=== PATIENT | male | born 1955 | race Caucasian/White ===

== ENCOUNTER → 2021-03-27 | Outpatient (CLI) | payer MEDICARE, OTHER ==
[2021-03-27 12:27] VITALS: BP 153/85; PULSE 55; RESP 18
--- NOTE | 2021-03-27 12:50 | P.CONS ---
History of Present Illness - Reason for Consult Consult date: 03/27/21 - Chief Complaint Lower back and right leg pain - History of Present Illness This is a 66-year-old gentleman with history of chronic lower back pain with radiation to the right lower extremity down to the right foot without paresthesia. The patient feels weakness in the right leg but he denies any bowel or bladder dysfunction. The patient had anterior lumbar fusion a few years ago . Before the surgery his pain was mostly in the lower back and after the surgery the pain radiated down the right leg. This pain gets worse by walking and improved by sitting down it does wake him up at night and decreases his quality of sleep. His lumbar spine MRI shows central stenosis at the L3 4 and L4-L5 levels. He states that his right leg pain is more intense than his lower back pain. Past Medical History Past Medical History: Coronary Artery Disease (CAD), Chest Pain / Angina, GERD/Reflux, Hyperlipidemia, Hypertension, Myocardial Infarction (OR), Osteoa rthritis (OA) Additional Past Medical History / Comment(s): CAD, PCI, hypertension, hyperlipidemia, GERD, degenerative disc disease of the lumbar spine, chronic pain, chronic bronchitis. Last Myocardial Infarction Date:: 2004 History of Any Multi-Drug Resistant Organisms: None Reported Past Surgical History: Cholecystectomy, Heart Catheterization With Stent, Hernia Repair, Orthopedic Surgery Additional Past Surgical History / Comment(s): carpal tunnal repair, cyst remove d from the mouth, Left heart catheterization 2000 and 2004, right hernia repair, left arthroscopic knee surgery. Past Anesthesia/Blood Transfusion Reactions: No Reported Reaction Date of Last Stent Placement:: 2004 Smoking Status: Never smoker - Past Family History Mother Family Medical History: Cancer Father Family Medical History: Cancer Medications and Allergies Home Medications Medication Instructions Recorded Confirmed Type Aspirin 325 mg PO DAILY 09/29/14 08/27/16 History Ezetimibe [Zetia] 10 mg PO DAILY 09/29/14 08/27/16 History Isosorbide Dinitrate 10 mg PO BID 09/29/14 08/27/16 History Metoprolol Tartrate [Lopressor] 75 mg PO BID 09/29/14 08/27/16 History Montelukast [Singulair] 10 mg PO HS 09/29/14 08/27/16 History Ranitidine HCl 150 mg PO DAILY 09/29/14 08/27/16 History methocarbamoL [Methocarbamol] 750 mg PO TID 09/29/14 08/27/16 History Enalapril Maleate [Vasotec] 20 mg PO BID #60 tab 09/30/14 08/27/16 Rx HYDROcodone/APAP 7.5-325MG [[place] 1 tab PO Q6HR PRN 08/27/16 08/27/16 History 7.5-325] amLODIPine [Norvasc] 5 mg PO BID 08/27/16 08/27/16 History polyethylene glycoL 3350 [Miralax] 17 gm PO DAILY 08/27/16 08/27/16 History Allergies Allergy/AdvReac Type Severity Reaction Status Date / Time No Known Allergies Allergy Verified 03/22/21 15:04 Physical Exam Vitals: Vital Signs Pulse Resp BP Pulse Ox 03/27/21 12:23 55 L 18 153/85 95 - Constitutional General appearance: average body habitus - EENT Eyes: PERRLA - Neurologic Neuro exam of the lower extremities showed normal muscle strength bilaterally in the major muscle groups. Decreased but symmetrical knee reflexes and absent ankle reflex bilaterally. Straight leg raising test negative bilaterally. Mild tenderness in the lumbar paravertebral musculature bilaterally. Neurologic: CNII-XII intact - Psychiatric Psychiatric: A&O x's 3, appropriate affect, intact judgment & insight Assessment and Plan Plan: This is a 66-year-old gentleman with the following diagnoses Lumbar postlaminectomy pain syndrome status post anterior fusion Lumbar stenosis Right lumbar radiculitis Marijuana use Failure to respond to physical therapy The patient may benefit from getting lumbar epidural steroid injection at the L4 5 level in the right paramedian approach under fluoroscopic guidance. I thank Dr. Barron for the referral
== END ==
LOC: PNWHC3 12:07
PROVIDERS: ATTEND Anesthesiology
DX: M96.1 Postlaminectomy syndrome, not elsewhere classified (principal); M48.061 Spinal stenosis, lumbar region without neurogenic claudication; M54.16 Radiculopathy, lumbar region; F12.90 Cannabis use, unspecified, uncomplicated; K21.9 Gastro-esophageal reflux disease without esophagitis; E78.5 Hyperlipidemia, unspecified; I10 Essential (primary) hypertension; M19.90 Unspecified osteoarthritis, unspecified site; I25.2 Old myocardial infarction; I25.10 Atherosclerotic heart disease of native coronary artery without angina pectoris; Z79.82 Long term (current) use of aspirin; Z79.899 Other long term (current) drug therapy
CPT/HCPCS: 99211

== ENCOUNTER 2021-05-11 13:02 | Day surgery (SDC) | payer MEDICARE, OTHER ==
[2021-05-10 09:23] VITALS: BMI 27.3
[2021-05-11 13:37] VITALS: RESP 18; TEMP 98.7
[2021-05-11] MEDS ORDERED: LACTATED RINGERS 1,000 ML IV ONE (13:42)
[2021-05-11] MEDS ORDERED: fentaNYL (PF) 50 MCG/ML 2 ML AMP ONE (13:55)
[2021-05-11] MEDS ORDERED: IOPAMIDOL M200 10 ML VIAL ONE (13:55)
[2021-05-11] MEDS ORDERED: MIDAZOLAM 2 MG/2 ML VIAL ONE (13:55)
[2021-05-11] MEDS ORDERED: methylPREDNISolone ACETATE 40 MG/ML 1 ML VIAL ONE (14:11)
--- NOTE | 2021-05-11 14:11 | P.PCN ---
Date of Procedure: 05/11/21 Procedure(s) Performed: PREOPERATIVE DIAGNOSIS: 1- Lumbar spinal stenosis. 2-Failed back surgery syndrome lumbar area ( anterior approach ) POSTOPERATIVE DIAGNOSIS: Same as preop diagnosis. PROCEDURE 1. Lumbar epidural steroid injection under fluoroscopic guidance at the L4-5 level.(RT paramedial ) (Fluoroscopy imaging was available in radiology department) 2. Lumbar epidurogram. ANESTHESIA: Local with 1% lidocaine 3 ml and , moderate sedation with intravenous Versed 2 mg ,and fentanyle 50 Mcg EBL: Minimal PROCEDURE INDICATION: The patient with low back pain and radiculitis symptoms unresponsive to conservative treatment. Fluoroscopy was used to optimize vi sualization of the needle placement and to maximize safety. PROCEDURE DESCRIPTION / TECHNIQUE: The patient was seen and identified in the preoperative area. Risks, benefits, complications including but not limited to infections ,bleeding ,allergic reaction to the medications ,nerve damage and not complete pain releife , and alternatives were discussed with the patient. The patient agreed to proceed with the procedure and signed the consent. IV was started, and vital signs were stable. Patient was taken to the OR and time out was completed. The patient was placed in the prone position on procedure table and a pillow was placed under the abdomen to reduce lumbar lordosis. The lumbosacral area was prepped and draped in the usual sterile fashion.ere closely monitored during the procedure. Conscious sedation was used during the procedure to decrease patients anxiety. Vital signs was monitered during the entire procedure. Using anterior-posterior fluoroscopy, the L4-5 interlaminar space was identified and the skin over this site was marked and then infiltrated with 1% lidocaine subcutaneously. Subsequently, a 20-gauge Tuohy epidural needle was inserted and advanced toward the epidural space using the ``Loss of resistance technique and guided by AP and lateral fluoroscopy. The correct needle position in the epidural space was verified with the injection of 2 mL of the water soluble contrast dye Isovue 200 contrast and observing an excellent epidurogram with the epidural spread of the dye, after negative aspiration for blood and CSF and in the absence of paresthesias. Again after negative aspiration, a 6 ml mixture containing 80 mg of Depo-medrol , and 2 ml of preservative free Normal Saline, and 2 ml of preservative free lidocaine 1% solution was injected and a washout of epidurogram was seen. Needle was withdrawn intact, skin was cleansed, and bandages were applied. COMPLICATIONS: None DISPOSITION / PLANS: The patient was placed in a supine position and transferred to the recovery area in a stable condition for observation. There was no evidence of lower extremity motor or sensory deficit after the procedure. Patient was discharged from the recovery room after meeting discharge criteria. Home discharge instructions were given to the patient by the staff. The patient was reexamined prior to discharge. The patient will schedule a follow up in the clinic in 2-4 weeks.
--- NOTE | 2021-05-11 14:29 | FL ---
EXAMINATION TYPE: FL guided pain mgmt statistic DATE OF EXAM: 05/11/2021 CLINICAL HISTORY: Low back pain. TECHNIQUE: Fluoroscopy. COMPARISON: None. FINDINGS: Fluoroscopic guidance was provided during pain relief procedure performed by Dr. Ramos . A total of 6 seconds of fluoroscopic time was utilized during the procedure and 1 spot images are acquired. Single image acquired shows needle localization at L4 level with surgical change in the anand mbar spine noted. IMPRESSION: As Above.
[2021-05-11 14:56] VITALS: BP 148/79; PULSE 55
== END 2021-05-11 15:06 | disposition home or self-care (01) ==
LOC: ORPAIN 13:02
PROVIDERS: ATTEND Specialist
DX: M48.061 Spinal stenosis, lumbar region without neurogenic claudication (principal); M96.1 Postlaminectomy syndrome, not elsewhere classified; Y83.8 Other surgical procedures as the cause of abnormal reaction of the patient, or of later complication, without mention of misadventure at the time of the procedure; M51.36 Other intervertebral disc degeneration, lumbar region
CPT/HCPCS: 62323; J2250; J3010; Q9966

== ENCOUNTER 2021-06-20 12:39 | Day surgery (SDC) | payer MEDICARE, OTHER ==
[2021-06-19 09:53] VITALS: BMI 26.6
[~2021-06-20 12:39] MED LIST: LACTATED RINGERS 1,000 ML IV SCH
[2021-06-20 12:53] VITALS: TEMP 98.2
[2021-06-20] MEDS ORDERED: LACTATED RINGERS 1,000 ML IV ONE (12:53)
--- NOTE | 2021-06-20 13:15 | P.PCN ---
Date of Procedure: 06/20/21 Surgeon: Piedad Hoffmann Pathology: none sent Condition: stable Disposition: PACU Description of Procedure: PREOPERATIVE DIAGNOSIS: 1-Lumbar radiculopathy 2- Lumber Degenerative Disc Diseases. POSTOPERATIVE DIAGNOSIS: 1-Lumbar radiculopathy. 2-Lumbar Degenerative Disc Diseases PROCEDURE 1. Lumbar epidural steroid injection under fluoroscopic guidance at the L5-S1 level in the right paramedian approach. 2. Lumbar epidurogram. ANESTHESIA: Local only with 1% lidocaine EBL: Minimal PROCEDURE INDICATION: The patient with low back pain and radiculitis symptoms unresponsive to conservative treatment. Fluoroscopy was used to optimize visualization of the needle placement and to maximize safety. Of note: The patient had lumbar fusion between L4 and L5, with hardware on the left side of the spine. PROCEDURE DESCRIPTION / TECHNIQUE: The patient was seen and identified in the preoperative area. Risks, benefits, complications including but not limited to infections ,bleeding ,allergic reaction to the medications ,nerve damage and not complete pain relief , and alternatives were discussed with the patient. The patient agreed to proceed with the procedure and signed the consent. IV was started, and vital signs were stable. Patient was taken to the OR and time out was completed. The patient was placed in the prone position on procedure table and a pillow was placed under the abdomen to reduce lumbar lordosis. The lumbosacral area was prepped and draped in the usual sterile fashion with ChloraPrep.Patient was closely monitored during the procedure. Conscious sedation was used during the procedure to decrease patients anxiety. Vital signs were monitered during the entire procedure. Using anterior-posterior fluoroscopy, the L5-S1 interlaminar space was identified and the skin over this site was marked and then infiltrated with 1% lidocaine subcutaneously. Subsequently, a 20-gauge Tuohy epidural needle was inserted and advanced toward the epidural space using the Loss of resistance to air technique and guided by AP and lateral fluoroscopy. The correct needle position in the epidural space was verified with the injection of 1 mL of the water soluble contrast dye Omnipaque 180 contrast and observing an excellent epidurogram with the epidural spread of the dye, after negative aspiration for blood and CSF and in the absence of paresthesias. Again after negative aspiration, a 8 ml mixture containing 40 mg of Kenalog and 4 ml of preservative free Normal Saline, and 2 ml of preservative free ropivacaine 0.5% solution was injected and a washout of epidurogram was seen. Needle was withdrawn intact, skin was cleansed, and bandages were applied. patient tolerated procedure well and was transferred to PACU in stable condition.A copy of the needle placement picture was saved to the fluoroscopy machine. COMPLICATIONS: None DISPOSITION / PLANS: The patient was placed in a supine position and transferred to the recovery area in a stable condition for observation. There was no evidence of lower extremity motor or sensory deficit after the procedure. Patient was discharged from the recovery room after meeting discharge criteria. Home discharge instructions were given to the patient by the staff. The patient was reexamined prior to discharge. The patient will schedule a follow up in the clinic in 2-4 weeks.
[2021-06-20 13:21] VITALS: BP 113/65; PULSE 76; RESP 16
--- NOTE | 2021-06-20 15:15 | FL ---
Fluoroscopy HISTORY: Pain 4 seconds fluoroscopy time supplied to the referring clinician. 2 intraoperative C-arm images docume nt the procedure. See dictated report from anesthesia.
== END 2021-06-20 13:35 | disposition home or self-care (01) ==
LOC: ORPAIN 12:39
PROVIDERS: ATTEND Anesthesiology
DX: M51.16 Intervertebral disc disorders with radiculopathy, lumbar region (principal)
CPT/HCPCS: 62323

== ENCOUNTER → 2022-09-17 | Outpatient (CLI) | payer MEDICARE, OTHER ==
[2022-09-17 13:32] VITALS: BP 123/70; PULSE 48; RESP 16; TEMP 98.1
--- NOTE | 2022-09-17 15:25 | P.PAINPG ---
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 Pain level is provoked at 9 /10 in intensity, constant, localized in the lumbar spine, pinching/ crushing in character w shooting towards the RLE. Pain is provoked by bending, twisting, sitting for periods of 5-10 min. Pain is alleviated with use of a wheelchair and cane for ambulatory assistance, medications ([place] 10/325, baclofen), heat, daily stretching regimen when tolerable, repositioning and rest. Interventional pain procedures completed include DEVONTE L5-S1 (2020) Patient is currently on Candor 10/325 mg, Baclofen 10mg Patient denies any side effects of the medication(s), denies excessive drowsiness or sleepiness, denies suicidal ideation and reports that the current pain medication is helping to control the pain and improve activities of daily living. Patient denies any motor or sensory deficits. Patient denies any fever or night sweats, denies any change in the bowel movements or urination. Physical Examination: -Constitutional: Cooperative. Not in acute distress . - Neurologic: Cranial nerve II to XII intact. No focal neurological defici ts. - Psychatric: Alert & oriented x 3. Matching mood & appropriate affect. Judgment and insight intact. - Musculoskeletal: Cervical spine: Muscle bulk/ tone/ strength in the bilateral upper extremities normal Vertebral body tenderness to palpation over Spurling test positive Distraction test positive Facet loading test positive Thoracic spine Muscle bulk / tone/ strength in the bilateral paraspinal muscles normal Vertebral body tender to palpation over Facet loading test positive Lumbar spine: Motor bulk/ tone/ strength lower extremities , thigh and legs : 5/5 Deep tendon reflexes : Normal Knee Jerk. Normal Ankle Jerk . Vertebral body tenderness to palpation over Lumbar Facet Loading Test positive Straight Leg Raise: positive at 30 degrees right side/ left side Gaenslen's Test positive Sacral spine : Severe tenderness over the Sacroiliac joint: right side / left side Range of motion: Flexion of the lumbar spine <60 degrees Range of motion: Extension of the lumbar spine <20 degrees Gaenslen's Test positive R Joanna test: positive right side / left side R Thigh Thrust Test Sacral Thrust Test R side Imaging: MRI without contrast of the lumbar spine from 09/30/20 reviewed Assessment and plan: Chronic low back pain secondary to lumbar degenerative disc disease, spondylosis with facet arthropathy without myelopathy Recommendation of R SI injection. Patient may need a series of injections, up to 4 within a 12 month timeframe, for optimal pain relief. Risks, benefits of procedure discussed and pt verbalized understanding. Admits to anticoagulant use or medical history of diabetes. Protocol for discontinuation/continuation of medications junior procedure discussed. All patient questions answered I have spent less than 30 minutes on patient care today. Dr Ramos was available by phone for the evaluation of this patient. The time was used to review the medical records including relevant urine studies and Prescription history (MAPs), review of the available imaging, evaluation and examination of the patient, coordination of care with the medical staff and if applicable referring physicians, as well as creation of the medical record - Pain Location Right Lower Back Non-Pharmacological Interventions: Heat, Home Exercise, Inactivity Pharmacological Interventions: PRN Medication, Topical Medication PQRS Narrative: Smoking Status Never smoker Blood Pressure 123/70 Pain Intensity [Right Lower 9 Back] Scale Used Numeric (1 - 10) Hx Alcohol Use (MH) No Home Medications: Ambulatory Orders Isosorbide Dinitrate 10 mg PO BID 09/29/14 Metoprolol Tartrate [Lopressor] 75 mg PO BID 09/29/14 Montelukast [Singulair] 10 mg PO HS 09/29/14 Enalapril Maleate [Vasotec] 20 mg PO BID #60 tab 09/30/14 Baclofen [Lioresal] 10 mg PO QID 05/10/21 HYDROcodone/APAP 10-325MG [[place] 10-325] 1 tab PO Q6HR PRN 05/10/21 Potassium Chloride [Klor-Con 20] 20 meq PO DAILY 05/10/21 Tamsulosin [Flomax] 0.4 mg PO DAILY 05/10/21 Aspirin [Adult Low Dose Aspirin EC] 81 mg PO HS 06/19/21 Pantoprazole [Protonix] 40 mg PO DAILY 06/19/21 Apixaban [Eliquis] 5 mg PO BID 09/17/22 Ezetimibe [Zetia] 10 mg PO DAILY 09/17/22 Controlled Substance Measures - Controlled Substance Measures Is patient prescribed a controlled substance at discharge?: No
== END ==
LOC: PNWHC3 13:01
PROVIDERS: ATTEND Specialist
DX: M47.816 Spondylosis without myelopathy or radiculopathy, lumbar region (principal); M51.36 Other intervertebral disc degeneration, lumbar region; Z79.01 Long term (current) use of anticoagulants
CPT/HCPCS: 99211

== ENCOUNTER → 2022-12-10 | Outpatient (CLI) | payer MEDICARE, OTHER ==
[2022-12-10 14:59] VITALS: BP 110/67; PULSE 54; RESP 18; TEMP 97.8
--- NOTE | 2022-12-10 16:30 | P.PAINPG ---
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 Pt states he experienced 0 % pain relief x 3 wks s/p procedure. Pain level is prov oked at 8 /10 in intensity, constant, localized in the lumbar spine, sharp in character w shooting towards the BLEs. Pain is provoked by bending, walking for periods of 20 min or more. Pain is alleviated with massage therapy which was ineffective, heat, meds, reclining, repositioning and rest. 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 Patient denies any motor or sensory deficits. Patient denies any fever or night sweats, denies any change in the bowel movements or urination. Physical Examination: -Constitutional: Cooperative. Not in acute distress . - Neurologic: Cranial nerve II to XII intact. No focal neurological deficits. - Psychatric: Alert & oriented x 3. Matching mood & appropriate affect. Judgment and insight intact. - Musculoskeletal: Cervical spine: Muscle bulk/ tone/ strength in the bilateral upper extremities normal Vertebral body tenderness to palpation over Spurling test positive Distraction test positive Facet loading test positive TTP Thoracic spine Muscle bulk / tone/ strength in the bilateral paraspinal muscles normal Vertebral body tender to palpation over Facet loading test positive TTP Lumbar spine: Motor bulk/ tone/ strength lower extremities , thigh and legs : 5/5 Deep tendon reflexes : Normal Knee Jerk. Normal Ankle Jerk . Vertebral body tenderness to palpation Lumbar Facet Loading Test positive TTP over BL paraspinal L1-S1 Straight Leg Raise: positive at 30 degrees right side/ left side Gaenslen's Test positive Sacral spine : Severe tenderness over the Sacroiliac joint: right side / left side Range of motion: Flexion of the lumbar spine <60 degrees Range of motion: Extension of the lumbar spine <20 degrees Gaenslen's Test positive right side / left side Joanna test: positive right side / left side Thigh Thrust Test positive right side / left side Sacral Thrust Test positive right side / left side Assessment and plan: Chronic LBP secondary to lumbar DDD, spondylosis with facet arthropathy without myelopathy Recommendation of BL TPIs L1-S1. May need a series of injections for optimal pain relief. Risks, benefits of procedure discussed and pt verbalized understanding. Admits to anticoagulant use or medical history of diabetes. Protocol for discontinuation/ continuation of medications junior procedure discussed. All questions answered. I have spent less than 30 minutes on patient care today. Dr Ramos was available by phone for the evaluation of this patient. The time was used to review the medical records including relevant urine studies and Prescription history (MAPs), review of the available imaging, evaluation and examination of the patient, coordination of care with the medical staff and if applicable referring physicians, as well as creation of the medical record PQRS Narrative: Smoking Status Never smoker Hx Alcohol Use (MH) No Home Medications: Ambulatory Orders Isosorbide Dinitrate [[place]] 10 mg PO BID 09/29/14 Metoprolol Tartrate [Lopressor] 75 mg PO BID 09/29/14 Montelukast [Singulair] 10 mg PO HS 09/29/14 Enalapril Maleate [Vasotec] 20 mg PO BID #60 tab 09/30/14 Baclofen [Lioresal] 10 mg PO QID 05/10/21 HYDROcodone/APAP 10-325MG [[place] 10-325] 1 tab PO Q6HR PRN 05/10/21 Potassium Chloride [Klor-Con 20] 20 meq PO DAILY 05/10/21 Tamsulosin [Flomax] 0.4 mg PO DAILY 05/10/21 Aspirin [Adult Low Dose Aspirin EC] 81 mg PO HS 06/19/21 Pantoprazole [Protonix] 40 mg PO DAILY 06/19/21 Apixaban [Eliquis] 5 mg PO BID 09/17/22 Ezetimibe [Zetia] 10 mg PO DAILY 09/17/22 Controlled Substance Measures - Controlled Substance Measures Is patient prescribed a controlled substance at discharge?: No
== END ==
LOC: PNWHC3 13:59
PROVIDERS: ATTEND Specialist
DX: M51.36 Other intervertebral disc degeneration, lumbar region (principal); M47.816 Spondylosis without myelopathy or radiculopathy, lumbar region; G89.29 Other chronic pain; Z79.899 Other long term (current) drug therapy; Z79.82 Long term (current) use of aspirin
CPT/HCPCS: 99211

== ENCOUNTER 2023-01-03 12:56 | Day surgery (SDC) | payer MEDICARE, OTHER ==
[2023-01-03 13:38] VITALS: TEMP 97.8
[2023-01-03] MEDS ORDERED: fentaNYL (PF) 50 MCG/ML 2 ML AMP ONE (13:46)
[2023-01-03] MEDS ORDERED: TRIAMCINOLONE ACETONIDE 40 MG/ML 1 ML VIAL ONE (13:46)
[2023-01-03] MEDS ORDERED: ROPIVACAINE 5 MG/ML 20 ML AMPULE ONE (13:46)
[2023-01-03] MEDS ORDERED: MIDAZOLAM 2 MG/2 ML VIAL ONE (13:46)
--- NOTE | 2023-01-03 14:02 | P.PCN ---
Date of Procedure: 01/03/23 Description of Procedure: Pre and postop diagnosis: Myofascial pain syndrome Procedure: Trigger point injections X 2 Muscle group -Bilateral lumbar paraspinal muscles Surgeon: Ana Laura Puga Anesthesia: Versed 1 mg, and fentanyl 50 g sedation Supervision start time: 1351 Sedation supervision ended time: 1359 Complications: None Estimated blood loss: None Specimen removed: None Procedure indications: Patient had a history of myofascial pain syndrome. Patient tried conservative therapy. Came here for intervention procedure for better pain relief. Procedure description: Patient was seen and identified in the holding area risk benefits competitions alternative discussed with the patient. Patient agreed to proceed for the procedure signed the consent. Patient taken to the procedure area. Timeout was completed. A total number of 2 - trigger point area was marked with a sterile marker. After ChloraPrep used to clean the area. Critical pause was taken. Using 25-gauge 1-1/2 inch needle. Needle entered in each market site 2 mL of block solution injected at each level. The block solution containing 4 ml of 0.5% preservative-free ropivacaine with [place]log 40 MG. Needle removed intact skin cleaned and Band-Aid applied. Patient tolerated the procedure well. Disposition: Patient discharge home after meeting the discharge criteria from the recovery. Patient scheduled to follow up with the pain clinic in 4 weeks for follow-up visit.
[2023-01-03] MEDS ORDERED: IV FLUID CONTINUATION 900 ML IV ONE (14:03)
[2023-01-03 14:10] VITALS: RESP 16
[2023-01-03 14:20] VITALS: BP 119/72; PULSE 57
== END 2023-01-03 14:45 | disposition home or self-care (01) ==
LOC: ORPAIN 12:56
DX: M79.18 Myalgia, other site (principal); I10 Essential (primary) hypertension; E78.00 Pure hypercholesterolemia, unspecified; G62.9 Polyneuropathy, unspecified; Z90.49 Acquired absence of other specified parts of digestive tract; Z79.01 Long term (current) use of anticoagulants
CPT/HCPCS: 20553

== ENCOUNTER → 2023-01-23 | Outpatient (CLI) | payer MEDICARE, OTHER ==
[2023-01-23 13:54] VITALS: BP 142/83; PULSE 55; RESP 18; TEMP 97.7
--- NOTE | 2023-01-23 14:32 | P.PAINPG ---
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 Pt states he experienced 25 % pain relief x 2-3 wks s/p procedure. Pain level is provoked at 6 /10 in intensity, constant, localized in the lumbar spine, sharp in character w shooting towards the RLE. Pain is provoked by walking/ standing for periods of 20 min or more. Pain is alleviated with injections, heat, ice, use of a wheelchair and cane for ambulatoryt assistance, medications, sitting, repositioning and rest. Interventional pain procedures completed include Lumbar TPIs, R SI x1, R pa ramedian DEVONTE L5-S1 x1, DEVONTE L4-5 x1 Patient is currently on Baclofen, [place] Patient denies any side effects of the medication(s), denies excessive drowsiness or sleepiness, denies suicidal ideation and reports that the current pain medication is helping to control the pain and improve activities of daily living. Patient denies any motor or sensory deficits. Patient denies any fever or night sweats, denies any change in the bowel movements or urination. Physical Examination: -Constitutional: Cooperative. Not in acute distress . - Neurologic: Cranial nerve II to XII intact. No focal neurological deficits. - Psychatric: Alert & oriented x 3. Matching mood & appropriate affect. Judgment and insight intact. - Musculoskeletal: Cervical spine: Muscle bulk/ tone/ strength in the bilateral upper extremities normal Vertebral body tenderness to palpation over Spurling test positive Distraction test positive Facet loading test positive TTP Thoracic spine Muscle bulk / tone/ strength in the bilateral paraspinal muscles normal Vertebral body tender to palpation over Facet loading test positive TTP Lumbar spine: Motor bulk/ tone/ strength lower extremities , thigh and legs : 5/5 Deep tendon reflexes : Normal Knee Jerk. Normal Ankle Jerk . Vertebral body tenderness to palpation over Lundberg Test positive Lumbar Facet Loading Test positive on L5-S1 Straight Leg Raise: positive at 30 degrees right side/ left side Gaenslen's Test positive Sacral spine : Severe tenderness over the Sacroiliac joint: right side / left side Range of motion: Flexion of the lumbar spine <60 degrees Range of motion: Extension of the lumbar spine <20 degrees Gaenslen's Test positive right side / left side Joanna test: positive right side / left side Thigh Thrust Test positive right side / left side Sacral Thrust Test positive right side / left side Assessment and plan: Chronic LBP secondary to lumbar DDD, spondylosis with facet arthropathy without myelopathy Recommendation of BL L5-S1 facet block of the medial branches #1. May need a series of injections, up until RFA, for optimal pain relief. Risks, benefits of procedure discussed and pt verbalized understanding. Admits to anticoagulant use or medical history of diabetes. Protocol for discontinuation/ continuation of medications junior procedure discussed. Minimal anesthesia provided, if clinically indicated, consisting of Versed and Fentanyl. All quest ions answered. I have spent less than 30 minutes on patient care today. Dr Ramos was available by phone for the evaluation of this patient. The time was used to review the medical records including relevant urine studies and Prescription history (MAPs), review of the available imaging, evaluation and examination of the patient, coordination of care with the medical staff and if applicable refe rring physicians, as well as creation of the medical record PQRS Narrative: Smoking Status Never smoker Hx Alcohol Use (MH) No Home Medications: Ambulatory Orders Isosorbide Dinitrate [Monoket] 10 mg PO BID 09/29/14 Metoprolol Tartrate [Lopressor] 75 mg PO BID 09/29/14 Montelukast [Singulair] 10 mg PO HS 09/29/14 Enalapril Maleate [Vasotec] 20 mg PO BID #60 tab 09/30/14 Baclofen [Lioresal] 10 mg PO QID 05/10/21 HYDROcodone/APAP 10-325MG [[place] 10-325] 1 tab PO Q6HR PRN 05/10/21 Tamsulosin [Flomax] 0.4 mg PO DAILY 05/10/21 Aspirin [Adult Low Dose Aspirin EC] 81 mg PO HS 06/19/21 Pantoprazole [Protonix] 40 mg PO DAILY 06/19/21 Apixaban [Eliquis] 5 mg PO BID 09/17/22 Ezetimibe [Zetia] 10 mg PO DAILY 09/17/22 Controlled Substance Measures - Controlled Substance Measures Is patient prescribed a controlled substance at discharge?: No
== END ==
LOC: PNWHC3 12:43
PROVIDERS: ATTEND Specialist
DX: M51.37 Other intervertebral disc degeneration, lumbosacral region (principal); M47.817 Spondylosis without myelopathy or radiculopathy, lumbosacral region; G89.29 Other chronic pain; Z79.82 Long term (current) use of aspirin
CPT/HCPCS: 99211

== ENCOUNTER 2023-02-14 12:16 | Day surgery (SDC) | payer MEDICARE, OTHER ==
[2023-02-14 12:54] VITALS: TEMP 98.1
[2023-02-14] MEDS ORDERED: LACTATED RINGERS 1,000 ML IV ONE (13:16)
[2023-02-14] MEDS ORDERED: methylPREDNISolone ACETATE 40 MG/ML 1 ML VIAL ONE (13:20)
[2023-02-14] MEDS ORDERED: MIDAZOLAM 2 MG/2 ML VIAL ONE (13:20)
[2023-02-14] MEDS ORDERED: ROPIVACAINE 5 MG/ML 20 ML AMPULE ONE (13:20)
[2023-02-14] MEDS ORDERED: fentaNYL (PF) 50 MCG/ML 2 ML AMP ONE (13:20)
--- NOTE | 2023-02-14 13:28 | P.PCN ---
Date of Procedure: 02/14/23 Procedure(s) Performed: PREOPERATIVE DIAGNOSIS : 1- Lumbar spondylosis with Facet Arthropathy without myelopathy . 2- Lumber degenerative disc disease POSTOPERATIVE DIAGNOSIS: 1- Lumbar spondylosis with Facet Arthropathy without myelopathy . 2- Lumber degenerative disc disease PROCEDURE: Diagnostic bilateral L4 , and L5 medial branch block under fluoroscopy guidance(fluoroscopy images available in the radiology Department ) ( To target the facet joint between Bilateral L5-S1 ) ANESTHESIA:, moderate sedation with intravenous Versed 2 mg and Fentanyl 100 mcg. sedation start at 1320 2nd at 1326 EBL: Minimal COMPLICATION: None PROCEDURE INDICATION: Chronic low back pain secondary to Facet arthropathy unresponsive to conservative treatment. PROCEDURE DESCRIPTION: the patient was seen and identified in the preop holding area , risks and benefits and possible complications of the procedure and alternative were discussed with the patient, and the patient agreed to proceed with the procedure and signed the consent and vital signs monitored during the procedure and fluoroscopy was used to maximize the benefit and accuracy of the needle placement, and sedation was given to decrease patient anxiety, patient was taken to the procedure room and placed in prone position vital signs monitored in the back prepped with chlorhexidine X3 then under strict sterile technique using a right oblique fluoroscopy ,the junction of the transverse process and the superior articulating process of the right L4 , and L5 vertebra which corresponding to the fluoroscopy image of the eye of the Alvaro dog on the block side for the medial branches and subsequently , after local infiltration of skin and subcu tissuies with Ropivacaine 0.5 % , one mL at each level ,then 22-gauge Quincke-type needles , 2needle was used , each one of them placed at the junction of the base of the transverse process and the superior articular process at the appropriate level, and the needle was advanced until the periosteum contacted, needle placement confirmed with AP oblique and lateral view and after appropriate needle placement confirmed, and after negative aspiration for heme and CSF and there was no paresthesia 1 mL of Ropivacaine 0.5% mixed with 20 mg Depo-Medrol , then half mL injected at each level after negative aspiration the needle subsequently removed and the same procedure repeated for the left side at left side at L4 and L5 levels. At the end of the procedure and the needles removed and a bandage applied after the skin was cleaned the cleaning solution patient taken to recovery room in stable condition and monitors in the recovery room for 20-30 minutes and discharged home in stable condition after discharge criteria met and patient will follow up with the pain clinic in 2-4 weeks
[2023-02-14] MEDS ORDERED: IV FLUID CONTINUATION 1,000 ML IV ONE (13:31)
[2023-02-14 13:34] VITALS: RESP 18
[2023-02-14 13:51] VITALS: BP 100/65; PULSE 55
--- NOTE | 2023-02-14 14:02 | FL ---
Intraoperative/procedural fluoroscopic services were provided for lumbar bilateral facet block. Total fluoroscopy time is 7.5 seconds with a total of 4 submitted images to PACS. Total DAP [id number] mGym2. Please see the operative note for further details.
== END 2023-02-14 14:01 | disposition home or self-care (01) ==
LOC: ORPAIN 12:16
PROVIDERS: ATTEND Specialist
DX: M47.816 Spondylosis without myelopathy or radiculopathy, lumbar region (principal); G89.29 Other chronic pain; Z79.01 Long term (current) use of anticoagulants; Z79.82 Long term (current) use of aspirin
CPT/HCPCS: 64493; J2250; J1030; J3010; J2795

== ENCOUNTER → 2023-03-14 | Outpatient (CLI) | payer MEDICARE, OTHER ==
[2023-03-14 12:48] VITALS: BP 136/68; PULSE 62; RESP 14; TEMP 98
--- NOTE | 2023-03-14 14:35 | P.PAINPG ---
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 Pt states he experienced 20 % pain relief x 4 hours s/p proc edure. Pain level is provoked at 6 /10 in intensity, constant, localized in the lumbar spine, sharp in character w shooting towards the RLE. Pain is provoked by walking/ standing for periods of 20 min or more. Pain is alleviated with injections, heat> ice, use of a wheelchair and cane for ambulatory assistance, medications, sitting, repositioning and rest. Pt tried PT x 6 wks in 2018 which was of no benefit. Interventional pain procedures completed include Lumbar TPIs, R SI x1, R paramedian DEVONTE L5-S1 x1, DEVONTE L4-5 x1, BL MBB L3-L5 x1 Patient is currently on Baclofen, [place] Patient denies any side effects of the medication(s), denies excessive drowsiness or sleepiness, denies suicidal ideation and reports that the current pain medication is helping to control the pain and improve activities of daily living. Patient denies any motor or sensory deficits. Patient denies any fever or night sweats, denies any change in the bowel movements or urination. Physical Examination: -Constitutional: Cooperative. Not in acute distress . - Neurologic: Cranial nerve II to XII intact. No focal neurological deficits. - Psychatric: Alert & oriented x 3. Matching mood & appropriate affect. Judgment and insight intact. - Musculoskeletal: Cervical spine: Muscle bulk/ tone/ strength in the bilateral upper extremities normal Vertebral body tenderness to palpation over Spurling test positive Distraction test positive Facet loading test positive TTP Thoracic spine Muscle bulk / tone/ strength in the bilateral paraspinal muscles normal Vertebral body tender to palpation over Facet loading test positive TTP Lumbar spine: Motor bulk/ tone/ strength lower extremities , thigh and legs : 5/5 Deep tendon reflexes : Normal Knee Jerk. Normal Ankle Jerk . Vertebral body tenderness to palpation over L4, L5 Lundberg Test positive Lumbar Facet Loading Test positive on L5-S1 Straight Leg Raise: positive at 30 degrees right side/ left side Gaenslen's Test positive Sacral spine : Severe tenderness over the Sacroiliac joint: right side / left side Range of motion: Flexion of the lumbar spine <60 degrees Range of motion: Extension of the lumbar spine <20 degrees Gaenslen's Test positive right side / left side Joanna test: positive right side / left side Thigh Thrust Test positive right side / left side Sacral Thrust Test positive right side / left side Assessment and plan: Chronic LBP secondary to lumbar DDD, spondylosis with facet arthropathy without myelopathy Recommendation of SCS Trial Dx: G89.4, M54.16 Video viewed. Script for behavioral health provided. May need a series of injections, up until RFA, for optimal pain relief. Risks, benefits of procedure discussed and pt verbalized understanding. Admits to anticoagulant use or medical history of diabetes. Protocol for discontinuation/ continuation of medications junior procedure discussed. Minimal anesthesia provided, if clinically indicated, consisting of Versed and Fentanyl. All questions answered. I have spent less than 30 minutes on patient care today. Dr Ramos was available by phone for the evaluation of this patient. The time was used to review the medical records including relevant urine studies and Prescription history (MAPs), review of the available imaging, evaluation and examination of the patient, coordination of care with the medical staff and if applicable referring physicians, as well as creation of the medical record - Pain Location Bilateral Lower Back Non-Pharmacological Interventions: Heat, Physical Therapy, Sitting Pharmacological Interventions: Scheduled Medication PQRS Narrative: Smoking Status Never smoker Hx Alcohol Use (MH) No Home Medications: Ambulatory Orders Isosorbide Dinitrate [Monoket] 10 mg PO BID 09/29/14 Metoprolol Tartrate [Lopressor] 75 mg PO BID 09/29/14 Montelukast [Singulair] 10 mg PO HS 09/29/14 Enalapril Maleate [Vasotec] 20 mg PO BID #60 tab 09/30/14 Baclofen [Lioresal] 10 mg PO QID 05/10/21 HYDROcodone/APAP 10-325MG [[place] 10-325] 1 tab PO Q6HR PRN 05/10/21 Tamsulosin [Flomax] 0.4 mg PO QAM 05/10/21 Aspirin [Adult Low Dose Aspirin EC] 81 mg PO HS 06/19/21 Pantoprazole [Protonix] 40 mg PO QAM 06/19/21 Apixaban [Eliquis] 5 mg PO BID 09/17/22 Ezetimibe [Zetia] 10 mg PO QAM 09/17/22 Controlled Substance Measures - Controlled Substance Measures Is patient prescribed a controlled substance at discharge?: No
== END ==
LOC: PNWHC3 12:22
PROVIDERS: ATTEND Specialist
DX: M51.37 Other intervertebral disc degeneration, lumbosacral region (principal); M47.817 Spondylosis without myelopathy or radiculopathy, lumbosacral region; G89.29 Other chronic pain; Z79.82 Long term (current) use of aspirin
CPT/HCPCS: 99211

== ENCOUNTER 2024-01-22 13:21 | Emergency (ER) | payer MEDICARE, OTHER ==
[2024-01-22 13:35] VITALS: PULSE 75; RESP 18; TEMP 98.2
--- NOTE | 2024-01-22 15:30 | ED ---
General Adult HPI - General Chief complaint: Syncope Stated complaint: KINA,syncope Time Seen by Provider: 01/22/24 14:50 Source: patient, RN notes reviewed, old records reviewed Mode of arrival: ambulatory Limitations: no limitations - History of Present Illness Initial comments: This is a 68-year-old male who comes to the emergency department complaining that he is lightheaded and is vomiting. Patient states he has had this on and off for the last 2 to 3 years. Patient states has been to the hospital multiple times and they cannot figure it out. Patient states he went to [facility] today and they discharged him and he still felt bad so he came here. Patient denies chest pain. Patient denies any pain at all. Patient has abdominal pain patient is any diarrhea. Patient denies headache patient [place] any numbness or weakness. Patient states he just feels lightheaded. - Related Data Home Medications Medication Instructions Recorded Confirmed Isosorbide Dinitrate [Monoket] 10 mg PO BID 09/29/14 01/22/24 Metoprolol Tartrate [Lopressor] 75 mg PO BID 09/29/14 01/22/24 Montelukast [Singulair] 10 mg PO HS 09/29/14 01/22/24 Baclofen [Lioresal] 10 mg PO QID 05/10/21 01/22/24 HYDROcodone/APAP 10-325MG [[place] 1 tab PO Q6HR PRN 05/10/21 01/22/24 10-325] Tamsulosin [Flomax] 0.4 mg PO DAILY 05/10/21 01/22/24 Aspirin [Adult Low Dose Aspirin EC] 81 mg PO HS 06/19/21 01/22/24 Pantoprazole [Protonix] 40 mg PO BID 06/19/21 01/22/24 Apixaban [Eliquis] 5 mg PO BID 09/17/22 01/22/24 Ezetimibe [Zetia] 10 mg PO DAILY 09/17/22 01/22/24 Cetirizine HCl [Zyrtec] 10 mg PO DIRECTED 01/22/24 01/22/24 Enalapril Maleate [Vasotec] 20 mg PO DAILY 01/22/24 01/22/24 Fluoride (Sodium) [Sodium Fluoride 1 applic DENTAL HS 01/22/24 01/22/24 5000 Plus] Furosemide [Lasix] 20 mg PO DAILY 01/22/24 01/22/24 Ondansetron [Zofran] 4 mg PO DAILY PRN 01/22/24 01/22/24 QUEtiapine [SEROquel] 25 mg PO HS 01/22/24 01/22/24 amLODIPine [Norvasc] 10 mg PO DAILY 01/22/24 01/22/24 Allergies Allergy/AdvReac Type Severity Reaction Status Date / Time No Known Allergies Allergy Verified 01/22/24 16:52 Review of Systems ROS Statement: Those systems with pertinent positive or pertinent negative responses have been documented in the HPI. ROS Other: All systems not noted in ROS Statement are negative. Past Medical History Past Medical History: Coronary Artery Disease (CAD), Chest Pain / Angina, GERD/Reflux, Hyperlipidemia, Hypertension, Myocardial Infarction (MS), Osteoarthritis (OA), Prostate Disorder Additional Past Medical History / Comment(s): CAD, PCI, degenerative disc disease of the lumbar spine, chronic pain, neuropathy bilateral lower extremity, chronic bronchitis. Last Myocardial Infarction Date:: 2004 History of Any Multi-Drug Resistant Organisms: None Reported Past Surgical History: Cholecystectomy, Heart Catheterization With Stent, Hernia Repair, Orthopedic Surgery Additional Past Surgical History / Comment(s): carpal tunnal repair, cyst removed from the mouth, Left heart catheterization 2000 and 2004, right hernia repair, left arthroscopic knee surgery., pain clinic procedures. Past Anesthesia/Blood Transfusion Reactions: No Reported Reaction Date of Last Stent Placement:: 2004 Past Psychological History: No Psychological Hx Reported Smoking Status: Never smoker Past Alcohol Use History: None Reported Past Drug Use History: None Reported - Past Family History Mother Family Medical History: Cancer Father Family Medical History: Cancer General Exam - General Exam Comments Initial Comments: GENERAL: Patient is well-developed and well-nourished. Patient is nontoxic and well-hyd rated and is in mild distress. ENT: Neck is soft and supple. No significant lymphadenopathy is noted. Oropharynx is clear. Moist mucous membranes. Neck has full range of motion without eliciting any pain. EYES: The sclera were anicteric and conjunctiva were pink and moist. Extraocular movements were intact and pupils were equal round and reactive to light. Eyelids were unremarkable. PULMONARY: Unlabored respirations. Good breath sounds bilaterally. No audible rales rhonchi or wheezing was noted. CARDIOVASCULAR: There is a regular rate and rhythm without any murmurs gallops or rubs. Femoral pulses are equal bilaterally ABDOMEN: Soft and nontender with normal bowel sounds. SKIN: Skin is clear with no lesions or rashes and otherwise unremarkable. NEUROLOGIC: Patient is alert and oriented x3. Cranial nerves II through XII are grossly intact. Motor and sensory are also intact. Normal speech, volume and content. Symmetrical smile. MUSCULOSKELETAL: Normal extremities with adequate strength and full range of motion. LYMPHATICS: No significant lymphadenopathy is noted PSYCHIATRIC: Normal psychiatric evaluation. Limitations: no limitations Course Vital Signs 01/22/24 13:24 Temperature 98.2 F Pulse Rate 75 Respiratory 18 Rate Blood Pressure 163/83 O2 Sat by Pulse 98 Oximetry Medical Decision Making - Medical Decision Making EKG is interpreted by myself but EKG shows a sinus rhythm at a rate of 78 bpm QRS is 173 QT interval is 423 QTc is 457. Patient has a left bundle branch block Was pt. sent in by a medical professional or institution (, PA, SHIFT FOREMAN, urgent care, hospital, or usp...) When possible be specific @ -No Did you speak to anyone other than the patient for history (EMS, parent, family, police, friend...)? What history was obtained from this source @ -No Did you review nursing and triage notes (agree or disagree)? Why? @ -I reviewed and agree with nursing and triage notes Were old charts reviewed (outside hosp., previous admission, EMS record, old EKG, old radiological studies, urgent care reports/EKG's, usp records)? Report findings @ -No old charts were reviewed Differential Diagnosis (chest pain, altered mental status, abdominal pain women, abdominal pain men, vaginal bleeding, weakness, fever, dyspnea, syncope, headache, dizziness, GI bleed, back pain, seizure, CVA, palpatations, mental health, musculoskeletal)? @ -Differential Dizziness: Benign paroxysmal positional Vertigo, Meniere's disease, otitis media, acoustic neuroma, vertebrobasilar insufficiency, cerebellar stroke, encephalitis, hypovolemic, arrhythmia, coronary artery syndrome, anemia, this is not meant to be an all-inclusive list EKG interpreted by me (3pts min.). @ -As above X-rays interpreted by me (1pt min.). @ -None done CT interpreted by me (1pt min.). @ -None done U/S interpreted by me (1pt. min.). @ -None done What testing was considered but not performed or refused? (CT, X-rays, U/S, labs)? Why? @ -None What meds were considered but not given or refused? Why? @ -None Did you discuss the management of the patient with other professionals (professionals i.e. Dr., PA, SHIFT FOREMAN, lab, RT, psych nurse, social service agency director, bow maker custom, teacher, medical corps officer, welfare case worker)? Give summary @ -No Was smoking cessation discussed for >3mins.? @ -No Was critical care preformed (if so, how long)? @ -No Were there social determinants of health that impacted care today? How? (Homelessness, low income, unemployed, alcoholism, drug addiction, transportation, low edu. Level, literacy, decrease access to med. care, assisted, rehab)? @ -No Was there de-escalation of care discussed even if they declined (Discuss DNR or withdrawal of care, Hospice)? DNR status @ -No What co-morbidities impacted this encounter? (DM, HTN, Smoking, COPD, CAD, Cancer, CVA, ARF, Chemo, Hep., AIDS, mental health diagnosis, sleep apnea, morbid obesity)? @ -None Was patient admitted / discharged? Hospital course, mention meds given and route, prescriptions, significant lab abnormalities, going to OR and other pertinent info. @ -Patient was given a liter half-normal saline as well as Zofran. Patient stopped vomiting and was requesting to be discharged I reviewed lab work with the patient and told him everything was within normal range and he will follow- up with his primary medical care doctor. Patient already has Zofran at home. Undiagnosed new problem with uncertain prognosis? @ -No Drug Therapy requiring intensive monitoring for toxicity (Heparin, Nitro, Insulin, Cardizem)? @ -No Were any procedures done? @ -No Diagnosis/symptom? @ -Default Acute, or Chronic, or Acute on Chronic? @ -Vomiting acute Uncomplicated (without systemic symptoms) or Complicated (systemic symptoms)? @ -Complicated Side effects of treatment? @ -No Exacerbation, Progression, or Severe Exacerbation? @ -No Poses a threat to life or bodily function? How? (Chest pain, [place], MS, pneumonia, PE, COPD, DKA, ARF, appy, cholecystitis, CVA, Diverticulitis, Homicidal, Suicidal, threat to staff... and all critical care pts) @ -No Diagnosis/symptom? @ -Lightheadedness Acute, or Chronic, or Acute on Chronic? @ -Acute Uncomplicated (without systemic symptoms) or Complicated (systemic symptoms)? @ -Complicated Side effects of treatment? @ -None Exacerbation, Progression, or Severe Exacerbation] @ -No Poses a threat to life or bodily function? @ -No - Lab Data Result diagrams: 01/22/24 16:54 01/22/24 16:54 Lab Results 01/22/24 01/22/24 Range/Units 16:54 16:54 WBC 9.2 (3.8-10.6) k/uL RBC 3.93 L (4.30-5.90) m/uL Hgb 11.8 L (13.0-17.5) gm/dL Hct 35.4 L (39.0-53.0) % MCV 90.0 (80.0-100.0) fL MCH 30.0 (25.0-35.0) pg MCHC 33.4 (31.0-37.0) g/dL RDW 13.0 (11.5-15.5) % Plt Count 219 (150-450) k/uL MPV 9.1 Neutrophils % 80 % Lymphocytes % 12 % Monocytes % 5 % Eosinophils % 2 % Basophils % 0 % Neutrophils # 7.3 (1.3-7.7) k/uL Lymphocytes # 1.1 (1.0-4.8) k/uL Monocytes # 0.4 (0-1.0) k/uL Eosinophils # 0.2 (0-0.7) k/uL Basophils # 0.0 (0-0.2) k/uL Sodium 141 (137-145) mmol/L Potassium 4.6 (3.5-5.1) mmol/L Chloride 106 (98-107) mmol/L Carbon Dioxide 25 (22-30) mmol/L Anion Gap 10 mmol/L BUN 33 H (9-20) mg/dL Creatinine 2.19 H (0.66-1.25) mg/dL Est GFR (CKD-EPI)AfAm 34 (>60 ml/min/1.73 sqM) Est GFR (CKD-EPI)NonAf 29 (>60 ml/min/1.73 sqM) Glucose 113 H (74-99) mg/dL Calcium 9.6 (8.4-10.2) mg/dL Total Bilirubin 0.7 (0.2-1.3) mg/dL AST 25 (17-59) U/L ALT 17 (4-49) U/L Alkaline Phosphatase 83 (38-126) U/L Total Protein 7.7 (6.3-8.2) g/dL Albumin 4.5 (3.5-5.0) g/dL Disposition Clinical Impression: Acute vomiting, Lightheadedness Disposition: HOME SELF-CARE Condition: Good Instructions (If sedation given, give patient instructions): Lightheadedness (ED), Acute Nausea and Vomiting (ED) Is patient prescribed a controlled substance at d/c from ED?: No Referrals: None,Stated [Primary Care Provider] - 1-2 days Time of Disposition: 18:48
[2024-01-22] MEDS: SODIUM CHLORIDE 0.9% 1,000 ML IV ONE (16:52)
[2024-01-22] MEDS: ONDANSETRON 4 MG/2 ML VIAL IVP STA (16:52)
[2024-01-22] MEDS: SODIUM CHLORIDE 0.9% 500 ML 500 ML IV ONE (16:53)
[2024-01-22 17:01] LABS: Basophils % (A) 0 %; Eosinophils # (A) 0.2 k/uL (0-0.7); Eosinophils % (A) 2 %; HCT 35.4 % (39.0-53.0); HGB 11.8 gm/dL (13.0-17.5); Lymphocytes # (A) 1.1 k/uL (1.0-4.8); Lymphocytes % (A) 12 %; MCHC 33.4 g/dL (31.0-37.0); Mean Platelet Volume 9.1; Monocytes # (A) 0.4 k/uL (0-1.0); Monocytes % (A) 5 %; Neutrophils # (A) 7.3 k/uL (1.3-7.7); Neutrophils % (A) 80 %; Platelet Count 219 k/uL (150-450); RBC 3.93 m/uL (4.30-5.90); WBC 9.2 k/uL (3.8-10.6)
[2024-01-22 17:15] LABS: ALT 17 U/L (4-49); AST 25 U/L (17-59); African American GFR (CKD) 34 (>60 ml/min/1.73 sqM); Albumin 4.5 g/dL (3.5-5.0); Alkaline Phosphatase 83 U/L (38-126); Anion Gap 10 mmol/L; Blood Urea Nitrogen 33 mg/dL (9-20); Calcium 9.6 mg/dL (8.4-10.2); Carbon Dioxide 25 mmol/L (22-30); Chloride 106 mmol/L (98-107); Glucose 113 mg/dL (74-99); Non-African American GFR(CKD) 29 (>60 ml/min/1.73 sqM); Potassium 4.6 mmol/L (3.5-5.1); Sodium 141 mmol/L (137-145); Total Bilirubin 0.7 mg/dL (0.2-1.3); Total Protein 7.7 g/dL (6.3-8.2)
[2024-01-22 19:36] VITALS: BP 152/75
== END 2024-01-22 19:02 | disposition home or self-care (01) ==
LOC: EC 13:21
DX: R11.10 Vomiting, unspecified (principal); R42 Dizziness and giddiness; Z90.49 Acquired absence of other specified parts of digestive tract
CPT/HCPCS: 36415; 93005; 80053; 85025; 99284; 96374; 96361; J2405

== ENCOUNTER 2024-01-31 04:52 | Emergency (ER) | payer MEDICARE, OTHER ==
--- NOTE | 2024-01-31 05:24 | ED ---
General Adult HPI - General Chief complaint: Dizziness Stated complaint: Numbness head, dizziness Time Seen by Provider: 01/31/24 05:20 Source: patient Mode of arrival: wheelchair Limitations: no limitations - History of Present Illness Initial comments: This patient is 68-year-old man who presents to have evaluation because he has been feeling dizzy and nauseated. Patient states he has been having intermittent episodes of this going back approximately 1 week. He states he was seen in the emergency department for the same about a week ago when the symptoms had started. He states that they have been continuing intermittently until tonight. He gets a feeling of being off balance and having associated nausea. Denies vomiting. Denies change in bowel movements or urination. There is no chest pain or dyspnea. Onset/Timin -: hour(s) Severity scale (1-10): 0 Consistency: intermittent Improves with: movement Worsens with: none Associated Symptoms: nausea/vomiting Treatments Prior to Arrival: none - Related Data Home Medications Medication Instructions Recorded Confirmed Isosorbide Dinitrate [[place]] 10 mg PO BID 09/29/14 01/22/24 Metoprolol Tartrate [Lopressor] 75 mg PO BID 09/29/14 01/22/24 Montelukast [Singulair] 10 mg PO HS 09/29/14 01/22/24 Baclofen [Lioresal] 10 mg PO QID 05/10/21 01/22/24 HYDROcodone/APAP 10-325MG [[place] 1 tab PO Q6HR PRN 05/10/21 01/22/24 10-325] Tamsulosin [Flomax] 0.4 mg PO DAILY 05/10/21 01/22/24 Aspirin [Adult Low Dose Aspirin EC] 81 mg PO HS 06/19/21 01/22/24 Pantoprazole [Protonix] 40 mg PO BID 06/19/21 01/22/24 Apixaban [Eliquis] 5 mg PO BID 09/17/22 01/22/24 Ezetimibe [Zetia] 10 mg PO DAILY 09/17/22 01/22/24 Cetirizine HCl [Zyrtec] 10 mg PO DIRECTED 01/22/24 01/22/24 Enalapril Maleate [Vasotec] 20 mg PO DAILY 01/22/24 01/22/24 Fluoride (Sodium) [Sodium Fluoride 1 applic DENTAL HS 01/22/24 01/22/24 5000 Plus] Furosemide [Lasix] 20 mg PO DAILY 01/22/24 01/22/24 Ondansetron [Zofran] 4 mg PO DAILY PRN 01/22/24 01/22/24 QUEtiapine [SEROquel] 25 mg PO HS 01/22/24 01/22/24 amLODIPine [Norvasc] 10 mg PO DAILY 01/22/24 01/22/24 Allergies Allergy/AdvReac Type Severity Reaction Status Date / Time No Known Allergies Allergy Verified 01/31/24 05:00 Review of Systems ROS Statement: Those systems with pertinent positive or pertinent negative responses have been documented in the HPI. ROS Other: All systems not noted in ROS Statement are negative. Constitutional: Denies: fever, chills, weakness Eyes: Denies: vision change Respiratory: Denies: cough, dyspnea Cardiovascular: Denies: chest pain, palpitations, orthopnea, edema Gastrointestinal: Reports: nausea. Denies: abdominal pain, vomiting, diarrhea Genitourinary: Denies: dysuria, hematuria Musculoskeletal: Denies: back pain Skin: Denies: rash Neurological: Denies: headache, weakness Past Medical History Past Medical History: Coronary Artery Disease (CAD), Chest Pain / Angina, GERD/R eflux, Hyperlipidemia, Hypertension, Myocardial Infarction ([place]), Osteoarthritis (OA), Prostate Disorder Additional Past Medical History / Comment(s): CAD, PCI, degenerative disc disease of the lumbar spine, chronic pain, neuropathy bilateral lower extremity, chronic bronchitis. Last Myocardial Infarction Date:: 2004 History of Any Multi-Drug Resistant Organisms: None Reported Past Surgical History: Cholecystectomy, Heart Catheterization With Stent, Hernia Repair, Orthopedic Surgery Additional Past Surgical History / Comment(s): carpal tunnal repair, cyst removed from the mouth, Left heart catheterization 2000 and 2004, right hernia repair, left arthroscopic knee surgery., pain clinic procedures. Past Anesthesia/Blood Transfusion Reactions: No Reported Reaction Date of Last Stent Placement:: 2004 Past Psychological History: No Psychological Hx Reported Smoking Status: Never smoker Past Alcohol Use History: None Reported Past Drug Use History: None Reported - Past Family History Mother Family Medical History: Cancer Father Family Medical History: Cancer General Exam General appearance: alert, in no apparent distress Head exam: Present: atraumatic, normocephalic Eye exam: Present: normal appearance. Absent: scleral icterus, conjunctival injection Pupils: Absent: unequal Neck exam: Present: normal inspection, meningismus, full ROM Respiratory exam: Present: normal lung sounds bilaterally. Absent: respiratory distress, wheezes, rales, rhonchi, stridor Cardiovascular Exam: Present: regular rate, normal rhythm, normal heart sounds. Absent: systolic murmur, diastolic murmur, rubs, gallop GI/Abdominal exam: Present: soft. Absent: distended, tenderness, guarding, rebound, mass Extremities exam: Present: normal inspection, normal capillary refill. Absent: pedal edema, calf tenderness Back exam: Present: normal inspection. Absent: vertebral tenderness Neurological exam: Present: alert Skin exam: Present: warm, dry, intact, normal color Course Vital Signs 01/31/24 01/31/24 01/31/24 04:56 05:54 08:00 Temperature 97.7 F Pulse Rate 62 63 Respiratory 19 16 17 Rate Blood Pressure 147/72 135/67 125/76 O2 Sat by Pulse 98 95 Oximetry EKG Findings - EKG Results: EKG: interpreted by ERMD, sinus rhythm, normal axis EKG shows: bradycardia (Rate 57 bpm) - Blocks, [place], Hypertrophy, ST Abn: AV and intraventricular conduction: 1 AV block, left bundle branch block (fixed/intermittent, complete/incomplete) Medical Decision Making - Medical Decision Making The patient had chest x-ray that I interpreted as negative for acute infiltrate, pneumothorax, congestive heart failure Was pt. sent in by a medical professional or institution (, LINDA, COMMUNITY RELATIONS COORDINATOR, urgent care, hospital, or assisted...) When possible be specific @ -[No] Did you speak to anyone other than the patient for history (EMS, parent, family, police, friend...)? What history was obtained from this source @ -[No] Did you review nursing and triage notes (agree or disagree)? Why? @ -[I reviewed and agree with nursing and triage notes] Were old charts reviewed (outside hosp., previous admission, EMS record, old EKG, old radiological studies, urgent care reports/EKG's, assisted records)? Report findings @ -[No old charts were reviewed] Differential Diagnosis (chest pain, altered mental status, abdominal pain women, abdominal pain men, vaginal bleeding, weakness, fever, dyspnea, syncope, headache, dizziness, GI bleed, back pain, seizure, CVA, palpatations, mental health, musculoskeletal)? @ -[Differential Dizziness: Benign paroxysmal positional Vertigo, Menieres disease, otitis media, acoustic neuroma, vertebrobasilar insufficiency, cerebellar stroke, encephalitis, hypovolemic, arrhythmia, coronary artery syndrome, anemia, this is not meant to be an all-inclusive list EKG interpreted by me (3pts min.). @ -[I interpreted as above] X-rays interpreted by me (1pt min.). @ -[I interpreted as above CT interpreted by me (1pt min.). @ -[None done] U/S interpreted by me (1pt. min.). @ -[None done] What testing was considered but not performed or refused? (CT, X-rays, U/S, labs)? Why? @ -[None] What meds were considered but not given or refused? Why? @ -[None] Did you discuss the management of the patient with other professionals (professionals i.e. , PA, COMMUNITY RELATIONS COORDINATOR, lab, RT, psych nurse, social science analyst, shuttler, teacher, community service patrol officer, case assistant)? Give summary @ -[No] Was smoking cessation discussed for >3mins.? @ -[No] Was critical care preformed (if so, how long)? @ -[No] Were there social determinants of health that impacted care today? How? (Homelessness, low income, unemployed, alcoholism, drug addiction, transportation, low edu. Level, literacy, decrease access to med. care, penitentiary, rehab)? @ -[No] Was there de-escalation of care discussed even if they declined (Discuss DNR or withdrawal of care, Hospice)? DNR status @ -[No] What co-morbidities impacted this encounter? (DM, HTN, Smoking, COPD, CAD, Cancer, CVA, ARF, Chemo, Hep., AIDS, mental health diagnosis, sleep apnea, morbid obesity)? @ -[Hypertension, CAD Was patient admitted / discharged? Hospital course, mention meds given and route, prescriptions, significant lab abnormalities, going to OR and other pertinent info. @ -[Patient is 68-year-old man here to have evaluation for dizziness accompanied by nausea. The patient's initial physical exam and workup remarka ble mainly for elevated creatinine. The patient is most recent lab work does show elevated creatinine. The patient was feeling better following evaluation here and wanted to go home. Discussed appropriate further care and follow-up as well as return parameters. Undiagnosed new problem with uncertain prognosis? @ -[No] Drug Therapy requiring intensive monitoring for toxicity (Heparin, Nitro, In sulin, Cardizem)? @ -[No] Were any procedures done? @ -[No] Diagnosis/symptom? @ -Acute dizziness Acute nausea Acute, or Chronic, or Acute on Chronic? @ -[Acute Uncomplicated (without systemic symptoms) or Complicated (systemic symptoms)? @ -[Uncomplicated Side effects of treatment? @ -[No] Exacerbation, Progression, or Severe Exacerbation? @ -[No] Poses a threat to life or bodily function? How? (Chest pain, [place], [place], pneumonia, PE, COPD, DKA, ARF, appy, cholecystitis, CVA, Diverticulitis, Homicidal, Suicidal, threat to staff... and all critical care pts) @ -[No] - Lab Data Result diagrams: 01/31/24 05:20 01/31/24 05:20 Lab Results 01/31/24 01/31/24 01/31/24 Range/Units 05:20 05:20 05:20 WBC 6.9 (3.8-10.6) k/uL RBC 3.71 L (4.30-5.90) m/uL Hgb 11.2 L (13.0-17.5) gm/dL Hct 34.2 L (39.0-53.0) % MCV 92.2 (80.0-100.0) fL MCH 30.1 (25.0-35.0) pg MCHC 32.7 (31.0-37.0) g/dL RDW 13.2 (11.5-15.5) % Plt Count 196 (150-450) k/uL MPV 9.2 Neutrophils % 72 % Lymphocytes % 18 % Monocytes % 4 % Eosinophils % 3 % Basophils % 1 % Neutrophils # 5.0 (1.3-7.7) k/uL Lymphocytes # 1.3 (1.0-4.8) k/uL Monocytes # 0.3 (0-1.0) k/uL Eosinophils # 0.2 (0-0.7) k/uL Basophils # 0.1 (0-0.2) k/uL Sodium 139 (137-145) mmol/L Potassium 4.5 (3.5-5.1) mmol/L Chloride 106 (98-107) mmol/L Carbon Dioxide 25 (22-30) mmol/L Anion Gap 8 mmol/L BUN 37 H (9-20) mg/dL Creatinine 2.34 H (0.66-1.25) mg/dL Est GFR (CKD-EPI)AfAm 31 (>60 ml/min/1.73 sqM) Est GFR (CKD-EPI)NonAf 27 (>60 ml/min/1.73 sqM) Glucose 110 H (74-99) mg/dL Plasma Lactic Acid Joshua 0.6 L (0.7-2.0) mmol/L Calcium 9.2 (8.4-10.2) mg/dL Total Bilirubin 0.6 (0.2-1.3) mg/dL AST 20 (17-59) U/L ALT 15 (4-49) U/L Alkaline Phosphatase 71 (38-126) U/L Troponin I (0.000-0.034) ng/mL Total Protein 7.0 (6.3-8.2) g/dL Albumin 4.2 (3.5-5.0) g/dL 01/31/24 Range/Units 05:20 WBC (3.8-10.6) k/uL RBC (4.30-5.90) m/uL Hgb (13.0-17.5) gm/dL Hct (39.0-53.0) % MCV (80.0-100.0) fL MCH (25.0-35.0) pg MCHC (31.0-37.0) g/dL RDW (11.5-15.5) % Plt Count (150-450) k/uL MPV Neutrophils % % Lymphocytes % % Monocytes % % Eosinophils % % Basophils % % Neutrophils # (1.3-7.7) k/uL Lymphocytes # (1.0-4.8) k/uL Monocytes # (0-1.0) k/uL Eosinophils # (0-0.7) k/uL Basophils # (0-0.2) k/uL Sodium (137-145) mmol/L Potassium (3.5-5.1) mmol/L Chloride (98-107) mmol/L Carbon Dioxide (22-30) mmol/L Anion Gap mmol/L BUN (9-20) mg/dL Creatinine (0.66-1.25) mg/dL Est GFR (CKD-EPI)AfAm (>60 ml/min/1.73 sqM) Est GFR (CKD-EPI)NonAf (>60 ml/min/1.73 sqM) Glucose (74-99) mg/dL Plasma Lactic Acid Joshua (0.7-2.0) mmol/L Calcium (8.4-10.2) mg/dL Total Bilirubin (0.2-1.3) mg/dL AST (17-59) U/L ALT (4-49) U/L Alkaline Phosphatase (38-126) U/L Troponin I 0.029 (0.000-0.034) ng/mL Total Protein (6.3-8.2) g/dL Albumin (3.5-5.0) g/dL Disposition Clinical Impression: Nausea, Lightheadedness Disposition: HOME SELF-CARE Condition: Good Instructions (If sedation given, give patient instructions): Dizziness (ED) Is patient prescribed a controlled substance at d/c from ED?: No Referrals: Nonstaff,Physician [REFERRING] - 1-2 days Camilo Enriquez MD [STAFF PHYSICIAN] - 1-2 days
[2024-01-31 05:38] VITALS: TEMP 97.7
[2024-01-31 05:54] LABS: Basophils # (A) 0.1 k/uL (0-0.2); Basophils % (A) 1 %; Eosinophils # (A) 0.2 k/uL (0-0.7); Eosinophils % (A) 3 %; HCT 34.2 % (39.0-53.0); HGB 11.2 gm/dL (13.0-17.5); Lymphocytes # (A) 1.3 k/uL (1.0-4.8); Lymphocytes % (A) 18 %; MCH 30.1 pg (25.0-35.0); MCHC 32.7 g/dL (31.0-37.0); MCV 92.2 fL (80.0-100.0); Mean Platelet Volume 9.2; Monocytes # (A) 0.3 k/uL (0-1.0); Monocytes % (A) 4 %; Neutrophils % (A) 72 %; Platelet Count 196 k/uL (150-450); RBC 3.71 m/uL (4.30-5.90); RDW 13.2 % (11.5-15.5); WBC 6.9 k/uL (3.8-10.6)
[2024-01-31] MEDS: SODIUM CHLORIDE 0.9% 500 ML 500 ML IV STA (05:58)
[2024-01-31] MEDS: ONDANSETRON 4 MG/2 ML VIAL IVP STA (06:01)
[2024-01-31 06:05] LABS: ALT 15 U/L (4-49); AST 20 U/L (17-59); African American GFR (CKD) 31 (>60 ml/min/1.73 sqM); Albumin 4.2 g/dL (3.5-5.0); Alkaline Phosphatase 71 U/L (38-126); Anion Gap 8 mmol/L; Blood Urea Nitrogen 37 mg/dL (9-20); Calcium 9.2 mg/dL (8.4-10.2); Carbon Dioxide 25 mmol/L (22-30); Chloride 106 mmol/L (98-107); Glucose 110 mg/dL (74-99); Non-African American GFR(CKD) 27 (>60 ml/min/1.73 sqM); Potassium 4.5 mmol/L (3.5-5.1); Sodium 139 mmol/L (137-145); Total Bilirubin 0.6 mg/dL (0.2-1.3)
--- NOTE | 2024-01-31 06:22 | XR ---
EXAMINATION TYPE: XR chest 1V portable DATE OF EXAM: 01/31/2024 COMPARISON: Prior chest x-ray August 27, 2016 HISTORY: Dizziness TECHNIQUE: Single frontal view of the chest is obtained. FINDINGS: There is no suspicious new focal air space opacity, pleural effusion, or pneumothorax seen . Low lung volumes redemonstrated. The cardiac silhouette size is stable and within normal limits wit h atherosclerotic changes aortic knob redemonstrated. The osseous structures are intact. IMPRESSION: No acute process.
[2024-01-31 06:24] VITALS: PULSE 63
[2024-01-31] MEDS: MECLIZINE 25 MG TAB PO STA (08:32)
[2024-01-31] MEDS: MECLIZINE 12.5 MG TAB PO STA (08:38)
[2024-01-31 08:50] VITALS: BP 125/76; RESP 17
== END 2024-01-31 09:14 | disposition home or self-care (01) ==
LOC: EC 04:52
DX: R42 Dizziness and giddiness (principal); R11.0 Nausea; R94.4 Abnormal results of kidney function studies; I10 Essential (primary) hypertension; I25.10 Atherosclerotic heart disease of native coronary artery without angina pectoris; I44.7 Left bundle-branch block, unspecified; I44.0 Atrioventricular block, first degree; Z79.82 Long term (current) use of aspirin; Z79.01 Long term (current) use of anticoagulants; Z79.899 Other long term (current) drug therapy
CPT/HCPCS: 99284; 96374; 36415; 93005; 80053; 83605; 84484; 85025; 71045; J2405

== ENCOUNTER 2024-07-23 14:06 | Inpatient (IN) | payer MEDICARE, OTHER ==
--- NOTE | 2024-07-23 14:18 | ED ---
Chest Pain HPI - General Chief Complaint: Chest Pain Stated Complaint: chest pain Time Seen by Provider: 07/23/24 14:17 Source: patient, EMS, RN notes reviewed, old records reviewed Mode of arrival: EMS Limitations: no limitations - History of Present Illness Initial Comments: This is a 69-year-old male to the ER for evaluation patient presents today for evaluation in regards to chest pain history of CAD coming with persistent chest pain in the emergency department today MD Complaint: chest pain -: hour(s) Onset: during rest Pain Location: substernal, left chest Pain Radiation: LUE Severity: moderate Severity scale (1-10): 4 Quality: tightness, heaviness Consistency: constant Improves With: nothing Worsens With: nothing Other Symptoms: palpitations Treatments Prior to Arrival: none - Related Data Home Medications Medication Instructions Recorded Confirmed Isosorbide Dinitrate [Monoket] 10 mg PO BID 09/29/14 07/23/24 Metoprolol Tartrate [Lopressor] 75 mg PO BID 09/29/14 07/23/24 Montelukast [Singulair] 10 mg PO HS 09/29/14 07/23/24 Baclofen [Lioresal] 10 mg PO QID 05/10/21 07/23/24 HYDROcodone/APAP 10-325MG [[place] 1 tab PO Q6HR PRN 05/10/21 07/23/24 10-325] Tamsulosin [Flomax] 0.4 mg PO DAILY 05/10/21 07/23/24 Aspirin [Adult Low Dose Aspirin EC] 81 mg PO DAILY 06/19/21 07/23/24 Pantoprazole [Protonix] 40 mg PO DAILY 06/19/21 07/23/24 Apixaban [Eliquis] 5 mg PO BID 09/17/22 07/23/24 Ezetimibe [Zetia] 10 mg PO DAILY 09/17/22 07/23/24 Enalapril Maleate [Vasotec] 20 mg PO BID 01/22/24 07/23/24 Fluoride (Sodium) [Sodium Fluoride 1 applic DENTAL HS 01/22/24 07/23/24 5000 Plus] Furosemide [Lasix] 20 mg PO DAILY 01/22/24 07/23/24 Ondansetron [Zofran] 4 mg PO TID PRN 01/22/24 07/23/24 QUEtiapine [SEROquel] 25 mg PO HS 01/22/24 07/23/24 Brinzolamide/Brimonidine Tart 1 drop LEFT EYE TID 07/23/24 07/23/24 [Simbrinza 1%-0.2% Eye Drop] amLODIPine [Norvasc] 10 mg PO DAILY 07/23/24 07/23/24 methazolAMIDE [Neptazane] 50 mg PO BID 07/23/24 07/23/24 prednisoLONE ACETATE 1% OPHTH 1 drops LEFT EYE Q8H 07/23/24 07/23/24 [Pred Forte 1%] Previous Rx's Medication Instructions Recorded lisinopriL [Zestril] 10 mg PO DAILY #30 tab 07/28/24 Allergies Allergy/AdvReac Type Severity Reaction Status Date / Time No Known Allergies Allergy Verified 07/23/24 16:10 Review of Systems ROS Statement: Those systems with pertinent positive or pertinent negative responses have been documented in the HPI. ROS Other: All systems not noted in ROS Statement are negative. EKG Findings - EKG Comments: EKG Findings:: EKG is sinus 77 [place] 256 QRS 163 QTc 456 - EKG Results: EKG: interpreted by ERMD Past Medical History Past Medical History: Coronary Artery Disease (CAD), Chest Pain / Angina, GERD/Reflux, Hyperlipidemia, Hypertension, Myocardial Infarction ([place]), Osteoarthritis (OA), Prostate Disorder Additional Past Medical History / Comment(s): CAD, PCI, degenerative disc disease of the lumbar spine, chronic pain, neuropathy bilateral lower extremity, chronic bronchitis. Last Myocardial Infarction Date:: 2004 History of Any Multi-Drug Resistant Organisms: None Reported Past Surgical History: Cholecystectomy, Heart Catheterization With Stent, Hernia Repair, Orthopedic Surgery Additional Past Surgical History / Comment(s): carpal tunnal repair, cyst removed from the mouth, Left heart catheterization 2000 and 2004, right hernia repair, left arthroscopic knee surgery., pain clinic procedures. Past Anesthesia/Blood Transfusion Reactions: No Reported Reaction Date of Last Stent Placement:: 2004 Past Psychological History: No Psychological Hx Reported Smoking Status: Never smoker Past Alcohol Use History: None Reported Past Drug Use History: None Reported - Past Family History Mother Family Medical History: Cancer Father Family Medical History: Cancer General Exam Limitations: no limitations General appearance: alert, in no apparent distress Head exam: Present: atraumatic, normocephalic, normal inspection Eye exam: Present: normal appearance, PERRL, EOMI. Absent: scleral icterus, conjunctival injection, periorbital swelling ENT exam: Present: normal exam, mucous membranes moist Neck exam: Present: normal inspection. Absent: tenderness, meningismus, lymphadenopathy Respiratory exam: Present: normal lung sounds bilaterally. Absent: respiratory distress, wheezes, rales, rhonchi, stridor Cardiovascular Exam: Present: regular rate, normal rhythm, normal heart sounds. Absent: systolic murmur, diastolic murmur, rubs, gallop, clicks GI/Abdominal exam: Present: soft, normal bowel sounds. Absent: distended, tenderness, guarding, rebound, rigid Extremities exam: Present: normal inspection, full ROM, normal capillary refill. Absent: tenderness, pedal edema, joint swelling, calf tenderness Back exam: Present: normal inspection Neurological exam: Present: alert, oriented X3, CN II-XII intact Psychiatric exam: Present: normal affect, normal mood Skin exam: Present: warm, dry, intact, normal color. Absent: rash Course Vital Signs 07/23/24 07/23/24 07/23/24 14:07 15:48 17:35 Temperature 98.0 F Pulse Rate 79 80 80 Respiratory 18 18 18 Rate Blood Pressure 124/73 150/80 115/83 O2 Sat by Pulse 98 97 97 Oximetry 07/23/24 07/23/24 07/23/24 18:38 19:22 21:49 Temperature 97.9 F Pulse Rate 68 68 63 Respiratory 18 18 19 Rate Blood Pressure 142/84 154/63 125/85 O2 Sat by Pulse 97 99 97 Oximetry 07/23/24 07/23/24 07/24/24 22:25 23:50 02:05 Temperature 97.9 F 98.1 F Pulse Rate 65 55 L 64 Respiratory 18 18 18 Rate Blood Pressure 150/92 121/78 O2 Sat by Pulse 100 97 98 Oximetry 07/24/24 07/24/24 07/24/24 05:39 08:59 11:08 Temperature 98.0 F Pulse Rate 65 64 61 Respiratory 18 18 16 Rate Blood Pressure 109/86 100/82 138/100 O2 Sat by Pulse 97 96 97 Oximetry 07/24/24 07/24/24 07/24/24 12:22 15:41 16:31 Temperature Pulse Rate 57 L 60 58 L Respiratory 16 61 H 16 Rate Blood Pressure 138/94 138/111 121/71 O2 Sat by Pulse 99 97 96 Oximetry - Reevaluation(s) Reevaluation #1: 07/23/24 17:44 Records reviewed Reevaluation #2: 07/23/24 17:44 Patient has persistent chest pain here in the ER Reevaluation #3: 07/23/24 17:44 Patient informed of results and questions answered Reevaluation #4: Was pt. sent in by a medical professional or institution (, LINDA, CAR SEALER, urgent care, hospital, or jail...) When possible be specific @ -no Did you speak to anyone other than the patient for history (EMS, parent, family, police, friend...)? What history was obtained from this source @ -no Did you review nursing and triage notes (agree or disagree)? Why? @ -agree Are old charts reviewed (outside hosp., previous admission, EMS record, old EKG, old radiological studies, urgent care reports/EKG's, jail records)? Report findings @ -yes Differential Diagnosis (chest pain, altered mental status, abdominal pain women, abdominal pain men, vaginal bleeding, weakness, fever, dyspnea, syncope, headache, dizziness, GI bleed, back pain, seizure, CVA, palpatations, mental health, musculoskeletal)? @ -prior EKG interpreted by me (3pts min.). @ -yes X-rays interpreted by me (1pt min.). @ -yes negative for acute disease CT interpreted by me (1pt min.). @ -no U/S interpreted by me (1pt. min.). @ -no What testing was considered but not performed or refused? (CT, X-rays, U/S, la bs)? Why? @ -none What meds were considered but not given or refused? Why? @ -none Did you discuss the management of the patient with other professionals (professionals i.e. LINDA Vergara, CAR SEALER, lab, RT, psych nurse, social work lecturer, instructional support technician, teacher, electronic intelligence officer, field case manager)? Give summary @ -no Was smoking cessation discussed for >3mins.? @ -no Was critical care preformed (if so, how long)? @ -yes31 Were there social determinants of health that impacted care today? How? (Homelessness, low income, unemployed, alcoholism, drug addiction, transportation, low edu. Level, literacy, decrease access to med. care, shelter, rehab)? @ -none Was there de-escalation of care discussed even if they declined (Discuss DNR or withdrawal of care, Hospice)? DNR status @ -no What co-morbidities impacted this encounter? (DM, HTN, Smoking, COPD, CAD, Cancer, CVA, ARF, Chemo, Hep., AIDS, mental health diagnosis, sleep apnea, morbid obesity)? @ -none Was patient admitted / discharged? Hospital course, mention meds given and route, prescriptions, significant lab abnormalities, going to OR and other pertinent info. @ - 69 male will be admitted for chest pain observation ACS and elevated troponin Admitted Undiagnosed new problem with uncertain prognosis? @ -no Drug Therapy requiring intensive monitoring for toxicity (Heparin, Nitro, Insulin, Cardizem)? @ -no Were any procedures done? @ -no Diagnosis/symptom? @ -Chest pain ACS and elevated troponin Acute, or Chronic, or Acute on Chronic? @ -Acute Uncomplicated (without systemic symptoms) or Complicated (systemic symptoms)? @ -Complicated Side effects of treatment? @ -no Exacerbation, Progression, or Severe Exacerbation? @ -exacerbation Poses a threat to life or bodily function? How? (Chest pain, [place], [place], pneumonia, PE, COPD, DKA, ARF, appy, cholecystitis, CVA, Diverticulitis, Homicidal, Suicidal, threat to staff... and all critical care pts) @ -yes Reevaluation #5: Differential Chest Pain: Stable Angina, Unstable Angina, STEMI, NSTEMI Aortic Dissection, Pneumothorax, Musculoskeletal, Esophageal Spasm GERD, Cholecystitis, Pancreatitis, Zoster, this is not meant to be an all-inclusive list. - Consultations Consultation #1: Spoke with [facility] who agrees to admit this patient Chest Pain [facility] 69 male will be admitted for chest pain observation ACS and elevated troponin Critical Care Time Critical Care Time: Yes Total Critical Care Time: 31 Disposition Clinical Impression: CAD (coronary artery disease), HTN (hypertension), Unstable angina pectoris, Acute non-ST elevation myocardial infarction (NSTEMI), Chest pain Disposition: ADMITTED IP TO THIS HOSP Condition: Serious Is patient prescribed a controlled substance at d/c from ED?: No Time of Disposition: 17:00
[2024-07-23 15:18] LABS: Basophils % (A) 0 %; Eosinophils # (A) 0.2 k/uL (0-0.7); Eosinophils % (A) 2 %; HCT 36.1 % (39.0-53.0); HGB 11.6 gm/dL (13.0-17.5); Lymphocytes # (A) 1.1 k/uL (1.0-4.8); Lymphocytes % (A) 16 %; MCH 29.5 pg (25.0-35.0); MCV 92.2 fL (80.0-100.0); Mean Platelet Volume 10.4; Monocytes # (A) 0.3 k/uL (0-1.0); Monocytes % (A) 4 %; Neutrophils # (A) 5.3 k/uL (1.3-7.7); Neutrophils % (A) 77 %; Platelet Count 227 k/uL (150-450); RBC 3.92 m/uL (4.30-5.90); RDW 13.4 % (11.5-15.5); WBC 6.9 k/uL (3.8-10.6)
--- NOTE | 2024-07-23 15:18 | XR ---
EXAMINATION TYPE: XR chest 2V DATE OF EXAM: 07/23/2024 3:14 PM COMPARISON: Chest radiographs from 01/31/2024 TECHNIQUE: XR chest 2V Frontal and lateral views of the chest. CLINICAL INDICATION:Male, 69 years old with history of Chest Pain; FINDINGS: Lungs/Pleura: There is no evidence of pleural effusion, focal consolidation, or pneumothorax. Eventr ation of the right hemidiaphragm. Pulmonary vascularity: Unremarkable. Heart/mediastinum: Cardiomediastinal silhouette is unremarkable. Atherosclerotic calcifications are seen in the aorta. Musculoskeletal: No acute osseous pathology. IMPRESSION: No acute cardiopulmonary disease/process. [facility], , 07/23/2024 3:16 PM
[2024-07-23 15:31] LABS: Partial Thromboplastin Time 31.5 sec (22.0-30.0); Prothrombin Time 10.9 sec (10.0-12.5)
[2024-07-23 15:38] LABS: ALT 7 U/L (4-49); AST 20 U/L (17-59); African American GFR (CKD) 25 (>60 ml/min/1.73 sqM); Albumin 4.2 g/dL (3.5-5.0); Alkaline Phosphatase 85 U/L (38-126); Anion Gap 7 mmol/L; Blood Urea Nitrogen 25 mg/dL (9-20); Carbon Dioxide 24 mmol/L (22-30); Chloride 111 mmol/L (98-107); Glucose 123 mg/dL (74-99); Lipase 44 U/L (23-300); Magnesium 2.5 mg/dL (1.6-2.3); Non-African American GFR(CKD) 21 (>60 ml/min/1.73 sqM); Potassium 4.2 mmol/L (3.5-5.1); Sodium 142 mmol/L (137-145); Total Bilirubin 0.7 mg/dL (0.2-1.3); Total Protein 7.1 g/dL (6.3-8.2)
[2024-07-23 15:44] LABS: NT-Pro-B-Type Natriuretic Pept 1690 pg/mL
[2024-07-23] MEDS ORDERED: MORPHINE SULFATE 4 MG/ML SYRINGE IV PRN (17:06)
[2024-07-23] MEDS ORDERED: NITROGLYCERIN SL TABS 0.4 MG TAB SUBLINGUAL PRN (17:06)
[2024-07-23] MEDS: HEPARIN SODIUM 1,000 UN/ML (10ML VL) IV ONE (17:28)
[2024-07-23] MEDS: HEPARIN SOD,PORK IN 0.45% NACL 25,000 UNIT in 0.45% NACL 1 250ML.BAG IV SCH (17:29)
[2024-07-23] MEDS: ASPIRIN 81 MG PO STA (17:32)
[2024-07-23] MEDS: METOPROLOL TARTRATE 25 MG TAB PO SCH (21:42)
[2024-07-23] MEDS: METOPROLOL TARTRATE 12.5 MG TAB PO STA (21:47)
[2024-07-23] MEDS: METOPROLOL TARTRATE 50 MG TAB PO STA (21:52)
[2024-07-24] MEDS: HEPARIN SODIUM 1,000 UN/ML (10ML VL) IVP PRN (01:00)
[2024-07-24] MEDS: prednisoLONE ACETATE 1% OPHTH DROPS 5 ML BTL LEFT EYE SCH (02:09)
[2024-07-24 06:46] LABS: Platelet Count 186 k/uL (150-450)
[2024-07-24 08:49] LABS: Chol/HDL Ratio 4.95 Ratio; LDL Cholesterol,Calculated 150.6 mg/dL (0.0-131.0)
[2024-07-24] MEDS: amLODIPine 10 MG TAB PO SCH (10:08)
[2024-07-24] MEDS: lisinopriL 20 MG TAB PO SCH (10:08)
[2024-07-24] MEDS: TAMSULOSIN 0.4 MG CAP.ER.24H PO SCH (10:08)
[2024-07-24] MEDS: ASPIRIN 81 MG PO SCH (10:09)
[2024-07-24] MEDS: ATORVASTATIN 80 MG TAB PO SCH (10:09)
[2024-07-24] MEDS: ASPIRIN 325 MG TAB PO SCH (10:09)
[2024-07-24] MEDS: FUROSEMIDE 20 MG TAB PO SCH (10:10)
[2024-07-24] MEDS: METOPROLOL TARTRATE 25 MG TAB PO SCH (10:10)
[2024-07-24] MEDS: PANTOPRAZOLE 40 MG TABLET PO SCH (10:10)
[2024-07-24] MEDS: EZETIMIBE 10 MG TAB PO SCH (10:11)
[2024-07-24] MEDS: ISOSORBIDE DINITRATE 10 MG TAB PO SCH (10:11)
[2024-07-24] MEDS: FUROSEMIDE 10 MG/ML 4 ML VIAL IV SCH (12:18)
--- NOTE | 2024-07-24 13:01 | CA ---
Transthoracic Echo Report Name: Jay Becerra Age: 69 Gender: M : 1955 Exam Date: 07/24/2024 09:15 Exam Location: [facility] Ht (in): 68 Wt (lb): 172 Ordering Physician: Jay Jay Alejandra DO Attending/Referring Phys: [id number], [employer] Alida Burnett, RDNETTA Procedure CPT: Indications: elevTrop Cardiac Hx: Technical Quality: Fair Contrast 1: Total Dose (mL): Contrast 2: Total Dose (mL): MEASUREMENTS (Male / Female) Normal Values 2D ECHO LV Diastolic Diameter PLAX 5.1 cm 4.2 - 5.9 / 3.9 - 5.3 cm LV Systolic Diameter PLAX 4.3 cm IVS Diastolic Thickness 1.1 cm 0.6 - 1.0 / 0.6 - 0.9 cm LVPW Diastolic Thickness 1.0 cm 0.6 - 1.0 / 0.6 - 0.9 cm LV Relative Wall Thickness 0.4 RV Internal Dim ED PLAX 1.3 cm LA Systolic Diameter LX 4.4 cm 3.0 - 4.0 / 2.7 - 3.8 cm LV Diastolic Volume MOD 4C 77.7 cm??? LV Systolic Volume MOD 4C 40.7 cm??? LV Ejection Fraction MOD 4C 47.6 % LV Cardiac Index MOD 4C 1157.1 cm???/min???m??? LV Diastolic Length 4C 7.5 cm LV Systolic Length 4C 6.3 cm M-MODE Aortic Root Diameter MM 3.4 cm LA Systolic Diameter MM 3.3 cm LA Ao Ratio MM 1.0 AV Cusp Separation MM 1.6 cm DOPPLER AV Peak Velocity 156.0 cm/s AV Peak Gradient 9.7 mmHg MV Area PHT 2.5 cm??? Mitral E Point Velocity 89.6 cm/s Mitral A Point Velocity 115.4 cm/s Mitral E to A Ratio 0.8 MV Deceleration Time 305.8 ms FINDINGS Left Ventricle Left ventricular ejection fraction is estimated at 40-45%. Left ventricular cavity size normal. Left ventricular wall thickness normal. Hypokinetic posterior wall. Hypokinetic basal to mid inferior wall. Right Ventricle Normal right ventricular size and function. Unable to estimate the right ventricular systolic pressure. Right Atrium Mild right atrial dilatation. Left Atrium Mildly increased left atrial diameter. Mitral Valve Structurally normal mitral valve. Mild mitral regurgitation. No mitral stenosis. Mitral annular calcification. Aortic Valve Trileaflet aortic valve. No aortic stenosis. No aortic regurgitation. Tricuspid Valve No evidence of pulmonary hypertension. Trace tricuspid regurgitation. No tricuspid stenosis. Pulmonic Valve Structurally normal pulmonic valve. Trace pulmonic regurgitation. No pulmonic stenosis. Pericardium No pericardial or pleural effusion. Aorta Normal size aortic root and proximal ascending aorta. CONCLUSIONS Left ventricular ejection fraction is estimated at 40-45%. Hypokinetic basal to mid inferior wall. Mild biatrial dilatation Mild MR Normal RV size systolic function Previewed by: Dr Wallace Flores (Electronically Signed) Final Date: 24 July 2024 13:01
--- NOTE | 2024-07-24 13:21 | P.CRDCN ---
History of Present Illness Consult date: 07/24/24 Reason for Consult (text): Chest pain, elevated troponin History of present illness: This is a 69-year-old male patient of Dr. Adia Churchill with past medical history of coronary artery disease with stent placement RCA in 2004, paroxysmal atrial fi brillation on Eliquis, ischemic cardiomyopathy, hyperlipidemia, hypertension, intolerance to statins. We have been asked to evaluate the patient for chest pain and elevated troponin. Patient complains that his blood pressure has been labile, sometimes very low and then up to 160 systolic. He also complains of chest pain that is a tightness that comes and goes. Patient received sublingual nitroglycerin with EMS and is not sure if this helped. Patient also complains of lower extremity edema right greater than left. Blood pressure 109/86, heart rate 65, pulse ox 97% on room air. Patient is seen today in the emergency center waiting for a bed on the cardiac stepdown unit. Patient has been started on heparin drip and Eliquis is on hold. -EKG: Sinus rhythm, first-degree block, left bundle branch block -Chest x-ray: No acute process -Laboratory studies: WBC 6.9, hemoglobin 11.6. BUN 25 creatinine 2.84. Troponin 0.041, 0.042 and 0.051. proBNP 1690. Magnesium 2.5. -Home cardiac medications: Amlodipine 10 mg daily, Eliquis 5 mg twice daily, aspirin 81 mg daily, Vasotec 20 mg twice daily, Zetia 10 mg daily, Lasix 20 mg daily, isosorbide 10 mg twice daily, Lopressor 75 mg twice daily, -Lexiscan Cardiolite stress test performed in the office on 03/16/2024 revealed inconclusive EKG part of the stress test due to baseline EKG abnormalities. Ischemic cardiomyopathy with moderate LV systolic function secondary to prior ID inferior wall without any evidence of ischemia. -Echocardiogram performed in the office on 05/23/2023 revealed EF of 40 to 45%, moderate left ventricular hypertrophy, aortic valve is calcified, mitral valve calcified, mild tricuspid regurgitation. PASP of 37 mmHg. Physiologic pulmonic regurgitation. Review Of Systems: At the time of my exam: CONSTITUTIONAL: Denies fever or chills. HEENT: Denies blurred vision, vision changes, or eye pain. Denies hemoptysis CARDIOVASCULAR: Denies chest pain. Denies orthopnea. Denies PND. Denies palpitations RESPIRATORY: Denies shortness of breath. GASTROINTESTINAL: Denies abdominal pain. Denies nausea or vomiting. HEMATOLOGIC: Denies bleeding disorders. GENITOURINARY: Denies any blood in urine. SKIN: Denies puritis. Denies rash. Physical examination: Gen: This is a 69-year-old male in no acute distress VS: reviewed HEENT: Head is atraumatic, normocephalic. Pupils equal, round. Sclerae is anicteric. NECK: Supple. No JVD. LUNGS: Clear to auscultation. No wheezes or rhonchi. No intercostal retractions. HEART: Regular rate and rhythm. No murmur. ABDOMEN: Soft No tenderness. EXTREMITIES: Minimal pedal edema. No calf tenderness. NEUROLOGICAL: Patient is awake, alert and oriented x3. Assessment: Abnormal troponins possibly due to hypotension, possibly due to heart failure Labile blood pressure readings Acute on chronic systolic heart failure History of coronary artery disease with previous stent to the RCA in 2004 Paroxysmal atrial fibrillation currently in A-fib rate controlled Ischemic cardiomyopathy with EF of 4045% Hypertension Hyper lipidemia Intolerance to statins Chronic kidney disease stage IV Plan: Resume patient's home cardiac medications Continue heparin drip for 24 hours Monitor symptoms of chest pain and may consider doing left heart catheterization Obtain 2-D echocardiogram and Doppler study to assess cardiac structure and function Continue IV Lasix 40 mg daily Monitor COMFORT, daily weights, electrolytes and renal function further recommendations to follow based upon clinical course Thank you kindly for this consultation. Nurse practitioner note has been reviewed, I agree with documented findings and plan of care. Patient was seen and examined. Past Medical History Past Medical History: Coronary Artery Disease (CAD), Chest Pain / Angina, GERD/Reflux, Hyperlipidemia, Hypertension, Myocardial Infarction (ID), Osteoarthritis (OA), Prostate Disorder Additional Past Medical History / Comment(s): CAD, PCI, degenerative disc disease of the lumbar spine, chronic pain, neuropathy bilateral lower extremity, chronic bronchitis. Last Myocardial Infarction Date:: 2004 History of Any Multi-Drug Resistant Organisms: None Reported Past Surgical History: Cholecystectomy, Heart Catheterization With Stent, Hernia Repair, Orthopedic Surgery Additional Past Surgical History / Comment(s): carpal tunnal repair, cyst removed from the mouth, Left heart catheterization 2000 and 2004, right hernia repair, left arthroscopic knee surgery., pain clinic procedures. Past Anesthesia/Blood Transfusion Reactions: No Reported Reaction Date of Last Stent Placement:: 2004 Past Psychological History: No Psychological Hx Reported Smoking Status: Never smoker Past Alcohol Use History: None Reported Past Drug Use History: None Reported - Past Family History Mother Family Medical History: Cancer Father Family Medical History: Cancer Medications and Allergies Home Medications Medication Instructions Recorded Confirmed Type Isosorbide Dinitrate [Monoket] 10 mg PO BID 09/29/14 07/23/24 History Metoprolol Tartrate [Lopressor] 75 mg PO BID 09/29/14 07/23/24 History Montelukast [Singulair] 10 mg PO HS 09/29/14 07/23/24 History Baclofen [Lioresal] 10 mg PO QID 05/10/21 07/23/24 History HYDROcodone/APAP 10-325MG [[place] 1 tab PO Q6HR PRN 05/10/21 07/23/24 History 10-325] Tamsulosin [Flomax] 0.4 mg PO DAILY 05/10/21 07/23/24 History Aspirin [Adult Low Dose Aspirin EC] 81 mg PO DAILY 06/19/21 07/23/24 History Pantoprazole [Protonix] 40 mg PO DAILY 06/19/21 07/23/24 History Apixaban [Eliquis] 5 mg PO BID 09/17/22 07/23/24 History Ezetimibe [Zetia] 10 mg PO DAILY 09/17/22 07/23/24 History Enalapril Maleate [Vasotec] 20 mg PO BID 01/22/24 07/23/24 History Fluoride (Sodium) [Sodium Fluoride 1 applic DENTAL HS 01/22/24 07/23/24 History 5000 Plus] Furosemide [Lasix] 20 mg PO DAILY 01/22/24 07/23/24 History Ondansetron [Zofran] 4 mg PO TID PRN 01/22/24 07/23/24 History QUEtiapine [SEROquel] 25 mg PO HS 01/22/24 07/23/24 History Brinzolamide/Brimonidine Tart 1 drop LEFT EYE TID 07/23/24 07/23/24 History [Simbrinza 1%-0.2% Eye Drop] amLODIPine [Norvasc] 10 mg PO DAILY 07/23/24 07/23/24 History methazolAMIDE [Neptazane] 50 mg PO BID 07/23/24 07/23/24 History prednisoLONE ACETATE 1% OPHTH 1 drops LEFT EYE Q8H 07/23/24 07/23/24 History [Pred Forte 1%] Allergies Allergy/AdvReac Type Severity Reaction Status Date / Time No Known Allergies Allergy Verified 07/23/24 16:10 Physical Exam Vitals: Vital Signs Temp Pulse Resp BP Pulse Ox 07/24/24 05:39 98.0 F 65 18 109/86 97 07/24/24 02:05 98.1 F 64 18 98 07/23/24 23:50 55 L 18 121/78 97 07/23/24 22:25 97.9 F 65 18 150/92 100 07/23/24 21:49 63 19 125/85 97 07/23/24 19:22 97.9 F 68 18 154/63 99 07/23/24 18:38 68 18 142/84 97 07/23/24 17:35 80 18 115/83 97 07/23/24 15:48 80 18 150/80 97 07/23/24 14:07 98.0 F 79 18 124/73 98 Intake and Output 07/23/24 07/24/24 07/24/24 22:59 06:59 14:59 Intake Total 17.008 0 78.02 Balance 17.008 0 78.02 Intake: Intake, IV Titration 17.008 0 78.02 Amount Heparin Sod,Pork in 0.45% 17.008 0 78.02 NaCl 25,000 unit In 0.45 % NaCl 1 250ml.bag @ 12 UNITS/KG/HR 9.362 mls/hr IV .Q24H [facility] Rx#: [id number] Results 07/24/24 06:11 07/23/24 14:51 Cardiac Enzymes 07/23/24 07/23/24 07/23/24 Range/Units 14:51 14:51 18:10 AST 20 (17-59) U/L Troponin I 0.041 H* 0.042 H* (0.000-0.034) ng/mL 07/23/24 Range/Units 23:21 AST (17-59) U/L Troponin I 0.051 H* (0.000-0.034) ng/mL Coagulation 07/23/24 07/23/24 07/23/24 Range/Units 14:51 18:10 23:21 PT 10.9 (10.0-12.5) sec APTT 31.5 H >200.0 H* 30.4 H (22.0-30.0) sec 07/24/24 07/24/24 Range/Units 01:31 06:10 PT (10.0-12.5) sec APTT >200.0 H* 184.1 H* (22.0-30.0) sec CBC 07/23/24 07/24/24 Range/Units 14:51 06:11 WBC 6.9 (3.8-10.6) k/uL RBC 3.92 L (4.30-5.90) m/uL Hgb 11.6 L (13.0-17.5) gm/dL Hct 36.1 L (39.0-53.0) % Plt Count 227 186 (150-450) k/uL Comprehensive Metabolic Panel 07/23/24 Range/Units 14:51 Sodium 142 (137-145) mmol/L Potassium 4.2 (3.5-5.1) mmol/L Chloride 111 H (98-107) mmol/L Carbon Dioxide 24 (22-30) mmol/L BUN 25 H (9-20) mg/dL Creatinine 2.84 H (0.66-1.25) mg/dL Glucose 123 H (74-99) mg/dL Calcium 9.0 (8.4-10.2) mg/dL AST 20 (17-59) U/L ALT 7 (4-49) U/L Alkaline Phosphatase 85 (38-126) U/L Total Protein 7.1 (6.3-8.2) g/dL Albumin 4.2 (3.5-5.0) g/dL Current Medications Generic Name Dose Route Start Last Admin Trade Name Freq PRN Reason Stop Dose Admin Hydrocodone Bitart/Acetaminophen 1 each 07/23/24 22:32 Hydrocodone/Apap 10-325mg 1 Each Tab PO Q6HR PRN Pain Amlodipine Besylate 10 mg 07/24/24 09:00 Amlodipine 10 Mg Tab PO DAILY [facility] Aspirin 325 mg 07/24/24 09:00 Aspirin 325 Mg Tab PO DAILY [facility] Aspirin 81 mg 07/24/24 09:00 Aspirin 81 Mg PO DAILY [facility] Atorvastatin Calcium 80 mg 07/24/24 09:00 Atorvastatin 80 Mg Tab PO DAILY [facility] Ezetimibe 10 mg 07/24/24 09:00 Ezetimibe 10 Mg Tab PO DAILY [facility] Furosemide 20 mg 07/24/24 09:00 Furosemide 20 Mg Tab PO DAILY [facility] Heparin Sodium (Porcine) 5,000 unit 07/24/24 00:47 07/24/24 01:00 Heparin Sodium 1,000 Un/Ml (10ml Vl) IVP 3,900 unit ONCE PRN Administration Per Protocol Protocol Heparin Sodium/Sodium Chloride 250 mls @ 9.362 mls/hr 07/23/24 17:15 07/24/24 07:51 25,000 unit/ Sodium Chloride IV 0 units/kg/hr .Q24H [facility] 0 mls/hr Titration Protocol 12 UNITS/KG/HR Isosorbide Dinitrate 10 mg 07/24/24 09:00 Isosorbide Dinitrate 10 Mg Tab PO BID [facility] Lisinopril 20 mg 07/24/24 09:00 Lisinopril 20 Mg Tab PO BID [facility] Methazolamide 50 mg 07/24/24 09:00 Methazolamide 25 Mg Tab PO BID [facility] Metoprolol Tartrate 75 mg 07/24/24 09:00 Metoprolol Tartrate 25 Mg Tab PO BID [facility] Morphine Sulfate 4 mg 07/23/24 17:06 Morphine Sulfate 4 Mg/Ml Syringe IV Q4HR PRN Chest Pain Nitroglycerin 0.4 mg 07/23/24 17:06 Nitroglycerin Sl Tabs 0.4 Mg Tab SUBLINGUAL Q5M PRN Chest Pain Non-Formulary Medication 1 drop 07/24/24 09:00 Brinzolamide/Brimonidine Tart [Simbrinza 1%-0.2% Eye Drop] LEFT EYE TID [facility] Pantoprazole Sodium 40 mg 07/24/24 09:00 Pantoprazole 40 Mg Tablet PO DAILY [facility] Prednisolone Acetate 1 drops 07/23/24 23:00 07/24/24 06:18 Prednisolone Acetate 1% Ophth Drops 5 Ml Btl LEFT EYE 1 drops Q8H [facility] Administration Quetiapine Fumarate 25 mg 07/24/24 21:00 Quetiapine 25 Mg Tab PO HS [facility] Tamsulosin HCl 0.4 mg 07/24/24 09:00 Tamsulosin 0.4 Mg Cap.Er.24h PO DAILY [facility] Intake and Output 07/23/24 07/24/24 07/24/24 22:59 06:59 14:59 Intake Total 17.008 0 78.02 Balance 17.008 0 78.02 Intake: Intake, IV Titration 17.008 0 78.02 Amount Heparin Sod,Pork in 0.45% 17.008 0 78.02 NaCl 25,000 unit In 0.45 % NaCl 1 250ml.bag @ 12 UNITS/KG/HR 9.362 mls/hr IV .Q24H [facility] Rx#: [id number] 07/24/24 06:11 07/23/24 14:51
[2024-07-24] MEDS: BRIMONIDINE TART LEFT EYE SCH (13:53)
[2024-07-24] MEDS: BRINZOLAMIDE LEFT EYE SCH (13:53)
[2024-07-24] MEDS: HYDROcodone/APAP 10-325MG 1 EACH TAB PO PRN (15:39)
[2024-07-24] MEDS: BACLOFEN 10 MG TAB PO SCH (21:05)
[2024-07-24] MEDS: QUEtiapine 25 MG TAB PO SCH (21:05)
[2024-07-24] MEDS: ISOSORBIDE DINITRATE 20 MG TAB PO SCH (21:05)
--- NOTE | 2024-07-24 21:16 | P.HPIM ---
History of Present Illness H&P Date: 07/24/24 Jay Becerra is a 69 year-old male with past medical history of coronary artery disease, paroxysmal atrial fibrillation on Eliquis, ischemic cardiomyopathy, who presented to the ED complaining of chest pain. He describes a tightness across his entire chest that happened after he was exerting himself but then did not resolve so he came to the ED. He does report BP intermittently going high and patient also complains of lower extremity edema right greater than left. On presentation blood pressure 109/86, heart rate 65, pulse ox 97% on room air, EKG NSR, WBC 6.9 Hgb 11.6, BUN 25 Cr 2.84. Trop 0.041, 0.042, 0.051. BNP 1690. Review of Systems All systems: negative Constitutional: Denies chills, Denies fever Eyes: denies blurred vision, denies pain Ears, nose, mouth and throat: Denies headache, Denies sore throat Cardiovascular: Reports chest pain, Denies shortness of breath Respiratory: Denies cough Gastrointestinal: Denies abdominal pain, Denies diarrhea, Denies nausea, Denies vomiting Musculoskeletal: Denies myalgias Integumentary: Denies pruritus, Denies rash Neurological: Denies numbness, Denies weakness Psychiatric: Denies anxiety, Denies depression Endocrine: Denies fatigue, Denies weight change Past Medical History Past Medical History: Coronary Artery Disease (CAD), Chest Pain / Angina, GERD/Reflux, Hyperlipidemia, Hypertension, Myocardial Infarction (NH), Osteoarthritis (OA), Prostate Disorder Additional Past Medical History / Comment(s): CAD, PCI, degenerative disc disease of the lumbar spine, chronic pain, neuropathy bilateral lower extremity, chronic bronchitis. Last Myocardial Infarction Date:: 2004 History of Any Multi-Drug Resistant Organisms: None Reported Past Surgical History: Cholecystectomy, Heart Catheterization With Stent, Hernia Repair, Orthopedic Surgery Additional Past Surgical History / Comment(s): carpal tunnal repair, cyst removed from the mouth, Left heart catheterization 2000 and 2004, right hernia repair, left arthroscopic knee surgery., pain clinic procedures. Past Anesthesia/Blood Transfusion Reactions: No Reported Reaction Date of Last Stent Placement:: 2004 Past Psychological History: No Psychological Hx Reported Additional Psychological History / Comment(s): Lives with brother. [place] Smoking Status: Never smoker Past Alcohol Use History: None Reported Past Drug Use History: None Reported - Past Family History Mother History Unknown: Yes Family Medical History: Cancer Father History Unknown: Yes Family Medical History: Cancer Medications and Allergies Home Medications Medication Instructions Recorded Confirmed Type Isosorbide Dinitrate [Monoket] 10 mg PO BID 09/29/14 07/23/24 History Metoprolol Tartrate [Lopressor] 75 mg PO BID 09/29/14 07/23/24 History Montelukast [Singulair] 10 mg PO HS 09/29/14 07/23/24 History Baclofen [Lioresal] 10 mg PO QID 05/10/21 07/23/24 History HYDROcodone/APAP 10-325MG [[place] 1 tab PO Q6HR PRN 05/10/21 07/23/24 History 10-325] Tamsulosin [Flomax] 0.4 mg PO DAILY 05/10/21 07/23/24 History Aspirin [Adult Low Dose Aspirin EC] 81 mg PO DAILY 06/19/21 07/23/24 History Pantoprazole [Protonix] 40 mg PO DAILY 06/19/21 07/23/24 History Apixaban [Eliquis] 5 mg PO BID 09/17/22 07/23/24 History Ezetimibe [Zetia] 10 mg PO DAILY 09/17/22 07/23/24 History Enalapril Maleate [Vasotec] 20 mg PO BID 01/22/24 07/23/24 History Fluoride (Sodium) [Sodium Fluoride 1 applic DENTAL HS 01/22/24 07/23/24 History 5000 Plus] Furosemide [Lasix] 20 mg PO DAILY 01/22/24 07/23/24 History Ondansetron [Zofran] 4 mg PO TID PRN 01/22/24 07/23/24 History QUEtiapine [SEROquel] 25 mg PO HS 01/22/24 07/23/24 History Brinzolamide/Brimonidine Tart 1 drop LEFT EYE TID 07/23/24 07/23/24 History [Simbrinza 1%-0.2% Eye Drop] amLODIPine [Norvasc] 10 mg PO DAILY 07/23/24 07/23/24 History methazolAMIDE [Neptazane] 50 mg PO BID 07/23/24 07/23/24 History prednisoLONE ACETATE 1% OPHTH 1 drops LEFT EYE Q8H 07/23/24 07/23/24 History [Pred Forte 1%] Allergies Allergy/AdvReac Type Severity Reaction Status Date / Time No Known Allergies Allergy Verified 07/23/24 16:10 Physical Exam Vitals: Vital Signs Temp Pulse Pulse Resp BP BP Pulse Ox 07/24/24 16:41 98.2 F 58 L 19 159/85 98 07/24/24 16:31 58 L 16 121/71 96 07/24/24 15:41 60 61 H 138/111 97 07/24/24 12:22 57 L 16 138/94 99 07/24/24 11:08 61 16 138/100 97 07/24/24 08:59 64 18 100/82 96 07/24/24 05:39 98.0 F 65 18 109/86 97 07/24/24 02:05 98.1 F 64 18 98 07/23/24 23:50 55 L 18 121/78 97 07/23/24 22:25 97.9 F 65 18 150/92 100 07/23/24 21:49 63 19 125/85 97 Intake and Output 07/24/24 07/24/24 07/24/24 06:59 14:59 22:59 Intake Total 0 78.02 118 Balance 0 78.02 118 Intake: Intake, IV Titration 0 78.02 Amount Heparin Sod,Pork in 0.45% 0 78.02 NaCl 25,000 unit In 0.45 % NaCl 1 250ml.bag @ 12 UNITS/KG/HR 9.362 mls/hr IV .Q24H [facility] Rx#: [id number] Oral 118 Other: Voiding Method Toilet Weight 78.018 kg Well developed elderly male NAD NC/AT, mmm Neck supple, no JVD CV Irregular, no murmur Lungs CTAB Abd Soft nontender Skin warm and dry Neuro AAOx3 no focal defect Results CBC & Chem 7: 07/24/24 06:11 07/23/24 14:51 Labs: Abnormal Lab Results - Last 24 Hours (Table) 07/23/24 07/23/24 07/24/24 Range/Units 23:21 23:21 01:31 APTT 30.4 H >200.0 H* (22.0-30.0) sec Troponin I 0.051 H* (0.000-0.034) ng/mL Cholesterol (0.00-200.00) mg/dL LDL Cholesterol, Calc (0.0-131.0) mg/dL 07/24/24 07/24/24 07/24/24 Range/Units 06:10 06:11 08:29 APTT 184.1 H* 51.3 H (22.0-30.0) sec Troponin I (0.000-0.034) ng/mL Cholesterol 214.00 H (0.00-200.00) mg/dL LDL Cholesterol, Calc 150.6 H (0.0-131.0) mg/dL Thrombosis Risk Factor Assmnt - Choose All That Apply Any of the Below Risk Factors Present?: Yes Each Factor Represents 1 point: Obesity (BMI >25) Other Risk Factors: Yes Each Risk Factor Represents 2 Points: Age 61-74 years Each Risk Factor Represents 3 Points: Family history of DVT/PE Other congenital or acquired thrombophilia - If yes, enter type in comment: No Thrombosis Risk Factor Assessment Total Risk Factor Score: 6 Thrombosis Risk Factor Assessment Level: High Risk Assessment and Plan Plan: Chest pain NSTEMI Cardiomyopathy CAD s/p stenting Paroxysmal AF Chronic kidney disease stage 4 Admit, consult cardiology. Resume home metoprolol, lipitor, lisinopril. continue lasix. Hold eliquis and start heparin drip. Follow renal function N
[2024-07-25 09:20] LABS: Mean Platelet Volume 9.6; Platelet Count 208 k/uL (150-450)
[2024-07-25 09:52] LABS: African American GFR (CKD) 26 (>60 ml/min/1.73 sqM); Anion Gap 9 mmol/L; Blood Urea Nitrogen 31 mg/dL (9-20); Calcium 9.2 mg/dL (8.4-10.2); Carbon Dioxide 22 mmol/L (22-30); Chloride 108 mmol/L (98-107); Glucose 94 mg/dL (74-99); Non-African American GFR(CKD) 23 (>60 ml/min/1.73 sqM); Potassium 3.6 mmol/L (3.5-5.1); Sodium 139 mmol/L (137-145)
--- NOTE | 2024-07-25 15:12 | P.PN ---
Subjective Progress Note Date: 07/25/24 This is a 69-year-old male patient of Dr. Adia Chruchill with past medical history of coronary artery disease with stent placement RCA in 2004, paroxysmal atrial fibrillation on Eliquis, ischemic cardiomyopathy, hyperlipidemia, hypertension, intolerance to statins. We have been asked to evaluate the patient for chest pain and elevated troponin. Patient complains that his blood pressure has been labile, sometimes very low and then up to 160 systolic. He also complains of chest pain that is a tightness that comes and goes. Patient received sublingual nitroglycerin with EMS and is not sure if this helped. Patient also complains of lower extremity edema right greater than left. Blood pressure 109/86, heart rate 65, pulse ox 97% on room air. Patient is seen today in the emergency center waiting for a bed on the cardiac stepdown unit. Patient has been started on heparin drip and Eliquis is on hold. -EKG: Sinus rhythm, first-degree block, left bundle branch block -Chest x-ray: No acute process -Laboratory studies: WBC 6.9, hemoglobin 11.6. BUN 25 creatinine 2.84. Troponin 0.041, 0.042 and 0.051. proBNP 1690. Magnesium 2.5. -Home cardiac medications: Amlodipine 10 mg daily, Eliquis 5 mg twice daily, aspirin 81 mg daily, Vasotec 20 mg twice daily, Zetia 10 mg daily, Lasix 20 mg daily, isosorbide 10 mg twice daily, Lopressor 75 mg twice daily, -Lexiscan Cardiolite stress test performed in the office on 03/16/2024 revealed inconclusive EKG part of the stress test due to baseline EKG abnormalities. Ischemic cardiomyopathy with moderate LV systolic function secondary to prior WI inferior wall without any evidence of ischemia. -Echocardiogram performed in the office on 05/23/2023 revealed EF of 40 to 45%, moderate left ventricular hypertrophy, aortic valve is calcified, mitral valve calcified, mild tricuspid regurgitation. PASP of 37 mmHg. Physiologic pulmonic regurgitation. July 25 Patient seen and examined at bedside this a.m. Is reporting mild substernal heaviness. Hemodynamically stable. Creatinine stable at 2.7. Physical examination: Gen: This is a 69-year-old male in no acute distress VS: reviewed HEENT: Head is atraumatic, normocephalic. Pupils equal, round. Sclerae is anicteric. NECK: Supple. No JVD. LUNGS: Clear to auscultation. No wheezes or rhonchi. No intercostal retractions. HEART: Regular rate and rhythm. No murmur. ABDOMEN: Soft No tenderness. EXTREMITIES: Minimal pedal edema. No calf tenderness. NEUROLOGICAL: Patient is awake, alert and oriented x3. Assessment: Abnormal troponins possibly due to hypotension, possibly due to heart failure Labile blood pressure readings Acute on chronic systolic heart failure History of coronary artery disease with previous stent to the RCA in 2004 Paroxysmal atrial fibrillation currently in A-fib rate controlled Ischemic cardiomyopathy with EF of 4045% Hypertension Hyper lipidemia Intolerance to statins Chronic kidney disease stage IV Plan: Continue current cardiac medications including aspirin, Lipitor, Zetia, metoprolol, isosorbide He is on lisinopril 20 mg twice daily as per primary team He has CKD. Would consult nephrology. Patient will need a cardiac catheterization on Saturday. Would request nephrology to give imports to optimize his kidney function and monitor it while we plan for cardiac catheterization. Objective - Vital Signs Vital signs: Vital Signs Temp 97.6 F 07/25/24 12:00 Pulse 62 07/25/24 14:00 Resp 18 07/25/24 14:00 BP 130/71 07/25/24 12:00 Pulse Ox 98 07/25/24 12:00 FiO2 Intake & Output 07/24/24 07/25/24 07/25/24 18:59 06:59 18:59 Intake Total 196.02 20 560 Balance 196.02 20 560 Weight 78.018 kg 66.3 kg Intake: IV 20 20 Invasive Line 2 20 20 Intake, IV Titration 78.02 Amount Heparin Sod,Pork in 0.45% 78.02 NaCl 25,000 unit In 0.45 % NaCl 1 250ml.bag @ 12 UNITS/KG/HR 9.362 mls/hr IV .Q24H DESIREE Rx#: [id number] Oral 118 540 Other: Voiding Method Toilet Toilet Toilet # Voids 2 2 - Labs CBC & Chem 7: 07/25/24 08:14 07/25/24 08:14 Labs: Abnormal Lab Results - Last 24 Hours (Table) 07/25/24 Range/Units 08:14 Chloride 108 H (98-107) mmol/L BUN 31 H (9-20) mg/dL Creatinine 2.70 H (0.66-1.25) mg/dL
--- NOTE | 2024-07-25 18:33 | P.PN ---
Subjective Jay Becerra is a 69 year-old male with past medical history of coronary artery disease, paroxysmal atrial fibrillation on Eliquis, ischemic cardiomyopathy, who presented to the ED complaining of chest pain. He describes a tightness across his entire chest that happened after he was exerting himself but then did not resolve so he came to the ED. He does report BP intermittently going high and patient also complains of lower extremity edema right greater than left. On presentation blood pressure 109/86, heart rate 65, pulse ox 97% on room air, EKG NSR, WBC 6.9 Hgb 11.6, BUN 25 Cr 2.84. Trop 0.041, 0.042, 0.051. BNP 1690. 07/25 Patient complains from some His dyspnea is off on all as he explains, worse when he lays down He denies chest pain Vital stable His creatinine 2.8 and 2.7 indicative of chronic kidney disease His troponin were mildly elevated 0.[address] [employer] team are planning for cardiac cath on Saturday morning Nephrology team were consulted Chest x-ray is negative Echocardiogram showing ejection fraction 40 to 45% with hypokinetic basal and inferior wall Review of systems CONSTITUTIONAL: No fever, no malaise, no fatigue. lesley pain. Normoactive bowel sounds. NEUROLOGICAL: No headaches, no weakness, no numbness. HEMATOLOGICAL: Denies any bleeding or petechiae. GENITOURINARY: Denies any burning micturition, frequency, or urgency. MUSCULOSKELETAL/RHEUMATOLOGICAL: Denies any joint pain, swelling, or any muscle pain. ENDOCRINE: Denies any polyuria or polydipsia. Active Medications Generic Name Dose Route Start Last Admin Trade Name Nahunq PRN Reason Stop Dose Admin Hydrocodone Bitart/Acetaminophen 1 each 07/23/24 22:32 07/25/24 15:44 Hydrocodone/Apap 10-325mg 1 Each Tab PO 1 each Q6HR PRN Administration Pain Amlodipine Besylate 10 mg 07/24/24 09:00 07/25/24 09:49 Amlodipine 10 Mg Tab PO 10 mg DAILY DESIREE Administration Aspirin 81 mg 07/26/24 09:00 Aspirin 81 Mg PO DAILY DESIREE Atorvastatin Calcium 80 mg 07/24/24 09:00 07/25/24 09:48 Atorvastatin 80 Mg Tab PO 80 mg DAILY [facility]IREE Administration Baclofen 10 mg 07/24/24 22:00 07/25/24 17:10 Baclofen 10 Mg Tab PO 10 mg QID [facility] Administration Ezetimibe 10 mg 07/24/24 09:00 07/25/24 09:49 Ezetimibe 10 Mg Tab PO 10 mg DAILY [facility] Administration Furosemide 40 mg 07/24/24 11:00 07/25/24 09:50 Furosemide 10 Mg/Ml 4 Ml Vial IV 40 mg DAILY [facility] Administration Isosorbide Dinitrate 20 mg 07/24/24 21:00 07/25/24 09:50 Isosorbide Dinitrate 20 Mg Tab PO 20 mg BID [facility] Administration Lisinopril 20 mg 07/24/24 09:00 07/25/24 09:48 Lisinopril 20 Mg Tab PO 20 mg BID [facility] Administration Methazolamide 50 mg 07/24/24 09:00 07/25/24 09:49 Methazolamide 25 Mg Tab PO 50 mg BID [facility] Administration Metoprolol Tartrate 75 mg 07/24/24 09:00 07/25/24 09:49 Metoprolol Tartrate 25 Mg Tab PO 75 mg BID [facility] Administration Morphine Sulfate 4 mg 07/23/24 17:06 Morphine Sulfate 4 Mg/Ml Syringe IV Q4HR PRN Chest Pain Nitroglycerin 0.4 mg 07/23/24 17:06 Nitroglycerin Sl Tabs 0.4 Mg Tab SUBLINGUAL Q5M PRN Chest Pain Non-Formulary Medication 1 drop 07/24/24 09:00 07/25/24 15:44 Brinzolamide/Brimonidine Tart [Simbrinza 1%-0.2% Eye Drop] LEFT EYE Not Given TID [facility] Pantoprazole Sodium 40 mg 07/24/24 09:00 07/25/24 09:48 Pantoprazole 40 Mg Tablet PO 40 mg DAILY [facility] Administration Prednisolone Acetate 1 drops 07/23/24 23:00 07/25/24 15:45 Prednisolone Acetate 1% Ophth Drops 5 Ml Btl LEFT EYE 1 drops Q8H [facility] Administration Quetiapine Fumarate 25 mg 07/24/24 21:00 07/24/24 21:05 Quetiapine 25 Mg Tab PO 25 mg HS [facility] Administration Tamsulosin HCl 0.4 mg 07/24/24 09:00 07/25/24 09:48 Tamsulosin 0.4 Mg Cap.Er.24h PO 0.4 mg DAILY [facility] Administration Objective - Vital Signs Vital signs: Vital Signs Temp 97.9 F 07/25/24 08:00 Pulse 70 07/25/24 08:00 Resp 18 07/25/24 08:00 BP 132/85 07/25/24 08:00 Pulse Ox 97 07/25/24 08:00 FiO2 Intake & Output 07/24/24 07/25/24 07/25/24 18:59 06:59 18:59 Intake Total 196.02 20 10 Balance 196.02 20 10 Weight 78.018 kg 66.3 kg Intake: IV 20 10 Invasive Line 2 20 10 Intake, IV Titration 78.02 Amount Heparin Sod,Pork in 0.45% 78.02 NaCl 25,000 unit In 0.45 % NaCl 1 250ml.bag @ 12 UNITS/KG/HR 9.362 mls/hr IV .Q24H [facility] Rx#: [id number] Oral 118 Other: Voiding Method Toilet Toilet Toilet # Voids 2 - Exam GENERAL: The patient is alert and oriented x3, not in any acute distress. Well developed, well nourished. HEENT: Pupils are round and equally reacting to light. EOMI. No scleral icterus. No conjunctival pallor. Normocephalic, atraumatic. No pharyngeal erythema. No thyromegaly. CARDIOVASCULAR: S1 and S2 present. No murmurs, rubs, or gallops. PULMONARY: Chest is clear to auscultation, no wheezing , no crackles. ABDOMEN: Soft, nontender, nondistended, normoactive bowel sounds. No palpable organomegaly. MUSCULOSKELETAL: No joint swelling or deformity. EXTREMITIES: No cyanosis, clubbing, or pedal edema. NEUROLOGICAL: Gross neurological examination did not reveal any focal deficits. SKIN: No rashes. no petechiae. - Labs CBC & Chem 7: 07/25/24 08:14 07/25/24 08:14 Labs: Abnormal Lab Results - Last 24 Hours (Table) 07/25/24 Range/Units 08:14 Chloride 108 H (98-107) mmol/L BUN 31 H (9-20) mg/dL Creatinine 2.70 H (0.66-1.25) mg/dL Assessment and Plan Assessment: Elevated troponin could be secondary to hypotension or heart failure Acute on chronic CHF with low ejection fraction 40 to 45% Chronic kidney disease stage IV Paroxysmal atrial fibrillation on Eliquis which is held now Plan: Continue with IV Lasix 40 mg daily Patient was placed on aspirin while Eliquis on hold Will start subcutaneous heparin Patient on lisinopril and metoprolol Cardiology team consulted are planning for cardiac cath on Saturday Nephrology team consult Labs and medication were reviewed.. Continue same treatment. Continue with symptomatic treatment. Resume home medication. Monitor labs and vitals. DVT and GI prophylaxis. Further recommendations as per clinical course of the patient DVT prophylaxis: Subcutaneous heparin GI Prophylaxis: Pepcid PT/OT: Pending Prognosis is guarded
[2024-07-26] MEDS: HEPARIN SODIUM,PORCINE 5,000 UNIT/ML 1 ML VIAL SQ SCH (00:01)
[2024-07-26 06:18] LABS: Appearance,Urine Clear (Clear); Bilirubin,Urine Negative (Negative); Blood,Urine Negative (Negative); Color,Urine Light Yellow; Glucose,Urine (UA) Negative (Negative); Ketones,Urine Negative (Negative); Leukocyte Esterase,Urine Negative (Negative); Nitrite,Urine Negative (Negative); Protein,Urine Negative (Negative); Specific Gravity,Urine 1.013 (1.001-1.035); Urobilinogen,Urine <2.0 mg/dL (<2.0)
[2024-07-26] MEDS: ASPIRIN 81 MG PO SCH (08:49)
[2024-07-26 10:58] LABS: Basophils # (A) 0.1 k/uL (0-0.2); Basophils % (A) 1 %; Eosinophils # (A) 0.3 k/uL (0-0.7); Eosinophils % (A) 4 %; HCT 37.6 % (39.0-53.0); HGB 11.8 gm/dL (13.0-17.5); Hypochromasia Slight; Lymphocytes # (A) 1.8 k/uL (1.0-4.8); Lymphocytes % (A) 20 %; MCH 29.4 pg (25.0-35.0); MCHC 31.3 g/dL (31.0-37.0); MCV 93.9 fL (80.0-100.0); Mean Platelet Volume 9.7; Monocytes # (A) 0.5 k/uL (0-1.0); Monocytes % (A) 6 %; Neutrophils # (A) 5.9 k/uL (1.3-7.7); Neutrophils % (A) 67 %; Platelet Count 246 k/uL (150-450); RBC 4.01 m/uL (4.30-5.90); RDW 13.1 % (11.5-15.5); WBC 8.8 k/uL (3.8-10.6)
--- NOTE | 2024-07-26 11:09 | P.NPCON ---
History of Present Illness - Reason for Consult acute renal failure - History of Present Illness patient is a 69-year-old male with history of chronic kidney disease NKF stage IIIB to IV with baseline creatinine around 2.3-2.5 mg/dL secondary to nephrosclerosis. He is admitted to the hospital with complaints of chest pain. He also complained of increased leg swelling prior to admission. Blood pressure has been fluctuating with occasionally high readings with systolic in the 160s with recent low blood pressure noted particularly at ophthalmologists office about a week ago. Blood pressure was not low this admission but has been low recently with systolic in the 90s. No urinary complaints. Noted to have elevated troponins his admission and is being considered for cardiac catheterization tomorrow. Ejection fraction 40-45%. Maintained on IV Lasix 40 mg daily. Past Medical History Past Medical History: Coronary Artery Disease (CAD), Chest Pain / Angina, GERD/Reflux, Hyperlipidemia, Hypertension, Myocardial Infarction (SD), Osteoarthritis (OA), Prostate Disorder Additional Past Medical History / Comment(s): CAD, PCI, degenerative disc disease of the lumbar spine, chronic pain, neuropathy bilateral lower extremity, chronic bronchitis. Last Myocardial Infarction Date:: 2004 History of Any Multi-Drug Resistant Organisms: None Reported Past Surgical History: Cholecystectomy, Heart Catheterization With Stent, Hernia Repair, Orthopedic Surgery Additional Past Surgical History / Comment(s): carpal tunnal repair, cyst removed from the mouth, Left heart catheterization 2000 and 2004, right hernia repair, left arthroscopic knee surgery., pain clinic procedures. Past Anesthesia/Blood Transfusion Reactions: No Reported Reaction Date of Last Stent Placement:: 2004 Past Psychological History: No Psychological Hx Reported Additional Psychological History / Comment(s): Lives with brother. Mykel Smoking Status: Never smoker Past Alcohol Use History: None Reported Past Drug Use History: None Reported - Past Family History Mother History Unknown: Yes Family Medical History: Cancer Father History Unknown: Yes Family Medical History: Cancer Medications and Allergies Home Medications Medication Instructions Recorded Confirmed Type Isosorbide Dinitrate [Monoket] 10 mg PO BID 09/29/14 07/23/24 History Metoprolol Tartrate [Lopressor] 75 mg PO BID 09/29/14 07/23/24 History Montelukast [Singulair] 10 mg PO HS 09/29/14 07/23/24 History Baclofen [Lioresal] 10 mg PO QID 05/10/21 07/23/24 History HYDROcodone/APAP 10-325MG [[place] 1 tab PO Q6HR PRN 05/10/21 07/23/24 History 10-325] Tamsulosin [Flomax] 0.4 mg PO DAILY 05/10/21 07/23/24 History Aspirin [Adult Low Dose Aspirin EC] 81 mg PO DAILY 06/19/21 07/23/24 History Pantoprazole [Protonix] 40 mg PO DAILY 06/19/21 07/23/24 History Apixaban [Eliquis] 5 mg PO BID 09/17/22 07/23/24 History Ezetimibe [Zetia] 10 mg PO DAILY 09/17/22 07/23/24 History Enalapril Maleate [Vasotec] 20 mg PO BID 01/22/24 07/23/24 History Fluoride (Sodium) [Sodium Fluoride 1 applic DENTAL HS 01/22/24 07/23/24 History 5000 Plus] Furosemide [Lasix] 20 mg PO DAILY 01/22/24 07/23/24 History Ondansetron [Zofran] 4 mg PO TID PRN 01/22/24 07/23/24 History QUEtiapine [SEROquel] 25 mg PO HS 01/22/24 07/23/24 History Brinzolamide/Brimonidine Tart 1 drop LEFT EYE TID 07/23/24 07/23/24 History [Simbrinza 1%-0.2% Eye Drop] amLODIPine [Norvasc] 10 mg PO DAILY 07/23/24 07/23/24 History methazolAMIDE [Neptazane] 50 mg PO BID 07/23/24 07/23/24 History prednisoLONE ACETATE 1% OPHTH 1 drops LEFT EYE Q8H 07/23/24 07/23/24 History [Pred Forte 1%] Allergies Allergy/AdvReac Type Severity Reaction Status Date / Time No Known Allergies Allergy Verified 07/23/24 16:10 Physical Exam Vitals: Vital Signs Temp Pulse Resp BP Pulse Ox 07/26/24 08:00 97.8 F 58 L 18 131/69 98 07/26/24 07:59 97 07/26/24 04:00 57 L 18 98/52 94 L 07/26/24 02:00 51 L 18 07/26/24 00:00 97.7 F 51 L 18 91/58 98 07/25/24 20:00 98.0 F 58 L 18 149/71 95 07/25/24 16:00 96.7 F L 60 18 133/66 98 07/25/24 14:00 62 18 07/25/24 12:00 97.6 F 62 18 130/71 98 Intake and Output 07/25/24 07/26/24 07/26/24 22:59 06:59 14:59 Intake Total 550 250 160 Balance 550 250 160 Intake: IV 10 10 10 Invasive Line 2 10 10 10 Oral 540 240 150 Other: Voiding Method Toilet Toilet Toilet # Voids 1 1 Weight 73.5 kg patient is awake, comfortable, no acute distress. Examination of the heart S1 and S2 Examination of the lungs bilateral breath sounds are heard Abdomen is soft nontender Examination of lower extremity shows no significant edema Benign tremors noted in the upper extremities Results - Lab Results Most recent lab results Calcium 9.2 mg/dL (8.4-10.2) 07/25/24 08:14 Magnesium 2.5 mg/dL (1.6-2.3) H 07/23/24 14:51 07/25/24 08:14 07/25/24 08:14 Assessment and Plan Assessment: 1. 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 Acute kidney injury associated with fluctuation in blood pressure and hypotension. UA is benign check ultrasound of the kidneys 3. Hypertension with fluctuating blood pressures. I will decrease Norvasc and continue with lisinopril for now. 4. Elevated troponins, being followed by cardiology with plan for cardiac catheterization in a.m. 5. Cardiomyopathy with EF of 40-45%, ischemic Plan: decrease Norvasc to 5 mg daily Continue with lisinopril, decrease dose if blood pressure remains low Hold Lasix as volume status has improved. Check ultrasound of the kidneys Okay to proceed with cardiac cath in 1-2 days if renal function remains stable Thank you for the consultation. We will continue to follow the patient with you during his hospitalization
[2024-07-26 11:18] LABS: African American GFR (CKD) 24 (>60 ml/min/1.73 sqM); Anion Gap 10 mmol/L; Blood Urea Nitrogen 35 mg/dL (9-20); Calcium 9.4 mg/dL (8.4-10.2); Carbon Dioxide 26 mmol/L (22-30); Chloride 105 mmol/L (98-107); Glucose 99 mg/dL (74-99); Non-African American GFR(CKD) 21 (>60 ml/min/1.73 sqM); Potassium 3.9 mmol/L (3.5-5.1); Sodium 141 mmol/L (137-145)
[2024-07-26] MEDS: polyethylene glycoL 3350 17 GM POWD.PACK PO SCH (12:51)
--- NOTE | 2024-07-26 13:45 | US ---
EXAMINATION TYPE: US kidneys/renal and bladder DATE OF EXAM: 07/26/2024 COMPARISON: 2016 CT CLINICAL INDICATION: Male, 69 years old with history of dhara; TECHNIQUE: Grayscale imaging of the bilateral kidneys and urinary bladder: FINDINGS: EXAM MEASUREMENTS: Right Kidney: 9.9 x 4.8 x 4.9 cm Left Kidney: 9.1 x 4.5 x 4.7 cm Right Kidney: No hydronephrosis or masses seen Left Kidney: No hydronephrosis or masses seen Bladder: Anechoic; 63ml Bilateral Jets seen: Yes There is no evidence for hydronephrosis at this point in time. Cortical thinning is present bilateral ly. No nephrolithiasis is seen. No masses are identified. The urinary bladder is not greatly diste nded. IMPRESSION: Evidence of chronic medical renal disease but no hydronephrosis is seen bilaterally. [facility], , 07/26/2024 1:43 PM
--- NOTE | 2024-07-26 14:23 | P.PN ---
Subjective Jay Becerra is a 69 year-old male with past medical history of coronary artery disease, paroxysmal atrial fibrillation on Eliquis, ischemic cardiomyopathy, who presented to the ED complaining of chest pain. He describes a tightness across his entire chest that happened after he was exerting himself but then did not resolve so he came to the ED. He does report BP intermittently going high and patient also complains of lower extremity edema right greater than left. On presentation blood pressure 109/86, heart rate 65, pulse ox 97% on room air, EKG NSR, WBC 6.9 Hgb 11.6, BUN 25 Cr 2.84. Trop 0.041, 0.042, 0.051. BNP 1690. 07/25 Patient complains from some His dyspnea is off on all as he explains, worse when he lays down He denies chest pain Vital stable His creatinine 2.8 and 2.7 indicative of chronic kidney disease His troponin were mildly elevated 0.04 and 0.05. Bill Recapitulation Clerk team are planning for cardiac cath on Saturday morning Nephrology team were consulted Chest x-ray is negative Echocardiogram showing ejection fraction 40 to 45% with hypokinetic basal and inferior wall 07/26 Patient with no chest pain. Dyspnea improved. No leg swelling No other complaint Is currently on aspirin 81 mg, Eliquis is on hold for his paroxysmal A-fib Also he is currently not on heparin drip. IV Lasix also was discontinued Creatinine stable at 2.8. Hemoglobin stable at 11.8 Renal ultrasound showing no hydronephrosis, I reviewed and agree Lisinopril dose lowered to 10 mg and Norvasc dose lowered to 5 mg. Patient continued on metoprolol 75 mg Review of systems CONSTITUTIONAL: No fever, no malaise, no fatigue. HEENT: No recent visual problems or hearing problems. Denied any sore throat. CARDIOVASCULAR: No orthopnea, PND, no palpitations, no syncope. PULMONARY: No shortness of breath, no cough, no hemoptysis. GASTROINTESTINAL: No diarrhea, no nausea, no vomiting, no abdominal pain. Normoactive bowel sounds. NEUROLOGICAL: No headaches, no weakness, no numbness. Active Medications Generic Name Dose Route Start Last Admin Trade Name Freq PRN Reason Stop Dose Admin Hydrocodone Bitart/Acetaminophen 1 each 07/23/24 22:32 07/26/24 08:47 Hydrocodone/Apap 10-325mg 1 Each Tab PO 1 each Q6HR PRN Administration Pain Amlodipine Besylate 5 mg 07/27/24 09:00 Amlodipine 5 Mg Tab PO DAILY [facility] Aspirin 81 mg 07/26/24 09:00 07/26/24 08:49 Aspirin 81 Mg PO 81 mg DAILY [facility] Administration Atorvastatin Calcium 80 mg 07/24/24 09:00 07/26/24 08:48 Atorvastatin 80 Mg Tab PO 80 mg DAILY [facility] Administration Baclofen 10 mg 07/24/24 22:00 07/26/24 12:51 Baclofen 10 Mg Tab PO 10 mg QID [facility] Administration Ezetimibe 10 mg 07/24/24 09:00 07/26/24 08:48 Ezetimibe 10 Mg Tab PO 10 mg DAILY [facility] Administration Heparin Sodium (Porcine) 5,000 unit 07/26/24 00:00 07/26/24 08:50 Heparin Sodium,Porcine 5,000 Unit/Ml 1 Ml Vial SQ 5,000 unit Q8HR [facility] Administration Isosorbide Dinitrate 20 mg 07/24/24 21:00 07/26/24 08:48 Isosorbide Dinitrate 20 Mg Tab PO 20 mg BID [facility] Administration Lisinopril 10 mg 07/27/24 09:00 Lisinopril 10 Mg Tab PO DAILY [facility] Methazolamide 50 mg 07/24/24 09:00 07/26/24 08:49 Methazolamide 25 Mg Tab PO 50 mg BID [facility] Administration Metoprolol Tartrate 75 mg 07/24/24 09:00 07/25/24 20:53 Metoprolol Tartrate 25 Mg Tab PO 75 mg BID [facility] Administration Morphine Sulfate 4 mg 07/23/24 17:06 Morphine Sulfate 4 Mg/Ml Syringe IV Q4HR PRN Chest Pain Nitroglycerin 0.4 mg 07/23/24 17:06 Nitroglycerin Sl Tabs 0.4 Mg Tab SUBLINGUAL Q5M PRN Chest Pain Non-Formulary Medication 1 drop 07/24/24 09:00 07/25/24 20:44 Brinzolamide/Brimonidine Tart [Simbrinza 1%-0.2% Eye Drop] LEFT EYE Not Given TID [facility] Pantoprazole Sodium 40 mg 07/24/24 09:00 07/26/24 08:48 Pantoprazole 40 Mg Tablet PO 40 mg DAILY [facility] Administration Polyethylene Glycol 17 gm 07/26/24 10:00 07/26/24 12:51 Polyethylene Glycol 3350 17 Gm Powd.Pack PO 17 gm DAILY [facility] Administration Prednisolone Acetate 1 drops 07/23/24 23:00 07/26/24 06:49 Prednisolone Acetate 1% Ophth Drops 5 Ml Btl LEFT EYE 1 drops Q8H [facility] Administration Quetiapine Fumarate 25 mg 07/24/24 21:00 07/25/24 20:52 Quetiapine 25 Mg Tab PO 25 mg HS [facility] Administration Tamsulosin HCl 0.4 mg 07/24/24 09:00 07/26/24 08:48 Tamsulosin 0.4 Mg Cap.Er.24h PO 0.4 mg DAILY [facility] Administration Objective - Vital Signs Vital signs: Vital Signs Temp 97.8 F 07/26/24 08:00 Pulse 58 L 07/26/24 08:00 Resp 18 07/26/24 08:00 BP 131/69 07/26/24 08:00 Pulse Ox 98 07/26/24 08:00 FiO2 Intake & Output 07/25/24 07/26/24 07/26/24 18:59 06:59 18:59 Intake Total 1100 260 340 Balance 1100 260 340 Weight 73.5 kg Intake: IV 20 20 10 Invasive Line 2 20 20 10 Oral 1080 240 330 Other: Voiding Method Toilet Toilet Toilet # Voids 1 1 - Exam GENERAL: The patient is alert and oriented x3, not in any acute distress. Well developed, well nourished. HEENT: Pupils are round and equally reacting to light. EOMI. No scleral icterus. No conjunctival pallor. Normocephalic, atraumatic. No pharyngeal erythema. No thyromegaly. CARDIOVASCULAR: S1 and S2 present. No murmurs, rubs, or gallops. PULMONARY: Chest is clear to auscultation, no wheezing , no crackles. ABDOMEN: Soft, nontender, nondistended, normoactive bowel sounds. No palpable organomegaly. MUSCULOSKELETAL: No joint swelling or deformity. EXTREMITIES: No cyanosis, clubbing, or pedal edema. NEUROLOGICAL: Gross neurological examination did not reveal any focal deficits. SKIN: No rashes. no petechiae. - Labs CBC & Chem 7: 07/26/24 09:36 07/26/24 09:36 Labs: Abnormal Lab Results - Last 24 Hours (Table) 07/26/24 07/26/24 Range/Units 09:36 09:36 RBC 4.01 L (4.30-5.90) m/uL Hgb 11.8 L (13.0-17.5) gm/dL Hct 37.6 L (39.0-53.0) % BUN 35 H (9-20) mg/dL Creatinine 2.89 H (0.66-1.25) mg/dL Assessment and Plan Assessment: Elevated troponin could be secondary to hypotension or heart failure Acute on chronic CHF with low ejection fraction 40 to 45% Chronic kidney disease stage IV Paroxysmal atrial fibrillation on Eliquis which is held now Plan: IV Lasix 40 mg daily was discontinued Patient was placed on aspirin while Eliquis on hold Will start subcutaneous heparin Patient on lisinopril and Norvasc at lower dose. Continued with the same dose of metoprolol Cardiology team consulted are planning for cardiac cath on Saturday Nephrology team consult Labs and medication were reviewed.. Continue same treatment. Continue with symptomatic treatment. Resume home medication. Monitor labs and vitals. DVT and GI prophylaxis. Further recommendations as per clinical course of the patient DVT prophylaxis: Subcutaneous heparin GI Prophylaxis: Pepcid PT/OT: Pending Prognosis is guarded
[2024-07-26] MEDS ORDERED: NITROGLYCERIN SL TABS 0.4 MG TAB SUBLINGUAL PRN (17:30)
[2024-07-26] MEDS ORDERED: ALPRAZolam 0.25 MG TAB PO PRN (17:30)
[2024-07-26] MEDS ORDERED: ALPRAZolam 0.5 MG TAB PO PRN (17:30)
[2024-07-26] MEDS: ASPIRIN 325 MG TAB PO STA (17:48)
[2024-07-26] MEDS: ATORVASTATIN 80 MG TAB PO STA (17:48)
--- NOTE | 2024-07-26 18:29 | P.PN ---
Subjective Progress Note Date: 07/26/24 This is a 69-year-old male patient of Dr. Adia Franco with past medical history of coronary artery disease with stent placement RCA in 2004, paroxysmal atrial fibrillation on Eliquis, ischemic cardiomyopathy, hyperlipidemia, hypertension, intolerance to statins. We have been asked to evaluate the patient for chest pain and elevated troponin. Patient complains that his blood pressure has been labile, sometimes very low and then up to 160 systolic. He also complains of chest pain that is a tightness that comes and goes. Patient received sublingual nitroglycerin with EMS and is not sure if this helped. Patient also complains of lower extremity edema right greater than left. Blood pressure 109/86, heart rate 65, pulse ox 97% on room air. Patient is seen today in the emergency center waiting for a bed on the cardiac stepdown unit. Patient has been started on heparin drip and Eliquis is on hold. -EKG: Sinus rhythm, first-degree block, left bundle branch block -Chest x-ray: No acute process -Laboratory studies: WBC 6.9, hemoglobin 11.6. BUN 25 creatinine 2.84. Troponin 0.041, 0.042 and 0.051. proBNP 1690. Magnesium 2.5. -Home cardiac medications: Amlodipine 10 mg daily, Eliquis 5 mg twice daily, aspirin 81 mg daily, Vasotec 20 mg twice daily, Zetia 10 mg daily, Lasix 20 mg daily, isosorbide 10 mg twice daily, Lopressor 75 mg twice daily, -Lexiscan Cardiolite stress test performed in the office on 03/16/2024 revealed inconclusive EKG part of the stress test due to baseline EKG abnormalities. Ischemic cardiomyopathy with moderate LV systolic function secondary to prior [place] inferior wall without any evidence of ischemia. -Echocardiogram performed in the office on 05/23/2023 revealed EF of 40 to 45%, moderate left ventricular hypertrophy, aortic valve is calcified, mitral valve calcified, mild tricuspid regurgitation. PASP of 37 mmHg. Physiologic pulmonic regurgitation. July 25 Patient seen and examined at bedside this a.m. Is reporting mild substernal heaviness. Hemodynamically stable. Creatinine stable at 2.7. July 26 Patient was seen and examined at bedside I reevaluated the patient symptoms. Patient reports that he gets short of breath walking 20 steps. He also gets substernal chest heaviness with walking. I told him that he has poor kidney function and doing heart catheterization will be a high risk procedure and he might end up on hemodialysis. Patient is adamant on getting a heart catheterization procedure done. Renal ultrasound did not show any obstructive uropathy. Showed chronic renal changes. Renal function has been stable at 2.8 Blood pressure is stabilized after reducing the dose of lisinopril Physical examination: Gen: This is a 69-year-old male in no acute distress VS: reviewed HEENT: Head is atraumatic, normocephalic. Pupils equal, round. Sclerae is anicteric. NECK: Supple. No JVD. LUNGS: Clear to auscultation. No wheezes or rhonchi. No intercostal retractions. HEART: Regular rate and rhythm. No murmur. ABDOMEN: Soft No tenderness. EXTREMITIES: Minimal pedal edema. No calf tenderness. NEUROLOGICAL: Patient is awake, alert and oriented x3. Assessment: Abnormal troponins possibly due to hypotension, possibly due to heart failure Labile blood pressure readings Acute on chronic systolic heart failure History of coronary artery disease with previous stent to the RCA in 2004 Paroxysmal atrial fibrillation currently in A-fib rate controlled Ischemic cardiomyopathy with EF of 4045% Hypertension Hyper lipidemia Intolerance to statins Chronic kidney disease stage IV Echo during this hospital showed EF of 40 to 45% inferior wall hypokinesia. This is somewhat similar to his prior echocardiogram. Last Lexiscan in March 25 showed inferior wall fixed perfusion defect with no reversibility. Plan: Continue current cardiac medications including aspirin, Lipitor, Zetia, metoprolol, isosorbide Reduce lisinopril to 10 He has CKD. Would consult nephrology. Plan for possible heart catheterization on Saturday Dr franco Objective - Vital Signs Vital signs: Vital Signs Temp 97.8 F 07/26/24 12:00 Pulse 70 07/26/24 14:00 Resp 18 07/26/24 14:00 BP 110/48 07/26/24 12:00 Pulse Ox 97 07/26/24 12:00 FiO2 Intake & Output 07/25/24 07/26/24 07/26/24 18:59 06:59 18:59 Intake Total 1100 260 500 Balance 1100 260 500 Weight 73.5 kg Intake: IV 20 20 20 Invasive Line 2 20 20 20 Oral 1080 240 480 Other: Voiding Method Toilet Toilet Toilet # Voids 1 1 - Labs CBC & Chem 7: 07/26/24 09:36 07/26/24 09:36 Labs: Abnormal Lab Results - Last 24 Hours (Table) 07/26/24 07/26/24 Range/Units 09:36 09:36 RBC 4.01 L (4.30-5.90) m/uL Hgb 11.8 L (13.0-17.5) gm/dL Hct 37.6 L (39.0-53.0) % BUN 35 H (9-20) mg/dL Creatinine 2.89 H (0.66-1.25) mg/dL
[2024-07-27] MEDS: SODIUM CHLORIDE 0.9% 1,000 ML in EMPTY BAG 1 BAG IV SCH (04:27)
[2024-07-27] MEDS: ASPIRIN 325 MG TAB PO ONE (05:59)
[2024-07-27] MEDS: ATORVASTATIN 80 MG TAB PO ONE (05:59)
[2024-07-27] MEDS ORDERED: HEPARIN SODIUM,PORCINE 10,000 UNIT in SODIUM CHLORIDE 0.9% 1,000 ML IRRIGATION PRN (07:00)
[2024-07-27] MEDS ORDERED: HEPARIN SODIUM,PORCINE (1 ML) 2,500 UNIT in SODIUM CHLORIDE 0.9% 250 ML IRRIGATION PRN (07:00)
[2024-07-27 07:14] LABS: African American GFR (CKD) 21 (>60 ml/min/1.73 sqM); Anion Gap 8 mmol/L; Blood Urea Nitrogen 40 mg/dL (9-20); Calcium 9.2 mg/dL (8.4-10.2); Carbon Dioxide 27 mmol/L (22-30); Chloride 106 mmol/L (98-107); Glucose 106 mg/dL (74-99); Non-African American GFR(CKD) 19 (>60 ml/min/1.73 sqM); Sodium 141 mmol/L (137-145)
[2024-07-27 07:15] LABS: Potassium 3.6 mmol/L (3.5-5.1)
[2024-07-27] MEDS: amLODIPine 5 MG TAB PO SCH (08:44)
[2024-07-27] MEDS: lisinopriL 10 MG TAB PO SCH (08:45)
[2024-07-27] MEDS: METOPROLOL SUCCINATE (ER) 25 MG TAB.ER.24H PO SCH (08:48)
[2024-07-27] MEDS ORDERED: lisinopriL 5 MG TAB PO SCH (09:00)
--- NOTE | 2024-07-27 11:31 | P.PN ---
Subjective patient is seen for follow-up for chronic kidney disease and acute kidney injury. Tentatively scheduled for cardiac cath today however serum creatinine has increased to 3.2 and I have advised the patient that it is best to delay the cardiac catheterization if it is not an emergency indication. Reports decent urine output. Blood pressure remains on the lower side. Patient did not receive the lisinopril this morning. Maintained on IV fluids in anticipation of cardiac cath. Objective - Vital Signs Vital signs: Vital Signs Temp 97.7 F 07/27/24 08:40 Pulse 71 07/27/24 08:40 Resp 14 07/27/24 08:40 BP 93/62 07/27/24 08:40 Pulse Ox 98 07/27/24 08:40 FiO2 Intake & Output 07/26/24 07/27/24 07/27/24 18:59 06:59 18:59 Intake Total 1100 480 Balance 1100 480 Weight 73 kg Intake: IV 20 Invasive Line 2 20 Oral 1080 480 Other: Voiding Method Toilet Toilet # Voids 1 3 - Exam patient is awake, comfortable, no acute distress. Examination of the heart S1 and S2 Examination of the lungs bilateral breath sounds are heard Abdomen is soft nontender Examination of lower extremity shows no significant edema Benign tremors noted in the upper extremities - Labs CBC & Chem 7: 07/26/24 09:36 07/27/24 06:20 Labs: Abnormal Lab Results - Last 24 Hours (Table) 07/27/24 Range/Units 06:20 BUN 40 H (9-20) mg/dL Creatinine 3.20 H (0.66-1.25) mg/dL Glucose 106 H (74-99) mg/dL Assessment and Plan Assessment: 1. 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 Acute kidney injury associated with fluctuation in blood pressure and hypotension. UA is benign. Ultrasound shows no evidence of obstruction 3. Hypertension with fluctuating blood pressures. I will decrease Norvasc and continue with lisinopril for now. 4. Elevated troponins, being followed by cardiology with plan for cardiac catheterization in a.m. 5. Cardiomyopathy with EF of 40-45%, ischemic Plan: recommend to hold cardiac cath due to worsening renal function. Continue with parameters on lisinopril. Continue off of Norvasc as blood pressure remains low.
--- NOTE | 2024-07-27 14:24 | P.PN ---
Subjective HISTORY OF PRESENT ILLNESS: This is a 69-year-old male patient of Dr. Adia Churchill with past medical history of coronary artery disease with stent placement RCA in 2004, paroxysmal atrial fibrillation on Eliquis, ischemic cardiomyopathy, hyperlipidemia, hypertension, intolerance to statins. We have been asked to evaluate the patient for chest pain and elevated troponin. Patient complains that his blood pressure has been labile, sometimes very low and then up to 160 systolic. He also complains of chest pain that is a tightness that comes and goes. Patient received sublingual nitroglycerin with EMS and is not sure if this helped. Patient also complains of lower extremity edema right greater than left. Blood pressure 109/86, heart rate 65, pulse ox 97% on room air. Patient is seen today in the emergency center waiting for a bed on the cardiac stepdown unit. Patient has been started on heparin drip and Eliquis is on hold. -EKG: Sinus rhythm, first-degree block, left bundle branch block -Chest x-ray: No acute process -Laboratory studies: WBC 6.9, hemoglobin 11.6. BUN 25 creatinine 2.84. Troponin 0.041, 0.042 and 0.051. proBNP 1690. Magnesium 2.5. -Home cardiac medications: Amlodipine 10 mg daily, Eliquis 5 mg twice daily, a spirin 81 mg daily, Vasotec 20 mg twice daily, Zetia 10 mg daily, Lasix 20 mg daily, isosorbide 10 mg twice daily, Lopressor 75 mg twice daily, -Lexiscan Cardiolite stress test performed in the office on 03/16/2024 revealed inconclusive EKG part of the stress test due to baseline EKG abnormalities. Ischemic cardiomyopathy with moderate LV systolic function secondary to prior [place] inferior wall without any evidence of ischemia. -Echocardiogram performed in the office on 05/23/2023 revealed EF of 40 to 45%, moderate left ventricular hypertrophy, aortic valve is calcified, mitral valve calcified, mild tricuspid regurgitation. PASP of 37 mmHg. Physiologic pulmonic regurgitation. July 25 Patient seen and examined at bedside this a.m. Is reporting mild substernal heaviness. Hemodynamically stable. Creatinine stable at 2.7. July 26 Patient was seen and examined at bedside I reevaluated the patient symptoms. Patient reports that he gets short of breath walking 20 steps. He also gets substernal chest heaviness with walking. I told him that he has poor kidney function and doing heart catheterization will be a high risk procedure and he might end up on hemodialysis. Patient is adamant on getting a heart catheterization procedure done. 07/27/2024 Patient examined this morning at the bedside. Patient currently denies chest pain or pressure. He denies shortness of breath. Patient was initially scheduled for cardiac catheterization today. However he has worsening kidney function today with a creatinine of 3.2. Echocardiogram obtained this admission reveals ejection fraction 4045% with hypokinetic posterior wall, hypokinetic basal to mid inferior wall, mild MR, trace TR. PHYSICAL EXAM: VITAL SIGNS: Reviewed. GENERAL: Well-developed in no acute distress. NECK: Supple. No JVD or thyromegaly LUNGS: Respirations even and unlabored. Lungs essentially clear to auscultation bilaterally. HEART: Regular rate and rhythm. S1 and S2 heard. EXTREMITIES: Normal range of motion. No clubbing or cyanosis. Peripheral pulses intact. No lower extremity edema ASSESSMENT: Chest pain Elevated troponins, flat, likely type II GA, however cannot rule out type I GA Acute on chronic heart failure with reduced EF Acute on chronic kidney disease History of coronary artery disease with previous stent to the RCA in 2004 Paroxysmal atrial fibrillation Ischemic cardiomyopathy with EF of 4045% Hypertension Hyperlipidemia with statin intolerance Labile blood pressures PLAN: Patient was initially scheduled for cardiac catheterization today. However he has worsening kidney function today with a creatinine of 3.2. Heart catheterization canceled for today and will be rescheduled on an outpatient basis. Continue additional cardiac medications Resume Eliquis Monitor kidney function. Repeat in AM. Nephrology following. Further recommendations pending patient course Patient to follow-up postdischarge with Dr. Churchill Nurse practitioner note has been reviewed by physician. Signing provider agrees with the documented findings, assessment, and plan of care documented by DECK OFFICER as a scribe. Objective - Vital Signs Vital signs: Vital Signs Temp 97.9 F 07/27/24 11:32 Pulse 95 07/27/24 11:32 Resp 14 07/27/24 11:32 BP 146/81 07/27/24 11:32 Pulse Ox 97 07/27/24 11:32 FiO2 Intake & Output 07/26/24 07/27/24 07/27/24 18:59 06:59 18:59 Intake Total 1100 480 Balance 1100 480 Weight 73 kg Intake: IV 20 Invasive Line 2 20 Oral 1080 480 Other: Voiding Method Toilet Toilet # Voids 1 3 - Labs CBC & Chem 7: 07/26/24 09:36 07/27/24 06:20 Labs: Abnormal Lab Results - Last 24 Hours (Table) 07/27/24 Range/Units 06:20 BUN 40 H (9-20) mg/dL Creatinine 3.20 H (0.66-1.25) mg/dL Glucose 106 H (74-99) mg/dL
[2024-07-27] MEDS: APIXABAN 5 MG TAB PO SCH (21:17)
--- NOTE | 2024-07-27 21:23 | P.PN ---
Subjective Progress Note Date: 07/27/24 Jay Becerra is a 69 year-old male with past medical history of coronary artery disease, paroxysmal atrial fibrillation on Eliquis, ischemic cardiomyopathy, who presented to the ED complaining of chest pain. He describes a tightness across his entire chest that happened after he was exerting himself but then did not resolve so he came to the ED. He does report BP intermittently going high and patient also complains of lower extremity edema right greater than left. On presentation blood pressure 109/86, heart rate 65, pulse ox 97% on room air, EKG NSR, WBC 6.9 Hgb 11.6, BUN 25 Cr 2.84. Trop 0.041, 0.042, 0.051. BNP 1690. 07/25 Patient complains from some His dyspnea is off on all as he explains, worse when he lays down He denies chest pain Vital stable His creatinine 2.8 and 2.7 indicative of chronic kidney disease His troponin were mildly elevated 0.04 and 0.05. Ring Cutter Lathe Operator team are planning for cardiac cath on Saturday morning Nephrology team were consulted Chest x-ray is negative Echocardiogram showing ejection fraction 40 to 45% with hypokinetic basal and inferior wall 07/26 Patient with no chest pain. Dyspnea improved. No leg swelling No other complaint Is currently on aspirin 81 mg, Eliquis is on hold for his paroxysmal A-fib Also he is currently not on heparin drip. IV Lasix also was discontinued Creatinine stable at 2.8. Hemoglobin stable at 11.8 Renal ultrasound showing no hydronephrosis, I reviewed and agree Lisinopril dose lowered to 10 mg and Norvasc dose lowered to 5 mg. Patient continued on metoprolol 75 mg 07/27 His Cr worsened to 3.2 today and catheterization was canceled and recommended to be redone as an outpatient. He denies chest pain today. No shortness of breath. Objective - Vital Signs Vital signs: Vital Signs Temp 96.3 F L 07/27/24 20:00 Pulse 62 07/27/24 20:00 Resp 16 07/27/24 20:00 BP 108/69 07/27/24 20:00 Pulse Ox 97 07/27/24 20:00 FiO2 Intake & Output 07/27/24 07/27/24 07/28/24 06:59 18:59 06:59 Intake Total 480 Balance 480 Weight 73 kg Intake: Oral 480 Other: Voiding Method Toilet Toilet Urinal # Voids 3 3 - Exam Gen: well developed elderly male in NAD CV: RRR Lungs: CTAB Abd: soft, nontender - Labs CBC & Chem 7: 07/26/24 09:36 07/27/24 06:20 Labs: Abnormal Lab Results - Last 24 Hours (Table) 07/27/24 Range/Units 06:20 BUN 40 H (9-20) mg/dL Creatinine 3.20 H (0.66-1.25) mg/dL Glucose 106 H (74-99) mg/dL Assessment and Plan Plan: Chest pain NSTEMI Cardiomyopathy CAD s/p stenting Paroxysmal AF Chronic kidney disease stage 4 Continue with home medical regimen, hold lasix per Nephrology and closely monitor renal funtion
[2024-07-28 05:23] VITALS: RESP 16; TEMP 97.3
[2024-07-28 07:19] LABS: African American GFR (CKD) 26 (>60 ml/min/1.73 sqM); Anion Gap 6 mmol/L; Blood Urea Nitrogen 32 mg/dL (9-20); Carbon Dioxide 26 mmol/L (22-30); Chloride 110 mmol/L (98-107); Glucose 100 mg/dL (74-99); Non-African American GFR(CKD) 23 (>60 ml/min/1.73 sqM); Potassium 3.8 mmol/L (3.5-5.1); Sodium 142 mmol/L (137-145)
--- NOTE | 2024-07-28 11:52 | P.PN ---
Subjective patient is seen for follow-up for chronic kidney disease and acute kidney injury. Cardiac cath held yesterday secondary to worsening renal function. Status post IV fluids. Serum creatinine improved to 2.6 today. Cardiac cath will be performed as outpatient. Patient is being discharged. Blood pressure remains on the lower side . No complaints of shortness of breath. Objective - Vital Signs Vital signs: Vital Signs Temp 97.3 F L 07/28/24 04:00 Pulse 83 07/28/24 08:00 Resp 16 07/28/24 08:00 BP 109/67 07/28/24 08:00 Pulse Ox 97 07/28/24 08:00 FiO2 Intake & Output 07/27/24 07/28/24 07/28/24 18:59 06:59 18:59 Intake Total 118 Balance 118 Weight 73.4 kg Intake: Oral 118 Other: Voiding Method Toilet Toilet Toilet Urinal Urinal Urinal # Voids 3 1 - Exam patient is awake, comfortable, no acute distress. Examination of the heart S1 and S2 Examination of the lungs bilateral breath sounds are heard Abdomen is soft nontender Examination of lower extremity shows no significant edema Benign tremors noted in the upper extremities - Labs CBC & Chem 7: 07/26/24 09:36 07/28/24 05:49 Labs: Abnormal Lab Results - Last 24 Hours (Table) 07/28/24 Range/Units 05:49 Chloride 110 H (98-107) mmol/L BUN 32 H (9-20) mg/dL Creatinine 2.69 H (0.66-1.25) mg/dL Glucose 100 H (74-99) mg/dL Assessment and Plan Assessment: 1. 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 Acute kidney injury associated with fluctuation in blood pressure and hypotension. UA is benign. Ultrasound shows no evidence of obstruction 3. Hypertension with fluctuating blood pressures. I will decrease Norvasc and continue with lisinopril for now. 4. Elevated troponins, being followed by cardiology with plan for cardiac catheterization in a.m. 5. Cardiomyopathy with EF of 40-45%, ischemic Plan: patient is stable for discharge from nephrology standpoint. He is advised to monitor his blood pressure closely and increase lisinopril if blood pressure is elevated. Continue off of Norvasc for now as blood pressure remains low. Follow-up as outpatient in 1 week Continue with parameters on lisinopril. Continue off of Norvasc as blood pressure remains low.
[2024-07-28 12:34] VITALS: BP 113/64; PULSE 87
--- NOTE | 2024-07-28 12:40 | P.PN ---
Subjective HISTORY OF PRESENT ILLNESS: This is a 69-year-old male patient of Dr. Adia Churchill with past medical history of coronary artery disease with stent placement RCA in 2004, paroxysmal atrial fibrillation on Eliquis, ischemic cardiomyopathy, hyperlipidemia, hypertension, intolerance to statins. We have been asked to evaluate the patient for chest pain and elevated troponin. Patient complains that his blood pressure has been labile, sometimes very low and then up to 160 systolic. He also complains of chest pain that is a tightness that comes and goes. Patient received sublingual nitroglycerin with EMS and is not sure if this helped. Patient also complains of lower extremity edema right greater than left. Blood pressure 109/86, heart rate 65, pulse ox 97% on room air. Patient is seen today in the emergency center waiting for a bed on the cardiac stepdown unit. Patient has been started on heparin drip and Eliquis is on hold. -EKG: Sinus rhythm, first-degree block, left bundle branch block -Chest x-ray: No acute process -Laboratory studies: WBC 6.9, hemoglobin 11.6. BUN 25 creatinine 2.84. Troponin 0.041, 0.042 and 0.051. proBNP 1690. Magnesium 2.5. -Home cardiac medications: Amlodipine 10 mg daily, Eliquis 5 mg twice daily, a spirin 81 mg daily, Vasotec 20 mg twice daily, Zetia 10 mg daily, Lasix 20 mg daily, isosorbide 10 mg twice daily, Lopressor 75 mg twice daily, -Lexiscan Cardiolite stress test performed in the office on 03/16/2024 revealed inconclusive EKG part of the stress test due to baseline EKG abnormalities. Ischemic cardiomyopathy with moderate LV systolic function secondary to prior PA inferior wall without any evidence of ischemia. -Echocardiogram performed in the office on 05/23/2023 revealed EF of 40 to 45%, moderate left ventricular hypertrophy, aortic valve is calcified, mitral valve calcified, mild tricuspid regurgitation. PASP of 37 mmHg. Physiologic pulmonic regurgitation. July 25 Patient seen and examined at bedside this a.m. Is reporting mild substernal heaviness. Hemodynamically stable. Creatinine stable at 2.7. July 26 Patient was seen and examined at bedside I reevaluated the patient symptoms. Patient reports that he gets short of breath walking 20 steps. He also gets substernal chest heaviness with walking. I told him that he has poor kidney function and doing heart catheterization will be a high risk procedure and he might end up on hemodialysis. Patient is adamant on getting a heart catheterization procedure done. 07/27/2024 Patient examined this morning at the bedside. Patient currently denies chest pain or pressure. He denies shortness of breath. Patient was initially scheduled for cardiac catheterization today. However he has worsening kidney function today with a creatinine of 3.2. Echocardiogram obtained this admission reveals ejection fraction 4045% with hypokinetic posterior wall, hypokinetic basal to mid inferior wall, mild MR, trace TR. 07/28/2024 Patient examined this morning at the bedside. Patient denies chest pain or pressure. He denies shortness of breath. Creatinine today 2.69. Vital signs are stable. PHYSICAL EXAM: VITAL SIGNS: Reviewed. GENERAL: Well-developed in no acute distress. NECK: Supple. No JVD or thyromegaly LUNGS: Respirations even and unlabored. Lungs essentially clear to auscultation bilaterally. HEART: Regular rate and rhythm. S1 and S2 heard. EXTREMITIES: Normal range of motion. No clubbing or cyanosis. Peripheral pulses intact. No lower extremity edema ASSESSMENT: Chest pain Elevated troponins, flat, likely type II PA, however cannot rule out type I PA Acute on chronic heart failure with reduced EF Acute on chronic kidney disease History of coronary artery disease with previous stent to the RCA in 2004 Paroxysmal atrial fibrillation Ischemic cardiomyopathy with EF of 4045% Hypertension Hyperlipidemia with statin intolerance Labile blood pressures PLAN: Continue current cardiac medications Eliquis resumed yesterday Monitor kidney function. Repeat in AM. Nephrology following. Further recommendations pending patient course No plans for inpatient cardiac catheterization due to kidney function. This will be reevaluated on an outpatient basis Patient is stable for discharge home today from a cardiac standpoint Patient to follow-up postdischarge with Dr. Churchill Nurse practitioner note has been reviewed by physician. Signing provider agrees with the documented findings, assessment, and plan of care documented by CLOTH BOIL OFF MACHINE OPERATOR as a scribe. Objective - Vital Signs Vital signs: Vital Signs Temp 97.3 F L 07/28/24 04:00 Pulse 83 07/28/24 08:00 Resp 16 07/28/24 08:00 BP 109/67 07/28/24 08:00 Pulse Ox 97 07/28/24 08:00 FiO2 Intake & Output 07/27/24 07/28/24 07/28/24 18:59 06:59 18:59 Intake Total 118 Balance 118 Weight 73.4 kg Intake: Oral 118 Other: Voiding Method Toilet Toilet Toilet Urinal Urinal Urinal # Voids 3 1 - Labs CBC & Chem 7: 07/26/24 09:36 07/28/24 05:49 Labs: Abnormal Lab Results - Last 24 Hours (Table) 07/28/24 Range/Units 05:49 Chloride 110 H (98-107) mmol/L BUN 32 H (9-20) mg/dL Creatinine 2.69 H (0.66-1.25) mg/dL Glucose 100 H (74-99) mg/dL
== END 2024-07-28 15:15 | disposition home or self-care (01) | DRG 280 ==
LOC: EC 14:06 → 3SCARD 17:07
PROVIDERS: ADMIT Family Medicine; ATTEND Family Medicine
DX: I25.110 Atherosclerotic heart disease of native coronary artery with unstable angina pectoris (principal); I50.23 Acute on chronic systolic (congestive) heart failure; I21.A1 Myocardial infarction type 2; I13.0 Hypertensive heart and chronic kidney disease with heart failure and stage 1 through stage 4 chronic kidney disease, or unspecified chronic kidney disease; N18.4 Chronic kidney disease, stage 4 (severe); N17.9 Acute kidney failure, unspecified; I95.9 Hypotension, unspecified; Z79.01 Long term (current) use of anticoagulants; I48.0 Paroxysmal atrial fibrillation; I25.10 Atherosclerotic heart disease of native coronary artery without angina pectoris; I25.5 Ischemic cardiomyopathy; E78.5 Hyperlipidemia, unspecified; K21.9 Gastro-esophageal reflux disease without esophagitis; I34.0 Nonrheumatic mitral (valve) insufficiency; I44.7 Left bundle-branch block, unspecified; I25.2 Old myocardial infarction; Z95.5 Presence of coronary angioplasty implant and graft; Z79.82 Long term (current) use of aspirin; Z79.899 Other long term (current) drug therapy
CPT/HCPCS: 36415; 71046; 76770; 80048; 80053; 80061; 81003; 83690; 83735; 83880; 84443; 84484; 85025; 85049; 85610; 85730; 93306; 94760; 96365; 96366; 96375; 99291

== ENCOUNTER 2024-10-06 16:00 | Emergency (ER) | payer MEDICARE, OTHER ==
--- NOTE | 2024-10-06 16:27 | ED ---
Male Urogenital HPI - General Chief complaint: Urogenital Stated complaint: blood in urine Time Seen by Provider: 10/06/24 16:15 Source: patient, RN notes reviewed Mode of arrival: ambulatory Limitations: no limitations - History of Present Illness Initial comments: This is a 69-year-old male with history of CKD and CAD presenting with blood in urine x 3 days. Patient states blood was initially bright red in color and now appears dark/almost black. Patient states that he suspects the blood is originating from his kidneys. Patient endorses history of poor kidney function due to repeated IV dye use use during stress test since his 40s. Patient states he is scheduled for his first dialysis appointment in October. Endorses associated fatigue. Denies history of smoking. Denies fever, chills, chest pain, dyspnea, back pain, pelvic pain, N/V, dysuria, increased urinary frequency. MD Complaint: other (Hematuria) Onset/Timin -: days(s) Location: abdomen Quality: other (Pressure) Improves with: none Worsens with: none Reports: blood in urine, other (Fatigue) - Related Data Home Medications Medication Instructions Recorded Confirmed Isosorbide Dinitrate [Monoket] 10 mg PO BID 09/29/14 07/23/24 Metoprolol Tartrate [Lopressor] 75 mg PO BID 09/29/14 07/23/24 Montelukast [Singulair] 10 mg PO HS 09/29/14 07/23/24 Baclofen [Lioresal] 10 mg PO QID 05/10/21 07/23/24 HYDROcodone/APAP 10-325MG [Nichols 1 tab PO Q6HR PRN 05/10/21 07/23/24 10-325] Tamsulosin [Flomax] 0.4 mg PO DAILY 05/10/21 07/23/24 Aspirin [Adult Low Dose Aspirin EC] 81 mg PO DAILY 06/19/21 07/23/24 Pantoprazole [Protonix] 40 mg PO DAILY 06/19/21 07/23/24 Apixaban [Eliquis] 5 mg PO BID 09/17/22 07/23/24 Ezetimibe [Zetia] 10 mg PO DAILY 09/17/22 07/23/24 Enalapril Maleate [Vasotec] 20 mg PO BID 01/22/24 07/23/24 Fluoride (Sodium) [Sodium Fluoride 1 applic DENTAL HS 01/22/24 07/23/24 5000 Plus] Furosemide [Lasix] 20 mg PO DAILY 01/22/24 07/23/24 Ondansetron [Zofran] 4 mg PO TID PRN 01/22/24 07/23/24 QUEtiapine [SEROquel] 25 mg PO HS 01/22/24 07/23/24 Brinzolamide/Brimonidine Tart 1 drop LEFT EYE TID 07/23/24 07/23/24 [Simbrinza 1%-0.2% Eye Drop] amLODIPine [Norvasc] 10 mg PO DAILY 07/23/24 07/23/24 methazolAMIDE [Neptazane] 50 mg PO BID 07/23/24 07/23/24 prednisoLONE ACETATE 1% OPHTH 1 drops LEFT EYE Q8H 07/23/24 07/23/24 [Pred Forte 1%] Previous Rx's Medication Instructions Recorded lisinopriL [Zestril] 10 mg PO DAILY #30 tab 07/28/24 Cephalexin [Keflex] 500 mg PO Q6HR 28 Days #4 cap 10/06/24 Allergies Allergy/AdvReac Type Severity Reaction Status Date / Time No Known Allergies Allergy Verified 10/06/24 16:08 Review of Systems ROS Statement: Those systems with pertinent positive or pertinent negative responses have been documented in the HPI. ROS Other: All systems not noted in ROS Statement are negative. Past Medical History Past Medical History: Coronary Artery Disease (CAD), Chest Pain / Angina, GERD/ Reflux, Hyperlipidemia, Hypertension, Myocardial Infarction (MT), Osteoarthritis (OA), Prostate Disorder Additional Past Medical History / Comment(s): CAD, PCI, degenerative disc disease of the lumbar spine, chronic pain, neuropathy bilateral lower extremity, chronic bronchitis. Last Myocardial Infarction Date:: 2004 History of Any Multi-Drug Resistant Organisms: None Reported Past Surgical History: Cholecystectomy, Heart Catheterization With Stent, Hernia Repair, Orthopedic Surgery Additional Past Surgical History / Comment(s): carpal tunnal repair, cyst removed from the mouth, Left heart catheterization 2000 and 2004, right hernia repair, left arthroscopic knee surgery., pain clinic procedures. Past Anesthesia/Blood Transfusion Reactions: No Reported Reaction Date of Last Stent Placement:: 2004 Past Psychological History: No Psychological Hx Reported Smoking Status: Never smoker Past Alcohol Use History: None Reported Past Drug Use History: None Reported - Past Family History Mother History Unknown: Yes Family Medical History: Cancer Father History Unknown: Yes Family Medical History: Cancer General Exam Limitations: no limitations General appearance: alert, in no apparent distress Head exam: Present: atraumatic, normocephalic, normal inspection Eye exam: Present: normal appearance, PERRL, EOMI. Absent: scleral icterus, conjunctival injection, periorbital swelling ENT exam: Present: normal exam, mucous membranes moist Neck exam: Present: normal inspection. Absent: tenderness, meningismus, lymph adenopathy Respiratory exam: Present: normal lung sounds bilaterally. Absent: respiratory distress, wheezes, rales, rhonchi, stridor Cardiovascular Exam: Present: regular rate, normal rhythm, normal heart sounds. Absent: systolic murmur, diastolic murmur, rubs, gallop, clicks GI/Abdominal exam: Present: soft, tenderness (Positive hypogastric tenderness without guarding), normal bowel sounds. Absent: distended, guarding, rebound, rigid Extremities exam: Present: normal inspection, full ROM, normal capillary refill. Absent: tenderness, pedal edema, joint swelling, calf tenderness Back exam: Present: normal inspection. Absent: CVA tenderness (R), CVA tenderness (L) Neurological exam: Present: alert, oriented X3, CN II-XII intact Psychiatric exam: Present: normal affect, normal mood Skin exam: Present: warm, dry, intact, normal color. Absent: rash Course Vital Signs 10/06/24 10/06/24 16:04 18:56 Temperature 97.8 F 97.9 F Pulse Rate 64 65 Respiratory 19 18 Rate Blood Pressure 122/89 124/81 O2 Sat by Pulse 95 96 Oximetry Medical Decision Making - Medical Decision Making Was pt. sent in by a medical professional or institution (, PA, AIR VALVE REPAIRER, urgent care, hospital, or fci...) When possible be specific @ -No Did you speak to anyone other than the patient for history (EMS, parent, family, police, friend...)? What history was obtained from this source @ -No Did you review nursing and triage notes (agree or disagree)? Why? @ -I reviewed and agree with nursing and triage notes Were old charts reviewed (outside hosp., previous admission, EMS record, old EKG, old radiological studies, urgent care reports/EKG's, fci records)? Report findings @ -No old charts were reviewed Differential Diagnosis (chest pain, altered mental status, abdominal pain women, abdominal pain men, vaginal bleeding, weakness, fever, dyspnea, syncope, headache, dizziness, GI bleed, back pain, seizure, CVA, palpatations, mental health, musculoskeletal)? @ -Differential Abdominal Pain Men: Appendicitis, cholecystitis, diverticulosis, ischemic bowel, pancreatitis, hepatitis, UTI, gastroenteritis, AAA, incarcerated hernia, bowel obstruction, constipation, inflammatory bowel, hepatitis, peptic ulcer disease, splenic infarction, perforated viscus, testicular torsion, this is not meant to be an all-inclusive list EKG interpreted by me (3pts min.). @ -Not done X-rays interpreted by me (1pt min.). @ -None done CT interpreted by me (1pt min.). @ -None done U/S interpreted by me (1pt. min.). @ -Ultrasound kidney and bladder shows simple cyst in mid right kidney and nonobstructing renal stone and inferior pole of right kidney with bladder and left kidney appearing within normal limits. What testing was considered but not performed or refused? (CT, X-rays, U/S, labs)? Why? @ -UA was ordered but patient states he is unable to provide urine, stating he normally urinates only twice per day What meds were considered but not given or refused? Why? @ -None Did you discuss the management of the patient with other professionals (professionals i.e. , PA, AIR VALVE REPAIRER, lab, RT, psych nurse, social insurance administrator, health manager, teacher, electoral officer, case monitor)? Give summary @ -No Was smoking cessation discussed for >3mins.? @ -No Was critical care preformed (if so, how long)? @ -No Were there social determinants of health that impacted care today? How? (Homelessness, low income, unemployed, alcoholism, drug addiction, transportation, low edu. Level, literacy, decrease access to med. care, alf, rehab)? @ -No Was there de-escalation of care discussed even if they declined (Discuss DNR or withdrawal of care, Hospice)? DNR status @ -No What co-morbidities impacted this encounter? (DM, HTN, Smoking, COPD, CAD, Cancer, CVA, ARF, Chemo, Hep., AIDS, mental health diagnosis, sleep apnea, morbid obesity)? @ -CKD Was patient admitted / discharged? Hospital course, mention meds given and route, prescriptions, significant lab abnormalities, going to OR and other pertinent info. @ -Lab work shows minor anemia (10.4) which is not significantly deviated from normal for patient. Stable CKD with GFR 25 and hyperglycemia (142) noted. Otherwise unremarkable. Ultrasound kidney and bladder shows simple cyst in mid right kidney and nonobstructing renal stone and inferior pole of right kidney with bladder and left kidney appearing within normal limits. Cephalexin sent to patient's pharmacy to cover for UTI. Advised patient to follow-up with PCP/urology in the next 24 to [address] patient with Dr. Alejandra. Undiagnosed new problem with uncertain prognosis? @ -Hematuria Drug Therapy requiring intensive monitoring for toxicity (Heparin, Nitro, Insulin, Cardizem)? @ -No Were any procedures done? @ -No Diagnosis/symptom? @ -Hematuria Acute, or Chronic, or Acute on Chronic? @ -Acute Uncomplicated (without systemic symptoms) or Complicated (systemic symptoms)? @ -Complicated Side effects of treatment? @ -No Exacerbation, Progression, or Severe Exacerbation? @ -No Poses a threat to life or bodily function? How? (Chest pain, USA, MT, pneumonia, PE, COPD, DKA, ARF, appy, cholecystitis, CVA, Diverticulitis, Homicidal, Suicidal, threat to staff... and all critical care pts) @ -No - Lab Data Result diagrams: 10/06/24 16:25 10/06/24 16:25 Lab Results 10/06/24 10/06/24 10/06/24 Range/Units 16:25 16:25 16:25 WBC 5.4 (3.8-10.6) k/uL RBC 3.54 L (4.30-5.90) m/uL Hgb 10.4 L (13.0-17.5) gm/dL Hct 31.7 L (39.0-53.0) % MCV 89.6 (80.0-100.0) fL MCH 29.4 (25.0-35.0) pg MCHC 32.8 (31.0-37.0) g/dL RDW 13.0 (11.5-15.5) % Plt Count 156 (150-450) k/uL MPV 9.2 Neutrophils % 64 % Lymphocytes % 25 % Monocytes % 5 % Eosinophils % 4 % Basophils % 1 % Neutrophils # 3.5 (1.3-7.7) k/uL Lymphocytes # 1.3 (1.0-4.8) k/uL Monocytes # 0.2 (0-1.0) k/uL Eosinophils # 0.2 (0-0.7) k/uL Basophils # 0.0 (0-0.2) k/uL PT 11.6 (10.0-12.5) sec INR 1.1 (<1.2) APTT 28.0 (22.0-30.0) sec Sodium 139 (137-145) mmol/L Potassium 3.6 (3.5-5.1) mmol/L Chloride 104 (98-107) mmol/L Carbon Dioxide 28 (22-30) mmol/L Anion Gap 7 mmol/L BUN 25 H (9-20) mg/dL Creatinine 2.50 H (0.66-1.25) mg/dL Est GFR (CKD-EPI)AfAm 29 (>60 ml/min/1.73 sqM) Est GFR (CKD-EPI)NonAf 25 (>60 ml/min/1.73 sqM) Glucose 142 H (74-99) mg/dL Calcium 9.2 (8.4-10.2) mg/dL Total Bilirubin 0.5 (0.2-1.3) mg/dL AST 19 (17-59) U/L ALT 11 (4-49) U/L Alkaline Phosphatase 64 (38-126) U/L Total Protein 6.5 (6.3-8.2) g/dL Albumin 3.8 (3.5-5.0) g/dL Disposition Clinical Impression: Hematuria Disposition: HOME SELF-CARE Condition: Good Instructions (If sedation given, give patient instructions): Hematuria (ED) Additional Instructions: Follow-up with PCP/urology in the next 24 to 48 hours Prescriptions: Cephalexin [Keflex] 500 mg PO Q6HR 28 Days #4 cap Is patient prescribed a controlled substance at d/c from ED?: No Referrals: Susan Armas DO [Primary Care Provider] - 1-2 days Lonny Cervantes MD [STAFF PHYSICIAN] - 1-2 days Time of Disposition: 18:23
[2024-10-06 16:48] LABS: Basophils % (A) 1 %; Eosinophils # (A) 0.2 k/uL (0-0.7); Eosinophils % (A) 4 %; HCT 31.7 % (39.0-53.0); HGB 10.4 gm/dL (13.0-17.5); Lymphocytes # (A) 1.3 k/uL (1.0-4.8); Lymphocytes % (A) 25 %; MCH 29.4 pg (25.0-35.0); MCHC 32.8 g/dL (31.0-37.0); MCV 89.6 fL (80.0-100.0); Mean Platelet Volume 9.2; Monocytes # (A) 0.2 k/uL (0-1.0); Monocytes % (A) 5 %; Neutrophils # (A) 3.5 k/uL (1.3-7.7); Neutrophils % (A) 64 %; Platelet Count 156 k/uL (150-450); RBC 3.54 m/uL (4.30-5.90); WBC 5.4 k/uL (3.8-10.6)
[2024-10-06 17:10] LABS: INR 1.1 (<1.2); Prothrombin Time 11.6 sec (10.0-12.5)
[2024-10-06 17:17] LABS: ALT 11 U/L (4-49); AST 19 U/L (17-59); African American GFR (CKD) 29 (>60 ml/min/1.73 sqM); Albumin 3.8 g/dL (3.5-5.0); Alkaline Phosphatase 64 U/L (38-126); Anion Gap 7 mmol/L; Blood Urea Nitrogen 25 mg/dL (9-20); Calcium 9.2 mg/dL (8.4-10.2); Carbon Dioxide 28 mmol/L (22-30); Chloride 104 mmol/L (98-107); Glucose 142 mg/dL (74-99); Non-African American GFR(CKD) 25 (>60 ml/min/1.73 sqM); Potassium 3.6 mmol/L (3.5-5.1); Sodium 139 mmol/L (137-145); Total Bilirubin 0.5 mg/dL (0.2-1.3); Total Protein 6.5 g/dL (6.3-8.2)
--- NOTE | 2024-10-06 17:51 | US ---
EXAMINATION TYPE: US kidneys/renal and bladder DATE OF EXAM: 10/06/2024 COMPARISON: 07/26/24 CLINICAL INDICATION: Male, 69 years old with history of Hematuria, history of kidney dysfunction; Hem aturia TECHNIQUE: Grayscale imaging of the bilateral kidneys and urinary bladder: FINDINGS: EXAM MEASUREMENTS: Right Kidney: 9.7 x 3.8 x 5.3 cm Left Kidney: 9.8 x 4.9 x 4.1 cm Right Kidney: There is a 1.4 x 1.0 x 1.1cm anechoic area compatible with a simple cyst seen within th e mid aspect of the kidney. There is also a 0.4 x 0.5 cm echogenic foci seen within the inferior sabiha e, may be a nonobstructing renal stone. Left Kidney: wnl as best seen Bladder: wnl Bilateral Jets seen: yes IMPRESSION: 1. Simple appearing cyst mid right kidney. 2. Nonobstructing renal stone inferior pole right kidney [facility], Workstation: [facility], 10/06/2024 5:49 PM
[2024-10-06 18:59] VITALS: BP 124/81; PULSE 65; RESP 18; TEMP 97.9
== END 2024-10-06 19:00 | disposition home or self-care (01) ==
LOC: EC 16:00
DX: R31.9 Hematuria, unspecified (principal); I13.10 Hypertensive heart and chronic kidney disease without heart failure, with stage 1 through stage 4 chronic kidney disease, or unspecified chronic kidney disease; N18.9 Chronic kidney disease, unspecified; I25.10 Atherosclerotic heart disease of native coronary artery without angina pectoris
CPT/HCPCS: 36415; 76770; 80053; 85025; 85610; 85730; 99284

== ENCOUNTER 2024-10-30 16:20 | Inpatient (IN) | payer MEDICARE, OTHER ==
--- NOTE | 2024-10-30 16:43 | ED ---
General Adult HPI - General Chief complaint: Recheck/Abnormal Lab/Rx Stated complaint: Hypertension Time Seen by Provider: 10/30/24 16:23 Source: patient, EMS Mode of arrival: EMS Limitations: no limitations - History of Present Illness Initial comments: Dictation was produced using [employer] dictation software. please excuse any grammatical, word or spelling errors. Chief Complaint: 69-year-old female with hypertension and vomiting History of Present Illness: Patient 69-year-old male states that he is been checking his blood pressure today and over the last 5 or 6 days his blood pressure was high. He states that his systolic got up to 200. States his blood pressure normally is around 130 systolic. Patient today has been having some nausea vomiting. States that he is unable to keep his medications down. Had a conversation with his mri specialist told to come to the emergency department. Patient Nuys any abdominal pain. States that his emesis is nonbloody but it is slightly bilious. Denies any diarrhea. No obvious sick contacts. The ROS documented in this emergency department record has been reviewed and confirmed by me. Those systems with pertinent positive or negative responses have been documented in the HPI. All other systems are other negative and/or noncontributory. - Related Data Home Medications Medication Instructions Recorded Confirmed Isosorbide Dinitrate [Monoket] 10 mg PO BID 09/29/14 07/23/24 Metoprolol Tartrate [Lopressor] 75 mg PO BID 09/29/14 07/23/24 Montelukast [Singulair] 10 mg PO HS 09/29/14 07/23/24 Baclofen [Lioresal] 10 mg PO QID 05/10/21 07/23/24 HYDROcodone/APAP 10-325MG [[place] 1 tab PO Q6HR PRN 05/10/21 07/23/24 10-325] Tamsulosin [Flomax] 0.4 mg PO DAILY 05/10/21 07/23/24 Aspirin [Adult Low Dose Aspirin EC] 81 mg PO DAILY 06/19/21 07/23/24 Pantoprazole [Protonix] 40 mg PO DAILY 06/19/21 07/23/24 Apixaban [Eliquis] 5 mg PO BID 09/17/22 07/23/24 Ezetimibe [Zetia] 10 mg PO DAILY 09/17/22 07/23/24 Enalapril Maleate [Vasotec] 20 mg PO BID 01/22/24 07/23/24 Fluoride (Sodium) [Sodium Fluoride 1 applic DENTAL HS 01/22/24 07/23/24 5000 Plus] Furosemide [Lasix] 20 mg PO DAILY 01/22/24 07/23/24 Ondansetron [Zofran] 4 mg PO TID PRN 01/22/24 07/23/24 QUEtiapine [SEROquel] 25 mg PO HS 01/22/24 07/23/24 Brinzolamide/Brimonidine Tart 1 drop LEFT EYE TID 07/23/24 07/23/24 [Simbrinza 1%-0.2% Eye Drop] amLODIPine [Norvasc] 10 mg PO DAILY 07/23/24 07/23/24 methazolAMIDE [Neptazane] 50 mg PO BID 07/23/24 07/23/24 prednisoLONE ACETATE 1% OPHTH 1 drops LEFT EYE Q8H 07/23/24 07/23/24 [Pred Forte 1%] Previous Rx's Medication Instructions Recorded lisinopriL [Zestril] 10 mg PO DAILY #30 tab 07/28/24 Cephalexin [Keflex] 500 mg PO Q6HR 28 Days #4 cap 10/06/24 Allergies Allergy/AdvReac Type Severity Reaction Status Date / Time No Known Allergies Allergy Verified 10/30/24 16:39 Review of Systems ROS Statement: Those systems with pertinent positive or pertinent negative responses have been documented in the HPI. ROS Other: All systems not noted in ROS Statement are negative. Past Medical History Past Medical History: Coronary Artery Disease (CAD), Chest Pain / Angina, GERD/Reflux, Hyperlipidemia, Hypertension, Myocardial Infarction (IA), Osteoarthritis (OA), Prostate Disorder Additional Past Medical History / Comment(s): CAD, PCI, degenerative disc disease of the lumbar spine, chronic pain, neuropathy bilateral lower extremity, chronic bronchitis. Last Myocardial Infarction Date:: 2004 History of Any Multi-Drug Resistant Organisms: None Reported Past Surgical History: Cholecystectomy, Heart Catheterization With Stent, Hernia Repair, Orthopedic Surgery Additional Past Surgical History / Comment(s): carpal tunnal repair, cyst removed from the mouth, Left heart catheterization 2000 and 2004, right hernia repair, left arthroscopic knee surgery., pain clinic procedures. Past Anesthesia/Blood Transfusion Reactions: No Reported Reaction Date of Last Stent Placement:: 2004 Past Psychological History: No Psychological Hx Reported Smoking Status: Never smoker Past Alcohol Use History: None Reported Past Drug Use History: None Reported - Past Family History Mother History Unknown: Yes Family Medical History: Cancer Father History Unknown: Yes Family Medical History: Cancer General Exam - General Exam Comments Initial Comments: PHYSICAL EXAM: General Impression: Alert and oriented x3, not in acute distress HEENT: Normocephalic atraumatic, extra-ocular movements intact, pupils equal and reactive to light bilaterally, mucous membranes moist. Cardiovascular: Heart regular rate and rhythm Chest: Able to complete full sentences, no retractions, no tachypnea Abdomen: abdomen soft, non-tender, non-distended, no organomegaly Musculoskeletal: Pulses present and equal in all extremities, no peripheral edema Motor: no focal deficits noted Neurological: CN II-XII grossly intact, no focal motor or sensory deficits noted Skin: Intact with no visualized rashes Psych: Normal affect and mood Limitations: no limitations Course Vital Signs 10/30/24 16:35 Temperature 98.3 F Pulse Rate 70 Respiratory 18 Rate Blood Pressure 165/91 O2 Sat by Pulse 98 Oximetry EKG Findings - EKG Comments: EKG Findings:: My EKG interpretation: Ventricular rate 60, sinus rhythm, left bundle branch block,. 09/04/2010, QRS 161, QTc 471. No DE prolongation, no QTC prolongation, no ST or T-wave changes noted. . Overall, this EKG is unremarkable Medical Decision Making - Medical Decision Making Was pt. sent in by a medical professional or institution (, PA, [employer], urgent care, hospital, or intermediate...) When possible be specific @ -No Did you speak to anyone other than the patient for history (EMS, parent, family, police, friend...)? What history was obtained from this source @ -No Did you review nursing and triage notes (agree or disagree)? Why? @ -I reviewed and agree with nursing and triage notes Were old charts reviewed (outside hosp., previous admission, EMS record, old EKG, old radiological studies, urgent care reports/EKG's, intermediate records)? Report findings @ -No old charts were reviewed Differential Diagnosis (chest pain, altered mental status, abdominal pain women, abdominal pain men, vaginal bleeding, musculoskeletal, weakness, fever, dyspnea, syncope, headache, dizziness, GI bleed, back pain, seizure, CVA, palpatations, mental health)? @ -Differential Weakness: Hypoglycemia, shock, sepsis, hyponatremia, anemia, infection, IA, ETOH, adverse medicine reaction, overdose, stroke, this is not meant to be an all-inclusive list. EKG interpreted by me (3pts min.). @ -None done X-rays interpreted by me (1pt min.). @ -None done CT interpreted by me (1pt min.). @ -None done U/S interpreted by me (1pt. min.). @ -None done What testing was considered but not performed or refused? (CT, X-rays, U/S, labs)? Why? @ -None What meds were considered but not given or refused? Why? @ -None Was smoking cessation discussed for >3mins.? @ -No Were there social determinants of health that impacted care today? How? (Homelessness, low income, unemployed, alcoholism, drug addiction, transportation, low edu. Level, literacy, decrease access to med. care, skilled nursing, rehab)? @ -No Was there de-escalation of care discussed even if they declined (Discuss DNR or withdrawal of care, Hospice)? DNR status @ -No What co-morbidities impacted this encounter? (DM, HTN, Smoking, COPD, CAD, Ca ncer, CVA, ARF, Chemo, Hep., AIDS, mental health diagnosis, sleep apnea, morbid obesity)? @ -Hypertension, chronic kidney disease Was patient admitted / discharged? Hospital course, mention meds given and route, prescriptions, significant lab abnormalities, going to OR and other pertinent info. @ -69-year-old male presents emergency department with gastroenteritis. He states that he is having worsening and intractable symptoms. Patient unable to keep his medications down which include medications to aid medications, anticoagulation medication was etc. Laboratory evaluation obtained. Patient still vomiting at the bedside despite IV fluids and antiemetics. Does not feel comfortable being discharged. Patient be obvious for continued hydration and symptom control. Case discussed with hospitalist for admission. No concern for hypertensive emergency Did you discuss the management of the patient with other professionals (professionals i.e. , PA, [employer], lab, RT, psych nurse, social services manager, chiropractic practice manager, teacher, special loan officer, social work case manager)? Give summary @ -See above Was critical care preformed (if so, how long)? @ -No Undiagnosed new problem with uncertain prognosis? @ -No Drug Therapy requiring intensive monitoring for toxicity (Heparin, Nitro, Insulin, Cardizem)? @ -No Were any procedures done? @ -No Diagnosis/symptom? Acute, or Chronic, or Acute on Chronic? Uncomplicated (without systemic symptoms) or Complicated (systemic symptoms)? @ -Gastroenteritis complicated by intractable vomiting Side effects of treatment? @ -No Exacerbation, Progression, or Severe Exacerbation? @ -No Poses a threat to life or bodily function? How? (Chest pain, USA, IA, pneumonia, PE, COPD, DKA, ARF, appy, cholecystitis, CVA, Diverticulitis, Homicidal, Suicidal, threat to staff... and all critical care pts) @ -yes - Lab Data Result diagrams: 10/30/24 16:34 10/30/24 16:34 Lab Results 10/30/24 10/30/24 10/30/24 Range/Units 16:34 16:34 16:34 WBC 7.9 (3.8-10.6) k/uL RBC 4.07 L (4.30-5.90) m/uL Hgb 11.6 L (13.0-17.5) gm/dL Hct 37.2 L (39.0-53.0) % MCV 91.4 (80.0-100.0) fL MCH 28.4 (25.0-35.0) pg MCHC 31.1 (31.0-37.0) g/dL RDW 13.5 (11.5-15.5) % Plt Count 211 (150-450) k/uL MPV 8.7 Neutrophils % 74 % Lymphocytes % 15 % Monocytes % 4 % Eosinophils % 5 % Basophils % 1 % Neutrophils # 5.9 (1.3-7.7) k/uL Lymphocytes # 1.2 (1.0-4.8) k/uL Monocytes # 0.3 (0-1.0) k/uL Eosinophils # 0.4 (0-0.7) k/uL Basophils # 0.0 (0-0.2) k/uL Hypochromasia Slight Sodium 137 (137-145) mmol/L Potassium 4.3 (3.5-5.1) mmol/L Chloride 102 (98-107) mmol/L Carbon Dioxide 25 (22-30) mmol/L Anion Gap 10 mmol/L BUN 23 H (9-20) mg/dL Creatinine 1.89 H (0.66-1.25) mg/dL Est GFR (CKD-EPI)AfAm 40 (>60 ml/min/1.73 sqM) Est GFR (CKD-EPI)NonAf 35 (>60 ml/min/1.73 sqM) Glucose 108 H (74-99) mg/dL Plasma Lactic Acid Joshua 1.0 (0.7-2.0) mmol/L Calcium 9.3 (8.4-10.2) mg/dL Magnesium 2.3 (1.6-2.3) mg/dL Total Bilirubin 0.8 (0.2-1.3) mg/dL AST 27 (17-59) U/L ALT 21 (4-49) U/L Alkaline Phosphatase 84 (38-126) U/L Total Protein 7.1 (6.3-8.2) g/dL Albumin 4.3 (3.5-5.0) g/dL Influenza Type A (PCR) (Not Detectd) Influenza Type B (PCR) (Not Detectd) RSV (PCR) (Not Detectd) SARS-CoV-2 (PCR) (Not Detectd) 10/30/24 Range/Units 17:00 WBC (3.8-10.6) k/uL RBC (4.30-5.90) m/uL Hgb (13.0-17.5) gm/dL Hct (39.0-53.0) % MCV (80.0-100.0) fL MCH (25.0-35.0) pg MCHC (31.0-37.0) g/dL RDW (11.5-15.5) % Plt Count (150-450) k/uL MPV Neutrophils % % Lymphocytes % % Monocytes % % Eosinophils % % Basophils % % Neutrophils # (1.3-7.7) k/uL Lymphocytes # (1.0-4.8) k/uL Monocytes # (0-1.0) k/uL Eosinophils # (0-0.7) k/uL Basophils # (0-0.2) k/uL Hypochromasia Sodium (137-145) mmol/L Potassium (3.5-5.1) mmol/L Chloride (98-107) mmol/L Carbon Dioxide (22-30) mmol/L Anion Gap mmol/L BUN (9-20) mg/dL Creatinine (0.66-1.25) mg/dL Est GFR (CKD-EPI)AfAm (>60 ml/min/1.73 sqM) Est GFR (CKD-EPI)NonAf (>60 ml/min/1.73 sqM) Glucose (74-99) mg/dL Plasma Lactic Acid Joshua (0.7-2.0) mmol/L Calcium (8.4-10.2) mg/dL Magnesium (1.6-2.3) mg/dL Total Bilirubin (0.2-1.3) mg/dL AST (17-59) U/L ALT (4-49) U/L Alkaline Phosphatase (38-126) U/L Total Protein (6.3-8.2) g/dL Albumin (3.5-5.0) g/dL Influenza Type A (PCR) Not Detected (Not Detectd) Influenza Type B (PCR) Not Detected (Not Detectd) RSV (PCR) Not Detected (Not Detectd) SARS-CoV-2 (PCR) Not Detected (Not Detectd) Disposition Clinical Impression: Intractable vomiting Disposition: ADMITTED IP TO THIS [facility] Condition: Fair Referrals: Susan Armas DO [Primary Care Provider] - 1-2 days Decision Time: 18:06
[2024-10-30 17:10] LABS: Basophils % (A) 1 %; Eosinophils # (A) 0.4 k/uL (0-0.7); Eosinophils % (A) 5 %; HCT 37.2 % (39.0-53.0); HGB 11.6 gm/dL (13.0-17.5); Hypochromasia Slight; Lymphocytes # (A) 1.2 k/uL (1.0-4.8); Lymphocytes % (A) 15 %; MCH 28.4 pg (25.0-35.0); MCHC 31.1 g/dL (31.0-37.0); MCV 91.4 fL (80.0-100.0); Mean Platelet Volume 8.7; Monocytes # (A) 0.3 k/uL (0-1.0); Monocytes % (A) 4 %; Neutrophils # (A) 5.9 k/uL (1.3-7.7); Neutrophils % (A) 74 %; Platelet Count 211 k/uL (150-450); RBC 4.07 m/uL (4.30-5.90); RDW 13.5 % (11.5-15.5); WBC 7.9 k/uL (3.8-10.6)
[2024-10-30 17:28] LABS: ALT 21 U/L (4-49); AST 27 U/L (17-59); African American GFR (CKD) 40 (>60 ml/min/1.73 sqM); Albumin 4.3 g/dL (3.5-5.0); Alkaline Phosphatase 84 U/L (38-126); Anion Gap 10 mmol/L; Blood Urea Nitrogen 23 mg/dL (9-20); Calcium 9.3 mg/dL (8.4-10.2); Carbon Dioxide 25 mmol/L (22-30); Chloride 102 mmol/L (98-107); Glucose 108 mg/dL (74-99); Magnesium 2.3 mg/dL (1.6-2.3); Non-African American GFR(CKD) 35 (>60 ml/min/1.73 sqM); Potassium 4.3 mmol/L (3.5-5.1); Sodium 137 mmol/L (137-145); Total Bilirubin 0.8 mg/dL (0.2-1.3); Total Protein 7.1 g/dL (6.3-8.2)
[2024-10-30 17:47] LABS: Influenza A Not Detected (Not Detectd); Influenza B Not Detected (Not Detectd); RSV Not Detected (Not Detectd)
[2024-10-30] MEDS ORDERED: NALOXONE 0.4 MG/ML 1 ML VIAL IV PRN (18:02)
[2024-10-30] MEDS: ONDANSETRON 4 MG/2 ML VIAL IVP STA (18:03)
[2024-10-30] MEDS: SODIUM CHLORIDE 0.9% 1,000 ML IV STA (18:07)
[2024-10-30] MEDS: SODIUM CHLORIDE 0.9% 1,000 ML IV SCH (18:08)
[2024-10-30] MEDS: ONDANSETRON 4 MG/2 ML VIAL IVP PRN (20:33)
[2024-10-30] MEDS: ISOSORBIDE DINITRATE 10 MG TAB PO SCH (21:27)
[2024-10-30] MEDS: APIXABAN 5 MG TAB PO SCH (21:27)
[2024-10-30] MEDS: HYDROcodone/APAP 10-325MG 1 EACH TAB PO PRN (21:27)
[2024-10-30] MEDS: METOPROLOL TARTRATE 25 MG TAB PO SCH (21:28)
[2024-10-30] MEDS: BACLOFEN 10 MG TAB PO PRN (21:47)
[2024-10-30] MEDS: ALPRAZolam 0.25 MG TAB PO SCH (21:47)
[2024-10-30] MEDS: QUEtiapine 25 MG TAB PO SCH (21:47)
[2024-10-30] MEDS: TAMSULOSIN 0.4 MG CAP.ER.24H PO STA (21:48)
[2024-10-30] MEDS: MONTELUKAST 10 MG TAB PO SCH (21:51)
[2024-10-31] MEDS: lisinopriL 10 MG TAB PO SCH (08:25)
[2024-10-31] MEDS ORDERED: ENALAPRIL 2.5 MG PO SCH (09:00)
[2024-10-31 12:33] LABS: African American GFR (CKD) 39 (>60 ml/min/1.73 sqM); Anion Gap 7 mmol/L; Blood Urea Nitrogen 20 mg/dL (9-20); Calcium 8.9 mg/dL (8.4-10.2); Carbon Dioxide 28 mmol/L (22-30); Chloride 104 mmol/L (98-107); Glucose 82 mg/dL (74-99); Non-African American GFR(CKD) 34 (>60 ml/min/1.73 sqM); Potassium 3.9 mmol/L (3.5-5.1); Sodium 139 mmol/L (137-145)
[2024-10-31 12:44] LABS: Basophils % (A) 1 %; Eosinophils # (A) 0.3 k/uL (0-0.7); Eosinophils % (A) 6 %; HCT 32.6 % (39.0-53.0); HGB 10.3 gm/dL (13.0-17.5); Lymphocytes # (A) 1.1 k/uL (1.0-4.8); Lymphocytes % (A) 21 %; MCH 29.2 pg (25.0-35.0); MCHC 31.5 g/dL (31.0-37.0); MCV 92.4 fL (80.0-100.0); Mean Platelet Volume 9.4; Monocytes # (A) 0.3 k/uL (0-1.0); Monocytes % (A) 5 %; Neutrophils # (A) 3.2 k/uL (1.3-7.7); Neutrophils % (A) 65 %; Platelet Count 174 k/uL (150-450); RBC 3.53 m/uL (4.30-5.90); RDW 13.8 % (11.5-15.5)
[2024-10-31] MEDS: MORPHINE SULFATE 2 MG/ML SYRINGE IVP STA (17:46)
[2024-10-31] MEDS: ASPIRIN 81 MG PO STA (17:47)
[2024-11-01 09:49] LABS: Basophils # (A) 0.07 X 10*3/uL (0.00-0.10); Basophils % (A) 1.3 %; Eosinophils # (A) 0.19 X 10*3/uL (0.04-0.35); Eosinophils % (A) 3.6 %; HCT 32.2 % (39.6-50.0); HGB 10.1 g/dL (13.0-17.0); Lymphocytes # (A) 1.03 X 10*3/uL (0.90-5.00); Lymphocytes % (A) 19.5 %; MCH 28.9 pg (27.0-32.0); MCHC 31.4 g/dL (32.0-37.0); MCV 92.3 FL (80.0-97.0); Mean Platelet Volume 12.3 FL (9.5-12.2); Monocytes # (A) 0.35 X 10*3/uL (0.20-1.00); Monocytes % (A) 6.6 %; NRBC Per 100 WBC 0 X 10*3/uL (0.00-0.01); Neutrophils # (A) 3.63 X 10*3/uL (1.80-7.70); Neutrophils % (A) 68.8 %; Platelet Count 150 X 10*3/uL (140-440); RBC 3.49 X 10*6/uL (4.40-5.60); RDW 13.2 % (11.5-14.5); WBC 5.28 X 10*3/uL (4.50-10.00)
[2024-11-01 11:57] LABS: BUN/Creat Ratio 9.58 Ratio (12.00-20.00); Blood Urea Nitrogen 18.2 mg/dL (9.0-27.0); Calcium 8.6 mg/dL (8.7-10.3); Carbon Dioxide 21.7 mmol/L (21.6-31.8); Chloride 106 mmol/L (96-109); Glucose 89 mg/dL (70-110); Sodium 140 mmol/L (135-145)
--- NOTE | 2024-11-01 17:29 | P.HPIM ---
History of Present Illness H&P Date: 10/31/24 Chief Complaint: Elevated blood pressure/intractable vomiting 69-year-old male, history of hypertension, hyperlipidemia, coronary artery disease, GERD, osteoarthritis, states that he is been checking his blood pressure today and over the last 5 or 6 days his blood pressure was high. He states that his systolic got up to 200. States his blood pressure normally is around 130 systolic. Patient today has been having some nausea vomiting. States that he is unable to keep his medications down. Had a conversation with his inserting machine operator told to come to the emergency department. Patient Nuys any abdominal pain. States that his emesis is nonbloody but it is slightly bilious. Denies any diarrhea. No obvious sick contacts. Blood work reveals WBC 7.9, hemoglobin 11.6 and platelet count of 211, sodium 137, potassium 4.3, BUN/creatinine of 23/1.89 and blood glucose of 108, lactic acid of 1.0, -Viral panel completed and is negative for influenza A, B, RSV and COVID-19 PCR EKG interpretation: Ventricular rate 60, sinus rhythm, left bundle branch block,. 09/04/2010, QRS 161, QTc 471. No OK prolongation, no QTC prolongation, no ST or T-wave changes noted. . Overall, this EKG is unremarkable Review of Systems REVIEW OF SYSTEMS: CONSTITUTIONAL: No fever, no malaise, no fatigue. HEENT: No recent visual problems or hearing problems. Denied any sore throat. CARDIOVASCULAR: No chest pain, orthopnea, PND, no palpitations, no syncope. PULMONARY: No shortness of breath, no cough, no hemoptysis. GASTROINTESTINAL: No diarrhea, no nausea, no vomiting, no abdominal pain. NEUROLOGICAL: No headaches, no weakness, no numbness. HEMATOLOGICAL: Denies any bleeding or petechiae. GENITOURINARY: Denies any burning micturition, frequency, or urgency. MUSCULOSKELETAL/RHEUMATOLOGICAL: Denies any joint pain, swelling, or any muscle pain. ENDOCRINE: Denies any polyuria or polydipsia. The rest of the 14-point review of systems is negative. Past Medical History Past Medical History: Coronary Artery Disease (CAD), Chest Pain / Angina, GERD/Reflux, Hyperlipidemia, Hypertension, Myocardial Infarction (HI), Osteoarthritis (OA), Prostate Disorder Additional Past Medical History / Comment(s): CAD, PCI, degenerative disc disease of the lumbar spine, chronic pain, neuropathy bilateral lower extremity, chronic bronchitis. Last Myocardial Infarction Date:: 2004 History of Any Multi-Drug Resistant Organisms: None Reported Past Surgical History: Cholecystectomy, Heart Catheterization With Stent, Hernia Repair, Orthopedic Surgery Additional Past Surgical History / Comment(s): carpal tunnal repair, cyst removed from the mouth, Left heart catheterization 2000 and 2004, right hernia repair, left arthroscopic knee surgery., pain clinic procedures. Past Anesthesia/Blood Transfusion Reactions: No Reported Reaction Date of Last Stent Placement:: 2004 Past Psychological History: No Psychological Hx Reported Additional Psychological History / Comment(s): Lives with brotherElis [place] Smoking Status: Never smoker Past Alcohol Use History: None Reported Past Drug Use History: None Reported - Past Family History Mother History Unknown: Yes Family Medical History: Cancer Father History Unknown: Yes Family Medical History: Cancer Medications and Allergies Home Medications Medication Instructions Recorded Confirmed Type Isosorbide Dinitrate [Monoket] 10 mg PO BID 09/29/14 10/30/24 History Metoprolol Tartrate [Lopressor] 75 mg PO BID 09/29/14 10/30/24 History Montelukast [Singulair] 10 mg PO HS 09/29/14 10/30/24 History Baclofen [Lioresal] 10 mg PO QID 05/10/21 10/30/24 History HYDROcodone/APAP 10-325MG [[place] 1 tab PO Q6HR PRN 05/10/21 10/30/24 History 10-325] Tamsulosin [Flomax] 0.4 mg PO DAILY 05/10/21 10/30/24 History Aspirin [Adult Low Dose Aspirin EC] 81 mg PO DAILY 06/19/21 10/30/24 History Pantoprazole [Protonix] 40 mg PO DAILY 06/19/21 10/30/24 History Apixaban [Eliquis] 5 mg PO BID 09/17/22 10/30/24 History Ezetimibe [Zetia] 10 mg PO DAILY 09/17/22 10/30/24 History Fluoride (Sodium) [Sodium Fluoride 1 applic DENTAL HS 01/22/24 10/30/24 History 5000 Plus] Furosemide [Lasix] 20 mg PO DAILY 01/22/24 10/30/24 History Ondansetron [Zofran] 4 mg PO TID PRN 01/22/24 10/30/24 History QUEtiapine [SEROquel] 25 mg PO HS 01/22/24 10/30/24 History Brinzolamide/Brimonidine Tart 1 drop LEFT EYE TID 07/23/24 10/30/24 History [Simbrinza 1%-0.2% Eye Drop] prednisoLONE ACETATE 1% OPHTH 1 drops LEFT EYE Q8H 07/23/24 10/30/24 History [Pred Forte 1%] lisinopriL [Zestril] 10 mg PO DAILY #30 tab 07/28/24 10/30/24 Rx ALPRAZolam [Xanax] 0.25 PO Q12HR 10/30/24 History Enalapril [Vasotec] 2.5 mg PO DAILY 10/30/24 10/30/24 History Allergies Allergy/AdvReac Type Severity Reaction Status Date / Time No Known Allergies Allergy Verified 10/30/24 19:20 Physical Exam Vitals: Vital Signs Temp Pulse Resp BP Pulse Ox 10/31/24 08:19 98.1 F 56 L 18 156/94 96 10/31/24 06:54 50 L 16 130/76 95 10/31/24 05:22 55 L 17 129/57 96 10/31/24 03:08 50 L 17 171/81 97 10/31/24 00:42 57 L 15 158/77 99 10/30/24 22:49 66 15 149/76 96 10/30/24 20:36 66 18 148/97 95 10/30/24 16:35 98.3 F 70 18 165/91 98 Intake and Output 10/30/24 10/31/24 10/31/24 22:59 06:59 14:59 Other: Weight 77.111 kg General Impression: Alert and oriented x3, not in acute distress HEENT: Normocephalic atraumatic, extra-ocular movements intact, pupils equal and reactive to light bilaterally, mucous membranes moist. Cardiovascular: Heart regular rate and rhythm Chest: Able to complete full sentences, no retractions, no tachypnea Abdomen: abdomen soft, non-tender, non-distended, no organomegaly Musculoskeletal: Pulses present and equal in all extremities, no peripheral edema Motor: no focal deficits noted Neurological: CN II-XII grossly intact, no focal motor or sensory deficits noted Skin: Intact with no visualized rashes Psych: Normal affect and mood Results CBC & Chem 7: 11/01/24 04:24 11/01/24 04:24 Labs: Abnormal Lab Results - Last 24 Hours (Table) 10/30/24 10/30/24 Range/Units 16:34 16:34 RBC 4.07 L (4.30-5.90) m/uL Hgb 11.6 L (13.0-17.5) gm/dL Hct 37.2 L (39.0-53.0) % BUN 23 H (9-20) mg/dL Creatinine 1.89 H (0.66-1.25) mg/dL Glucose 108 H (74-99) mg/dL Thrombosis Risk Factor Assmnt - Choose All That Apply Any of the Below Risk Factors Present?: Yes Each Factor Represents 1 point: Medical pt on bed rest Other Risk Factors: Yes Each Risk Factor Represents 2 Points: Age 61-74 years Thrombosis Risk Factor Assessment Total Risk Factor Score: 3 Thrombosis Risk Factor Assessment Level: Moderate Risk Assessment and Plan Assessment: 1. Intractable nausea and vomiting -Patient reports that he has had worsening of symptoms over past 48 hours; patient has been unable to keep his medications down which include antihypertensive therapy and anticoagulants -Patient received IV fluids and antiemetics in the ED but continued to have persistent nausea and vomiting -We will admit to general medical floor; continue with IV fluid hydration; symptomatic treatment with IV Zofran -Will place on a clear liquid diet 2. Accelerated hypertension; patient has not been able to take home medications due to intractable nausea and vomiting -We will resume home antihypertensive therapy once her symptoms improve; IV hydralazine for systolic blood pressure greater than 160 -Monitor blood pressure closely once home medications are resumed for any further changes required 3. Acute renal injury; associated with vomiting and poor oral intake -Patient has been placed on IV fluid hydration; monitor strict COMFORT's, daily weights, renal function electrolytes; avoid nephrotoxins and hypotension 4. Hyperlipidemia; Zetia 10 mg daily 5. Asthma/COPD; not in exacerbation; Singulair 10 mg nightly; continue with home inhaler therapy 6. Hypertension; lisinopril 10 mg daily; metoprolol 75 mg twice daily 7. Coronary artery disease/CHF; stable on aspirin; Imdur 10 mg twice daily; Eliquis 5 mg twice daily; Zetia 10 mg daily; Lasix 20 mg daily which has been placed on hold given SONYA DVT prophylaxis; SCDs/Eliquis CODE STATUS; full code
--- NOTE | 2024-11-01 17:31 | P.PN ---
Subjective Progress Note Date: 11/01/24 69-year-old male, history of hypertension, hyperlipidemia, coronary artery disease, GERD, osteoarthritis, states that he is been checking his blood pressure today and over the last 5 or 6 days his blood pressure was high. He states that his systolic got up to 200. States his blood pressure normally is a round 130 systolic. Patient today has been having some nausea vomiting. States that he is unable to keep his medications down. Had a conversation with his laboratory veterinarian told to come to the emergency department. Patient Nu[place] any abdominal pain. States that his emesis is nonbloody but it is slightly bilious. Denies any diarrhea. No obvious sick contacts. Blood work reveals WBC 7.9, hemoglobin 11.6 and platelet count of 211, sodium 137, potassium 4.3, BUN/creatinine of 23/1.89 and blood glucose of 108, lactic acid of 1.0, -Viral panel completed and is negative for influenza A, B, RSV and COVID-19 PCR EKG interpretation: Ventricular rate 60, sinus rhythm, left bundle branch block,. 09/04/2010, QRS 161, QTc 471. No IA prolongation, no QTC prolongation, no ST or T-wave changes noted. . Overall, this EKG is unremarkable Objective - Vital Signs Vital signs: Vital Signs Temp 97.9 F 11/01/24 07:00 Pulse 53 L 11/01/24 07:00 Resp 15 11/01/24 08:15 BP 151/75 11/01/24 07:00 Pulse Ox 94 L 11/01/24 07:00 FiO2 Intake & Output 10/31/24 11/01/24 11/01/24 18:59 06:59 18:59 Other: Voiding Method Toilet Toilet Toilet # Voids 3 - Exam General Impression: Alert and oriented x3, not in acute distress HEENT: Normocephalic atraumatic, extra-ocular movements intact, pupils equal and reactive to light bilaterally, mucous membranes moist. Cardiovascular: Heart regular rate and rhythm Chest: Able to complete full sentences, no retractions, no tachypnea Abdomen: abdomen soft, non-tender, non-distended, no organomegaly Musculoskeletal: Pulses present and equal in all extremities, no peripheral edema Motor: no focal deficits noted Neurological: CN II-XII grossly intact, no focal motor or sensory deficits noted Skin: Intact with no visualized rashes Psych: Normal affect and mood - Labs CBC & Chem 7: 11/01/24 04:24 11/01/24 04:24 Labs: Abnormal Lab Results - Last 24 Hours (Table) 10/31/24 10/31/24 11/01/24 Range/Units 11:34 11:34 04:24 RBC 3.53 L 3.49 L (4.30-5.90) m/uL Hgb 10.3 L 10.1 L (13.0-17.5) gm/dL Hct 32.6 L 32.2 L (39.0-53.0) % MCHC 31.4 L (32.0-37.0) g/dL MPV 12.3 H (9.5-12.2) FL Creatinine 1.94 H (0.66-1.25) mg/dL Assessment and Plan Assessment: 1. Intractable nausea and vomiting -Patient reports that he has had worsening of symptoms over past 48 hours; isis ulloa has been unable to keep his medications down which include antihypertensive therapy and anticoagulants -Patient received IV fluids and antiemetics in the ED but continued to have persistent nausea and vomiting -We will admit to general medical floor; continue with IV fluid hydration; symptomatic treatment with IV Zofran -Will place on a clear liquid diet 2. Accelerated hypertension; patient has not been able to take home medications due to intractable nausea and vomiting -We will resume home antihypertensive therapy once her symptoms improve; IV hydralazine for systolic blood pressure greater than 160 -Monitor blood pressure closely once home medications are resumed for any further changes required 3. Acute renal injury; associated with vomiting and poor oral intake -Patient has been placed on IV fluid hydration; monitor strict COMFORT's, daily weights, renal function electrolytes; avoid nephrotoxins and hypotension 4. Hyperlipidemia; Zetia 10 mg daily 5. Asthma/COPD; not in exacerbation; Singulair 10 mg nightly; continue with home inhaler therapy 6. Hypertension; lisinopril 10 mg daily; metoprolol 75 mg twice daily 7. Coronary artery disease/CHF; stable on aspirin; Imdur 10 mg twice daily; Eliquis 5 mg twice daily; Zetia 10 mg daily; Lasix 20 mg daily which has been placed on hold given SONYA DVT prophylaxis; SCDs/Eliquis CODE STATUS; full code
[2024-11-01] MEDS: DEXTROSE 5%-0.45% NACL 1,000 ML IV SCH (17:53)
[2024-11-01] MEDS: DORZOLAMIDE HCL 2% DROPS 10 ML BTL LEFT EYE SCH (20:21)
[2024-11-01] MEDS: BRIMONIDINE TARTRATE 0.2% DROPS 5 ML BTL LEFT EYE SCH (20:22)
[2024-11-02 05:54] LABS: African American GFR (CKD) 47 (>60 ml/min/1.73 sqM); Anion Gap 12 mmol/L; Blood Urea Nitrogen 17 mg/dL (9-20); Calcium 8.6 mg/dL (8.4-10.2); Carbon Dioxide 17 mmol/L (22-30); Chloride 108 mmol/L (98-107); Glucose 119 mg/dL (74-99); Non-African American GFR(CKD) 41 (>60 ml/min/1.73 sqM); Sodium 137 mmol/L (137-145)
[2024-11-02] MEDS: ASPIRIN 81 MG PO SCH (08:04)
[2024-11-02] MEDS: PANTOPRAZOLE 40 MG TABLET PO SCH (08:05)
[2024-11-02] MEDS: TAMSULOSIN 0.4 MG CAP.ER.24H PO SCH (08:05)
[2024-11-02] MEDS: EZETIMIBE 10 MG TAB PO SCH (08:05)
--- NOTE | 2024-11-03 06:44 | P.PN ---
Subjective Progress Note Date: 11/03/24 Patient is evaluated today sitting up in the chair. Patient reports significant nausea vomiting. Additionally he reports feeling shortness of breath with exertion states that he is unable to walk from the chair to the restroom without having to stop and catch his breath. Patient reports chest pressure which has been increasing in intensity and states that he cannot wait until his outpatient evaluation. Echocardiogram from July 2024 reveals an EF of 40 to 45% with hypokinetic basal to mid inferior wall with mild biatrial dilatation. Mild MR. He was admitted with hypertensive urgency and renal dysfunction. His creatinine is better at 1.67. His blood pressure is now 140/80. Review of Systems Constitutional: Denied any fatigue denied any fever. Cardio vascular: denied any chest pain, palpitations Gastrointestinal: denied any nausea, vomiting, diarrhea Pulmonary: Denied any shortness of breath cough Neurologic denied any new focal deficits All inpatient medications were reviewed and appropriate changes in these medications as dictated in the interval history and assessment and plan. PHYSICAL EXAMINATION: GENERAL: The patient is alert and oriented x3, not in any acute distress. Well developed, well nourished. HEENT: Pupils are round and equally reacting to light. EOMI. No scleral icterus. No conjunctival pallor. Normocephalic, atraumatic. No pharyngeal erythema. No thyromegaly. CARDIOVASCULAR: S1 and S2 present. No murmurs, rubs, or gallops. PULMONARY: Chest is clear to auscultation, no wheezing or crackles. ABDOMEN: Soft, nontender, nondistended, normoactive bowel sounds. No palpable organomegaly. MUSCULOSKELETAL: No joint swelling or deformity. EXTREMITIES: No cyanosis, clubbing, or pedal edema. NEUROLOGICAL: Gross neurological examination did not reveal any focal deficits. SKIN: No rashes. Assessment and plan Chest pain rule out ACS cardiology consultation Nausea with vomiting under investigation could be due to the renal dysfunction Acute on chronic kidney disease CKD stage IV History of paroxysmal atrial fibrillation anticoag with Eliquis History of ischemic cardiomyopathy with EF of 40 to 45% Exertional dyspnea will order a chest x-ray History of coronary artery disease with prior PCI in 2010 and 2004 Hypertension with urgency Hyperlipidemia Chronic pain and peripheral neuropathy Gastroesophageal reflux disease GI prophylaxis Full code Plan Continue Eliquis twice daily Consult cardiology Check a troponin level, chest x-ray Nephrology consultation Monitor renal function Continue supportive care with IV Zofran. The impression and plan of care has been dictated by Ning Young, Nurse Practitioner as directed. Dr. Kings MD I have performed a history and physical examination and medical decision making of this patient, discussed the same with the dictator, and agree with the dictators assessment and plan as written, documented as a scribe. Based on total visit time, I have performed more than 50% of this visit. Objective - Vital Signs Vital signs: Vital Signs Temp 98.5 F 11/03/24 02:22 Pulse 67 11/03/24 02:22 Resp 15 11/03/24 02:22 BP 181/89 11/03/24 02:22 Pulse Ox 95 11/03/24 02:22 FiO2 Intake & Output 11/02/24 11/02/24 11/03/24 06:59 18:59 06:59 Intake Total 358 Balance 358 Intake: Oral 358 Other: Voiding Method Toilet Toilet # Voids 2 1 2 # Bowel Movements 2 - Labs CBC & Chem 7: 11/01/24 04:24 11/02/24 04:39 Labs: Abnormal Lab Results - Last 24 Hours (Table) 11/02/24 Range/Units 04:39 Chloride 108 H (98-107) mmol/L Carbon Dioxide 17 L (22-30) mmol/L Creatinine 1.67 H (0.66-1.25) mg/dL Glucose 119 H (74-99) mg/dL Assessment and Plan Time with Patient: Less than 30
[2024-11-03 07:30] LABS: African American GFR (CKD) 44 (>60 ml/min/1.73 sqM); Anion Gap 8 mmol/L; Blood Urea Nitrogen 16 mg/dL (9-20); Calcium 9.1 mg/dL (8.4-10.2); Carbon Dioxide 22 mmol/L (22-30); Chloride 108 mmol/L (98-107); Glucose 112 mg/dL (74-99); Non-African American GFR(CKD) 38 (>60 ml/min/1.73 sqM); Potassium 3.7 mmol/L (3.5-5.1); Sodium 138 mmol/L (137-145)
[2024-11-03] MEDS ORDERED: HEPARIN SODIUM 1,000 UN/ML (10ML VL) IV PRN (08:48)
[2024-11-03] MEDS: lisinopriL 20 MG TAB PO SCH (09:32)
[2024-11-03] MEDS: hydrALAZINE HCL 25 MG TAB PO SCH (09:32)
[2024-11-03 09:47] LABS: INR 1.1 (<1.2); Partial Thromboplastin Time 24.2 sec (22.0-30.0); Prothrombin Time 12.3 sec (10.0-12.5)
[2024-11-03 09:58] LABS: Basophils # (A) 0.1 k/uL (0-0.2); Basophils % (A) 1 %; Eosinophils # (A) 0.4 k/uL (0-0.7); Eosinophils % (A) 5 %; HCT 38.9 % (39.0-53.0); HGB 12.1 gm/dL (13.0-17.5); Hypochromasia Slight; Lymphocytes # (A) 1.6 k/uL (1.0-4.8); Lymphocytes % (A) 18 %; MCHC 31.2 g/dL (31.0-37.0); MCV 93.1 fL (80.0-100.0); Monocytes # (A) 0.5 k/uL (0-1.0); Monocytes % (A) 6 %; Neutrophils % (A) 69 %; Platelet Count 210 k/uL (150-450); RBC 4.18 m/uL (4.30-5.90); RDW 14.1 % (11.5-15.5); WBC 8.7 k/uL (3.8-10.6)
[2024-11-03] MEDS: HEPARIN SOD,PORK IN 0.45% NACL 25,000 UNIT in 0.45% NACL 1 250ML.BAG IV SCH (10:08)
--- NOTE | 2024-11-03 10:20 | XR ---
EXAMINATION TYPE: XR chest 2V DATE OF EXAM: 11/03/2024 9:55 AM COMPARISON: Chest radiographs from 07/23/2024 CLINICAL INDICATION: Male, 69 years old with history of dyspnea; TECHNIQUE: XR chest 2V Frontal and lateral views of the chest. FINDINGS: Lungs/Pleura: Prominent interstitial lung markings are seen scattered throughout the lungs. No eviden ce of focal consolidation, pneumothorax or pleural effusion. Pulmonary vascularity: Unremarkable. Heart/mediastinum: Cardiomediastinal silhouette is unremarkable. Musculoskeletal: No acute osseous pathology. Elevated humerus with acetabularization of the AC joints bilaterally. IMPRESSION: Interstitial lung disease changes without acute pulmonary process. [facility], , 11/03/2024 10:18 AM
--- NOTE | 2024-11-03 10:44 | P.NPCON ---
History of Present Illness - Reason for Consult chronic renal failure - History of Present Illness Patient is a 69-year-old male with history of CKD stage IIIb-IV with baseline creatinine around 2 mg/dL. Etiology is nephrosclerosis. He is admitted to the hospital with complaints of nausea and vomiting. Patient was not able to tolerate any oral intake. He did have diarrhea about 2 days ago. Blood pressure was recently significantly elevated with systolic blood pressure in the 200 range. Patient was not able to take his medications. He does complain of chest pain now. Troponin was elevated at 0.097 and patient is being considered for cardiac catheterization. Serum creatinine was 1.9 on admission and has improved to 1.7. Patient was maintained on IV fluids which are now discontinued. Chest x-ray showed prominent interstitial lung markings. Past Medical History Past Medical History: Coronary Artery Disease (CAD), Chest Pain / Angina, GERD/Reflux, Hyperlipidemia, Hypertension, Myocardial Infarction (ME), Osteoarthritis (OA), Prostate Disorder Additional Past Medical History / Comment(s): CAD, PCI, degenerative disc disea se of the lumbar spine, chronic pain, neuropathy bilateral lower extremity, chronic bronchitis. Last Myocardial Infarction Date:: 2004 History of Any Multi-Drug Resistant Organisms: None Reported Past Surgical History: Cholecystectomy, Heart Catheterization With Stent, Hernia Repair, Orthopedic Surgery Additional Past Surgical History / Comment(s): carpal tunnal repair, cyst removed from the mouth, Left heart catheterization 2000 and 2004, right hernia repair, left arthroscopic knee surgery., pain clinic procedures. Past Anesthesia/Blood Transfusion Reactions: No Reported Reaction Date of Last Stent Placement:: 2004 Past Psychological History: No Psychological Hx Reported Additional Psychological History / Comment(s): Lives with brotherElis [place] Smoking Status: Never smoker Past Alcohol Use History: None Reported Past Drug Use History: None Reported - Past Family History Mother History Unknown: Yes Family Medical History: Cancer Father History Unknown: Yes Family Medical History: Cancer Medications and Allergies Home Medications Medication Instructions Recorded Confirmed Type Isosorbide Dinitrate [Monoket] 10 mg PO BID 09/29/14 10/30/24 History Metoprolol Tartrate [Lopressor] 75 mg PO BID 09/29/14 10/30/24 History Montelukast [Singulair] 10 mg PO HS 09/29/14 10/30/24 History Baclofen [Lioresal] 10 mg PO QID 05/10/21 10/30/24 History HYDROcodone/APAP 10-325MG [Hector 1 tab PO Q6HR PRN 05/10/21 10/30/24 History 10-325] Tamsulosin [Flomax] 0.4 mg PO DAILY 05/10/21 10/30/24 History Aspirin [Adult Low Dose Aspirin EC] 81 mg PO DAILY 06/19/21 10/30/24 History Pantoprazole [Protonix] 40 mg PO DAILY 06/19/21 10/30/24 History Apixaban [Eliquis] 5 mg PO BID 09/17/22 10/30/24 History Ezetimibe [Zetia] 10 mg PO DAILY 09/17/22 10/30/24 History Fluoride (Sodium) [Sodium Fluoride 1 applic DENTAL HS 01/22/24 10/30/24 History 5000 Plus] Furosemide [Lasix] 20 mg PO DAILY 01/22/24 10/30/24 History Ondansetron [Zofran] 4 mg PO TID PRN 01/22/24 10/30/24 History QUEtiapine [SEROquel] 25 mg PO HS 01/22/24 10/30/24 History Brinzolamide/Brimonidine Tart 1 drop LEFT EYE TID 07/23/24 10/30/24 History [Simbrinza 1%-0.2% Eye Drop] prednisoLONE ACETATE 1% OPHTH 1 drops LEFT EYE Q8H 07/23/24 10/30/24 History [Pred Forte 1%] lisinopriL [Zestril] 10 mg PO DAILY #30 tab 07/28/24 10/30/24 Rx ALPRAZolam [Xanax] 0.25 PO Q12HR 10/30/24 History Enalapril [Vasotec] 2.5 mg PO DAILY 10/30/24 10/30/24 History Allergies Allergy/AdvReac Type Severity Reaction Status Date / Time No Known Allergies Allergy Verified 10/30/24 19:20 Physical Exam Vitals: Vital Signs Temp Pulse Resp BP BP Pulse Ox 11/03/24 07:10 97.3 F L 49 L 16 187/118 165/109 96 11/03/24 02:22 98.5 F 67 15 181/89 95 11/02/24 19:09 98.5 F 67 15 181/93 95 11/02/24 17:11 97.5 F L 59 L 18 95 11/02/24 16:23 152/90 11/02/24 13:26 140/80 11/02/24 12:10 49 L 177/87 96 Intake and Output 11/02/24 11/03/24 11/03/24 22:59 06:59 14:59 Intake Total 240 Balance 240 Intake: Oral 240 Other: Voiding Method Toilet # Voids 1 2 Patient is awake, comfortable, no acute distress Examination of the heart S1 and S2 Examination of the lungs bilateral breath sounds are heard Abdomen is soft nontender Examination of lower extremities shows edema 1+ bilaterally [employer]IN[employer] exam grossly intact Results - Lab Results Most recent lab results Calcium 9.1 mg/dL (8.4-10.2) 11/03/24 06:49 Magnesium 2.3 mg/dL (1.6-2.3) 10/30/24 16:34 11/03/24 06:49 11/03/24 06:49 Assessment and Plan Assessment: 1. Chronic kidney disease stage IIIb-IV with baseline creatinine around 2 mg/dL. Etiology is nephrosclerosis. Check UA 2. Elevated troponin with concern for non-ST elevation ME. Being considered for cardiac catheterization 3. Recent nausea vomiting and diarrhea 4. Hypertension uncontrolled, hypertensive urgency. Patient was not able to tolerate oral medications prior to admission. Plan: Increase lisinopril to 20 mg daily Continue with hydralazine Okay to proceed with cardiac catheterization as renal function is better than baseline. Avoid any other nephrotoxic agents Repeat labs in a.m.
[2024-11-03] MEDS ORDERED: ALPRAZolam 0.25 MG TAB PO PRN (12:05)
[2024-11-03] MEDS ORDERED: NITROGLYCERIN SL TABS 0.4 MG TAB SUBLINGUAL PRN (12:05)
[2024-11-03] MEDS ORDERED: ALPRAZolam 0.5 MG TAB PO PRN (12:05)
--- NOTE | 2024-11-03 12:26 | P.CRDCN ---
History of Present Illness Consult date: 11/03/24 Consult reason: chest pain History of present illness: This is a 69-year-old male patient of Dr. Adia Churchill with past medical history of coronary artery disease with stent placement RCA in 2004, paroxysmal atrial fibrillation on Eliquis, ischemic cardiomyopathy, hyperlipidemia, hypertension, intolerance to statins, chronic kidney disease follows with nephrology. We have been asked to evaluate the patient for chest pain. Patient presented to the hospital on 10/30 for chest pain, feeling tired, nausea, vomiting, diarrhea, dizziness, weakness. He states he has had chest pain every day on and off for a week. Chest pain occurs when he walks a few feet. He developed sweating and shortness of breath with the chest pain. He also states he had some lower extremity edema. No palpitations. He also states he has been weak for about 1 month. He states when he gets up to ambulate to the bathroom for example, he thinks he is going to pass out. He states his blood pressure has been high. In general he states he has been feeling bad for the past 6 months. He apparently was not taking his medications at home. The chest pain that he is experiencing now is totally different than that when he had his stents placed. Patient also complains of blood in his urine for which he states he follows with Dr. Varela. Blood pressure 187/118, heart rate 49, pulse ox 96% on room air. -EKG: Sinus rhythm, left bundle branch block, PACs -Chest x-ray: Interstitial lung disease without acute process. -Laboratory studies: WBC 8.7, hemoglobin 12.1, BUN 16 and creatinine 1.7, troponin 0.097. -Home cardiac medications: Eliquis 5 mg twice daily, aspirin 81 mg daily, enalapril 2.5 mg daily, Zetia 10 mg daily, Lasix 20 mg daily, lisinopril 10 mg daily, Lopressor 75 mg twice daily. -Lexiscan Cardiolite stress test performed in the office on 03/16/2024 revealed inconclusive EKG part of the stress test due to baseline EKG abnormalities. Ischemic cardiomyopathy with moderate LV systolic function secondary to prior NC inferior wall without any evidence of ischemia. -Echocardiogram performed 07/2024: EF of 40 to 45%, hypokinetic basal to mid anterior wall, mild biatrial dilatation, mild MR, normal RV size and systolic function. Review Of Systems: At the time of my exam: CONSTITUTIONAL: Denies fever or chills. HEENT: Denies blurred vision, vision changes, or eye pain. Denies hemoptysis CARDIOVASCULAR: Denies chest pain. Denies orthopnea. Denies PND. Denies palpitations RESPIRATORY: Denies shortness of breath. GASTROINTESTINAL: Denies abdominal pain. Denies nausea or vomiting. HEMATOLOGIC: Denies bleeding disorders. GENITOURINARY: Denies any blood in urine. SKIN: Denies puritis. Denies rash. Physical examination: Gen: This is a 69-year-old male in no acute distress VS: reviewed HEENT: Head is atraumatic, normocephalic. Pupils equal, round. Sclerae is anicteric. NECK: Supple. No JVD. LUNGS: Clear to auscultation. No wheezes or rhonchi. No intercostal retractions. HEART: Irregular rate and rhythm. No murmur. ABDOMEN: Soft No tenderness. EXTREMITIES: Minimal pedal edema. No calf tenderness. NEUROLOGICAL: Patient is awake, alert and oriented x3. Assessment: Chest pain with abnormal troponins, rule out coronary artery disease Uncontrolled hypertension History of coronary artery disease with previous stent to the RCA in 2004 Paroxysmal atrial fibrillation currently in sinus rhythm Ischemic cardiomyopathy with EF of 4045% Hypertension Hyper lipidemia Intolerance to statins Chronic kidney disease stage 3BIV Plan: Resume patient's home cardiac medications Hold Eliquis and start patient on heparin drip without bolus Schedule patient for left heart cath with Dr. Churchill tomorrow at noon Start patient on hydralazine 25 mg 3 times daily Lisinopril was increased by nephrology Repeat blood work in the morning Obtain 2-D echocardiogram and Doppler study to assess cardiac structure and function Thank you kindly for this consultation. Nurse practitioner note has been reviewed, I agree with documented findings and plan of care. Patient was seen and examined. Past Medical History Past Medical History: Coronary Artery Disease (CAD), Chest Pain / Angina, GERD/Reflux, Hyperlipidemia, Hypertension, Myocardial Infarction (NC), Osteoarthritis (OA), Prostate Disorder Additional Past Medical History / Comment(s): CAD, PCI, degenerative disc disease of the lumbar spine, chronic pain, neuropathy bilateral lower extremity, chronic bronchitis. Last Myocardial Infarction Date:: 2004 History of Any Multi-Drug Resistant Organisms: None Reported Past Surgical History: Cholecystectomy, Heart Catheterization With Stent, Hernia Repair, Orthopedic Surgery Additional Past Surgical History / Comment(s): carpal tunnal repair, cyst removed from the mouth, Left heart catheterization 2000 and 2004, right hernia repair, left arthroscopic knee surgery., pain clinic procedures. Past Anesthesia/Blood Transfusion Reactions: No Reported Reaction Date of Last Stent Placement:: 2004 Past Psychological History: No Psychological Hx Reported Additional Psychological History / Comment(s): Lives with brotherElis Hogue Smoking Status: Never smoker Past Alcohol Use History: None Reported Past Drug Use History: None Reported - Past Family History Mother History Unknown: Yes Family Medical History: Cancer Father History Unknown: Yes Family Medical History: Cancer Medications and Allergies Home Medications Medication Instructions Recorded Confirmed Type Isosorbide Dinitrate [Monoket] 10 mg PO BID 09/29/14 10/30/24 History Metoprolol Tartrate [Lopressor] 75 mg PO BID 09/29/14 10/30/24 History Montelukast [Singulair] 10 mg PO HS 09/29/14 10/30/24 History Baclofen [Lioresal] 10 mg PO QID 05/10/21 10/30/24 History HYDROcodone/APAP 10-325MG [[place] 1 tab PO Q6HR PRN 05/10/21 10/30/24 History 10-325] Tamsulosin [Flomax] 0.4 mg PO DAILY 05/10/21 10/30/24 History Aspirin [Adult Low Dose Aspirin EC] 81 mg PO DAILY 06/19/21 10/30/24 History Pantoprazole [Protonix] 40 mg PO DAILY 06/19/21 10/30/24 History Apixaban [Eliquis] 5 mg PO BID 09/17/22 10/30/24 History Ezetimibe [Zetia] 10 mg PO DAILY 09/17/22 10/30/24 History Fluoride (Sodium) [Sodium Fluoride 1 applic DENTAL HS 01/22/24 10/30/24 History 5000 Plus] Furosemide [Lasix] 20 mg PO DAILY 01/22/24 10/30/24 History Ondansetron [Zofran] 4 mg PO TID PRN 01/22/24 10/30/24 History QUEtiapine [SEROquel] 25 mg PO HS 01/22/24 10/30/24 History Brinzolamide/Brimonidine Tart 1 drop LEFT EYE TID 07/23/24 10/30/24 History [Simbrinza 1%-0.2% Eye Drop] prednisoLONE ACETATE 1% OPHTH 1 drops LEFT EYE Q8H 07/23/24 10/30/24 History [Pred Forte 1%] lisinopriL [Zestril] 10 mg PO DAILY #30 tab 07/28/24 10/30/24 Rx ALPRAZolam [Xanax] 0.25 PO Q12HR 10/30/24 History Enalapril [Vasotec] 2.5 mg PO DAILY 10/30/24 10/30/24 History Allergies Allergy/AdvReac Type Severity Reaction Status Date / Time No Known Allergies Allergy Verified 10/30/24 19:20 Physical Exam Vitals: Vital Signs Temp Pulse Resp BP BP Pulse Ox 11/03/24 07:10 97.3 F L 49 L 16 187/118 165/109 96 11/03/24 02:22 98.5 F 67 15 181/89 95 11/02/24 19:09 98.5 F 67 15 181/93 95 11/02/24 17:11 97.5 F L 59 L 18 95 11/02/24 16:23 152/90 11/02/24 13:26 140/80 11/02/24 12:10 49 L 177/87 96 Intake and Output 11/02/24 11/03/24 11/03/24 22:59 06:59 14:59 Intake Total 240 Balance 240 Intake: Oral 240 Other: Voiding Method Toilet # Voids 1 2 Results 11/03/24 06:49 11/03/24 06:49 Cardiac Enzymes 11/03/24 Range/Units 06:49 Troponin I 0.097 H* (0.000-0.034) ng/mL Comprehensive Metabolic Panel 11/03/24 Range/Units 06:49 Sodium 138 (137-145) mmol/L Potassium 3.7 (3.5-5.1) mmol/L Chloride 108 H (98-107) mmol/L Carbon Dioxide 22 (22-30) mmol/L BUN 16 (9-20) mg/dL Creatinine 1.77 H (0.66-1.25) mg/dL Glucose 112 H (74-99) mg/dL Calcium 9.1 (8.4-10.2) mg/dL Current Medications Generic Name Dose Route Start Last Admin Trade Name Freq PRN Reason Stop Dose Admin Acetaminophen 650 mg 10/30/24 18:02 Acetaminophen Tab 325 Mg Tab PO Q6HR PRN Mild Pain or Fever > 100.5 Hydrocodone Bitart/Acetaminophen 1 each 10/30/24 20:49 11/03/24 06:04 Hydrocodone/Apap 10-325mg 1 Each Tab PO 1 each Q6HR PRN Administration Pain Alprazolam 0.25 mg 10/30/24 21:00 11/02/24 20:03 Alprazolam 0.25 Mg Tab PO 0.25 mg BID DESIREE Administration Apixaban 5 mg 10/30/24 21:00 11/02/24 20:03 Apixaban 5 Mg Tab PO 5 mg BID DESIREE Administration Protocol Aspirin 81 mg 11/02/24 09:00 11/02/24 08:04 Aspirin 81 Mg PO 81 mg DAILY DESIREE Administration Baclofen 10 mg 10/30/24 20:49 11/02/24 17:35 Baclofen 10 Mg Tab PO 10 mg QID PRN Administration Muscle Spasm Brimonidine Tartrate 1 drops 11/01/24 22:00 11/02/24 20:06 Brimonidine Tartrate 0.2% Drops 5 Ml Btl LEFT EYE 1 drops TID DESIREE Administration Dorzolamide HCl 1 drops 11/01/24 22:00 11/02/24 20:06 Dorzolamide Hcl 2% Drops 10 Ml Btl LEFT EYE 1 drops TID DESIREE Administration Ezetimibe 10 mg 11/02/24 09:00 11/02/24 08:05 Ezetimibe 10 Mg Tab PO 10 mg DAILY DESIREE Administration Isosorbide Dinitrate 10 mg 10/30/24 21:00 11/02/24 20:03 Isosorbide Dinitrate 10 Mg Tab PO 10 mg BID DESIREE Administration Lisinopril 10 mg 10/31/24 09:00 11/02/24 08:05 Lisinopril 10 Mg Tab PO 10 mg DAILY DESIREE Administration Metoprolol Tartrate 75 mg 10/30/24 21:00 11/02/24 20:03 Metoprolol Tartrate 25 Mg Tab PO 75 mg BID DESIREE Administration Montelukast Sodium 10 mg 10/30/24 21:45 11/02/24 20:03 Montelukast 10 Mg Tab PO 10 mg HS DESIREE Administration Naloxone HCl 0.2 mg 10/30/24 18:02 Naloxone 0.4 Mg/Ml 1 Ml Vial IV Q2M PRN Opioid Reversal Ondansetron HCl 4 mg 10/30/24 18:02 10/31/24 16:26 Ondansetron 4 Mg/2 Ml Vial IVP 4 mg Q8HR PRN Administration Nausea And Vomiting Pantoprazole Sodium 40 mg 11/02/24 09:00 11/02/24 08:05 Pantoprazole 40 Mg Tablet PO 40 mg DAILY DESIREE Administration Quetiapine Fumarate 25 mg 10/30/24 21:00 11/02/24 22:55 Quetiapine 25 Mg Tab PO 25 mg HS DESIREE Administration Tamsulosin HCl 0.4 mg 11/02/24 09:00 11/02/24 08:05 Tamsulosin 0.4 Mg Cap.Er.24h PO 0.4 mg DAILY DESIREE Administration Intake and Output 11/02/24 11/03/24 11/03/24 22:59 06:59 14:59 Intake Total 240 Balance 240 Intake: Oral 240 Other: Voiding Method Toilet # Voids 1 2 11/01/24 04:24 11/03/24 06:49
--- NOTE | 2024-11-03 17:32 | P.PN ---
Subjective Progress Note Date: 11/03/24 Patient is evaluated today sitting up in the chair. Patient reports significant nausea vomiting. Additionally he reports feeling shortness of breath with exertion states that he is unable to walk from the chair to the restroom without having to stop and catch his breath. Patient reports chest pressure which has been increasing in intensity and states that he cannot wait until his outpatient evaluation. Echocardiogram from July 2024 reveals an EF of 40 to 45% with hypokinetic basal to mid inferior wall with mild biatrial dilatation. Mild MR. He was admitted with hypertensive urgency and renal dysfunction. His creatinine is better at 1.67. His blood pressure is now 140/80. 11/03/2024 Patient continues to report intermittent chest pressures. His troponin came back significantly elevated at 0.097, 0.083, 0.100. He has been started on IV heparin and cardiology has ordered a cardiac catheterization for tomorrow. BUN is 16, creatinine is 1.77. Sodium is 138. Chest xray this AM reveals no acute findings. Patient is afebrile, heart rate 67, blood pressure 177/95. 95% on room air. Review of Systems Constitutional: Denied any fatigue denied any fever. Cardio vascular: denied any chest pain, palpitations Gastrointestinal: denied any nausea, vomiting, diarrhea Pulmonary: Denied any shortness of breath cough Neurologic denied any new focal deficits All inpatient medications were reviewed and appropriate changes in these medications as dictated in the interval history and assessment and plan. PHYSICAL EXAMINATION: GENERAL: The patient is alert and oriented x3, not in any acute distress. Well developed, well nourished. HEENT: Pupils are round and equally reacting to light. EOMI. No scleral icterus. No conjunctival pallor. Normocephalic, atraumatic. No pharyngeal erythema. No thyromegaly. CARDIOVASCULAR: S1 and S2 present. No murmurs, rubs, or gallops. PULMONARY: Chest is clear to auscultation, no wheezing or crackles. ABDOMEN: Soft, nontender, nondistended, normoactive bowel sounds. No palpable organomegaly. MUSCULOSKELETAL: No joint swelling or deformity. EXTREMITIES: No cyanosis, clubbing, or pedal edema. NEUROLOGICAL: Gross neurological examination did not reveal any focal deficits. SKIN: No rashes. Assessment and plan Chest pain and troponin elevation due to NSTEMI Nausea with vomiting under investigation could be due to the renal dysfunction Acute on chronic kidney disease CKD stage IV History of paroxysmal atrial fibrillation anticoag with Eliquis History of ischemic cardiomyopathy with EF of 40 to 45% Exertional dyspnea will order a chest x-ray History of coronary artery disease with prior PCI in 2010 and 2004 Hypertension with urgency Hyperlipidemia Chronic pain and peripheral neuropathy Gastroesophageal reflux disease GI prophylaxis Full code Plan Eliquis has been placed on hold and patient has been started on IV heparin Patient scheduled to undergo cardiac catheterization tomorrow Nephrology consultation Monitor renal function Continue supportive care with IV Zofran. The impression and plan of care has been dictated by Ning Young, Nurse Practitioner as directed. Dr. Kings MD I have performed a history and physical examination and medical decision making of this patient, discussed the same with the dictator, and agree with the dictators assessment and plan as written, documented as a scribe. Based on total visit time, I have performed more than 50% of this visit. Objective - Vital Signs Vital signs: Vital Signs Temp 97.3 F L 11/03/24 07:10 Pulse 49 L 11/03/24 07:10 Resp 16 11/03/24 07:10 BP 165/109 11/03/24 07:10 Pulse Ox 96 11/03/24 07:10 FiO2 Intake & Output 11/02/24 11/03/24 11/03/24 18:59 06:59 18:59 Intake Total 358 Balance 358 Intake: Oral 358 Other: Voiding Method Toilet # Voids 1 2 - Labs CBC & Chem 7: 11/03/24 06:49 11/03/24 06:49 Labs: Abnormal Lab Results - Last 24 Hours (Table) 11/03/24 11/03/24 11/03/24 Range/Units 06:49 06:49 06:49 RBC 4.18 L (4.30-5.90) m/uL Hgb 12.1 L (13.0-17.5) gm/dL Hct 38.9 L (39.0-53.0) % Chloride 108 H (98-107) mmol/L Creatinine 1.77 H (0.66-1.25) mg/dL Glucose 112 H (74-99) mg/dL Troponin I 0.097 H* (0.000-0.034) ng/mL Assessment and Plan Time with Patient: Less than 30
[2024-11-04 06:21] LABS: Glucose,Whole Blood 110 mg/dL (70-110)
[2024-11-04] MEDS: ATORVASTATIN 80 MG TAB PO ONE (06:33)
[2024-11-04] MEDS: ASPIRIN 325 MG TAB PO ONE (06:33)
[2024-11-04] MEDS ORDERED: HEPARIN SODIUM,PORCINE 10,000 UNIT in SODIUM CHLORIDE 0.9% 1,000 ML IRRIGATION PRN (07:00)
[2024-11-04] MEDS ORDERED: HEPARIN SODIUM,PORCINE (1 ML) 2,500 UNIT in SODIUM CHLORIDE 0.9% 250 ML IRRIGATION PRN (07:00)
[2024-11-04 09:42] LABS: Glucose 107 mg/dL (70-110)
[2024-11-04 09:43] LABS: BUN/Creat Ratio 8.18 Ratio (12.00-20.00); Blood Urea Nitrogen 13.9 mg/dL (9.0-27.0); Calcium 8.6 mg/dL (8.7-10.3); Carbon Dioxide 19.9 mmol/L (21.6-31.8); Chloride 110 mmol/L (96-109); Potassium 3.6 mmol/L (3.5-5.5); Sodium 141 mmol/L (135-145)
[2024-11-04] MEDS ORDERED: prednisoLONE ACETATE 1% OPHTH DROPS 5 ML BTL LEFT EYE SCH ×2 (11:30→18:30)
[2024-11-04] MEDS: fentaNYL (PF) 50 MCG/ML 2 ML AMP IVP ONE (11:43)
[2024-11-04] MEDS: LIDOCAINE 1% INJ 10MG/ML (20 ML MDV) SQ ONE (11:43)
[2024-11-04] MEDS: VERAPAMIL SYRINGE (5 MG/10 ML) INTRAARTER ONE (11:44)
[2024-11-04] MEDS: SODIUM CHLORIDE 0.9% 1,000 ML IV ONE (11:44)
[2024-11-04] MEDS: MIDAZOLAM 2 MG/2 ML VIAL IVP ONE (11:44)
[2024-11-04] MEDS: IOPAMIDOL-370 100ML BTL INJ ONE (12:07)
[2024-11-04] MEDS ORDERED: RX INFO: IV CONTRAST WAS GIVEN 1 EACH MISC MISCELLANE PRN (12:29)
--- NOTE | 2024-11-04 13:04 | P.PN ---
Subjective Patient is seen for follow-up for chronic kidney disease. He has just returned from cardiac cath. Blood pressure is elevated with 174/84 Complaining of shortness of breath Serum creatinine stable at 1.7 mg/dL. Cardiothoracic surgery consulted Objective - Vital Signs Vital signs: Vital Signs Temp 97.5 F L 11/04/24 12:30 Pulse 54 L 11/04/24 12:30 Resp 20 11/04/24 12:30 BP 174/89 11/04/24 12:30 Pulse Ox 94 L 11/04/24 12:30 FiO2 Intake & Output 11/03/24 11/04/24 11/04/24 18:59 06:59 18:59 Intake Total 830 189.532 143.489 Balance 830 189.532 143.489 Intake: IV 100 Intake, IV Titration 189.532 43.489 Amount Heparin Sod,Pork in 0.45% 189.532 43.489 NaCl 25,000 unit In 0.45 % NaCl 1 250ml.bag @ 12 UNITS/KG/HR 9.253 mls/hr IV .Q24H [facility] Rx#: [id number] Oral 830 Other: Voiding Method Toilet Toilet Toilet # Voids 1 3 - Exam Patient is awake, comfortable, no acute distress Examination of the heart S1 and S2 Examination of the lungs bilateral breath sounds are heard, basal crackles Abdomen is soft nontender Examination of lower extremities shows edema 1+ bilaterally [employer] exam grossly intact - Labs CBC & Chem 7: 11/03/24 06:49 11/04/24 05:57 Labs: Abnormal Lab Results - Last 24 Hours (Table) 11/03/24 11/03/24 11/03/24 Range/Units 14:22 16:33 16:33 APTT 41.1 H (22.0-30.0) sec Chloride (96-109) mmol/L Carbon Dioxide (21.6-31.8) mmol/L Creatinine (0.6-1.5) mg/dL Est GFR (CKD-EPI) (>=60) BUN/Creatinine Ratio (12.00-20.00) Ratio Calcium (8.7-10.3) mg/dL Troponin I 0.100 H* 0.106 H* (0.000-0.034) ng/mL 03/05/25 03/05/25 Range/Units 05:57 05:57 APTT 48.4 H (22.0-30.0) sec Chloride 110 H (96-109) mmol/L Carbon Dioxide 19.9 L (21.6-31.8) mmol/L Creatinine 1.7 H (0.6-1.5) mg/dL Est GFR (CKD-EPI) 43 L (>=60) BUN/Creatinine Ratio 8.18 L (12.00-20.00) Ratio Calcium 8.6 L (8.7-10.3) mg/dL Troponin I (0.000-0.034) ng/mL Assessment and Plan Assessment: 1. Chronic kidney disease stage IIIb-IV with baseline creatinine around 2 mg/dL. Etiology is nephrosclerosis. 2. Non-ST elevation FL status post cardiac catheterization. Being evaluated by cardiothoracic surgery 3. Recent nausea vomiting and diarrhea 4. Hypertension uncontrolled, hypertensive urgency. Patient was not able to tolerate oral medications prior to admission. Plan: DC IV fluids in 2 hours May continue with FEDE inhibitor's for now Repeat labs in a.m.
--- NOTE | 2024-11-04 13:21 | CA ---
Transthoracic Echo Report Name: Jay Becerra Age: 69 Gender: M : 1955 Exam Date: 11/04/2024 09:21 Exam Location: [facility] Ht (in): 68 Wt (lb): 170 Ordering Physician: Nicole Matamoros Attending/Referring Phys: [id number], Saturnino Carpenter [employer] Emmanuel Turk, RDNETTA Procedure CPT: Indications: lvf, NSTEMI Cardiac Hx: Technical Quality: Good Contrast 1: Total Dose (mL): Contrast 2: Total Dose (mL): MEASUREMENTS (Male / Female) Normal Values 2D ECHO LV Diastolic Diameter PLAX 5.1 cm 4.2 - 5.9 / 3.9 - 5.3 cm LV Systolic Diameter PLAX 4.4 cm IVS Diastolic Thickness 1.2 cm 0.6 - 1.0 / 0.6 - 0.9 cm LVPW Diastolic Thickness 1.2 cm 0.6 - 1.0 / 0.6 - 0.9 cm LV Relative Wall Thickness 0.5 LVOT Diameter 1.5 cm LA Systolic Diameter LX 4.4 cm 3.0 - 4.0 / 2.7 - 3.8 cm DOPPLER TR Peak Velocity 250.1 cm/s TR Peak Gradient 25.0 mmHg Right Atrial Pressure 20.0 mmHg Pulmonary Artery Systolic Pressu 45.0 mmHg Right Ventricular Systolic Press 45.0 mmHg FINDINGS Left Ventricle Left ventricular ejection fraction is estimated at 35-40 %. Left ventricular cavity size normal. Mildly increased left ventricular wall thickness. Inferior and inferoseptal hypokinesis Right Ventricle Normal right ventricula size.moderate pulmonary hypertension. Right Atrium Normal right atrial size. Left Atrium Mildly increased left atrial diameter. Mitral Valve Mitral valve thickened. Mitral annular calcification. . No mitral stenosis. Mild mitral regurgitation. Aortic Valve Trileaflet aortic valve. No aortic stenosis. No aortic regurgitation. Tricuspid Valve Structurally normal tricuspid valve. Mild tricuspid regurgitation. Pulmonic Valve Structurally normal pulmonic valve. No pulmonic stenosis. No pulmonic regurgitation. Pericardium No pericardial effusion. Aorta Normal size aortic root and proximal ascending aorta. CONCLUSIONS 1. Moderately impaired left ventricular systolic function with segmental wall motion abnormality 2. Mild mitral and tricuspid regurgitation with mild pulmonary hypertension Previewed by: Dr. Katarzyna Wise MD (Electronically Signed) Final Date: 04 November 2024 13:21
[2024-11-04 13:49] LABS: HCT 34.1 % (39.0-53.0); HGB 10.7 gm/dL (13.0-17.5); Hypochromasia Marked; MCH 29.7 pg (25.0-35.0); MCHC 31.5 g/dL (31.0-37.0); MCV 94.2 fL (80.0-100.0); Mean Platelet Volume 10.9; Platelet Count 165 k/uL (150-450); RBC 3.62 m/uL (4.30-5.90); RDW 14.1 % (11.5-15.5); WBC 5.9 k/uL (3.8-10.6)
--- NOTE | 2024-11-04 14:02 | P.GSCN ---
History of Present Illness Consult date: 11/04/24 Reason for Consult: Coronary artery disease Requesting physician: Nicole Matamoros History of present illness: This is a 69-year-old gentleman who follows outpatient with nurse practitioner Ana Raza at Dr. Susan Armas's office for primary care, as well as Dr. Churchill for cardiology. He has a previous medical history of coronary artery disease with previous stent placement in 2004 to the RCA, ischemic cardio myopathy, hypertension, hyperlipidemia with statin intolerance, chronic kidney disease stage IIIb-IV, paroxysmal atrial fibrillation on Eliquis for anticoagulation although patient states he has never been told he has A-fib, chronic pain with pain procedures at the pain clinic, and lifelong non-smoker. He presented to [facility] emergency room on October 30 with complaints of intermittent chest pain, shortness of breath, diaphoresis for 1 week with activity. He also complained of nausea/vomiting/diarrhea as well as dizziness and weakness with some lower extremity edema. Patient states really he has felt bad for the last 6 months. He was hospitalized back in July 2024 for chest pain as well. Upon presentation to the emergency room this admission EKG noted sinus rhythm with first-degree AV block as well as left bundle branch block. Lab work revealed WBC 7.9, hemoglobin 11.6, creatinine 1.89, lactic acid 1.0, and negative virus panel. He was found to be very hypertensive with systolic blood pressure in the 200s. He was admitted for evaluation and treatment with consultation placed to nephrology. Eventually cardiology was also consulted due to chest pain. Transthoracic echocardiogram was completed yesterday demonstrating reduced left ventricular systolic function with EF 35 to 40%, inferior and inferoseptal hypokinesis, moderate pulmonary hypertension, mild m itral regurgitation. He was recommended to undergo heart catheterization which was completed today by Dr. Churchill revealing coronary artery disease including left main and proximal LAD disease. Due to these findings consultation was placed to cardiothoracic surgery for Review of Systems Review of systems was completed and was negative except as noted - Constitutional Reports sweats, Reports weakness - Cardiovascular Reports chest pain, Reports dyspnea on exertion, Reports high blood pressure, Reports leg edema - Gastrointestinal Reports diarrhea, Reports nausea, Reports vomiting Past Medical History Past Medical History: Atrial Fibrillation, Coronary Artery Disease (CAD), Chest Pain / Angina, Heart Failure, GERD/Reflux, Hyperlipidemia, Hypertension, Myocardial Infarction (CT), Osteoarthritis (OA), Prostate Disorder, Renal Disease Additional Past Medical History / Comment(s): degenerative disc disease of the lumbar spine, chronic pain, neuropathy bilateral lower extremity, chronic bronchitis. CKD stage IIIb-IV Last Myocardial Infarction Date:: 2004 History of Any Multi-Drug Resistant Organisms: None Reported Past Surgical History: Cholecystectomy, Heart Catheterization With Stent, Hernia Repair, Orthopedic Surgery Additional Past Surgical History / Comment(s): carpal tunnal repair, cyst removed from the mouth, Left heart catheterization 2000 and 2004, right hernia repair, left arthroscopic knee surgery., pain clinic procedures. Past Anesthesia/Blood Transfusion Reactions: No Reported Reaction Date of Last Stent Placement:: 2004 Past Psychological History: No Psychological Hx Reported Additional Psychological History / Comment(s): Lives with brotherElis [place] Smoking Status: Never smoker Past Alcohol Use History: None Reported Additional Past Alcohol Use History / Comment(s): Quit drinking in 2004 Past Drug Use History: Marijuana Additional Drug Use History / Comment(s): Uses marijuana every other night for sleep - Past Family History Mother History Unknown: Yes Additional Family Medical History / Comment(s): of old age Father History Unknown: Yes Family Medical History: Cancer Brother(s) Additional Family Medical History / Comment(s): Brother had open heart surgery x 3 related to valvular disease and postoperative infection Medications and Allergies Home Medications Medication Instructions Recorded Confirmed Type Isosorbide Dinitrate [Monoket] 10 mg PO BID 09/29/14 10/30/24 History Metoprolol Tartrate [Lopressor] 75 mg PO BID 09/29/14 10/30/24 History Montelukast [Singulair] 10 mg PO HS 09/29/14 10/30/24 History Baclofen [Lioresal] 10 mg PO QID 05/10/21 10/30/24 History HYDROcodone/APAP 10-325MG [[place] 1 tab PO Q6HR PRN 05/10/21 10/30/24 History 10-325] Tamsulosin [Flomax] 0.4 mg PO DAILY 05/10/21 10/30/24 History Aspirin [Adult Low Dose Aspirin EC] 81 mg PO DAILY 06/19/21 10/30/24 History Pantoprazole [Protonix] 40 mg PO DAILY 06/19/21 10/30/24 History Apixaban [Eliquis] 5 mg PO BID 09/17/22 10/30/24 History Ezetimibe [Zetia] 10 mg PO DAILY 09/17/22 10/30/24 History Fluoride (Sodium) [Sodium Fluoride 1 applic DENTAL HS 01/22/24 10/30/24 History 5000 Plus] Furosemide [Lasix] 20 mg PO DAILY 01/22/24 10/30/24 History Ondansetron [Zofran] 4 mg PO TID PRN 01/22/24 10/30/24 History QUEtiapine [SEROquel] 25 mg PO HS 01/22/24 10/30/24 History Brinzolamide/Brimonidine Tart 1 drop LEFT EYE TID 07/23/24 10/30/24 History [Simbrinza 1%-0.2% Eye Drop] prednisoLONE ACETATE 1% OPHTH 1 drops LEFT EYE Q8H 07/23/24 10/30/24 History [Pred Forte 1%] lisinopriL [Zestril] 10 mg PO DAILY #30 tab 07/28/24 10/30/24 Rx ALPRAZolam [Xanax] 0.25 PO Q12HR 10/30/24 History Enalapril [Vasotec] 2.5 mg PO DAILY 10/30/24 10/30/24 History Allergies Allergy/AdvReac Type Severity Reaction Status Date / Time No Known Allergies Allergy Verified 10/30/24 19:20 Surgical - Exam Vital Signs Temp Pulse Resp BP Pulse Ox 98.3 F 70 18 165/91 98 10/30/24 16:35 10/30/24 16:35 10/30/24 16:35 10/30/24 16:35 10/30/24 16:35 CONSTITUTIONAL: Awake and alert, appears comfortable, cooperative, no pain, no acute distress EYES: Pupils equal, round, reactive to light, normal ocular movement ENT: Moist mucous membranes without oral lesions present NECK: No masses, no bruits, trachea midline RESPIRATORY: Lungs sounds clear to auscultation bilaterally. Respirations even, nonlabored. Currently on room air with oxygen saturation 94%. Strong cough. No chest wall deformities. No clubbing or cyanosis present CARDIOVASCULAR: S1, S2 present. Slow but regular rate and rhythm, sinus bradycardia on telemetry. Palpable peripheral pulses bilaterally. No edema present. No calf pain or tenderness noted. No significant lower extremity varicosities noted GASTROINTESTINAL: Abdomen soft, nontender, nondistended without masses or organomegaly noted. There is no rebound or guarding present. Active bowel sounds present 4 quadrants. GENITOURINARY: Deferred INTEGUMENTARY: Skin is warm and dry. Right radial heart catheterization site with T band in place NEUROLOGIC: Cranial nerves II through XII intact, normal coordination, no obvious motor or sensory deficits, speech is normal MUSKULOSKELETAL: Able to move all extremities, strength equal bilaterally, normal posture PSYCHIATRIC: Alert and oriented to person place and time, appropriate affect, intact judgment and insight CLINICAL FRAILTY SCORE 6 Results - Labs 11/03/24 06:49 11/04/24 05:57 Abnormal Lab Results - Last 24 Hours (Table) 11/03/24 11/03/24 11/03/24 Range/Units 14:22 16:33 16:33 APTT 41.1 H (22.0-30.0) sec Chloride (96-109) mmol/L Carbon Dioxide (21.6-31.8) mmol/L Creatinine (0.6-1.5) mg/dL Est GFR (CKD-EPI) (>=60) BUN/Creatinine Ratio (12.00-20.00) Ratio Calcium (8.7-10.3) mg/dL Troponin I 0.100 H* 0.106 H* (0.000-0.034) ng/mL 11/04/24 11/04/24 Range/Units 05:57 05:57 APTT 48.4 H (22.0-30.0) sec Chloride 110 H (96-109) mmol/L Carbon Dioxide 19.9 L (21.6-31.8) mmol/L Creatinine 1.7 H (0.6-1.5) mg/dL Est GFR (CKD-EPI) 43 L (>=60) BUN/Creatinine Ratio 8.18 L (12.00-20.00) Ratio Calcium 8.6 L (8.7-10.3) mg/dL Troponin I (0.000-0.034) ng/mL Diabetes panel 11/04/24 Range/Units 05:57 Sodium 141 (135-145) mmol/L Potassium 3.6 (3.5-5.5) mmol/L Chloride 110 H (96-109) mmol/L Carbon Dioxide 19.9 L (21.6-31.8) mmol/L BUN 13.9 (9.0-27.0) mg/dL Creatinine 1.7 H (0.6-1.5) mg/dL Glucose 107 (70-110) mg/dL Calcium 8.6 L (8.7-10.3) mg/dL Calcium panel 11/04/24 Range/Units 05:57 Calcium 8.6 L (8.7-10.3) mg/dL Pituitary panel 11/04/24 Range/Units 05:57 Sodium 141 (135-145) mmol/L Potassium 3.6 (3.5-5.5) mmol/L Chloride 110 H (96-109) mmol/L Carbon Dioxide 19.9 L (21.6-31.8) mmol/L BUN 13.9 (9.0-27.0) mg/dL Creatinine 1.7 H (0.6-1.5) mg/dL Glucose 107 (70-110) mg/dL Calcium 8.6 L (8.7-10.3) mg/dL Adrenal panel 11/04/24 Range/Units 05:57 Sodium 141 (135-145) mmol/L Potassium 3.6 (3.5-5.5) mmol/L Chloride 110 H (96-109) mmol/L Carbon Dioxide 19.9 L (21.6-31.8) mmol/L BUN 13.9 (9.0-27.0) mg/dL Creatinine 1.7 H (0.6-1.5) mg/dL Glucose 107 (70-110) mg/dL Calcium 8.6 L (8.7-10.3) mg/dL - Imaging Chest x-ray: report reviewed, image reviewed EKG: image reviewed Additional studies: Heart catheterization films, echocardiogram heart reviewed Assessment and Plan Assessment: Coronary artery disease with left main disease, non-STEMI this admission Accelerated hypertension this admission Nausea/vomiting/diarrhea/dizziness/weakness on admission Chest pain, shortness of breath, secondary to above History of coronary artery disease with previous stent placement in 2004 to the RCA Ischemic cardiomyopathy, current transthoracic echocardiogram revealing EF 35 to 40%, inferior and inferior septal hypokinesis, mild mitral and tricuspid regurgitation Hypertension Hyperlipidemia with statin intolerance Chronic kidney disease stage IIIb-IV Paroxysmal atrial fibrillation on Eliquis for anticoagulation Chronic pain with pain procedures at the pain clinic Lifelong non-smoker Plan: The patient was seen and examined sitting up in bed on the observation unit in no acute distress. Denies chest pain or shortness of breath currently although does get short of breath with ambulation. Chart/diagnostics reviewed. The case will be discussed in detail with Dr. Goode. Recommend continuing aspirin, statin beta-jany, Zetia. Needs better blood pressure control as systolic blood pressures remain in the 160s to 170s despite current medication regimen. The usual perioperative course of open-heart surgery was discussed in detail with the patient, risks and benefits reviewed, all questions were answered. The patient was reluctant initially as he said his brother went through open heart surgery 3 times when he was 58 years old, however discussion revealed the pa servandont had valvular surgery and postoperative complications of infection. Patient was assured that his brothers open heart surgery was not for the same reason that he is recommended for surgery. He is willing to consider surgery. He also stated he has never been told he has had atrial fibrillation, thinks he is on Eliquis for his heart blockages. EKGs in our system do not reveal atrial fibrillation. Office note from Dr. Churchill does state patient has history of atrial fibrillation. Preoperative testing initiated. Once completed we will calculate STS risk score and discuss with the patient. Will complete 5 m walk test. Medical management of other comorbidities per internal medicine, car diology, nephrology. More recommendations to follow. Thank you for this consult, we will continue to follow along with you and make further recommendations as appropriate. I have personally seen and examined the patient, performed the documentation and the assessment and plan as written. Number of minutes spent on the visit: 30. RA Freire
--- NOTE | 2024-11-04 14:32 | US ---
EXAMINATION TYPE: Pre-Operative Non-Invasive Evaluation of the hand for Potential Radial Artery Bushra conner, Measurements only DATE OF EXAM: 11/04/2024 2:11 PM CLINICAL INDICATION: Male, 69 years old with history of measurements only; , Preop- Cardiac Surgery TECHNIQUE:Grayscale and color Doppler imaging of the radial artery(s) SIDE PERFORMED: Left FINDINGS: Dominant hand: Right Duplex Findings: Radial Artery: Color flow seen Measurements in mm, transverse view: Left Radial: Proximal (inferior to antecub): 2.2 x 2.9 mm Mid: 2.0 x 1.7 mm Distal: 2.1 x 2.0 mm Left radial origin in upper arm IMPRESSION: 1. No evidence for vascular occlusion. 2. Measurements as described above. [facility], , 11/04/2024 2:30 PM
--- NOTE | 2024-11-04 14:32 | US ---
EXAMINATION TYPE: US carotid duplex BILAT DATE OF EXAM: 11/04/2024 COMPARISON: NONE CLINICAL INDICATION: Male, 69 years old with history of preop cardiac surgery; Additional History: .... TECHNIQUE: Grayscale, color Doppler and spectral Doppler evaluation of the bilateral carotid systems and vertebral arteries. Indirect Doppler criteria was utilized. FINDINGS: EXAM MEASUREMENTS: RIGHT: Peak Systolic Velocity (PSV) cm/sec ----- Right CCA: 69.1 ----- Right ICA: 96.54 ----- Right ECA: 114.0 ICA/CCA ratio: 1.4 RIGHT: End Diastole cm/sec ----- Right CCA: 15.3 ----- Right ICA: 17.6 ----- Right ECA: 0.0 LEFT: Peak Systolic Velocity (PSV) cm/sec ----- Left CCA: 76.4 ----- Left ICA: 127.0 ----- Left ECA: 117.3 ICA/CCA ratio: 1.7 LEFT: End Diastole cm/sec ----- Left CCA: 15.4 ----- Left ICA: 23.6 ----- Left ECA: 9.0 VERTEBRALS (direction of flow): Right Vertebral: Antegrade Left Vertebral: Antegrade Rhythm: Arrhythmia LINOTYPE MACHINIST NOTES: Bilateral wall thickening. Plaque seen in bilateral bulbs. No elevated velocitie s. Color Doppler imaging shows patency with blood flow throughout the carotid artery. Spectral waveforms are within normal limits. IMPRESSION: Right: Less than 50% stenosis of the carotid bifurcation. Left: 50-69% stenosis of the carotid bifurcation by peak systolic velocity. Ratio is within normal li mits. Criteria for Assigning % of Stenosis / Diameter reduction (Estimation based on the indirect measurements of the internal carotid artery velocities (ICA PSV). 1. Normal (no stenosis)=ICA PSV < 125 cm/s: ratio < 2.0: ICA EDV<40 cm/s. 2. Less than 50% stenosis=ICA PSV < 125 cm/s: ratio < 2.0: ICA EDV<40 cm/s. 3. 50 to 69% stenosis=ICA PSV of 125 to 230 cm/s: ration 2.0 ? 4.0: ICA EDV 40-100 cm/s. 4. Greater than 70% stenosis to near occlusion= ICA PSV > 230 cm/s: ratio > 4.0: ICA EDV > 100 cm/s. 5. Near occlusion= ICA PSV velocities may be low or undetectable: variable ratio and ICA EDV. 6. Total occlusion=unable to detect flow. [facility], , 11/04/2024 2:30 PM
--- NOTE | 2024-11-04 14:33 | US ---
EXAMINATION TYPE: US vein mapping BILAT DATE OF EXAM: 11/04/2024 2:11 PM COMPARISON: NONE CLINICAL INDICATION: Male, 69 years old with history of preop cardiac surgery; , Preop- Cardiac Surge ry TECHNIQUE: Grayscale and color Doppler imaging of the lower extremity venous system. SIDE PERFORMED: Bilateral FINDINGS: PATIENT HISTORY: Smoker: Unknown Heart Disease: Yes Previous DVT: Unknown Vascular Surgery: Unknown Discoloration: No Hypertension: Unknown Diabetes: Unknown Paralysis: No Varicosities: No Edema: Yes DUPLEX FINDINGS: Greater Saphenous: Color flow seen Lesser Saphenous: Color flow seen Measurements in mm: Right Greater Saphenous: Groin: 4.8 x 4.3 mm High Thigh: 3.3 x 3.0 mm Mid Thigh: 2.5 x 2.2 mm Above Knee: 2.2 x 1.8 mm Knee: 2.0 x 1.8 mm Below Knee: 1.8 x 1.8 mm Mid Calf: 2.7 x 2.0 mm At Ankle: 2.3 x 1.9 mm Left Greater Saphenous: Groin: 4.4 x 3.5 mm High Thigh: 4.0 x 3.6 mm Mid Thigh: 2.9 x 3.2 mm Above Knee: 2.9 x 2.6 mm Knee: 1.9 x 1.7 mm Below Knee: 2.5 x 2.0 mm Mid Calf: 2.6 x 1.9 mm At Ankle: 1.5 x 1.5 mm IMPRESSION: 1. No evidence for occlusion. 2. GSV measurements listed above. 3. Performing surgeon to determine viability as conduit. [facility], , 11/04/2024 2:31 PM
--- NOTE | 2024-11-04 15:18 | P.PN ---
Subjective Progress Note Date: 11/04/24 Patient is evaluated today sitting up in the chair. Patient reports significant nausea vomiting. Additionally he reports feeling shortness of breath with exertion states that he is unable to walk from the chair to the restroom without having to stop and catch his breath. Patient reports chest pressure which has been increasing in intensity and states that he cannot wait until his outpatient evaluation. Echocardiogram from July 2024 reveals an EF of 40 to 45% with hypokinetic basal to mid inferior wall with mild biatrial dilatation. Mild MR. He was admitted with hypertensive urgency and renal dysfunction. His creatinine is better at 1.67. His blood pressure is now 140/80. 11/03/2024 Patient continues to report intermittent chest pressures. His troponin came back significantly elevated at 0.097, 0.083, 0.100. He has been started on IV heparin and cardiology has ordered a cardiac catheterization for tomorrow. BUN is 16, creatinine is 1.77. Sodium is 138. Chest xray this AM reveals no acute findings. Patient is afebrile, heart rate 67, blood pressure 177/95. 95% on room air. 11/04/2024 Patient is evaluated in follow-up in the medical floor. He continues to report intermittent chest discomfort. He is not significantly short of breath although is still having some exertional dyspnea. He reports patient underwent cardiac catheterization which revealed disease of the LAD and left main and cardiothoracic surgery was consulted for evaluation and workup for open heart. His labs today reveal a white blood cell count of 5.9, hemoglobin 10.7, sodium of 141, BUN of 13.9 creatinine of 1.7, calcium 8.6. Pressure remains elevated at 162/76. Review of Systems Constitutional: Denied any fatigue denied any fever. Cardio vascular: denied any chest pain, palpitations Gastrointestinal: denied any nausea, vomiting, diarrhea Pulmonary: Denied any shortness of breath cough Neurologic denied any new focal deficits All inpatient medications were reviewed and appropriate changes in these medications as dictated in the interval history and assessment and plan. PHYSICAL EXAMINATION: GENERAL: The patient is alert and oriented x3, not in any acute distress. Well developed, well nourished. HEENT: Pupils are round and equally reacting to light. EOMI. No scleral icterus. No conjunctival pallor. Normocephalic, atraumatic. No pharyngeal erythema. No thyromegaly. CARDIOVASCULAR: S1 and S2 present. No murmurs, rubs, or gallops. PULMONARY: Chest is clear to auscultation, no wheezing or crackles. ABDOMEN: Soft, nontender, nondistended, normoactive bowel sounds. No palpable organomegaly. MUSCULOSKELETAL: No joint swelling or deformity. EXTREMITIES: No cyanosis, clubbing, or pedal edema. NEUROLOGICAL: Gross neurological examination did not reveal any focal deficits. SKIN: No rashes. Assessment and plan Chest pain and troponin elevation due to NSTEMI Nausea with vomiting under investigation could be due to the renal dysfunction Acute on chronic kidney disease CKD stage IV Carotid artery stenosis with moderate stenosis of the left carotid bifurcation 50 to 69%, less than 50% stenosis of the carotid bifurcation on the right History of paroxysmal atrial fibrillation anticoag with Eliquis History of ischemic cardiomyopathy with EF of 40 to 45% Exertional dyspnea History of coronary artery disease with prior PCI in 2010 and 2004 Hypertension with urgency Hyperlipidemia Chronic pain and peripheral neuropathy Gastroesophageal reflux disease GI prophylaxis Full code Plan Patient is currently on a combination of oral hydralazine, oral metoprolol, lisinopril Eliquis has been placed on hold and patient has been started on IV heparin Patient is status post cardiac catheterization and now with consultation to cardiothoracic surgery and is being considered for coronary artery bypass grafting. Nephrology consultation Monitor renal function Continue supportive care The impression and plan of care has been dictated by Ning Young, Nurse Practitioner as directed. Dr. Kings MD I have performed a history and physical examination and medical decision making of this patient, discussed the same with the dictator, and agree with the dictators assessment and plan as written, documented as a scribe. Based on total visit time, I have performed more than 50% of this visit. Objective - Vital Signs Vital signs: Vital Signs Temp 97.5 F L 11/04/24 12:30 Pulse 51 L 11/04/24 14:20 Resp 20 11/04/24 14:20 BP 162/76 11/04/24 14:20 Pulse Ox 94 L 11/04/24 14:20 FiO2 Intake & Output 11/03/24 11/04/24 11/04/24 18:59 06:59 18:59 Intake Total 830 189.532 143.489 Balance 830 189.532 143.489 Intake: IV 100 Intake, IV Titration 189.532 43.489 Amount Heparin Sod,Pork in 0.45% 189.532 43.489 NaCl 25,000 unit In 0.45 % NaCl 1 250ml.bag @ 12 UNITS/KG/HR 9.253 mls/hr IV .Q24H [facility] Rx#: [id number] Oral 830 Other: Voiding Method Toilet Toilet Toilet # Voids 1 3 - Labs CBC & Chem 7: 11/04/24 05:57 11/04/24 05:57 Labs: Abnormal Lab Results - Last 24 Hours (Table) 11/03/24 11/03/24 11/03/24 Range/Units 14:22 16:33 16:33 RBC (4.30-5.90) m/uL Hgb (13.0-17.5) gm/dL Hct (39.0-53.0) % APTT 41.1 H (22.0-30.0) sec Chloride (96-109) mmol/L Carbon Dioxide (21.6-31.8) mmol/L Creatinine (0.6-1.5) mg/dL Est GFR (CKD-EPI) (>=60) BUN/Creatinine Ratio (12.00-20.00) Ratio Calcium (8.7-10.3) mg/dL Troponin I 0.100 H* 0.106 H* (0.000-0.034) ng/mL 11/04/24 11/04/24 11/04/24 Range/Units 05:57 05:57 05:57 RBC 3.62 L (4.30-5.90) m/uL Hgb 10.7 L (13.0-17.5) gm/dL Hct 34.1 L (39.0-53.0) % APTT 48.4 H (22.0-30.0) sec Chloride 110 H (96-109) mmol/L Carbon Dioxide 19.9 L (21.6-31.8) mmol/L Creatinine 1.7 H (0.6-1.5) mg/dL Est GFR (CKD-EPI) 43 L (>=60) BUN/Creatinine Ratio 8.18 L (12.00-20.00) Ratio Calcium 8.6 L (8.7-10.3) mg/dL Troponin I (0.000-0.034) ng/mL Assessment and Plan Time with Patient: Less than 30
[2024-11-04] MEDS ORDERED: HEPARIN SODIUM 1,000 UN/ML (10ML VL) IV PRN ×2 (16:13→16:19)
[2024-11-04] MEDS: HEPARIN SOD,PORK IN 0.45% NACL 25,000 UNIT in 0.45% NACL 1 250ML.BAG IV SCH ×2 (16:15→16:55)
--- NOTE | 2024-11-04 17:03 | CT ---
EXAMINATION TYPE: CT chest wo con DATE OF EXAM: 11/04/2024 4:55 PM COMPARISON: None CLINICAL INDICATION: Male, 69 years old with history of eval aorta for calcification; PH[facility], Eval aorta for calcification. Shortness of breath. TECHNIQUE: Multiple axial images were obtained through the chest. Sagittal and coronal reformats were created for review. MIP was performed on a separate workstation. Contrast used: mL of (None if empty) Oral contrast used: (None if empty) CT DLP: 430.5 mGycm, Automated exposure control for dose reduction was used. FINDINGS: LUNGS/ PLEURA: No focal consolidation, pneumothorax. Small bilateral pleural effusions. Airspace opac ities in the upper lung on the right and left lower lung. Intralobular septal thickening. Scattered n odular like opacities. AIRWAY: Patent and unremarkable. HEART: Cardiomegaly is demonstrated. Moderate coronary artery calcifications present. Fluid in the pe ricardial recesses. MEDIASTINUM: No gross evidence of adenopathy. VASCULATURE: No aortic aneurysm. No evidence for aortic aneurysm. There is moderate calcified plaque along the aortic arch and descending thoracic aorta. MUSCULOSKELETAL: No acute osseous abnormalities SOFT TISSUES/LYMPH NODES: Unremarkable. LOWER NECK: No significant findings. UPPER ABDOMEN: No significant findings. IMPRESSION: 1. Moderate aortic arch calcifications. No evidence for aneurysm. 2. Cardiomegaly with pulmonary vascular congestion and small amount of bilateral pleural effusions. Correlate for congestive heart failure. Given some patchy airspace opacities correlate for superimpos ed infection. 3. Scattered nodular-like opacities of the lungs. Short-term follow-up in 3 months recommended to ev aluate the lungs without acute findings. 4. Moderate coronary artery atherosclerosis. [facility], , 11/04/2024 5:00 PM
[2024-11-04 18:40] LABS: Hepatitis A Antibody IgM Nonreactive (Nonreactive); Hepatitis B Core IgM Nonreactive (Nonreactive); Hepatitis B Surface Antigen Nonreactive (Nonreactive); Hepatitis C IgG Antibody Nonreactive (Nonreactive)
[2024-11-04 18:46] LABS: Chol/HDL Ratio 5.03 Ratio; LDL Cholesterol,Calculated 123.8 mg/dL (0.0-131.0)
[2024-11-04] MEDS: prednisoLONE ACETATE 1% OPHTH DROPS 5 ML BTL LEFT EYE SCH (18:53)
[2024-11-04] MEDS: ALBUTEROL NEBULIZED 2.5 MG/3 ML INHALATION PRN (20:06)
--- NOTE | 2024-11-04 20:35 | CC ---
CARDIAC CATHETERIZATION REPORT INDICATIONS: Non-ST segment elevation IN. PROCEDURE NOTE: After obtaining informed consent, left heart catheterization and coronary angiogram were performed via the right radial artery using standard Freddie catheters. The patient tolerated the procedure well without any obvious immediate complications. The patient received moderate conscious sedation. Total sedation time was 15 minutes. Right radial artery access was obtained using the Seldinger technique. A 6-[place] sheath was placed. Catheters and wires were floated into the ascending aorta under fluoroscopic guidance. The patient received verapamil per protocol. We did not give him any heparin as the patient was on heparin up until the time he came to the cath laboratory technician and was on Eliquis up until yesterday. FINDINGS: Hemodynamics: 1. Left ventricular end-diastolic pressure is 12 to 14 mm. There is no significant gradient across the aortic valve. 2. Left ventriculogram: Left ventriculogram is not performed. Angiographic data: 1. Right coronary artery: Right coronary artery was previously stented, appears chronically occluded in the mid to distal portion with collaterals to the distal RCA from the circumflex coronary artery. Left main coronary artery appears heavily calcified and divides into left anterior descending coronary artery and circumflex coronary artery. Distal left main coronary artery appears stenosed. There is at least 60% stenosis. There is a focal 70% stenosis involving proximal LAD. CONCLUSIONS: 1. Significant distal left main stenosis. 2. 70% focal LAD stenosis. 3. Chronic occlusion of the right coronary artery with [id number] collaterals to the distal RCA. PLAN: I am going to consult CT Surgery to evaluate the patient for surgical revascularization. MMODL / IJN: [id number] /
[2024-11-05 00:21] LABS: Appearance,Urine Clear (Clear); Bilirubin,Urine Negative (Negative); Blood,Urine Negative (Negative); Color,Urine Yellow; Glucose,Urine (UA) Negative (Negative); Ketones,Urine Negative (Negative); Leukocyte Esterase,Urine Negative (Negative); Mucus,Urine Rare /hpf; Nitrite,Urine Negative (Negative); PH, Urine 5.5 (5.0-8.0); Protein,Urine 2+ (Negative); RBC,Urine 3 /hpf (0-5); Specific Gravity,Urine 1.036 (1.001-1.035); Squamous Epithelial Cell,Urine <1 /hpf (0-4); WBC,Urine 1 /hpf (0-5)
[2024-11-05 03:13] LABS: % Iron Saturation 8.39 (15.00-50.00)
--- NOTE | 2024-11-05 03:49 | P.CNPUL ---
History of Present Illness Consult date: 11/05/24 Requesting physician: Kylie Chavez Reason for consult: other (Preoperative pulmonary clearance) Chief complaint: Generalized weakness, nausea vomiting, lower extremity swelling History of present illness: Patient is a 69-year-old male with past medical history significant for seasonal allergies, asthma, hypertension, hyperlipidemia, atrial fibrillation anticoagulated on Eliquis, coronary artery disease with previous PCI/stents, heart failure, CKD stage IIIb. Lifelong non-smoker. Patient actually admitted to the hospital back on 10/30/2024. Chief complaints generalized weakness, lower extremity swelling, nausea and vomiting. Unable to take his blood pressure medication and endorses high blood pressures. No reported chest pain. Workup in the ED including serial troponins that were elevated. Echocardiogram showing moderately impaired left ventricular systolic function, with an EF of 35 to 40%, as well as mild mitral and tricuspid regurgitation with mild pulmonary hypertension. Heart catheterization showed significant stenosis involving the left main and focal 70% LAD stenosis. Chronic occlusion of the right RCA with [id number] collaterals. LVEDP 12 to 14 mmHg. Cardiothoracic surgical consult was placed for possible surgical revascularization. A pulmonary consult was placed for preoperative pulmonary clearance. Did undergo bedside spirometry with a FEV1/FVC ratio 52%. FVC 1.38 L or 35% of predicted. FEV1 of 0.72 L or 24% of predicted. Consistent with mixed obstruction and restriction. Denies any known history of COPD. lifelong non-smoker. He does have asthma, but does not routinely use any inhalers. Occasional albuterol inhaler use when sick. No recent hospitalizations for asthma exacerbation. Denies any recent pulmonary infections. Denies fevers. Denies any wheezing, chest tightness, cough. Asthma not exacerbation. CT of the chest shows cardiomegaly with pulmonary vascular congestion and small bilateral pleural effusions and associated infiltrates or atelectasis. Scattered nodular opacities. Most recent labs from yesterday, CBC: WBC count 5.9, hemoglobin 10.7, platelets 165. CMP: Sodium 141, potassium 3.6, chloride 107, serum bicarb 19, BUN 14, creatinine 1.7, glucose 107. Patient currently being evaluated on the Cardiac observation unit. He is resting comfortably on 2 L/min nasal cannula. Becomes dyspneic with minimal activity, such as ambulating to the bathroom. Also, reports lower extremity swelling. States this started approximately 1 week ago. Currently on heparin infusion per protocol. Eliquis is on hold. Continues to undergo extensive preoperative workup. Review of Systems Constitutional: Denies chills, Denies fever, Denies night sweats, Denies poor appetite, Denies weight gain, Denies weight loss Ears, nose, mouth and throat: Denies headache, Denies nasal congestion, Denies nasal discharge, Denies post-nasal drip, Denies sinus pain, Denies sinus pressure, Denies sore throat Cardiovascular: Reports leg edema, Denies chest pain, Denies lightheadedness, Denies orthopnea, Denies palpitations, Denies paroxysmal nocturnal dyspnea, Denies syncope Respiratory: Reports dyspnea, Denies congestion, Denies cough, Denies home oxygen, Denies respiratory infections, Denies wheezing Gastrointestinal: Reports nausea, Reports vomiting, Denies abdominal pain, Denies change in bowel habits, Denies constipation, Denies diarrhea, Denies hematemesis, Denies hematochezia, Denies melena Genitourinary: Denies dysuria Musculoskeletal: Denies limitation of motion Integumentary: Denies rash Neurological: Denies seizures, Denies syncope Psychiatric: Denies anxiety, Denies depression Past Medical History Past Medical History: Atrial Fibrillation, Coronary Artery Disease (CAD), Chest Pain / Angina, Heart Failure, GERD/Reflux, Hyperlipidemia, Hypertension, Myocardial Infarction (ND), Osteoarthritis (OA), Prostate Disorder, Renal Disease Additional Past Medical History / Comment(s): degenerative disc disease of the lumbar spine, chronic pain, neuropathy bilateral lower extremity, chronic bronchitis. CKD stage IIIb-IV Last Myocardial Infarction Date:: 2004 History of Any Multi-Drug Resistant Organisms: None Reported Past Surgical History: Cholecystectomy, Heart Catheterization With Stent, Hernia Repair, Orthopedic Surgery Additional Past Surgical History / Comment(s): carpal tunnal repair, cyst removed from the mouth, Left heart catheterization 2000 and 2004, right hernia repair, left arthroscopic knee surgery., pain clinic procedures. Past Anesthesia/Blood Transfusion Reactions: No Reported Reaction Date of Last Stent Placement:: 2004 Past Psychological History: No Psychological Hx Reported Additional Psychological History / Comment(s): Lives with brother. Garc[place] Smoking Status: Never smoker Past Alcohol Use History: None Reported Additional Past Alcohol Use History / Comment(s): Quit drinking in 2004 Past Drug Use History: Marijuana Additional Drug Use History / Comment(s): Uses marijuana every other night for sleep - Past Family History Mother History Unknown: Yes Family Medical History: Cancer Additional Family Medical History / Comment(s): of old age Father History Unknown: Yes Family Medical History: Cancer Brother(s) Additional Family Medical History / Comment(s): Brother had open heart surgery x 3 related to valvular disease and postoperative infection Medications and Allergies Home Medications Medication Instructions Recorded Confirmed Type Isosorbide Dinitrate [Monoket] 10 mg PO BID 09/29/14 10/30/24 History Metoprolol Tartrate [Lopressor] 75 mg PO BID 09/29/14 10/30/24 History Montelukast [Singulair] 10 mg PO HS 09/29/14 10/30/24 History Baclofen [Lioresal] 10 mg PO QID 05/10/21 10/30/24 History HYDROcodone/APAP 10-325MG [[place] 1 tab PO Q6HR PRN 05/10/21 10/30/24 History 10-325] Tamsulosin [Flomax] 0.4 mg PO DAILY 05/10/21 10/30/24 History Aspirin [Adult Low Dose Aspirin EC] 81 mg PO DAILY 06/19/21 10/30/24 History Pantoprazole [Protonix] 40 mg PO DAILY 06/19/21 10/30/24 History Apixaban [Eliquis] 5 mg PO BID 09/17/22 10/30/24 History Ezetimibe [Zetia] 10 mg PO DAILY 09/17/22 10/30/24 History Fluoride (Sodium) [Sodium Fluoride 1 applic DENTAL HS 01/22/24 10/30/24 History 5000 Plus] Furosemide [Lasix] 20 mg PO DAILY 01/22/24 10/30/24 History Ondansetron [Zofran] 4 mg PO TID PRN 01/22/24 10/30/24 History QUEtiapine [SEROquel] 25 mg PO HS 01/22/24 10/30/24 History Brinzolamide/Brimonidine Tart 1 drop LEFT EYE Q12H 07/23/24 11/04/24 History [Simbrinza 1%-0.2% Eye Drop] prednisoLONE ACETATE 1% OPHTH 1 drops LEFT EYE Q6H 07/23/24 11/04/24 History [Pred Forte 1%] lisinopriL [Zestril] 10 mg PO DAILY #30 tab 07/28/24 10/30/24 Rx ALPRAZolam [Xanax] 0.25 PO Q12HR 10/30/24 History Enalapril [Vasotec] 2.5 mg PO DAILY 10/30/24 10/30/24 History Allergies Allergy/AdvReac Type Severity Reaction Status Date / Time No Known Allergies Allergy Verified 10/30/24 19:20 Physical Exam Vitals: Vital Signs Temp Pulse Pulse Pulse Resp BP Pulse Ox 11/04/24 20:12 64 20 11/04/24 20:06 61 20 11/04/24 20:00 97.6 F 73 16 178/97 96 11/04/24 15:55 58 L 20 164/82 94 L 11/04/24 14:55 66 20 167/87 94 L 11/04/24 14:00 20 11/04/24 13:55 51 L 20 162/76 94 L 11/04/24 13:25 55 L 20 163/83 94 L 11/04/24 12:56 168/84 11/04/24 12:55 54 L 20 174/84 94 L 11/04/24 12:40 51 L 20 179/89 94 L 11/04/24 12:31 160/82 11/04/24 12:30 97.5 F L 54 L 20 174/89 94 L 11/04/24 12:28 97.5 F L 49 L 16 179/89 94 L 11/04/24 12:21 168/84 11/04/24 09:04 20 11/04/24 07:00 97.7 F 66 16 186/95 98 11/04/24 03:34 148/78 Intake and Output 11/04/24 11/04/24 11/05/24 14:59 22:59 06:59 Intake Total 263.489 540 Balance 263.489 540 Intake: IV 100 Intake, IV Titration 43.489 Amount Heparin Sod,Pork in 0.45% 43.489 NaCl 25,000 unit In 0.45 % NaCl 1 250ml.bag @ 12 UNITS/KG/HR 9.253 mls/hr IV .Q24H [facility] Rx#: [id number] Oral 120 540 Other: Voiding Method Toilet Toilet # Voids 1 GENERAL EXAM: Alert, 69-year-old white male, comfortable in no apparent distress . HEAD: Normocephalic and atraumatic EYES: Normal reaction of pupils, equal size. NOSE: Clear with pink turbinates. THROAT: No erythema or exudates. NECK: No masses, no JVD. CHEST: No chest wall deformity. LUNGS: Equal air entry with diminished bibasilar lung sounds. No wheezes, rhonchi, crackles. On 2 L/min nasal cannula. No conversational dyspnea or accessory muscle use while at rest CVS: S1 and S2 normal with no grade 2 systolic murmur, regular rhythm. No extra heart sounds ABDOMEN: No hepatosplenomegaly, active bowel sounds, no guarding or rigidity. SPINE: No scoliosis or deformity SKIN: No rashes CENTRAL NERVOUS SYSTEM: No focal deficits, tone is normal in all 4 extremities. EXTREMITIES: There is no mild nonpitting bilateral lower extremity edema. No clubbing or cyanosis. Peripheral pulses are intact. Results - Laboratory Findings CBC and BMP: 11/04/24 05:57 11/04/24 05:57 PT/INR, D-dimer PT 12.3 sec (10.0-12.5) 11/03/24 09:00 INR 1.1 (<1.2) 11/03/24 09:00 Abnormal lab findings: Abnormal Labs 10/30/24 10/30/24 10/31/24 16:34 16:34 11:34 RBC 4.07 L 3.53 L Hgb 11.6 L 10.3 L Hct 37.2 L 32.6 L MCHC MPV APTT Chloride Carbon Dioxide Anion Gap BUN 23 H Creatinine 1.89 H Est GFR (CKD-EPI) BUN/Creatinine Ratio Glucose 108 H Calcium Troponin I Triglycerides HDL Cholesterol Ur Specific [place] Urine Protein Urine Mucus 10/31/24 11/01/24 11/01/24 11:34 04:24 04:24 RBC 3.49 L Hgb 10.1 L Hct 32.2 L MCHC 31.4 L MPV 12.3 H APTT Chloride Carbon Dioxide Anion Gap 12.30 H BUN Creatinine 1.94 H 1.9 H Est GFR (CKD-EPI) 37 L BUN/Creatinine Ratio 9.58 L Glucose Calcium 8.6 L Troponin I Triglycerides HDL Cholesterol Ur Specific [place] Urine Protein Urine Mucus 11/02/24 11/03/24 11/03/24 04:39 06:49 06:49 RBC Hgb Hct MCHC MPV APTT Chloride 108 H 108 H Carbon Dioxide 17 L Anion Gap BUN Creatinine 1.67 H 1.77 H Est GFR (CKD-EPI) BUN/Creatinine Ratio Glucose 119 H 112 H Calcium Troponin I 0.097 H* Triglycerides HDL Cholesterol Ur Specific [place] Urine Protein Urine Mucus 11/03/24 11/03/24 11/03/24 06:49 10:46 14:22 RBC 4.18 L Hgb 12.1 L Hct 38.9 L MCHC MPV APTT Chloride Carbon Dioxide Anion Gap BUN Creatinine Est GFR (CKD-EPI) BUN/Creatinine Ratio Glucose Calcium Troponin I 0.083 H* 0.100 H* Triglycerides HDL Cholesterol Ur Specific [place] Urine Protein Urine Mucus 11/03/24 11/03/24 11/04/24 16:33 16:33 05:57 RBC Hgb Hct MCHC MPV APTT 41.1 H Chloride 110 H Carbon Dioxide 19.9 L Anion Gap BUN Creatinine 1.7 H Est GFR (CKD-EPI) 43 L BUN/Creatinine Ratio 8.18 L Glucose Calcium 8.6 L Troponin I 0.106 H* Triglycerides HDL Cholesterol Ur Specific [place] Urine Protein Urine Mucus 11/04/24 11/04/24 11/04/24 05:57 05:57 05:57 RBC 3.62 L Hgb 10.7 L Hct 34.1 L MCHC MPV APTT 48.4 H Chloride Carbon Dioxide Anion Gap BUN Creatinine Est GFR (CKD-EPI) BUN/Creatinine Ratio Glucose Calcium Troponin I Triglycerides 166.00 H HDL Cholesterol 39.00 L Ur Specific [place] Urine Protein Urine Mucus 11/04/24 11/04/24 22:25 23:00 RBC Hgb Hct MCHC MPV APTT 40.5 H Chloride Carbon Dioxide Anion Gap BUN Creatinine Est GFR (CKD-EPI) BUN/Creatinine Ratio Glucose Calcium Troponin I Triglycerides HDL Cholesterol Ur Specific [place] 1.036 H Urine Protein 2+ H Urine Mucus Rare H - Diagnostic Findings Chest x-ray: image reviewed CT scan - chest: image reviewed Assessment and Plan Assessment: Acute Non-ST elevation ND Coronary artery disease, as reported in heart catheterization report Acute hypoxemic respiratory failure, currently on 2 L/min nasal cannula, CT of the chest shows cardiomegaly with pulmonary vascular congestion and small bilateral pleural effusions and associated infiltrates or atelectasis. Scattered nodular opacities. History ischemic cardiomyopathy, echocardiogram from this admission showing a moderately impaired left ventricular ejection fraction of 35 to 40%, with segmental wall motion abnormality; as well as, mild mitral and tricuspid regurgitation with mild pulmonary hypertension History of previous percutaneous intervention and stenting to the RCA History of paroxysmal atrial fibrillation, Eliquis on hold and on IV heparin Hypertension History of hyperlipidemia Chronic kidney disease stage IIIb Anemia of chronic disease Mild intermittent asthma, not in exacerbation Seasonal allergies Lifelong non-smoker Plan: Case will be discussed with Dr. Dupree Patient's medications, labs, imaging reviewed Bedside spirometry reviewed High risk for perioperative pulmonary complications including prolonged mechanical ventilation, postoperative atelectasis, pleural effusions, pneumothoraces, etc. Encourage incentive spirometer at bedside As needed albuterol nebs Eliquis is on hold, currently receiving IV heparin per protocol Continues to undergo preoperative workup for potential surgical revascularization STS score to be calculated We will continue to follow, additional recommendations forthcoming I have personally seen and examined the patient, performed the documentation and the assessment and plan as written. Number of minutes spent on the visit:20 This dictation was produced using Layar dictation software please excuse grammatical errors Time with Patient: Greater than 30
[2024-11-05] MEDS: FUROSEMIDE 10 MG/ML 4 ML VIAL IV STA (08:38)
[2024-11-05] MEDS: NITROGLYCERIN OINT 1 INCH/GM PACKET TOPICAL SCH (08:39)
[2024-11-05 08:46] LABS: ABG Base Excess -3.8 mmol/L; ABG HCO3 21 mmol/L (21-25); ABG Oxygen Saturation 94.7 % (94-97); ABG PCO2 35 mmHg (35-45); ABG PH 7.39 (7.35-7.45); ABG PO2 73 mmHg (83-108); ABG TCO2 22 mmol/L (19-24); Allen Test Performed? Yes
[2024-11-05] MEDS: hydrALAZINE HCL 50 MG TAB PO SCH (08:51)
[2024-11-05] MEDS: hydrALAZINE HCL 25 MG TAB PO STA (09:00)
[2024-11-05] MEDS ORDERED: HEPARIN SODIUM 1,000 UN/ML (10ML VL) IV PRN (09:30)
[2024-11-05 09:47] LABS: African American GFR (CKD) 47 (>60 ml/min/1.73 sqM); Anion Gap 8 mmol/L; Blood Urea Nitrogen 14 mg/dL (9-20); Calcium 8.9 mg/dL (8.4-10.2); Carbon Dioxide 21 mmol/L (22-30); Chloride 108 mmol/L (98-107); Glucose 95 mg/dL (74-99); Non-African American GFR(CKD) 41 (>60 ml/min/1.73 sqM); Potassium 3.6 mmol/L (3.5-5.1); Sodium 137 mmol/L (137-145)
[2024-11-05 09:48] LABS: Basophils # (A) 0.1 k/uL (0-0.2); Basophils % (A) 1 %; Eosinophils # (A) 0.4 k/uL (0-0.7); Eosinophils % (A) 6 %; HCT 35.4 % (39.0-53.0); HGB 10.9 gm/dL (13.0-17.5); Hypochromasia Moderate; Lymphocytes # (A) 1.3 k/uL (1.0-4.8); Lymphocytes % (A) 22 %; MCH 28.8 pg (25.0-35.0); MCHC 30.8 g/dL (31.0-37.0); MCV 93.6 fL (80.0-100.0); Mean Platelet Volume 9.8; Monocytes # (A) 0.4 k/uL (0-1.0); Monocytes % (A) 6 %; Neutrophils # (A) 3.9 k/uL (1.3-7.7); Neutrophils % (A) 63 %; Platelet Count 170 k/uL (150-450); RBC 3.78 m/uL (4.30-5.90); RDW 14.3 % (11.5-15.5); WBC 6.1 k/uL (3.8-10.6)
[2024-11-05] MEDS: methylPREDNISolone SOD SUCCI 125 MG/2 ML VIAL IV SCH (09:55)
[2024-11-05] MEDS: HEPARIN SOD,PORK IN 0.45% NACL 25,000 UNIT in 0.45% NACL 1 250ML.BAG IV SCH (10:00)
--- NOTE | 2024-11-05 12:26 | P.PN ---
Subjective Progress Note Date: 11/05/24 Principal diagnosis: Coronary artery disease with left main disease, non-STEMI this admission. Past medical history significant for coronary artery disease with previous stent erin cement in 2004 to the RCA, ischemic cardiomyopathy current transthoracic echocardiogram revealing ejection fraction of 35 to 40%, inferior, inferior septal hypokinesis, mild mitral and tricuspid regurgitation hypertension, hyperlipidemia with statin intolerance, chronic kidney disease stage IIIb-IV, paroxysmal atrial fibrillation on Eliquis for anticoagulation although patient states he has never been told he has atrial fibrillation, chronic pain with pain procedures at the pain clinic, and is a lifelong non-smoker. The patient was seen and examined in follow-up today November 05, 2024 at his bed side on the 6 floor cardiac unit. He is currently laying in bed, is awake, alert, oriented x 3 and is in no acute apparent distress. He reports he is short of breath today, more so than yesterday, and his nurse reports that even ambulating to the bathroom he is very short winded and weak. Preop testing was initiated yesterday, and his FEV1 was completed with results showing 0.72 which is a predicted value of 24%. He was also only achieving 500 mL on his incentive spirometry. A room air ABG was completed today which showed a pH of 7.39, pCO2 35, pO2 73, HCO3 21, oxygen saturation 94.7, and base excess -3.8. Oxygen saturations are 94% on room air. Carotid duplex study was completed which showed a less than 50% stenosis of the carotid bifurcation on the right and a 50 to 69% stenosis of the carotid bifurcation by peak systolic velocity on the left. The patient STS risk or has been calculated which was 8.51%, and has been discussed with the patient. The patient denies any complaints of chest pain today, although is complaining of significant shortness of breath even ambulating to the bathroom. Laboratory results were reviewed. Hemoglobin is 10.9 today, and the patient has been initiated on ferrlecit 125 mg IV piggyback daily by nephrology. At this time the patient is felt to be a high risk for perioperative complications per pulmonary/critical care medicine, and Dr. Dupree feels he needs to be optimized medically prior to consideration for coronary artery bypass grafting surgery. Preoperative teaching has been reinforced with the patient. Preoperative workup in progress. A CT scan of the chest was completed yesterday which impression showed moderate aortic arch calcifications, no evidence for aneurysm, cardiomegaly with pulmonary vascular congestion and small amount of bilateral pleural effusions, correlate for congestive heart failure, given some patchy airspace opacities correlate for superimposed infection, scattered nodular like opacities of the lung, and moderate coronary artery atherosclerosis. Objective - Vital Signs Vital signs: Vital Signs Temp 97.3 F L 11/05/24 07:00 Pulse 80 11/05/24 08:09 Resp 16 11/05/24 07:00 BP 184/104 11/05/24 07:00 Pulse Ox 95 11/05/24 08:00 FiO2 24 11/05/24 08:00 Intake & Output 11/04/24 11/05/24 11/05/24 18:59 06:59 18:59 Intake Total 803.489 Balance 803.489 Intake: IV 100 Intake, IV Titration 43.489 Amount Heparin Sod,Pork in 0.45% 43.489 NaCl 25,000 unit In 0.45 % NaCl 1 250ml.bag @ 12 UNITS/KG/HR 9.253 mls/hr IV .Q24H [facility] Rx#: [id number] Oral 660 Other: Voiding Method Toilet Toilet # Voids 1 - Exam CONSTITUTIONAL: Appears comfortable, cooperative, experiencing some shortness of breath. RESPIRATORY: Lungs sounds diminished to his bilateral bases. Respirations symmetrical, slightly labored. Currently on 4 L nasal cannula with oxygen saturation 94%. Able to achieve 500 mL on his incentive spirometry. Strong cough. CARDIOVASCULAR: S1, S2 present. Regular rate and rhythm, sinus rhythm, with left bundle branch block, heart rate 77 bpm, episodes of bradycardia with a heart rate in the 40s. Palpable peripheral pulses bilaterally. No calf pain or tenderness noted. GASTROINTESTINAL: Abdomen soft, nontender, nondistended. Active bowel sounds present 4 quadrants. Tolerating diet. Passing flatus. GENITOURINARY: Continues to void. Urine output 605 mL in the last 8 hours. INTEGUMENTARY: Skin is warm and dry with no clubbing or cyanosis present. Pal e. NEUROLOGIC: Cranial nerves II through XII intact. No focal deficits. MUSKULOSKELETAL: Able to move all extremities, strength equal bilaterally, generalized weakness. PSYCHIATRIC: Alert and oriented to person place and time, appropriate affect, intact judgment and insight. - Allied health notes Allied health notes reviewed: nursing - Labs CBC & Chem 7: 11/05/24 08:14 11/05/24 08:14 Labs: Abnormal Lab Results - Last 24 Hours (Table) 11/04/24 11/04/24 11/04/24 Range/Units 05:57 05:57 22:25 RBC 3.62 L (4.30-5.90) m/uL Hgb 10.7 L (13.0-17.5) gm/dL Hct 34.1 L (39.0-53.0) % MCHC (31.0-37.0) g/dL APTT 40.5 H (22.0-30.0) sec ABG pO2 (83-108) mmHg Hemoglobin (13.0-17.5) gm/dL Chloride (98-107) mmol/L Carbon Dioxide (22-30) mmol/L Creatinine (0.66-1.25) mg/dL Iron (65-175) UG/DL % Saturation (15.00-50.00) Triglycerides 166.00 H (0.00-149.00) mg/dL HDL Cholesterol 39.00 L (40.00-60.00) mg/dL Ur Specific [place] (1.001-1.035) Urine Protein (Negative) Urine Mucus (None) /hpf 11/04/24 11/04/24 11/05/24 Range/Units 22:25 23:00 08:14 RBC 3.78 L (4.30-5.90) m/uL Hgb 10.9 L (13.0-17.5) gm/dL Hct 35.4 L (39.0-53.0) % MCHC 30.8 L (31.0-37.0) g/dL APTT (22.0-30.0) sec ABG pO2 (83-108) mmHg Hemoglobin (13.0-17.5) gm/dL Chloride (98-107) mmol/L Carbon Dioxide (22-30) mmol/L Creatinine (0.66-1.25) mg/dL Iron 24 L (65-175) UG/DL % Saturation 8.39 L (15.00-50.00) Triglycerides (0.00-149.00) mg/dL HDL Cholesterol (40.00-60.00) mg/dL Ur Specific [place] 1.036 H (1.001-1.035) Urine Protein 2+ H (Negative) Urine Mucus Rare H (None) /hpf 11/05/24 11/05/24 Range/Units 08:14 08:40 RBC (4.30-5.90) m/uL Hgb (13.0-17.5) gm/dL Hct (39.0-53.0) % MCHC (31.0-37.0) g/dL APTT (22.0-30.0) sec ABG pO2 73 L (83-108) mmHg Hemoglobin 10.9 L (13.0-17.5) gm/dL Chloride 108 H (98-107) mmol/L Carbon Dioxide 21 L (22-30) mmol/L Creatinine 1.66 H (0.66-1.25) mg/dL Iron (65-175) UG/DL % Saturation (15.00-50.00) Triglycerides (0.00-149.00) mg/dL HDL Cholesterol (40.00-60.00) mg/dL Ur Specific [place] (1.001-1.035) Urine Protein (Negative) Urine Mucus (None) /hpf - Imaging and Cardiology CT scan - chest: report reviewed Venous US: report reviewed Carotid duplex results reviewed. Assessment and Plan Assessment: Multivessel coronary artery disease with left main disease, non-STEMI this admission Accelerated hypertension this admission Nausea/vomiting/diarrhea/dizziness/weakness on admission Chest pain, shortness of breath, secondary to above Acute hypoxic respiratory failure, bedside FEV1 showing 0.72, 24% of predicted value Anemia of chronic disease History of mild asthma History of coronary artery disease with previous stent placement in 2004 to the RCA Ischemic cardiomyopathy, current transthoracic echocardiogram revealing EF 35 to 40%, inferior and inferior septal hypokinesis, mild mitral and tricuspid regurgitation Hypertension Hyperlipidemia with statin intolerance, triglycerides 166, HDL 39.0 Chronic kidney disease stage IIIb-IV Paroxysmal atrial fibrillation on Eliquis for anticoagulation Chronic pain with pain procedures at the pain clinic Lifetime non-smoker Plan: At this time the patient is considered a high risk surgical candidate with an STS risk or of 8.51, Dr. Dupree from pulmonary/critical care medicine is recommending medical optimization prior to surgery as the patient bedside FEV1 was 0.72 which is 24% of predicted value. Discussed with nephrology, diuresing the patient. proBNP sent. Preoperative teaching has been discussed with the patient. A 5 m walk test will be completed with the patient if able to tolerate. Encourage use of incentive spirometry 10 times every hour while awake. The STS risk or has been discussed with the patient. A clinical frailty score has been calculated with a score equaling 6. Medical management of other comorbidities per internal medicine and cardiology recommendations. More recommendations to follow based on patient's clinical course. Time with Patient: Greater than 30
[2024-11-05] MEDS: SODIUM FERRIC GLUCONAT-SUCROSE 125 MG in SODIUM CHLORIDE 0.9% 100 ML IVPB SCH (12:49)
[2024-11-05] MEDS: ASCORBIC ACID 500 MG TAB PO SCH (12:49)
--- NOTE | 2024-11-05 13:26 | P.PN ---
Subjective Patient is seen for follow-up for chronic kidney disease. Status post cardiac catheterization on 11/04/2024 which showed significant LAD stenosis and right coronary artery stenosis He has been evaluated by cardiothoracic surgery and is tentatively scheduled for early next week. Serum creatinine stable at 1.66 mg/dL. Cardiothoracic surgery consulted Objective - Vital Signs Vital signs: Vital Signs Temp 97.3 F L 11/05/24 07:00 Pulse 61 11/05/24 10:52 Resp 20 11/05/24 10:52 BP 164/87 11/05/24 10:52 Pulse Ox 94 L 11/05/24 09:00 FiO2 24 11/05/24 08:00 Intake & Output 11/04/24 11/05/24 11/05/24 18:59 06:59 18:59 Intake Total 803.489 0 Output Total 200 Balance 803.489 -200 Intake: IV 100 Intake, IV Titration 43.489 Amount Heparin Sod,Pork in 0.45% 43.489 NaCl 25,000 unit In 0.45 % NaCl 1 250ml.bag @ 12 UNITS/KG/HR 9.253 mls/hr IV .Q24H [facility] Rx#: [id number] Oral 660 0 Output: Urine 200 Other: Voiding Method Toilet Toilet Toilet # Voids 1 2 - Exam Patient is awake, comfortable, no acute distress Examination of the heart S1 and S2 Examination of the lungs bilateral breath sounds are heard, basal crackles Abdomen is soft nontender Examination of lower extremities shows edema 1+ bilaterally PIGEON FANCIER exam grossly intact - Labs CBC & Chem 7: 11/05/24 08:14 11/05/24 08:14 Labs: Abnormal Lab Results - Last 24 Hours (Table) 11/04/24 11/04/24 11/04/24 Range/Units 05:57 05:57 22:25 RBC 3.62 L (4.30-5.90) m/uL Hgb 10.7 L (13.0-17.5) gm/dL Hct 34.1 L (39.0-53.0) % MCHC (31.0-37.0) g/dL APTT 40.5 H (22.0-30.0) sec ABG pO2 (83-108) mmHg Hemoglobin (13.0-17.5) gm/dL Chloride (98-107) mmol/L Carbon Dioxide (22-30) mmol/L Creatinine (0.66-1.25) mg/dL Iron (65-175) UG/DL % Saturation (15.00-50.00) Triglycerides 166.00 H (0.00-149.00) mg/dL HDL Cholesterol 39.00 L (40.00-60.00) mg/dL Ur Specific [place] (1.001-1.035) Urine Protein (Negative) Urine Mucus (None) /hpf 11/04/24 11/04/24 11/05/24 Range/Units 22:25 23:00 08:14 RBC 3.78 L (4.30-5.90) m/uL Hgb 10.9 L (13.0-17.5) gm/dL Hct 35.4 L (39.0-53.0) % MCHC 30.8 L (31.0-37.0) g/dL APTT (22.0-30.0) sec ABG pO2 (83-108) mmHg Hemoglobin (13.0-17.5) gm/dL Chloride (98-107) mmol/L Carbon Dioxide (22-30) mmol/L Creatinine (0.66-1.25) mg/dL Iron 24 L (65-175) UG/DL % Saturation 8.39 L (15.00-50.00) Triglycerides (0.00-149.00) mg/dL HDL Cholesterol (40.00-60.00) mg/dL Ur Specific [place] 1.036 H (1.001-1.035) Urine Protein 2+ H (Negative) Urine Mucus Rare H (None) /hpf 11/05/24 11/05/24 Range/Units 08:14 08:40 RBC (4.30-5.90) m/uL Hgb (13.0-17.5) gm/dL Hct (39.0-53.0) % MCHC (31.0-37.0) g/dL APTT (22.0-30.0) sec ABG pO2 73 L (83-108) mmHg Hemoglobin 10.9 L (13.0-17.5) gm/dL Chloride 108 H (98-107) mmol/L Carbon Dioxide 21 L (22-30) mmol/L Creatinine 1.66 H (0.66-1.25) mg/dL Iron (65-175) UG/DL % Saturation (15.00-50.00) Triglycerides (0.00-149.00) mg/dL HDL Cholesterol (40.00-60.00) mg/dL Ur Specific [place] (1.001-1.035) Urine Protein (Negative) Urine Mucus (None) /hpf Assessment and Plan Assessment: 1. Chronic kidney disease stage IIIb-IV with baseline creatinine around 2 mg/dL. Etiology is nephrosclerosis. 2. Non-ST elevation RI status post cardiac catheterization on 11/04/2024. Being evaluated by cardiothoracic surgery for revascularization. Potentially scheduled early next week 3. Recent nausea vomiting and diarrhea 4. Hypertension uncontrolled, partly volume sensitive 5. Anemia with evidence of significant iron deficiency, started IV iron Plan: Add IV diuretics Add IV iron May continue with FEDE inhibitor's for now Repeat labs in a.m.
--- NOTE | 2024-11-05 14:43 | P.PN ---
Subjective Progress Note Date: 11/05/24 Consult reason: chest pain History of present illness: This is a 69-year-old male patient of Dr. Adia Churchill with past medical history of coronary artery disease with stent placement RCA in 2004, paroxysmal atrial fibrillation on Eliquis, ischemic cardiomyopathy, hyperlipidemia, hypertension, intolerance to statins, chronic kidney disease follows with nephrology. We have been asked to evaluate the patient for chest pain. Patient presented to the hospital on 10/30 for chest pain, feeling tired, nausea, vomiting, diarrhea, dizziness, weakness. He states he has had chest pain every day on and off for a week. Chest pain occurs when he walks a few feet. He developed sweating and shortness of breath with the chest pain. He also states he had some lower extremity edema. No palpitations. He also states he has been weak for about 1 month. He states when he gets up to ambulate to the bathroom for example, he thinks he is going to pass out. He states his blood pressure has been high. In general he states he has been feeling bad for the past 6 months. He apparently was not taking his medications at home. The chest pain that he is experiencing now is totally different than that when he had his stents placed. Patient also complains of blood in his urine for which he states he follows with Dr. Varela. Blood pressure 187/118, heart rate 49, pulse ox 96% on room air. -EKG: Sinus rhythm, left bundle branch block, PACs -Chest x-ray: Interstitial lung disease without acute process. -Laboratory studies: WBC 8.7, hemoglobin 12.1, BUN 16 and creatinine 1.7, troponin 0.097. -Home cardiac medications: Eliquis 5 mg twice daily, aspirin 81 mg daily, enalapril 2.5 mg daily, Zetia 10 mg daily, Lasix 20 mg daily, lisinopril 10 mg daily, Lopressor 75 mg twice daily. -Lexiscan Cardiolite stress test performed in the office on 03/16/2024 revealed inconclusive EKG part of the stress test due to baseline EKG abnormalities. Ischemic cardiomyopathy with moderate LV systolic function secondary to prior PR inferior wall without any evidence of ischemia. -Echocardiogram performed 07/2024: EF of 40 to 45%, hypokinetic basal to mid anterior wall, mild biatrial dilatation, mild MR, normal RV size and systolic function. 3/6 Patient seen and examined on the observation unit. Yesterday, patient underwent cardiac catheterization with Dr. Churchill which revealed significant distal left main stenosis, 70% focal LAD stenosis, chronic occlusion of the right coronary artery with [id number] collaterals to the distal RCA. Patient was returned to his room on the observation unit and consult was placed with cardiothoracic surgery. Patient has been maintained on heparin drip. Patient is not feeling well this morning. He did have bradycardia this morning and increased weakness. Blood pressure readings are elevated. Blood pressure 184/105, heart rate 71, pulse ox 97% on 2 L nasal cannula. Repeat blood work reveals hemoglobin 10.9, BUN 14 creatinine 1.66. proBNP 16,200. Triglycerides 166, cholesterol 196, LDL 123. CT of the chest revealed moderate aortic arch calcifications. No evidence of aneurysm. Cardiomegaly with pulmonary vascular congestion a small amount of bilateral pleural effusions. Correlate for heart failure given some patchy airspace opacities correlate for superimposed infection. CTS has evaluated patient and consult was added for pulmonary medicine. Patient is considered high risk surgical candidate and recommendations are for medical optimization prior to surgery as the patient bedside FEV1 was 0.72 which is 24% of predicted value. Echocardiogram reveals EF of 35 to 40%, mild mitral and tricuspid regurgitation with mild pulmonary hypertension. Physical examination: Gen: This is a 69-year-old male in no acute distress VS: reviewed HEENT: Head is atraumatic, normocephalic. Pupils equal, round. Sclerae is anicteric. NECK: Supple. No JVD. LUNGS: Diminished breath sounds bilaterally. No intercostal retractions. HEART: Irregular rate and rhythm. No murmur. ABDOMEN: Soft No tenderness. EXTREMITIES: Minimal pedal edema. No calf tenderness. NEUROLOGICAL: Patient is awake, alert and oriented x3. Assessment: NSTEMI status post cardiac catheterization with significant distal left main stenosis performed 3/5 Uncontrolled hypertension History of coronary artery disease with previous stent to the RCA in 2004 Paroxysmal atrial fibrillation currently in sinus rhythm Ischemic cardiomyopathy with EF of 4045% with reduction to 35 to 40% on this admission Hypertension Hyper lipidemia Intolerance to statins Chronic kidney disease stage 3BIV Plan: Continue patient's home cardiac medications Continue heparin drip and hold Eliquis Add Nitropaste 1 inch every 8 hours and remove Imdur Give 1 dose of IV Lasix 40 mg Increase hydralazine to 50 mg 3 times daily Recommend transfer to 3 S. Cardiothoracic surgery consultation for CABG Patient will be made n.p.o. after midnight for possible PCI with Dr. Zimmer if he is not going for CABG Thank you kindly for this consultation. Nurse practitioner note has been reviewed, I agree with documented findings and plan of care. Patient was seen and examined. Objective - Vital Signs Vital signs: Vital Signs Temp 97.3 F L 11/05/24 07:00 Pulse 80 11/05/24 08:09 Resp 16 11/05/24 07:00 BP 184/104 11/05/24 07:00 Pulse Ox 95 11/05/24 08:00 FiO2 24 11/05/24 08:00 Intake & Output 11/04/24 11/05/24 11/05/24 18:59 06:59 18:59 Intake Total 803.489 Balance 803.489 Intake: IV 100 Intake, IV Titration 43.489 Amount Heparin Sod,Pork in 0.45% 43.489 NaCl 25,000 unit In 0.45 % NaCl 1 250ml.bag @ 12 UNITS/KG/HR 9.253 mls/hr IV .Q24H [facility] Rx#: [id number] Oral 660 Other: Voiding Method Toilet Toilet # Voids 1 - Labs CBC & Chem 7: 11/05/24 08:14 11/05/24 08:14 Labs: Abnormal Lab Results - Last 24 Hours (Table) 11/04/24 11/04/24 11/04/24 Range/Units 05:57 05:57 05:57 RBC 3.62 L (4.30-5.90) m/uL Hgb 10.7 L (13.0-17.5) gm/dL Hct 34.1 L (39.0-53.0) % APTT (22.0-30.0) sec Chloride 110 H (96-109) mmol/L Carbon Dioxide 19.9 L (21.6-31.8) mmol/L Creatinine 1.7 H (0.6-1.5) mg/dL Est GFR (CKD-EPI) 43 L (>=60) BUN/Creatinine Ratio 8.18 L (12.00-20.00) Ratio Calcium 8.6 L (8.7-10.3) mg/dL Iron (65-175) UG/DL % Saturation (15.00-50.00) Triglycerides 166.00 H (0.00-149.00) mg/dL HDL Cholesterol 39.00 L (40.00-60.00) mg/dL Ur Specific [place] (1.001-1.035) Urine Protein (Negative) Urine Mucus (None) /hpf 11/04/24 11/04/24 11/04/24 Range/Units 22:25 22:25 23:00 RBC (4.30-5.90) m/uL Hgb (13.0-17.5) gm/dL Hct (39.0-53.0) % APTT 40.5 H (22.0-30.0) sec Chloride (96-109) mmol/L Carbon Dioxide (21.6-31.8) mmol/L Creatinine (0.6-1.5) mg/dL Est GFR (CKD-EPI) (>=60) BUN/Creatinine Ratio (12.00-20.00) Ratio Calcium (8.7-10.3) mg/dL Iron 24 L (65-175) UG/DL % Saturation 8.39 L (15.00-50.00) Triglycerides (0.00-149.00) mg/dL HDL Cholesterol (40.00-60.00) mg/dL Ur Specific [place] 1.036 H (1.001-1.035) Urine Protein 2+ H (Negative) Urine Mucus Rare H (None) /hpf
[2024-11-05] MEDS: FUROSEMIDE 10 MG/ML 4 ML VIAL IV SCH (14:45)
--- NOTE | 2024-11-05 15:33 | P.PN ---
Subjective Progress Note Date: 11/05/24 Patient is evaluated today sitting up in the chair. Patient reports significant nausea vomiting. Additionally he reports feeling shortness of breath with exertion states that he is unable to walk from the chair to the restroom without having to stop and catch his breath. Patient reports chest pressure which has been increasing in intensity and states that he cannot wait until his outpatient evaluation. Echocardiogram from July 2024 reveals an EF of 40 to 45% with hypokinetic basal to mid inferior wall with mild biatrial dilatation. Mild MR. He was admitted with hypertensive urgency and renal dysfunction. His creatinine is better at 1.67. His blood pressure is now 140/80. 11/03/2024 Patient continues to report intermittent chest pressures. His troponin came back significantly elevated at 0.097, 0.083, 0.100. He has been started on IV heparin and cardiology has ordered a cardiac catheterization for tomorrow. BUN is 16, creatinine is 1.77. Sodium is 138. Chest xray this AM reveals no acute findings. Patient is afebrile, heart rate 67, blood pressure 177/95. 95% on room air. 11/04/2024 Patient is evaluated in follow-up in the medical floor. He continues to report intermittent chest discomfort. He is not significantly short of breath although is still having some exertional dyspnea. He reports patient underwent cardiac catheterization which revealed disease of the LAD and left main and cardiothoracic surgery was consulted for evaluation and workup for open heart. His labs today reveal a white blood cell count of 5.9, hemoglobin 10.7, sodium of 141, BUN of 13.9 creatinine of 1.7, calcium 8.6. Pressure remains elevated at 162/76. 11/05/2024 Evaluated in follow-up in the medical floor. He is currently undergoing cardiothoracic evaluation for coronary artery bypass grafting. He was evaluated pulmonology and was felt to be high risk at this time for surgery due to his decreased lung function. He has been started on IV Solu-Medrol 60 mg every 6 hours. Additionally patient remains on IV heparin drip. He is receiving IV iron infusions. Did have a chest CT completed which reveals moderate aortic arch calcifications no evidence for aneurysm. There is cardiomegaly with pulmonary vascular congestion and small amount of bilateral pleural effusions. Correlate for congestive heart failure. Given some patchy airspace opacities correlate for a superimposed infection. There is scheduled nodule like opacities of the lungs. Short-term follow-up in 3 months recommended to evaluate the lungs without any acute findings. There is moderate coronary artery atherosclerosis. Labs today reveal a white blood cell count of 6.1, hemoglobin 10.9, sodium of 137 potassium 3.6, BUN of 14 creatinine of 1.66, proBNP was significantly elevated at 16,200. His urinalysis was negative for infection. Patient has been started on IV Lasix 40 mg every 12 hours. Review of Systems Constitutional: Denied any fatigue denied any fever. Cardio vascular: Intermittent midsternal chest discomfort, palpitations Gastrointestinal: denied any nausea, vomiting, diarrhea Pulmonary: Reports shortness of breath no cough Neurologic denied any new focal deficits All inpatient medications were reviewed and appropriate changes in these medications as dictated in the interval history and assessment and plan. PHYSICAL EXAMINATION: GENERAL: The patient is alert and oriented x3, not in any acute distress. Well developed, well nourished. Pale. On oxygen. HEENT: Pupils are round and equally reacting to light. EOMI. No scleral icterus. No conjunctival pallor. Normocephalic, atraumatic. No pharyngeal erythema. No thyromegaly. CARDIOVASCULAR: S1 and S2 present. No murmurs, rubs, or gallops. PULMONARY: Chest is clear to auscultation, no wheezing or crackles. Diminished ABDOMEN: Soft, nontender, nondistended, normoactive bowel sounds. No palpable organomegaly. MUSCULOSKELETAL: No joint swelling or deformity. EXTREMITIES: No cyanosis, clubbing, or pedal edema. NEUROLOGICAL: Gross neurological examination did not reveal any focal deficits. SKIN: No rashes. Assessment and plan Chest pain and troponin elevation due to NSTEMI Multivessel coronary artery disease with left main disease found on cardiac catheterization patient is being considered for coronary artery bypass grafting Nausea with vomiting on admission. Acute on chronic kidney disease Acute hypoxemic respiratory failure CKD stage IV Carotid artery stenosis with moderate stenosis of the left carotid bifurcation 50 to 69%, less than 50% stenosis of the carotid bifurcation on the right History of paroxysmal atrial fibrillation anticoag with Eliquis History of ischemic cardiomyopathy with decreased EF 35-40%. Exertional dyspnea History of coronary artery disease with prior PCI in 2010 and 2004 Hypertension with urgency Hyperlipidemia Chronic pain and peripheral neuropathy Gastroesophageal reflux disease GI prophylaxis Full code Plan Patient is currently on a combination of oral hydralazine, oral metoprolol, lisinopril He has been started on IV Lasix 40 mg every 12 hours recommend strict intake and output monitoring Multiple consultations following including cardiothoracic surgery, nephrology, cardiology, pulmonology recreation therapist. Patient will be medically optimized. At this time he is considered a high risk surgical candidate. FEV1 of 0.72 which is 24% of predicted value. Started on IV Solumedrol 60 mg every 6 hours Eliquis has been placed on hold and patient has been started on IV heparin Continue IV ferrlecit Continue oxygen support Monitor renal function The impression and plan of care has been dictated by Ning Young, Nurse Practitioner as directed. Dr. Kings MD I have performed a history and physical examination and medical decision making of this patient, discussed the same with the dictator, and agree with the dictators assessment and plan as written, documented as a scribe. Based on total visit time, I have performed more than 50% of this visit. Objective - Vital Signs Vital signs: Vital Signs Temp 97.5 F L 11/05/24 15:00 Pulse 78 11/05/24 15:00 Resp 20 11/05/24 15:00 BP 151/82 11/05/24 15:00 Pulse Ox 94 L 11/05/24 15:20 FiO2 24 11/05/24 08:00 Intake & Output 11/04/24 11/05/24 11/05/24 18:59 06:59 18:59 Intake Total 803.489 100 Output Total 200 Balance 803.489 -100 Intake: IV 100 Intake, IV Titration 43.489 Amount Heparin Sod,Pork in 0.45% 43.489 NaCl 25,000 unit In 0.45 % NaCl 1 250ml.bag @ 12 UNITS/KG/HR 9.253 mls/hr IV .Q24H [facility] Rx#: [id number] Oral 660 100 Output: Urine 200 Other: Voiding Method Toilet Toilet Toilet # Voids 1 2 - Labs CBC & Chem 7: 11/05/24 08:14 11/05/24 08:14 Labs: Abnormal Lab Results - Last 24 Hours (Table) 11/04/24 11/04/24 11/04/24 Range/Units 05:57 22:25 22:25 RBC (4.30-5.90) m/uL Hgb (13.0-17.5) gm/dL Hct (39.0-53.0) % MCHC (31.0-37.0) g/dL APTT 40.5 H (22.0-30.0) sec ABG pO2 (83-108) mmHg Hemoglobin (13.0-17.5) gm/dL Chloride (98-107) mmol/L Carbon Dioxide (22-30) mmol/L Creatinine (0.66-1.25) mg/dL Iron 24 L (65-175) UG/DL % Saturation 8.39 L (15.00-50.00) Triglycerides 166.00 H (0.00-149.00) mg/dL HDL Cholesterol 39.00 L (40.00-60.00) mg/dL Ur Specific [place] (1.001-1.035) Urine Protein (Negative) Urine Mucus (None) /hpf 11/04/24 11/05/24 11/05/24 Range/Units 23:00 08:14 08:14 RBC 3.78 L (4.30-5.90) m/uL Hgb 10.9 L (13.0-17.5) gm/dL Hct 35.4 L (39.0-53.0) % MCHC 30.8 L (31.0-37.0) g/dL APTT (22.0-30.0) sec ABG pO2 (83-108) mmHg Hemoglobin (13.0-17.5) gm/dL Chloride 108 H (98-107) mmol/L Carbon Dioxide 21 L (22-30) mmol/L Creatinine 1.66 H (0.66-1.25) mg/dL Iron (65-175) UG/DL % Saturation (15.00-50.00) Triglycerides (0.00-149.00) mg/dL HDL Cholesterol (40.00-60.00) mg/dL Ur Specific [place] 1.036 H (1.001-1.035) Urine Protein 2+ H (Negative) Urine Mucus Rare H (None) /hpf 11/05/24 Range/Units 08:40 RBC (4.30-5.90) m/uL Hgb (13.0-17.5) gm/dL Hct (39.0-53.0) % MCHC (31.0-37.0) g/dL APTT (22.0-30.0) sec ABG pO2 73 L (83-108) mmHg Hemoglobin 10.9 L (13.0-17.5) gm/dL Chloride (98-107) mmol/L Carbon Dioxide (22-30) mmol/L Creatinine (0.66-1.25) mg/dL Iron (65-175) UG/DL % Saturation (15.00-50.00) Triglycerides (0.00-149.00) mg/dL HDL Cholesterol (40.00-60.00) mg/dL Ur Specific [place] (1.001-1.035) Urine Protein (Negative) Urine Mucus (None) /hpf Assessment and Plan Time with Patient: Less than 30
[2024-11-05] MEDS: SYMBICORT 160-4.5 MCG INHALER INHALATION SCH (20:24)
[2024-11-06 05:51] LABS: Glucose,Whole Blood 179 mg/dL (70-110)
[2024-11-06 06:42] LABS: Partial Thromboplastin Time 32.3 sec (22.0-30.0)
--- NOTE | 2024-11-06 07:12 | XR ---
EXAMINATION TYPE: XR chest 1V portable DATE OF EXAM: 11/06/2024 CLINICAL INDICATION: Male, 69 years old with history of Preoperative CABG, progress study. TECHNIQUE: Single AP portable upright view of the chest is obtained. COMPARISON: Chest CT from 2 days earlier FINDINGS: Improved but persistent small bilateral pleural effusions and mild central vascular conges tion. Cardiac silhouette size stable and within normal limits with atherosclerotic thoracic aorta. Os seous structures are intact. IMPRESSION: Findings consistent with improved central vascular congestion/fluid overload state. [facility], , 11/06/2024 7:10 AM
[2024-11-06] MEDS ORDERED: ALPRAZolam 0.25 MG TAB PO PRN (08:12)
[2024-11-06] MEDS ORDERED: NITROGLYCERIN SL TABS 0.4 MG TAB SUBLINGUAL PRN ×2 (08:12→16:29)
[2024-11-06 08:27] LABS: Basophils # (A) 0 X 10*3/uL (0.00-0.10); Basophils % (A) 0 %; Eosinophils # (A) 0.01 X 10*3/uL (0.04-0.35); Eosinophils % (A) 0.2 %; HCT 33.4 % (39.6-50.0); HGB 10.6 g/dL (13.0-17.0); Lymphocytes # (A) 0.44 X 10*3/uL (0.90-5.00); Lymphocytes % (A) 9.4 %; MCH 28.5 pg (27.0-32.0); MCHC 31.7 g/dL (32.0-37.0); MCV 89.8 FL (80.0-97.0); Monocytes # (A) 0.07 X 10*3/uL (0.20-1.00); Monocytes % (A) 1.5 %; NRBC Per 100 WBC 0 X 10*3/uL (0.00-0.01); Neutrophils # (A) 4.11 X 10*3/uL (1.80-7.70); Neutrophils % (A) 88.3 %; Platelet Count 189 X 10*3/uL (140-440); RBC 3.72 X 10*6/uL (4.40-5.60); RDW 14.4 % (11.5-14.5); WBC 4.66 X 10*3/uL (4.50-10.00)
[2024-11-06] MEDS: ATORVASTATIN 80 MG TAB PO STA (08:30)
--- NOTE | 2024-11-06 09:03 | P.PN ---
Subjective Progress Note Date: 11/06/24 Principal diagnosis: Coronary artery disease with left main disease, non-STEMI this admission. Past medical history significant for coronary artery disease with previous stent erin cement in 2004 to the RCA, ischemic cardiomyopathy current transthoracic echocardiogram revealing ejection fraction of 35 to 40%, inferior, inferior septal hypokinesis, mild mitral and tricuspid regurgitation hypertension, hyperlipidemia with statin intolerance, chronic kidney disease stage IIIb-IV, paroxysmal atrial fibrillation on Eliquis for anticoagulation although patient states he has never been told he has atrial fibrillation, chronic pain with pain procedures at the pain clinic, and is a lifelong non-smoker. The patient was seen and examined at his bedside on the third floor cardiac s tepdown unit today November 06, 2024. A family member is present at his bedside. The patient is sitting up in bed, is awake, alert, oriented x 3 and is in no acute apparent distress. Denies any complaints of chest pain throughout the night. Remote telemetry is showing sinus bradycardia with left bundle branch block heart rate 43 bpm. Oxygen saturations are 95% on 2 L nasal cannula. The patient appears more comfortable this morning and states that he is feeling slightly better today than yesterday. A 5 m walk test was attempted with the patient yesterday, although the patient was unable to tolerate. Chest x-ray and laboratory results reviewed. Objective - Vital Signs Vital signs: Vital Signs Temp 97.5 F L 11/06/24 03:16 Pulse 64 11/06/24 03:16 Resp 16 11/06/24 03:16 BP 151/68 11/06/24 03:16 Pulse Ox 95 11/06/24 03:16 FiO2 24 11/05/24 08:00 Intake & Output 11/05/24 11/06/24 11/06/24 18:59 06:59 18:59 Intake Total 100 250 Output Total 200 Balance -100 250 Weight 71.4 kg Intake: Intake, IV Titration 250 Amount Heparin Sod,Pork in 0.45% 250 NaCl 25,000 unit In 0.45 % NaCl 1 250ml.bag @ 12 UNITS/KG/HR 9.253 mls/hr IV .Q24H [facility] Rx#: [id number] Oral 100 Output: Urine 200 Other: Voiding Method Toilet Bedside Commode # Voids 2 3 - Exam CONSTITUTIONAL: Appears comfortable, cooperative, experiencing some shortness of breath with activity. RESPIRATORY: Lungs sounds diminished to his bilateral bases. Respirations symmetrical, and nonlabored. Currently on 2 L nasal cannula with oxygen saturation 95%. Able to achieve 500 mL on his incentive spirometry. Strong cough. CARDIOVASCULAR: S1, S2 present. Regular rate and rhythm, sinus bradycardia, with left bundle branch block, heart rate 43 bpm. Palpable peripheral pulses bilaterally. No calf pain or tenderness noted. GASTROINTESTINAL: Abdomen soft, nontender, nondistended. Active bowel sounds present 4 quadrants. Tolerating diet. Passing flatus. GENITOURINARY: Continues to void. INTEGUMENTARY: Skin is warm and dry with no clubbing or cyanosis present. NEUROLOGIC: Cranial nerves II through XII intact. No focal deficits. MUSKULOSKELETAL: Able to move all extremities, strength equal bilaterally, generalized weakness. PSYCHIATRIC: Alert and oriented to person place and time, appropriate affect, intact judgment and insight. - Allied health notes Allied health notes reviewed: nursing - Labs CBC & Chem 7: 11/06/24 05:25 11/05/24 08:14 Labs: Abnormal Lab Results - Last 24 Hours (Table) 11/05/24 11/05/24 11/05/24 Range/Units 08:14 08:14 08:40 RBC 3.78 L (4.30-5.90) m/uL Hgb 10.9 L (13.0-17.5) gm/dL Hct 35.4 L (39.0-53.0) % MCHC 30.8 L (31.0-37.0) g/dL APTT (22.0-30.0) sec ABG pO2 73 L (83-108) mmHg Hemoglobin 10.9 L (13.0-17.5) gm/dL Chloride 108 H (98-107) mmol/L Carbon Dioxide 21 L (22-30) mmol/L Creatinine 1.66 H (0.66-1.25) mg/dL POC Glucose (mg/dL) (70-110) mg/dL 11/05/24 11/06/24 11/06/24 Range/Units 16:05 05:25 05:49 RBC (4.30-5.90) m/uL Hgb (13.0-17.5) gm/dL Hct (39.0-53.0) % MCHC (31.0-37.0) g/dL APTT 47.3 H 32.3 H (22.0-30.0) sec ABG pO2 (83-108) mmHg Hemoglobin (13.0-17.5) gm/dL Chloride (98-107) mmol/L Carbon Dioxide (22-30) mmol/L Creatinine (0.66-1.25) mg/dL POC Glucose (mg/dL) 179 H (70-110) mg/dL Microbiology - Last 24 Hours (Table) 11/04/24 14:18 Nasal Screen MRSA/MSSA - Final Nasal Swab - Imaging and Cardiology Chest x-ray: report reviewed, image reviewed Assessment and Plan Assessment: Multivessel coronary artery disease with left main disease, non-STEMI this admission Accelerated hypertension this admission Nausea/vomiting/diarrhea/dizziness/weakness on admission Chest pain, shortness of breath, secondary to above Acute hypoxic respiratory failure, bedside FEV1 showing 0.72, 24% of predicted value Anemia of chronic disease History of mild asthma History of coronary artery disease with previous stent placement in 2004 to the RCA Ischemic cardiomyopathy, current transthoracic echocardiogram revealing EF 35 to 40%, inferior and inferior septal hypokinesis, mild mitral and tricuspid regurgitation Hypertension Hyperlipidemia with statin intolerance, triglycerides 166, HDL 39.0 Chronic kidney disease stage IIIb-IV Paroxysmal atrial fibrillation on Eliquis for anticoagulation Chronic pain with pain procedures at the pain clinic Lifetime non-smoker Plan: At this time the patient is considered a high risk surgical candidate with an STS risk or of 8.51, Dr. Dupree from pulmonary/critical care medicine is recommending medical optimization prior to surgery as the patient bedside FEV1 was 0.72 which is 24% of predicted value. Dr. Goode and Dr. Zimmer spoke this morning in regards to proceeding with an IFR of the left main and potential PCI of the left main with Impella support. [place] [address]. Encourage use of incentive spirometry 10 times every hour while awake. The STS risk or has been discussed with the patient. A clinical frailty score has been calculated with a score equaling 6. Medical management of other comorbidities per internal medicine and cardiology recommendations. We will continue to follow the patient on an as needed basis please reconsult if needed. Time with Patient: Less than 30
[2024-11-06] MEDS: ASPIRIN 325 MG TAB PO STA (10:53)
--- NOTE | 2024-11-06 11:03 | P.PN ---
Subjective Patient is seen for follow-up for chronic kidney disease. Status post cardiac catheterization on 11/04/2024 which showed significant LAD stenosis and right coronary artery stenosis He has been evaluated by cardiothoracic surgery and is tentatively scheduled for early next week. Serum creatinine stable at 1.66 mg/dL. Currently being diuresed for volume overload. Labs are pending from today. Objective - Vital Signs Vital signs: Vital Signs Temp 97.9 F 11/06/24 08:00 Pulse 64 11/06/24 08:00 Resp 20 11/06/24 08:00 BP 171/112 11/06/24 08:00 Pulse Ox 95 11/06/24 03:16 FiO2 24 11/05/24 08:00 Intake & Output 11/05/24 11/06/24 11/06/24 18:59 06:59 18:59 Intake Total 100 250 206.188 Output Total 200 Balance -100 250 206.188 Weight 71.4 kg Intake: Intake, IV Titration 250 206.188 Amount Heparin Sod,Pork in 0.45% 250 NaCl 25,000 unit In 0.45 % NaCl 1 250ml.bag @ 12 UNITS/KG/HR 9.253 mls/hr IV .Q24H [facility] Rx#: [id number] Heparin Sod,Pork in 0.45% 206.188 NaCl 25,000 unit In 0.45 % NaCl 1 250ml.bag @ 12 UNITS/KG/HR 9.253 mls/hr IV .Q24H [facility] Rx#: [id number] Oral 100 Output: Urine 200 Other: Voiding Method Toilet Bedside Commode # Voids 2 3 - Exam Patient is awake, comfortable, no acute distress Examination of the heart S1 and S2 Examination of the lungs bilateral breath sounds are heard, basal crackles Abdomen is soft nontender Examination of lower extremities shows edema 1+ bilaterally PEG DRIVER exam grossly intact - Labs CBC & Chem 7: 11/06/24 05:25 11/05/24 08:14 Labs: Abnormal Lab Results - Last 24 Hours (Table) 11/05/24 11/06/24 11/06/24 Range/Units 16:05 05:25 05:25 RBC 3.72 L (4.40-5.60) X 10*6/uL Hgb 10.6 L (13.0-17.0) g/dL Hct 33.4 L (39.6-50.0) % MCHC 31.7 L (32.0-37.0) g/dL MPV 13.0 H (9.5-12.2) FL Lymphocytes # 0.44 L (0.90-5.00) X 10*3/uL Monocytes # 0.07 L (0.20-1.00) X 10*3/uL Eosinophils # 0.01 L (0.04-0.35) X 10*3/uL APTT 47.3 H 32.3 H (22.0-30.0) sec POC Glucose (mg/dL) (70-110) mg/dL 11/06/24 Range/Units 05:49 RBC (4.40-5.60) X 10*6/uL Hgb (13.0-17.0) g/dL Hct (39.6-50.0) % MCHC (32.0-37.0) g/dL MPV (9.5-12.2) FL Lymphocytes # (0.90-5.00) X 10*3/uL Monocytes # (0.20-1.00) X 10*3/uL Eosinophils # (0.04-0.35) X 10*3/uL APTT (22.0-30.0) sec POC Glucose (mg/dL) 179 H (70-110) mg/dL Microbiology - Last 24 Hours (Table) 11/04/24 14:18 Nasal Screen MRSA/MSSA - Final Nasal Swab Assessment and Plan Assessment: 1. Chronic kidney disease stage IIIb-IV with baseline creatinine around 2 mg/dL. Etiology is nephrosclerosis. 2. Non-ST elevation [place] status post cardiac catheterization on 11/04/2024. Being evaluated by cardiothoracic surgery for revascularization. Potentially scheduled early next week 3. Recent nausea vomiting and diarrhea 4. Hypertension uncontrolled, partly volume sensitive 5. Anemia with evidence of significant iron deficiency, started IV iron 6. Volume overload maintained on IV Lasix Plan: Continue with IV diuretics Continue IV iron for 2 more days May continue with FEDE inhibitor's for now Repeat labs in a.m.
[2024-11-06] MEDS: amLODIPine 5 MG TAB PO SCH (12:10)
--- NOTE | 2024-11-06 13:31 | P.PN ---
Subjective Progress Note Date: 11/06/24 Principal diagnosis: Coronary artery disease. Patient is a 69-year-old male with past medical history significant for seasonal allergies, asthma, hypertension, hyperlipidemia, atrial fibrillation anticoagulated on Eliquis, coronary artery disease with previous PCI/stents, heart failure, CKD stage IIIb. Lifelong non-smoker. Patient actually admitted to the hospital back on 10/30/2024. Chief complaints generalized weakness, lower extremity swelling, nausea and vomiting. Unable to take his blood pressure medication and endorses high blood pressures. No reported chest pain. Workup in the ED including serial troponins that were elevated. Echocardiogram showing moderately impaired left ventricular systolic function, with an EF of 35 to 40%, as well as mild mitral and tricuspid regurgitation with mild pulmonary hypertension. Heart catheterization showed significant stenosis involving the left main and focal 70% LAD stenosis. Chronic occlusion of the right RCA with [id number] collaterals. LVEDP 12 to 14 mmHg. Cardiothoracic surgical consult was placed for possible surgical revascularization. A pulmonary consult was placed for preoperative pulmonary clearance. Did undergo bedside spirometry with a FEV1/FVC ratio 52%. FVC 1.38 L or 35% of predicted. FEV1 of 0.72 L or 24% of predicted. Consistent with mixed obstruction and restriction. Denies any known history of COPD. lifelong non-smoker. He does have asthma, but does not routinely use any inhalers. Occasional albuterol inhaler use when sick. No recent hospitalizations for asthma exacerbation. Denies any recent pulmonary infections. Denies fevers. Denies any wheezing, chest tightness, cough. Asthma not exacerbation. CT of the chest shows cardiomegaly with pulmonary vascular congestion and small bilateral pleural effusions and associated infiltrates or atelectasis. Scattered nodular opacities. Most recent labs from yesterday, CBC: WBC count 5.9, hemoglobin 10.7, platelets 165. CMP: Sodium 141, potassium 3.6, chloride 107, serum bicarb 19, BUN 14, creatinine 1.7, glucose 107. Patient currently being evaluated on the Cardiac observation unit. He is resting comfortably on 2 L/min nasal cannula. Becomes dyspneic with minimal activity, such as ambulating to the bathroom. Also, reports lower extremity swelling. States this started approximately 1 week ago. Currently on heparin infusion per protocol. Eliquis is on hold. Continues to undergo extensive preoperative workup. Progress note dated November 06, 2024. This is a 69-year-old male who was seen in consultation yesterday. Please see the note above. The patient was discovered recently to have significant coronary disease. He has a previous history of coronary disease, and had a previous stent placement. He also has a history of heart failure, and stage IIIb chronic kidney disease, among other things including hypertension, hyperlipidemia, atrial fibrillation, and chronic bronchial asthma. He is a lifelong non-smoker. His pulmonary function test came back showing an FEV1 that was 0.72 L which is only 24% of predicted. For that reason, there was no plans for bypass surgery. I did speak to Dr. Goode about this patient. In addition, his chest x-ray revealed some heart failure, and his BNP was elevated, and, the patient was placed on diuretics, and corticosteroids and bronchodilators. The patient is going to have an Impella protected left main stenting done today. Currently, the patient is seen in room 353. The patient is on IV heparin. He is getting saline at 20 cc an hour. He is on 2 L nasal cannula. Laboratory data includes a white count 4.7, hemoglobin 10.6, hematocrit 33.4, and a erin telet count of 189,000. PTT is 32.3. A blood gas yesterday showed a pO2 of 73, pCO2 35, and a pH of 7.39. That was on room air. No additional labs are noted from today. Chest x-ray was consistent with improving pulmonary vascular congestion/CHF. Objective - Vital Signs Vital signs: Vital Signs Temp 97.9 F 11/06/24 08:00 Pulse 64 11/06/24 08:00 Resp 20 11/06/24 08:00 BP 171/112 11/06/24 08:00 Pulse Ox 95 11/06/24 03:16 FiO2 24 11/05/24 08:00 Intake & Output 11/05/24 11/06/24 11/06/24 18:59 06:59 18:59 Intake Total 100 250 206.188 Output Total 200 Balance -100 250 206.188 Weight 71.4 kg 71.4 kg Intake: Intake, IV Titration 250 206.188 Amount Heparin Sod,Pork in 0.45% 250 NaCl 25,000 unit In 0.45 % NaCl 1 250ml.bag @ 12 UNITS/KG/HR 9.253 mls/hr IV .Q24H [facility] Rx#: [id number] Heparin Sod,Pork in 0.45% 206.188 NaCl 25,000 unit In 0.45 % NaCl 1 250ml.bag @ 12 UNITS/KG/HR 9.253 mls/hr IV .Q24H [facility] Rx#: [id number] Oral 100 Output: Urine 200 Other: Voiding Method Toilet Bedside Commode # Voids 2 3 - Exam No acute distress, oriented 3. Appears much more stable. Currently on 2 L. HEENT examination is grossly unremarkable. Mucous membranes are moist. No oral lesions. Neck supple. Full range of motion. No adenopathy thyromegaly or neck vein distention. Cardiovascular examination reveals regular rhythm rate. S1-S2 normal. No S3 or S4. No discernible murmur noted. Lungs reveal scattered bibasilar crackles. No wheezes. No rhonchi. Breath sounds equal bilaterally. Abdomen soft bowel sounds are heard. No masses or tenderness. Extremities are intact. No cyanosis clubbing or edema. Skin is without rash or lesion. Neurologic examination is brief but nonfocal. - Labs CBC & Chem 7: 11/06/24 05:25 11/05/24 08:14 Labs: Abnormal Lab Results - Last 24 Hours (Table) 11/05/24 11/06/24 11/06/24 Range/Units 16:05 05:25 05:25 RBC 3.72 L (4.40-5.60) X 10*6/uL Hgb 10.6 L (13.0-17.0) g/dL Hct 33.4 L (39.6-50.0) % MCHC 31.7 L (32.0-37.0) g/dL MPV 13.0 H (9.5-12.2) FL Lymphocytes # 0.44 L (0.90-5.00) X 10*3/uL Monocytes # 0.07 L (0.20-1.00) X 10*3/uL Eosinophils # 0.01 L (0.04-0.35) X 10*3/uL APTT 47.3 H 32.3 H (22.0-30.0) sec POC Glucose (mg/dL) (70-110) mg/dL 11/06/24 Range/Units 05:49 RBC (4.40-5.60) X 10*6/uL Hgb (13.0-17.0) g/dL Hct (39.6-50.0) % MCHC (32.0-37.0) g/dL MPV (9.5-12.2) FL Lymphocytes # (0.90-5.00) X 10*3/uL Monocytes # (0.20-1.00) X 10*3/uL Eosinophils # (0.04-0.35) X 10*3/uL APTT (22.0-30.0) sec POC Glucose (mg/dL) 179 H (70-110) mg/dL Microbiology - Last 24 Hours (Table) 11/04/24 14:18 Nasal Screen MRSA/MSSA - Final Nasal Swab Assessment and Plan Assessment: Acute Non-ST elevation [place]. Coronary artery disease, as reported in heart catheterization report. Acute hypoxemic respiratory failure, currently on 2 L/min nasal cannula, CT of the chest shows cardiomegaly with pulmonary vascular congestion and small bilateral pleural effusions and associated infiltrates or atelectasis. Scattered nodular opacities. History ischemic cardiomyopathy, echocardiogram from this admission showing a moderately impaired left ventricular ejection fraction of 35 to 40%, with segmental wall motion abnormality; as well as, mild mitral and tricuspid regurgitation with mild pulmonary hypertension. History of previous percutaneous intervention and stenting to the RCA. History of paroxysmal atrial fibrillation. Hypertension. History of hyperlipidemia. Chronic kidney disease stage IIIb. Anemia of chronic disease. Mild intermittent asthma, not in exacerbation. Seasonal allergies. Lifelong non-smoker. Plan: Plan dated November 06, 2024. The patient is seen in room 353. He looks much better today than he did yesterday. He was given diuretics for his fluid overload, corticosteroids for s uspected underlying asthma exacerbation. The decision is going to be Impella protected left main coronary artery stent. That is thought to be a safer procedure than bypass grafting in the patient with an FEV1 is 0.72 L or 24% of predicted. The patient is on IV heparin. He is getting saline at 20 cc an hour. The patient is on 2 L nasal cannula. Labs, x-rays, medications are reviewed. Will continue to follow the patient, and make recommendations. Prognosis is guarded. Dictation was produced using [employer] software. Please excuse any grammatical, word or spelling errors. Time with Patient: Less than 30
[2024-11-06 13:38] LABS: BUN/Creat Ratio 9.78 Ratio (12.00-20.00); Blood Urea Nitrogen 17.6 mg/dL (9.0-27.0); Carbon Dioxide 22.4 mmol/L (21.6-31.8); Chloride 103 mmol/L (96-109); Glucose 161 mg/dL (70-110); Potassium 3.9 mmol/L (3.5-5.5); Sodium 140 mmol/L (135-145)
[2024-11-06] MEDS: MIDAZOLAM 2 MG/2 ML VIAL IVP ONE ×2 (14:45→15:12)
[2024-11-06] MEDS: LIDOCAINE 1% INJ 10MG/ML (20 ML MDV) SQ ONE (14:47)
[2024-11-06] MEDS: SODIUM CHLORIDE 0.9% 1,000 ML IV ONE (14:48)
[2024-11-06] MEDS: fentaNYL (PF) 50 MCG/ML 2 ML AMP IVP ONE (14:50)
[2024-11-06] MEDS: TICAGRELOR 90 MG TAB PO ONE (15:05)
[2024-11-06] MEDS: HEPARIN SODIUM 1,000 UN/ML (10ML VL) IVP ONE (15:12)
[2024-11-06] MEDS: IOPAMIDOL-370 100ML BTL INJ ONE ×2 (15:51→16:25)
[2024-11-06] MEDS: HYDROmorphone 0.5 MG/0.5 ML SYRINGE IVP ONE ×2 (15:56→16:15)
[2024-11-06] MEDS ORDERED: RX INFO: IV CONTRAST WAS GIVEN 1 EACH MISC MISCELLANE PRN (16:29)
[2024-11-06] MEDS ORDERED: MAG HYDROX/AL HYDROX/SIMETH 30 ML CUP PO PRN (16:29)
[2024-11-06] MEDS ORDERED: ATROPINE SULFATE 0.1 MG/ML 10ML SYRINGE IV PRN (16:29)
[2024-11-06 16:37] LABS: Glucose,Whole Blood 145 mg/dL (70-110)
--- NOTE | 2024-11-06 16:39 | P.PCN ---
Date of Procedure: 11/06/24 Operative Findings: PERCUTANEOUS CORONARY INTERVENTION Performing physician Abraham Zimmer M.D. Procedure Performed: 1. Successful stenting of the left main and LAD using 4.0 x 33 and 3.5 x 15 mm Xience drug-eluting stent with an excellent angiographic results. 2. Adjunctive use of IVUS and Impella CP and TVP 3. Ultrasound-guided access of the right common femoral artery and right common femoral artery angiogram Indication: Symptomatic 69-year-old gentleman who was diagnosed with severe disease inv olving the LAD and left main coronary artery as well as cardiomyopathy. He was deemed to be high risk for CABG Approach: Right common femoral artery Complications: None Level of Sedation: Moderate with a sedation length of 90 minutes Procedure Discussion: After obtaining informed consent the patient was brought to the cardiac [facility]. The right common femoral artery was cannulated using micropuncture technique under ultrasound guidance a micropuncture wire passed easily then I took a picture with the micropuncture sheath to assure that the position of the sheath was appropriate and in the middle of the right common femoral artery in the normal segment. Subsequently I placed a 6 [place] 11 cm sheath over a 035 wire at the right common femoral artery. After that I preclose the right common femoral artery using 2 Perclose's at the 11:00 and 2:00. Subsequently I did place an 8 [place] sheath over a 035 wire. At the beginning of the procedure it was noted that the patient was bradycardic with heart rate dropping to the 30s with somewhat concerning for heart block and for that reason I decided to place transvenous pacemaker. I did access the right common femoral vein using corinne ropuncture technique and a micropuncture wire passed easily then I placed a 6 [place] 11 cm sheath at the right common femoral vein and subsequently under fluoroscopy guidance a pacer wire with balloon tube was advanced to the right ventricle and subsequently the pacer was placed at the heart rate of 50s and amp of 5. After that I did exchange my 035 regular wire at the right common femoral artery into an 035 stiff wire then I exchanged my 8 [place] sheath into 14 [place] sheath using 035 stiff wire. The sheath subsequently was flushed. Anticoagulation was initiated using heparin with continuous ACT monitoring. Subsequently I did across the left ventricle using a 035 regular wire with a pigtail catheter and subsequently the regular wire which was 035 wire exchange in 018 Impella wire using the pigtail catheter and subsequently the pigtail catheter was withdrawn out and the Impella was advanced under fluoroscopy guidance where it was positioned in the mid LV. At that point I did access the 14 [place] sheath using micropuncture needle at 10:00 and then I placed a micropuncture sheath over the micropuncture wire and then the micropuncture sheath was exchanged into a 23 cm 7 [place] sheath over a 035 wire. After that I did engage the left main using JL 3 guiding catheter. I did wire the LAD using a run-through wire. IVUS was performed and showed a diameter between 3.5 to 4 mm and noncalcified LAD and left main. After that I did predilated using 3.5 mm balloon before I deployed in the left main to proximal LAD 4.0 x 33 mm stent and the LAD distal to the first stent 3.5 x 15 mm Xience KAYLYNN. The area of overlap between the 2 stents was postdilated using the stent balloon and the stented segment in the LAD and left main postdilated using 4.5 mm noncompliant balloon. Final angiogram was performed and showed excellent results and the IVUS was also done post stenting showed that the stent in the left main was well opposed and well-expanded but I could not advance the stent to the LAD from the left main. The angiogram itself showed excellent angiographic results with ELSA-3 flow and the patient tolerated the procedure very well. Subsequently I did do the 14 [place] sheath and achieved good hemostasis at the right common femoral artery using 2 Perclose's and 1 Angio-Seal. Postprocedure Management: 1. Dual antiplatelet therapy using aspirin and Brilinta for at least 12 months 2. Aggressive cholesterol control 3. Risk factors modification
[2024-11-06] MEDS: SODIUM CHLORIDE 0.9% 1,000 ML in EMPTY BAG 1 BAG IV SCH (16:46)
[2024-11-06] MEDS: ALPRAZolam 0.5 MG TAB PO PRN (17:50)
--- NOTE | 2024-11-06 19:38 | P.PN ---
Subjective Progress Note Date: 11/06/24 Patient is evaluated today sitting up in the chair. Patient reports significant nausea vomiting. Additionally he reports feeling shortness of breath with exertion states that he is unable to walk from the chair to the restroom without having to stop and catch his breath. Patient reports chest pressure which has been increasing in intensity and states that he cannot wait until his outpatient evaluation. Echocardiogram from July 2024 reveals an EF of 40 to 45% with hypokinetic basal to mid inferior wall with mild biatrial dilatation. Mild MR. He was admitted with hypertensive urgency and renal dysfunction. His creatinine is better at 1.67. His blood pressure is now 140/80. 11/03/2024 Patient continues to report intermittent chest pressures. His troponin came back significantly elevated at 0.097, 0.083, 0.100. He has been started on IV heparin and cardiology has ordered a cardiac catheterization for tomorrow. BUN is 16, creatinine is 1.77. Sodium is 138. Chest xray this AM reveals no acute findings. Patient is afebrile, heart rate 67, blood pressure 177/95. 95% on room air. 11/04/2024 Patient is evaluated in follow-up in the medical floor. He continues to report intermittent chest discomfort. He is not significantly short of breath although is still having some exertional dyspnea. He reports patient underwent cardiac catheterization which revealed disease of the LAD and left main and cardiothoracic surgery was consulted for evaluation and workup for open heart. His labs today reveal a white blood cell count of 5.9, hemoglobin 10.7, sodium of 141, BUN of 13.9 creatinine of 1.7, calcium 8.6. Pressure remains elevated at 162/76. 11/05/2024 Evaluated in follow-up in the medical floor. He is currently undergoing cardiothoracic evaluation for coronary artery bypass grafting. He was evaluated pulmonology and was felt to be high risk at this time for surgery due to his decreased lung function. He has been started on IV Solu-Medrol 60 mg every 6 hours. Additionally patient remains on IV heparin drip. He is receiving IV iron infusions. Did have a chest CT completed which reveals moderate aortic arch calcifications no evidence for aneurysm. There is cardiomegaly with pulmonary vascular congestion and small amount of bilateral pleural effusions. Correlate for congestive heart failure. Given some patchy airspace opacities correlate for a superimposed infection. There is scheduled nodule like opacities of the lungs. Short-term follow-up in 3 months recommended to evaluate the lungs without any acute findings. There is moderate coronary artery atherosclerosis. Labs today reveal a white blood cell count of 6.1, hemoglobin 10.9, sodium of 137 potassium 3.6, BUN of 14 creatinine of 1.66, proBNP was significantly elevated at 16,200. His urinalysis was negative for infection. Patient has been started on IV Lasix 40 mg every 12 hours. 11/06/2024 Patient evaluated today in follow up. He remains on IV heparin. [place] to be high risk for CABG and cardiology is planning on stenting patients left main and LAD. Remains on IV lasix 40 mg q12 hour. Reports significant improvement in his shortness of breath and overall feeling better since admission. Creatinine today 1.8. Review of Systems Constitutional: Denied any fatigue denied any fever. Cardio vascular: Intermittent midsternal chest discomfort, palpitations Gastrointestinal: denied any nausea, vomiting, diarrhea Pulmonary: Reports shortness of breath no cough Neurologic denied any new focal deficits All inpatient medications were reviewed and appropriate changes in these medications as dictated in the interval history and assessment and plan. PHYSICAL EXAMINATION: GENERAL: The patient is alert and oriented x3, not in any acute distress. Well developed, well nourished. Pale. On oxygen. HEENT: Pupils are round and equally reacting to light. EOMI. No scleral icterus. No conjunctival pallor. Normocephalic, atraumatic. No pharyngeal erythema. No thyromegaly. CARDIOVASCULAR: S1 and S2 present. No murmurs, rubs, or gallops. PULMONARY: Chest is clear to auscultation, no wheezing or crackles. Diminished ABDOMEN: Soft, nontender, nondistended, normoactive bowel sounds. No palpable organomegaly. MUSCULOSKELETAL: No joint swelling or deformity. EXTREMITIES: No cyanosis, clubbing, or pedal edema. NEUROLOGICAL: Gross neurological examination did not reveal any focal deficits. SKIN: No rashes. Assessment and plan Chest pain and troponin elevation due to NSTEMI Multivessel coronary artery disease with left main disease found on cardiac catheterization felt high risk for CABG Nausea with vomiting on admission. Acute on chronic kidney disease Acute hypoxemic respiratory failure CKD stage IV Carotid artery stenosis with moderate stenosis of the left carotid bifurcation 50 to 69%, less than 50% stenosis of the carotid bifurcation on the right History of paroxysmal atrial fibrillation anticoag with Eliquis History of ischemic cardiomyopathy with decreased EF 35-40%. 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 Patient will be medically optimized. At this time he is considered a high risk surgical candidate. FEV1 of 0.72 which is 24% of predicted value. Patient is scheduled to undergo stenting of the LAD and left main today Started on IV Solumedrol 60 mg every 6 hours Eliquis has been placed on hold and patient has been started on IV heparin Continue IV ferrlecit Continue oxygen support Monitor renal function The impression and plan of care has been dictated by Ning Young, Nurse Practitioner as directed. Dr. Kings MD I have performed a history and physical examination and medical decision making of this patient, discussed the same with the dictator, and agree with the dictators assessment and plan as written, documented as a scribe. Based on total visit time, I have performed more than 50% of this visit. Objective - Vital Signs Vital signs: Vital Signs Temp 97.9 F 11/06/24 08:00 Pulse 52 L 11/06/24 19:00 Resp 14 11/06/24 19:00 BP 138/66 11/06/24 19:00 Pulse Ox 96 11/06/24 19:00 FiO2 24 11/05/24 08:00 Intake & Output 11/06/24 11/06/24 11/07/24 06:59 18:59 06:59 Intake Total 250 556.188 75 Output Total 500 Balance 250 556.188 -425 Weight 71.4 kg 71.4 kg Intake: IV 350 75 0.9 NACL 150 75 Intake, IV Titration 250 206.188 Amount Heparin Sod,Pork in 0.45% 250 NaCl 25,000 unit In 0.45 % NaCl 1 250ml.bag @ 12 UNITS/KG/HR 9.253 mls/hr IV .Q24H [facility] Rx#: [id number] Heparin Sod,Pork in 0.45% 206.188 NaCl 25,000 unit In 0.45 % NaCl 1 250ml.bag @ 12 UNITS/KG/HR 9.253 mls/hr IV .Q24H [facility] Rx#: [id number] Output: Urine 500 Other: Voiding Method Bedside Commode External Catheter # Voids 3 - Labs CBC & Chem 7: 11/06/24 05:25 11/06/24 05:25 Labs: Abnormal Lab Results - Last 24 Hours (Table) 11/06/24 11/06/24 11/06/24 Range/Units 05:25 05:25 05:25 RBC 3.72 L (4.40-5.60) X 10*6/uL Hgb 10.6 L (13.0-17.0) g/dL Hct 33.4 L (39.6-50.0) % MCHC 31.7 L (32.0-37.0) g/dL MPV 13.0 H (9.5-12.2) FL Lymphocytes # 0.44 L (0.90-5.00) X 10*3/uL Monocytes # 0.07 L (0.20-1.00) X 10*3/uL Eosinophils # 0.01 L (0.04-0.35) X 10*3/uL APTT 32.3 H (22.0-30.0) sec Anion Gap 14.60 H (4.00-12.00) mmol/L Creatinine 1.8 H (0.6-1.5) mg/dL Est GFR (CKD-EPI) 40 L (>=60) BUN/Creatinine Ratio 9.78 L (12.00-20.00) Ratio Glucose 161 H (70-110) mg/dL POC Glucose (mg/dL) (70-110) mg/dL 11/06/24 11/06/24 11/06/24 Range/Units 05:49 14:17 16:35 RBC (4.40-5.60) X 10*6/uL Hgb (13.0-17.0) g/dL Hct (39.6-50.0) % MCHC (32.0-37.0) g/dL MPV (9.5-12.2) FL Lymphocytes # (0.90-5.00) X 10*3/uL Monocytes # (0.20-1.00) X 10*3/uL Eosinophils # (0.04-0.35) X 10*3/uL APTT 176.6 H* (22.0-30.0) sec Anion Gap (4.00-12.00) mmol/L Creatinine (0.6-1.5) mg/dL Est GFR (CKD-EPI) (>=60) BUN/Creatinine Ratio (12.00-20.00) Ratio Glucose (70-110) mg/dL POC Glucose (mg/dL) 179 H 145 H (70-110) mg/dL Microbiology - Last 24 Hours (Table) 11/04/24 14:18 Nasal Screen MRSA/MSSA - Final Nasal Swab Assessment and Plan Time with Patient: Less than 30
[2024-11-06] MEDS: FUROSEMIDE 10 MG/ML 2 ML VIAL IV ONE (20:28)
[2024-11-06] MEDS: ATORVASTATIN 80 MG TAB PO SCH (20:41)
[2024-11-06] MEDS: TICAGRELOR 90 MG TAB PO SCH (20:42)
[2024-11-06 21:18] LABS: INR 1.1 (<1.2); Prothrombin Time 11.9 sec (10.0-12.5)
[2024-11-07] MEDS: ZOLPIDEM 5 MG TAB PO PRN (00:34)
[2024-11-07 05:55] LABS: African American GFR (CKD) 42 (>60 ml/min/1.73 sqM); Anion Gap 8 mmol/L; Blood Urea Nitrogen 24 mg/dL (9-20); Calcium 8.7 mg/dL (8.4-10.2); Carbon Dioxide 28 mmol/L (22-30); Chloride 101 mmol/L (98-107); Glucose 135 mg/dL (74-99); Non-African American GFR(CKD) 36 (>60 ml/min/1.73 sqM); Potassium 3.5 mmol/L (3.5-5.1); Sodium 137 mmol/L (137-145)
[2024-11-07] MEDS ORDERED: HEPARIN SODIUM,PORCINE (1 ML) 2,500 UNIT in SODIUM CHLORIDE 0.9% 250 ML IRRIGATION PRN (07:00)
[2024-11-07] MEDS ORDERED: HEPARIN SODIUM,PORCINE 10,000 UNIT in SODIUM CHLORIDE 0.9% 1,000 ML IRRIGATION PRN (07:00)
[2024-11-07 07:01] LABS: African American GFR (CKD) 41 (>60 ml/min/1.73 sqM); Non-African American GFR(CKD) 36 (>60 ml/min/1.73 sqM)
--- NOTE | 2024-11-07 10:51 | P.PN ---
Subjective Progress Note Date: 11/07/24 Patient is seen for follow-up for chronic kidney disease. Status post cardiac catheterization on 11/04/2024 which showed significant LAD stenosis and right coronary artery stenosis He has been evaluated by cardiothoracic surgery and is tentatively scheduled for early next week. Serum creatinine stable at 1.8 mg/dL. he had Lasix 20 mg IV last night. Objective - Vital Signs Vital signs: Vital Signs Temp 98.2 F 11/07/24 04:00 Pulse 76 11/07/24 07:00 Resp 16 11/07/24 07:00 BP 161/92 11/07/24 07:00 Pulse Ox 96 11/07/24 08:30 FiO2 24 11/05/24 08:00 Intake & Output 11/06/24 11/07/24 11/07/24 18:59 06:59 18:59 Intake Total 556.188 165 10 Output Total 1500 0 Balance 556.188 -1335 10 Weight 71.4 kg 74.8 kg Intake: IV 350 165 10 0.9 NACL 150 165 10 Intake, IV Titration 206.188 Amount Heparin Sod,Pork in 0.45% 206.188 NaCl 25,000 unit In 0.45 % NaCl 1 250ml.bag @ 12 UNITS/KG/HR 9.253 mls/hr IV .Q24H [facility] Rx#: [id number] Output: Urine 1500 0 Other: Voiding Method External Catheter External Catheter - Exam Patient is awake, comfortable, no acute distress Examination of the heart S1 and S2 Examination of the lungs bilateral breath sounds are heard, basal crackles Abdomen is soft non tender Examination of lower extremities shows edema 1+ bilaterally CHEMICAL EDUCATOR exam grossly intact - Labs CBC & Chem 7: 11/06/24 05:25 11/07/24 05:50 Labs: Abnormal Lab Results - Last 24 Hours (Table) 11/06/24 11/06/24 11/06/24 Range/Units 05:25 14:17 16:35 APTT 176.6 H* (22.0-30.0) sec Anion Gap 14.60 H (4.00-12.00) mmol/L BUN (9-20) mg/dL Creatinine 1.8 H (0.6-1.5) mg/dL Est GFR (CKD-EPI) 40 L (>=60) BUN/Creatinine Ratio 9.78 L (12.00-20.00) Ratio Glucose 161 H (70-110) mg/dL POC Glucose (mg/dL) 145 H (70-110) mg/dL 11/07/24 11/07/24 Range/Units 04:30 05:50 APTT (22.0-30.0) sec Anion Gap (4.00-12.00) mmol/L BUN 24 H (9-20) mg/dL Creatinine 1.84 H 1.87 H (0.6-1.5) mg/dL Est GFR (CKD-EPI) (>=60) BUN/Creatinine Ratio (12.00-20.00) Ratio Glucose 135 H (70-110) mg/dL POC Glucose (mg/dL) (70-110) mg/dL Assessment and Plan Assessment: 1. Chronic kidney disease stage IIIb-IV with baseline creatinine around 2 mg/dL. Etiology is nephrosclerosis. 2. Non-ST elevation [place] status post cardiac catheterization on 11/04/2024. Being evaluated by cardiothoracic surgery for revascularization. Potentially scheduled early next week 3. Recent nausea vomiting and diarrhea 4. Hypertension uncontrolled, partly volume sensitive 5. Anemia with evidence of significant iron deficiency, started IV iron 6. Volume overload maintained on IV Lasix Plan: Cr trending to 1.8, bicarb level is 28, s/p IV diuretics, can hold further diuresis for now, ok to give as needed IV Lasix Continue IV iron for 2 more days May continue with FEDE inhibitor's for now Repeat labs in a.m.
[2024-11-07] MEDS: ISOSORBIDE MONONITRATE ER 30 MG TAB.ER.24H PO SCH (11:08)
[2024-11-07] MEDS: DAPAGLIFLOZIN PROPANEDIOL 10 MG TABLET PO SCH (11:08)
--- NOTE | 2024-11-07 12:48 | P.PN ---
Subjective Progress Note Date: 11/07/24 Principal diagnosis: Coronary artery disease. Patient is a 69-year-old male with past medical history significant for seasonal allergies, asthma, hypertension, hyperlipidemia, atrial fibrillation anticoagulated on Eliquis, coronary artery disease with previous PCI/stents, heart failure, CKD stage IIIb. Lifelong non-smoker. Patient actually admitted to the hospital back on 10/30/2024. Chief complaints generalized weakness, lower extremity swelling, nausea and vomiting. Unable to take his blood pressure medication and endorses high blood pressures. No reported chest pain. Workup in the ED including serial troponins that were elevated. Echocardiogram showing moderately impaired left ventricular systolic function, with an EF of 35 to 40%, as well as mild mitral and tricuspid regurgitation with mild pulmonary hypertension. Heart catheterization showed significant stenosis involving the left main and focal 70% LAD stenosis. Chronic occlusion of the right RCA with [id number] collaterals. LVEDP 12 to 14 mmHg. Cardiothoracic surgical consult was placed for possible surgical revascularization. A pulmonary consult was placed for preoperative pulmonary clearance. Did undergo bedside spirometry with a FEV1/FVC ratio 52%. FVC 1.38 L or 35% of predicted. FEV1 of 0.72 L or 24% of predicted. Consistent with mixed obstruction and restriction. Denies any known history of COPD. lifelong non-smoker. He does have asthma, but does not routinely use any inhalers. Occasional albuterol inhaler use when sick. No recent hospitalizations for asthma exacerbation. Denies any recent pulmonary infections. Denies fevers. Denies any wheezing, chest tightness, cough. Asthma not exacerbation. CT of the chest shows cardiomegaly with pulmonary vascular congestion and small bilateral pleural effusions and associated infiltrates or atelectasis. Scattered nodular opacities. Most recent labs from yesterday, CBC: WBC count 5.9, hemoglobin 10.7, platelets 165. CMP: Sodium 141, potassium 3.6, chloride 107, serum bicarb 19, BUN 14, creatinine 1.7, glucose 107. Patient currently being evaluated on the Cardiac observation unit. He is resting comfortably on 2 L/min nasal cannula. Becomes dyspneic with minimal activity, such as ambulating to the bathroom. Also, reports lower extremity swelling. States this started approximately 1 week ago. Currently on heparin infusion per protocol. Eliquis is on hold. Continues to undergo extensive preoperative workup. Progress note dated November 06, 2024. This is a 69-year-old male who was seen in consultation yesterday. Please see the note above. The patient was discovered recently to have significant coronary disease. He has a previous history of coronary disease, and had a previous stent placement. He also has a history of heart failure, and stage IIIb chronic kidney disease, among other things including hypertension, hyperlipidemia, atrial fibrillation, and chronic bronchial asthma. He is a lifelong non-smoker. His pulmonary function test came back showing an FEV1 that was 0.72 L which is only 24% of predicted. For that reason, there was no plans for bypass surgery. I did speak to Dr. Goode about this patient. In addition, his chest x-ray revealed some heart failure, and his BNP was elevated, and, the patient was placed on diuretics, and corticosteroids and bronchodilators. The patient is going to have an Impella protected left main stenting done today. Currently, the patient is seen in room 353. The patient is on IV heparin. He is getting saline at 20 cc an hour. He is on 2 L nasal cannula. Laboratory data includes a white count 4.7, hemoglobin 10.6, hematocrit 33.4, and a erin telet count of 189,000. PTT is 32.3. A blood gas yesterday showed a pO2 of 73, pCO2 35, and a pH of 7.39. That was on room air. No additional labs are noted from today. Chest x-ray was consistent with improving pulmonary vascular congestion/CHF. Progress note dated November 07, 2024. This is a 69-year-old male with a history of significant coronary disease. The patient initially was thought to be a candidate for bypass surgery, but given his poor lung function, instead, he had Impella protected stenting of his left main coronary artery, and his LAD. This was done yesterday. He is back in the intensive care unit, room 253. He is on 2 L nasal cannula. He is getting saline at KVO. His Solu-Medrol will be converted to prednisone, 30 mg a day. Clinically, he appears to be well. Sodium 137, potassium 3.5, chlorides 101, CO2 28, anion gap 8, BUN 24, creatinine 1.84. Glucose is 135. Calcium is 8.7. No chest x-ray today. Objective - Vital Signs Vital signs: Vital Signs Temp 97.6 F 11/07/24 08:00 Pulse 55 L 11/07/24 11:00 Resp 10 L 11/07/24 11:00 BP 132/72 11/07/24 11:00 Pulse Ox 96 11/07/24 11:00 FiO2 24 11/05/24 08:00 Intake & Output 11/06/24 11/07/24 11/07/24 18:59 06:59 18:59 Intake Total 556.188 165 40 Output Total 1500 400 Balance 556.188 -1335 -360 Weight 71.4 kg 74.8 kg Intake: IV 350 165 40 0.9 NACL 150 165 40 Intake, IV Titration 206.188 Amount Heparin Sod,Pork in 0.45% 206.188 NaCl 25,000 unit In 0.45 % NaCl 1 250ml.bag @ 12 UNITS/KG/HR 9.253 mls/hr IV .Q24H [facility] Rx#: [id number] Output: Urine 1500 400 Other: Voiding Method External Catheter External Catheter External Catheter - Exam No acute distress, oriented 3. Appears much more stable. Currently on 2 L. HEENT examination is grossly unremarkable. Mucous membranes are moist. No oral lesions. Neck supple. Full range of motion. No adenopathy thyromegaly or neck vein distention. Cardiovascular examination reveals regular rhythm rate. S1-S2 normal. No S3 or S4. No discernible murmur noted. Lungs reveal scattered bibasilar crackles. No wheezes. No rhonchi. Breath sounds equal bilaterally. Abdomen soft bowel sounds are heard. No masses or tenderness. Extremities are intact. No cyanosis clubbing or edema. Skin is without rash or lesion. Neurologic examination is brief but nonfocal. - Labs CBC & Chem 7: 11/06/24 05:25 11/07/24 05:50 Labs: Abnormal Lab Results - Last 24 Hours (Table) 11/06/24 11/06/24 11/06/24 Range/Units 05:25 14:17 16:35 APTT 176.6 H* (22.0-30.0) sec Anion Gap 14.60 H (4.00-12.00) mmol/L BUN (9-20) mg/dL Creatinine 1.8 H (0.6-1.5) mg/dL Est GFR (CKD-EPI) 40 L (>=60) BUN/Creatinine Ratio 9.78 L (12.00-20.00) Ratio Glucose 161 H (70-110) mg/dL POC Glucose (mg/dL) 145 H (70-110) mg/dL 11/07/24 11/07/24 Range/Units 04:30 05:50 APTT (22.0-30.0) sec Anion Gap (4.00-12.00) mmol/L BUN 24 H (9-20) mg/dL Creatinine 1.84 H 1.87 H (0.6-1.5) mg/dL Est GFR (CKD-EPI) (>=60) BUN/Creatinine Ratio (12.00-20.00) Ratio Glucose 135 H (70-110) mg/dL POC Glucose (mg/dL) (70-110) mg/dL Assessment and Plan Assessment: Acute Non-ST elevation [place]. Postop day #1,S/P Impella protected stenting of his left main coronary artery and LAD. Coronary artery disease, as reported in heart catheterization report. Acute hypoxemic respiratory failure, currently on 2 L/min nasal cannula, CT of the chest shows cardiomegaly with pulmonary vascular congestion and small bilateral pleural effusions and associated infiltrates or atelectasis. Scattered nodular opacities. History ischemic cardiomyopathy, echocardiogram from this admission showing a moderately impaired left ventricular ejection fraction of 35 to 40%, with segmental wall motion abnormality; as well as, mild mitral and tricuspid regurgitation with mild pulmonary hypertension. History of previous percutaneous intervention and stenting to the RCA. History of paroxysmal atrial fibrillation. Hypertension. History of hyperlipidemia. Chronic kidney disease stage IIIb. Anemia of chronic disease. Mild intermittent asthma, not in exacerbation. Seasonal allergies. Lifelong non-smoker. Plan: Plan dated November 06, 2024. The patient is seen in room 353. He looks much better today than he did yesterday. He was given diuretics for his fluid overload, corticosteroids for suspected underlying asthma exacerbation. The decision is going to be Impella protected left main coronary artery stent. That is thought to be a safer procedure than bypass grafting in the patient with an FEV1 is 0.72 L or 24% of predicted. The patient is on IV heparin. He is getting saline at 20 cc an hour. The patient is on 2 L nasal cannula. Labs, x-rays, medications are reviewed. Will continue to follow the patient, and make recommendations. Prognosis is guarded. Dictation was produced using Dragon dictation software. Please excuse any grammatical, word or spelling errors. Plan dated November 07, 2024. The patient is seen today in room 253. He is postoperative day #1, status post Impella protected stenting of his left main coronary artery, and LAD. The radha ent came back to the ICU, with the Impella device already having been removed. He is currently on 2 L nasal cannula. He is not receiving any additional IV fluids other than saline at [facility]. His Solu-Medrol can be converted to prednisone 30 mg a day. Labs, x-rays, and all medications are reviewed. Initially, the patient was thought to be a candidate for bypass grafting. Given his FEV1 of 0.72 L which is 24% of predicted. It was determined that he would be better suited with a stenting procedure. Additional recommendations and suggestions are forthcoming. Prognosis is guarded. We will continue to follow. All labs, x-rays, and medications are reviewed. Dictation was produced using [email or web address] software. Please excuse any grammatical, word or spelling errors. Time with Patient: Greater than 30
[2024-11-07] MEDS: BUMETANIDE 1 MG TAB PO SCH (15:34)
--- NOTE | 2024-11-07 18:25 | P.PN ---
Subjective Progress Note Date: 11/07/24 This is a 69-year-old male patient of Dr. Adia Churchill with past medical history of coronary artery disease with stent placement RCA in 2004, paroxysmal atrial fibrillation on Eliquis, ischemic cardiomyopathy, hyperlipidemia, hypertension, intolerance to statins, chronic kidney disease follows with nephrology. We have been asked to evaluate the patient for chest pain. Patient presented to the hospital on 10/30 for chest pain, feeling tired, nausea, vomiting, diarrhea, dizziness, weakness. He states he has had chest pain every day on and off for a week. Chest pain occurs when he walks a few feet. He developed sweating and shortness of breath with the chest pain. He also states he had some lower ex tremity edema. No palpitations. He also states he has been weak for about 1 month. He states when he gets up to ambulate to the bathroom for example, he thinks he is going to pass out. He states his blood pressure has been high. In general he states he has been feeling bad for the past 6 months. He apparently was not taking his medications at home. The chest pain that he is experiencing now is totally different than that when he had his stents placed. Patient also complains of blood in his urine for which he states he follows with Dr. Varela. Blood pressure 187/118, heart rate 49, pulse ox 96% on room air. -EKG: Sinus rhythm, left bundle branch block, PACs -Chest x-ray: Interstitial lung disease without acute process. -Laboratory studies: WBC 8.7, hemoglobin 12.1, BUN 16 and creatinine 1.7, troponin 0.097. -Home cardiac medications: Eliquis 5 mg twice daily, aspirin 81 mg daily, enalapril 2.5 mg daily, Zetia 10 mg daily, Lasix 20 mg daily, lisinopril 10 mg daily, Lopressor 75 mg twice daily. -Lexiscan Cardiolite stress test performed in the office on 03/16/2024 revealed inconclusive EKG part of the stress test due to baseline EKG abnormalities. Ischemic cardiomyopathy with moderate LV systolic function secondary to prior MA inferior wall without any evidence of ischemia. -Echocardiogram performed 07/2024: EF of 40 to 45%, hypokinetic basal to mid anterior wall, mild biatrial dilatation, mild MR, normal RV size and systolic function. 3/6 Patient seen and examined on the observation unit. Yesterday, patient underwent cardiac catheterization with Dr. Churchill which revealed significant distal left main stenosis, 70% focal LAD stenosis, chronic occlusion of the right coronary artery with [id number] collaterals to the distal RCA. Patient was returned to his room on the observation unit and consult was placed with cardiothoracic surgery. Patient has been maintained on heparin drip. Patient is not feeling well this morning. He did have bradycardia this morning and increased weakness. Blood pressure readings are elevated. Blood pressure 184/105, heart rate 71, pulse ox 97% on 2 L nasal cannula. Repeat blood work reveals hemoglobin 10.9, BUN 14 creatinine 1.66. proBNP 16,200. Triglycerides 166, cholesterol 196, LDL 123. CT of the chest revealed moderate aortic arch calcifications. No evidence of aneurysm. Cardiomegaly with pulmonary vascular congestion a small amount of bilateral pleural effusions. Correlate for heart failure given some patchy airspace opacities correlate for superimposed infection. CTS has evaluated patient and consult was added for pulmonary medicine. Patient is considered high risk surgical candidate and recommendations are for medical optimization prior to surgery as the patient bedside FEV1 was 0.72 which is 24% of predicted value. Echocardiogram reveals EF of 35 to 40%, mild mitral and tricuspid regurgitation with mild pulmonary hypertension. 11/07/2024 Underwent PCI of left main with Impella assisted support yesterday. Also has a transvenous pacer in place requiring intermittent pacemaker. BP 128/78, heart rate 65 bpm. Will hold beta-jany for now. Right groin appear intact with no signs of hematoma or bleeding and TVP is in place. Physical examination: HEENT: Head is atraumatic, normocephalic. Pupils equal, round. Sclerae is anicteric. NECK: Supple. No JVD. LUNGS: Diminished breath sounds bilaterally. No intercostal retractions. HEART: Irregular rate and rhythm. No murmur. ABDOMEN: Soft No tenderness. EXTREMITIES: Minimal pedal edema. No calf tenderness. NEUROLOGICAL: Patient is awake, alert and oriented x3. Assessment: NSTEMI status post cardiac catheterization with significant distal left main stenosis --> status post Impella assisted left main PCI Essential hypertension History of coronary artery disease with previous stent to the RCA in 2004 Paroxysmal atrial fibrillation. Bradycardia requiring transvenous pacemaker requirement. Ischemic cardiomyopathy with EF of 4045% with reduction to 35 to 40% on this admission Hypertension Hyper lipidemia Intolerance to statins Chronic kidney disease stage 3BIV Plan: Continue aspirin 81 mg, Lipitor 80 mg, Brilinta 90 mg twice daily Continue amlodipine 5 mg, Farxiga 10 mg, Imdur 30 mg, lisinopril 20 mg, Discontinue IV heparin drip. Start Eliquis 5 mg twice daily for paroxysmal atrial fibrillation. Monitor kidney function. Patient has a transvenous pacemaker in place. He is intermittently requiring pacing. Hold beta-jany at this time. If patient does not use pacemaker in next 24 hours, consider removing PPM. Continue to monitor in ICU Continue triple therapy for now until 11/13/2024. Thereafter drop aspirin continue Brilinta and Eliquis. Objective - Vital Signs Vital signs: Vital Signs Temp 97.8 F 11/07/24 16:00 Pulse 65 11/07/24 18:00 Resp 12 11/07/24 18:00 BP 128/70 11/07/24 18:00 Pulse Ox 94 L 11/07/24 18:00 FiO2 24 11/05/24 08:00 Intake & Output 11/06/24 11/07/24 11/07/24 18:59 06:59 18:59 Intake Total 556.188 165 620 Output Total 1500 1600 Balance 556.188 -5170 -980 Weight 71.4 kg 74.8 kg Intake: IV 350 165 120 0.9 NACL 150 165 120 Intake, IV Titration 206.188 Amount Heparin Sod,Pork in 0.45% 206.188 NaCl 25,000 unit In 0.45 % NaCl 1 250ml.bag @ 12 UNITS/KG/HR 9.253 mls/hr IV .Q24H [facility] Rx#: [id number] Oral 500 Output: Urine 1500 1600 Other: Voiding Method External Catheter External Catheter External Catheter - Labs CBC & Chem 7: 11/06/24 05:25 11/07/24 05:50 Labs: Abnormal Lab Results - Last 24 Hours (Table) 11/07/24 11/07/24 Range/Units 04:30 05:50 BUN 24 H (9-20) mg/dL Creatinine 1.84 H 1.87 H (0.66-1.25) mg/dL Glucose 135 H (74-99) mg/dL
[2024-11-07] MEDS: APIXABAN 5 MG TAB PO SCH (20:45)
[2024-11-07] MEDS: polyethylene glycoL 3350 17 GM POWD.PACK PO SCH (21:59)
[2024-11-08 06:07] LABS: Basophils % (A) 0 %; Eosinophils % (A) 0 %; HCT 35.2 % (39.0-53.0); HGB 10.8 gm/dL (13.0-17.5); Hypochromasia Slight; Lymphocytes # (A) 0.7 k/uL (1.0-4.8); Lymphocytes % (A) 7 %; MCH 28.6 pg (25.0-35.0); MCHC 30.8 g/dL (31.0-37.0); MCV 93.1 fL (80.0-100.0); Mean Platelet Volume 9.8; Monocytes # (A) 0.5 k/uL (0-1.0); Monocytes % (A) 5 %; Neutrophils # (A) 8.6 k/uL (1.3-7.7); Neutrophils % (A) 86 %; Platelet Count 196 k/uL (150-450); RBC 3.78 m/uL (4.30-5.90); RDW 14.7 % (11.5-15.5)
[2024-11-08 06:26] LABS: African American GFR (CKD) 35 (>60 ml/min/1.73 sqM); Anion Gap 8 mmol/L; Blood Urea Nitrogen 30 mg/dL (9-20); Calcium 8.3 mg/dL (8.4-10.2); Carbon Dioxide 29 mmol/L (22-30); Chloride 99 mmol/L (98-107); Glucose 115 mg/dL (74-99); Magnesium 2.1 mg/dL (1.6-2.3); Non-African American GFR(CKD) 30 (>60 ml/min/1.73 sqM); Potassium 3.1 mmol/L (3.5-5.1); Sodium 136 mmol/L (137-145)
--- NOTE | 2024-11-08 06:41 | XR ---
EXAMINATION TYPE: XR chest 1V portable DATE OF EXAM: 11/08/2024 COMPARISON: 11/06/2024 CLINICAL INDICATION: Male, 69 years old with history of Pulmonary Congestion; TECHNIQUE: Single frontal view of the chest is obtained. FINDINGS: No significant interval change in the mild cardiomegaly, pulmonary vascular congestion and probable small pleural effusions. There is no pneumothorax. The osseous structures are intact, IMPRESSION: No change in the acute cardiopulmonary process. [facility], , 11/08/2024 6:38 AM
[2024-11-08] MEDS ORDERED: Potassium Replacement Protocol 1 EACH MISC MISCELLANE PRN (06:51)
[2024-11-08] MEDS: predniSONE 10 MG TAB PO SCH (09:15)
[2024-11-08] MEDS: POTASSIUM CHLORIDE ER 20 MEQ TAB.ER PO SCH ×2 (09:16→18:46)
--- NOTE | 2024-11-08 11:29 | P.PN ---
Subjective Progress Note Date: 11/08/24 Patient is seen for follow-up for chronic kidney disease. Status post cardiac catheterization on 11/04/2024 which showed significant LAD stenosis and right coronary artery stenosis s/p cardiac cath on 11/06 with 2 drug eluting stents , use of IVUS and Impala Serum creatinine trend up to 2.1 from 1.8 mg/dL. BP is low Objective - Vital Signs Vital signs: Vital Signs Temp 97.4 F L 11/08/24 08:00 Pulse 79 11/08/24 11:00 Resp 9 L 11/08/24 11:00 BP 98/49 11/08/24 11:00 Pulse Ox 94 L 11/08/24 11:00 FiO2 24 11/05/24 08:00 Intake & Output 11/07/24 11/08/24 11/08/24 17:59 06:59 18:59 Intake Total 450 Output Total 500 Balance -50 Weight Intake: IV 150 0.9 NACL 50 Sodium Ferric Gluconat- 100 Sucrose 125 mg In Sodium Chloride 0.9% 100 ml @ 100 mls/hr IVPB DAILY [facility] Rx#:[id number] Oral 300 Output: Urine 500 Other: Voiding Method External Catheter - Exam Patient is awake, comfortable, no acute distress Examination of the heart S1 and S2 Examination of the lungs bilateral breath sounds are heard, basal crackles Abdomen is soft non tender Examination of lower extremities shows edema 1+ bilaterally OVEN STRIPPER exam grossly intact - Labs CBC & Chem 7: 11/08/24 05:40 11/08/24 05:40 Labs: Abnormal Lab Results - Last 24 Hours (Table) 11/08/24 11/08/24 Range/Units 05:40 05:40 RBC 3.78 L (4.30-5.90) m/uL Hgb 10.8 L (13.0-17.5) gm/dL Hct 35.2 L (39.0-53.0) % MCHC 30.8 L (31.0-37.0) g/dL Neutrophils # 8.6 H (1.3-7.7) k/uL Lymphocytes # 0.7 L (1.0-4.8) k/uL Sodium 136 L (137-145) mmol/L Potassium 3.1 L (3.5-5.1) mmol/L BUN 30 H (9-20) mg/dL Creatinine 2.14 H (0.66-1.25) mg/dL Glucose 115 H (74-99) mg/dL Calcium 8.3 L (8.4-10.2) mg/dL Assessment and Plan Assessment: 1. Chronic kidney disease stage IIIb-IV with baseline creatinine around 2 mg/dL. Etiology is nephrosclerosis. 2. Non-ST elevation [place] status post cardiac catheterization on 11/04/2024. s/p CATH on 11/06 with 2 stents placement 3. Recent nausea vomiting and diarrhea 4. Hypertension uncontrolled, partly volume sensitive 5. Anemia with evidence of significant iron deficiency, started IV iron 6. Volume overload s/p IV Lasix and now on bumex 1 mg daily Plan: Cr trending to 2.1 from 1.8, bicarb level is 29, s/p IV diuretics, BP low , please hold Bumex for now, will give gentle IVF with N/S @ 100 ml/hr for 10 hours Hold Lisinopril for now low K leel, replacement ordered Continue IV iron for 2 more days Repeat labs in a.m.
--- NOTE | 2024-11-08 11:55 | P.PN ---
Subjective Progress Note Date: 11/08/24 Principal diagnosis: Coronary artery disease. Patient is a 69-year-old male with past medical history significant for seasonal allergies, asthma, hypertension, hyperlipidemia, atrial fibrillation anticoagulated on Eliquis, coronary artery disease with previous PCI/stents, heart failure, CKD stage IIIb. Lifelong non-smoker. Patient actually admitted to the hospital back on 10/30/2024. Chief complaints generalized weakness, lower extremity swelling, nausea and vomiting. Unable to take his blood pressure medication and endorses high blood pressures. No reported chest pain. Workup in the ED including serial troponins that were elevated. Echocardiogram showing moderately impaired left ventricular systolic function, with an EF of 35 to 40%, as well as mild mitral and tricuspid regurgitation with mild pulmonary hypertension. Heart catheterization showed significant stenosis involving the left main and focal 70% LAD stenosis. Chronic occlusion of the right RCA with [id number] collaterals. LVEDP 12 to 14 mmHg. Cardiothoracic surgical consult was placed for possible surgical revascularization. A pulmonary consult was placed for preoperative pulmonary clearance. Did undergo bedside spirometry with a FEV1/FVC ratio 52%. FVC 1.38 L or 35% of predicted. FEV1 of 0.72 L or 24% of predicted. Consistent with mixed obstruction and restriction. Denies any known history of COPD. lifelong non-smoker. He does have asthma, but does not routinely use any inhalers. Occasional albuterol inhaler use when sick. No recent hospitalizations for asthma exacerbation. Denies any recent pulmonary infections. Denies fevers. Denies any wheezing, chest tightness, cough. Asthma not exacerbation. CT of the chest shows cardiomegaly with pulmonary vascular congestion and small bilateral pleural effusions and associated infiltrates or atelectasis. Scattered nodular opacities. Most recent labs from yesterday, CBC: WBC count 5.9, hemoglobin 10.7, platelets 165. CMP: Sodium 141, potassium 3.6, chloride 107, serum bicarb 19, BUN 14, creatinine 1.7, glucose 107. Patient currently being evaluated on the Cardiac observation unit. He is resting comfortably on 2 L/min nasal cannula. Becomes dyspneic with minimal activity, such as ambulating to the bathroom. Also, reports lower extremity swelling. States this started approximately 1 week ago. Currently on heparin infusion per protocol. Eliquis is on hold. Continues to undergo extensive preoperative workup. Progress note dated November 06, 2024. This is a 69-year-old male who was seen in consultation yesterday. Please see the note above. The patient was discovered recently to have significant coronary disease. He has a previous history of coronary disease, and had a previous stent placement. He also has a history of heart failure, and stage IIIb chronic kidney disease, among other things including hypertension, hyperlipidemia, atrial fibrillation, and chronic bronchial asthma. He is a lifelong non-smoker. His pulmonary function test came back showing an FEV1 that was 0.72 L which is only 24% of predicted. For that reason, there was no plans for bypass surgery. I did speak to Dr. Goode about this patient. In addition, his chest x-ray revealed some heart failure, and his BNP was elevated, and, the patient was placed on diuretics, and corticosteroids and bronchodilators. The patient is going to have an Impella protected left main stenting done today. Currently, the patient is seen in room 353. The patient is on IV heparin. He is getting saline at 20 cc an hour. He is on 2 L nasal cannula. Laboratory data includes a white count 4.7, hemoglobin 10.6, hematocrit 33.4, and a erin telet count of 189,000. PTT is 32.3. A blood gas yesterday showed a pO2 of 73, pCO2 35, and a pH of 7.39. That was on room air. No additional labs are noted from today. Chest x-ray was consistent with improving pulmonary vascular congestion/CHF. Progress note dated November 07, 2024. This is a 69-year-old male with a history of significant coronary disease. The patient initially was thought to be a candidate for bypass surgery, but given his poor lung function, instead, he had Impella protected stenting of his left main coronary artery, and his LAD. This was done yesterday. He is back in the intensive care unit, room 253. He is on 2 L nasal cannula. He is getting saline at KVO. His Solu-Medrol will be converted to prednisone, 30 mg a day. Clinically, he appears to be well. Sodium 137, potassium 3.5, chlorides 101, CO2 28, anion gap 8, BUN 24, creatinine 1.84. Glucose is 135. Calcium is 8.7. No chest x-ray today. Progress note dated November 08, 2024. 69-year-old male seen today in room 253. The patient is resting comfortably in bed. He is awake and alert. He is currently on 2 L of oxygen. He is getting saline at 10 cc an hour. He has a temporary venous pacemaker, in the right groin. He is apparently scheduled for an AICD device, tomorrow, November 09. The patient did have a Impella protected stent, of his left main coronary artery, in his LAD, a few days back. Current labs include a white count 10, hemoglobin 10.8, hematocrit 35.2, and a platelet count of 196,000. Sodium 136, potassium 3.1, chloride 79, CO2 29, BUN 30, creatinine 2.14. Glucose is 115. Calcium 8.3, magnesium 2.1. Chest x-ray shows cardiomegaly, and mild pulmonary vascular congestion, with small bilateral pleural effusions. Objective - Vital Signs Vital signs: Vital Signs Temp 97.4 F L 11/08/24 08:00 Pulse 79 11/08/24 11:00 Resp 9 L 11/08/24 11:00 BP 98/49 11/08/24 11:00 Pulse Ox 94 L 11/08/24 11:00 FiO2 24 11/05/24 08:00 Intake & Output 11/07/24 11/08/24 11/08/24 17:59 06:59 18:59 Intake Total 450 Output Total 500 Balance -50 Weight Intake: IV 150 0.9 NACL 50 Sodium Ferric Gluconat- 100 Sucrose 125 mg In Sodium Chloride 0.9% 100 ml @ 100 mls/hr IVPB DAILY [facility] Rx#:[id number] Oral 300 Output: Urine 500 Other: Voiding Method External Catheter - Exam No acute distress, oriented 3. Appears much more stable. Currently on 2 L. HEENT examination is grossly unremarkable. Mucous membranes are moist. No oral lesions. Neck supple. Full range of motion. No adenopathy thyromegaly or neck vein distention. Cardiovascular examination reveals regular rhythm rate. S1-S2 normal. No S3 or S4. No discernible murmur noted. Lungs reveal scattered bibasilar crackles. No wheezes. No rhonchi. Breath sounds equal bilaterally. Abdomen soft bowel sounds are heard. No masses or tenderness. Extremities are intact. No cyanosis clubbing or edema. Transvenous pacemaker, noted in his right groin area. Skin is without rash or lesion. Neurologic examination is brief but nonfocal. - Labs CBC & Chem 7: 11/08/24 05:40 11/08/24 05:40 Labs: Abnormal Lab Results - Last 24 Hours (Table) 11/08/24 11/08/24 Range/Units 05:40 05:40 RBC 3.78 L (4.30-5.90) m/uL Hgb 10.8 L (13.0-17.5) gm/dL Hct 35.2 L (39.0-53.0) % MCHC 30.8 L (31.0-37.0) g/dL Neutrophils # 8.6 H (1.3-7.7) k/uL Lymphocytes # 0.7 L (1.0-4.8) k/uL Sodium 136 L (137-145) mmol/L Potassium 3.1 L (3.5-5.1) mmol/L BUN 30 H (9-20) mg/dL Creatinine 2.14 H (0.66-1.25) mg/dL Glucose 115 H (74-99) mg/dL Calcium 8.3 L (8.4-10.2) mg/dL Assessment and Plan Assessment: Acute Non-ST elevation [place]. Postop day #2,S/P Impella protected stenting of his left main coronary artery and LAD. Anticipated AICD placement, November 09, 2024. Coronary artery disease, as reported in heart catheterization report. Acute hypoxemic respiratory failure, currently on 2 L/min nasal cannula, CT of the chest shows cardiomegaly with pulmonary vascular congestion and small bilateral pleural effusions and associated infiltrates or atelectasis. Scattered nodular opacities. History ischemic cardiomyopathy, echocardiogram from this admission showing a moderately impaired left ventricular ejection fraction of 35 to 40%, with segmental wall motion abnormality; as well as, mild mitral and tricuspid regurgitation with mild pulmonary hypertension. History of previous percutaneous intervention and stenting to the RCA. History of paroxysmal atrial fibrillation. Hypertension. History of hyperlipidemia. Chronic kidney disease stage IIIb. Anemia of chronic disease. Mild intermittent asthma, not in exacerbation. Seasonal allergies. Lifelong non-smoker. Plan: Plan dated November 06, 2024. The patient is seen in room 353. He looks much better today than he did yesterday. He was given diuretics for his fluid overload, corticosteroids for suspected underlying asthma exacerbation. The decision is going to be Impella protected left main coronary artery stent. That is thought to be a safer procedure than bypass grafting in the patient with an FEV1 is 0.72 L or 24% of predicted. The patient is on IV heparin. He is getting saline at 20 cc an hour. The patient is on 2 L nasal cannula. Labs, x-rays, medications are re viewed. Will continue to follow the patient, and make recommendations. Prognosis is guarded. Dictation was produced using Bowntyation software. Please excuse any grammatical, word or spelling errors. Plan dated November 07, 2024. The patient is seen today in room 253. He is postoperative day #1, status post Impella protected stenting of his left main coronary artery, and LAD. The patient came back to the ICU, with the Impella device already having been removed. He is currently on 2 L nasal cannula. He is not receiving any additional IV fluids other than saline at KVO. His Solu-Medrol can be converted to prednisone 30 mg a day. Labs, x-rays, and all medications are reviewed. Dee Dee ferro, the patient was thought to be a candidate for bypass grafting. Given his FEV1 of 0.72 L which is 24% of predicted. It was determined that he would be better suited with a stenting procedure. Additional recommendations and suggestions are forthcoming. Prognosis is guarded. We will continue to follow. All labs, x-rays, and medications are reviewed. Dictation was produced using [employer] software. Please excuse any grammatical, word or spelling errors. Plan dated November 08, 2024. The patient remains critically ill in the intensive care unit. The patient has pretty significant chronic lung disease, likely asthma, although, with bronchodilators and corticosteroids, his breathing has improved. The patient has had a recent Impella protected stenting of the left main coronary artery and LAD. The patient is scheduled to have an AICD placement tomorrow, November 09. He is currently on 2 L of oxygen. He is getting saline at 10 cc an hour. The temporary venous pacemaker is still in his right groin. We will continue to follow make recommendations along the way. All labs, x-rays, and medications are reviewed. The patient was to have open heart surgery, but his poor lung function, with an FEV1 that was 0.72 L, which is 24% of predicted, precluded that. We will continue to follow. Prognosis is guarded. No additional recommendations are made. All labs, x-rays, and medications are reviewed. Dictation was produced using Bowntyation software. Please excuse any grammatical, word or spelling errors. Time with Patient: Greater than 30
[2024-11-08] MEDS: SODIUM CHLORIDE 0.9% 1,000 ML IV SCH (14:47)
--- NOTE | 2024-11-08 18:22 | P.PN ---
Subjective Progress Note Date: 11/08/24 This is a 69-year-old male patient of Dr. Adia Churchill with past medical history of coronary artery disease with stent placement RCA in 2004, paroxysmal atrial fibrillation on Eliquis, ischemic cardiomyopathy, hyperlipidemia, hypertension, intolerance to statins, chronic kidney disease follows with nephrology. We have been asked to evaluate the patient for chest pain. Patient presented to the hospital on 10/30 for chest pain, feeling tired, nausea, vomiting, diarrhea, dizziness, weakness. He states he has had chest pain every day on and off for a week. Chest pain occurs when he walks a few feet. He developed sweating and shortness of breath with the chest pain. He also states he had some lower ex tremity edema. No palpitations. He also states he has been weak for about 1 month. He states when he gets up to ambulate to the bathroom for example, he thinks he is going to pass out. He states his blood pressure has been high. In general he states he has been feeling bad for the past 6 months. He apparently was not taking his medications at home. The chest pain that he is experiencing now is totally different than that when he had his stents placed. Patient also complains of blood in his urine for which he states he follows with Dr. Varela. Blood pressure 187/118, heart rate 49, pulse ox 96% on room air. -EKG: Sinus rhythm, left bundle branch block, PACs -Chest x-ray: Interstitial lung disease without acute process. -Laboratory studies: WBC 8.7, hemoglobin 12.1, BUN 16 and creatinine 1.7, troponin 0.097. -Home cardiac medications: Eliquis 5 mg twice daily, aspirin 81 mg daily, enalapril 2.5 mg daily, Zetia 10 mg daily, Lasix 20 mg daily, lisinopril 10 mg daily, Lopressor 75 mg twice daily. -Lexiscan Cardiolite stress test performed in the office on 03/16/2024 revealed inconclusive EKG part of the stress test due to baseline EKG abnormalities. Ischemic cardiomyopathy with moderate LV systolic function secondary to prior [place] inferior wall without any evidence of ischemia. -Echocardiogram performed 07/2024: EF of 40 to 45%, hypokinetic basal to mid anterior wall, mild biatrial dilatation, mild MR, normal RV size and systolic function. 3/6 Patient seen and examined on the observation unit. Yesterday, patient underwent cardiac catheterization with Dr. Churchill which revealed significant distal left main stenosis, 70% focal LAD stenosis, chronic occlusion of the right coronary artery with cuwa-ui-glwyh collaterals to the distal RCA. Patient was returned to his room on the observation unit and consult was placed with cardiothoracic surgery. Patient has been maintained on heparin drip. Patient is not feeling well this morning. He did have bradycardia this morning and increased weakness. Blood pressure readings are elevated. Blood pressure 184/105, heart rate 71, pulse ox 97% on 2 L nasal cannula. Repeat blood work reveals hemoglobin 10.9, BUN 14 creatinine 1.66. proBNP 16,200. Triglycerides 166, cholesterol 196, LDL 123. CT of the chest revealed moderate aortic arch calcifications. No evidence of aneurysm. Cardiomegaly with pulmonary vascular congestion a small amount of bilateral pleural effusions. Correlate for heart failure given some patchy airspace opacities correlate for superimposed infection. CTS has evaluated patient and consult was added for pulmonary medicine. Patient is considered high risk surgical candidate and recommendations are for medical optimization prior to surgery as the patient bedside FEV1 was 0.72 which is 24% of predicted value. Echocardiogram reveals EF of 35 to 40%, mild mitral and tricuspid regurgitation with mild pulmonary hypertension. 11/07/2024 Underwent PCI of left main with Impella assisted support yesterday. Also has a transvenous pacer in place requiring intermittent pacemaker. BP 128/78, heart rate 65 bpm. Will hold beta-jany for now. Right groin appear intact with no signs of hematoma or bleeding and TVP is in place. 11/08/2024 BP 137/74, heart rate 60s to 70s beats per minute. Intermittently requiring transvenous pacemaker. Intermittently would have atrial tachycardic runs. BUN 30, creatinine 2.14 today. Potassium is 3.1. I will hold his lisinopril in view of uptrending creatinine. Physical examination: HEENT: Head is atraumatic, normocephalic. Pupils equal, round. Sclerae is anicteric. NECK: Supple. No JVD. LUNGS: Diminished breath sounds bilaterally. No intercostal retractions. HEART: Irregular rate and rhythm. No murmur. ABDOMEN: Soft No tenderness. EXTREMITIES: Minimal pedal edema. No calf tenderness. NEUROLOGICAL: Patient is awake, alert and oriented x3. Assessment: NSTEMI status post cardiac catheterization with significant distal left main stenosis --> status post Impella assisted left main PCI Essential hypertension History of coronary artery disease with previous stent to the RCA in 2004 Paroxysmal atrial fibrillation. Bradycardia requiring transvenous pacemaker requirement. Ischemic cardiomyopathy with EF of 4045% with reduction to 35 to 40% on this admission Hypertension Hyper lipidemia Intolerance to statins Chronic kidney disease stage 3BIV Plan: Continue aspirin 81 mg, Lipitor 80 mg, Brilinta 90 mg twice daily Continue amlodipine 5 mg, Farxiga 10 mg, Imdur 30 mg, Continue Eliquis 5 mg twice daily for paroxysmal atrial fibrillation. Monitor kidney function. Holding diuretic. Hold lisinopril. Patient is requiring transvenous pacer maker intermittently. I will reduce the rate to 40 bpm as a basal rate. Continue to monitor in ICU Considering patient's ischemic cardiomyopathy of current EF 35%, frequent atrial ectopy, atrial fibrillation and intermittent bradycardia as with AV blocks, he would benefit from BiV ICD evaluation. Will request Dr. Petit to evaluate the patient. Continue triple therapy for now until 11/13/2024. Thereafter drop aspirin continue Brilinta and Eliquis. Objective - Vital Signs Vital signs: Vital Signs Temp 97.6 F 11/08/24 16:00 Pulse 68 11/08/24 18:00 Resp 15 11/08/24 18:00 BP 137/74 11/08/24 18:00 Pulse Ox 95 11/08/24 18:00 FiO2 24 11/05/24 08:00 Intake & Output 11/07/24 11/08/24 11/08/24 17:59 06:59 18:59 Intake Total 1220 Output Total 1100 Balance 120 Weight Intake: IV 920 0.9 NACL 120 Sodium Chloride 0.9% 1, 700 000 ml @ 100 mls/hr IV . Q10H DESIREE Rx#:[id number] Sodium Ferric Gluconat- 100 Sucrose 125 mg In Sodium Chloride 0.9% 100 ml @ 100 mls/hr IVPB DAILY DESIREE Rx#:[id number] Oral 300 Output: Urine 1100 Other: Voiding Method External Catheter - Labs CBC & Chem 7: 11/08/24 05:40 11/08/24 16:50 Labs: Abnormal Lab Results - Last 24 Hours (Table) 03/05/2711/08/24 11/08/24 Range/Units 05:40 05:40 16:50 RBC 3.78 L (4.30-5.90) m/uL Hgb 10.8 L (13.0-17.5) gm/dL Hct 35.2 L (39.0-53.0) % MCHC 30.8 L (31.0-37.0) g/dL Neutrophils # 8.6 H (1.3-7.7) k/uL Lymphocytes # 0.7 L (1.0-4.8) k/uL Sodium 136 L (137-145) mmol/L Potassium 3.1 L 3.4 L (3.5-5.1) mmol/L BUN 30 H (9-20) mg/dL Creatinine 2.14 H (0.66-1.25) mg/dL Glucose 115 H (74-99) mg/dL Calcium 8.3 L (8.4-10.2) mg/dL
[2024-11-09 07:08] LABS: African American GFR (CKD) 40 (>60 ml/min/1.73 sqM); Anion Gap 3 mmol/L; Blood Urea Nitrogen 24 mg/dL (9-20); Carbon Dioxide 31 mmol/L (22-30); Chloride 105 mmol/L (98-107); Glucose 87 mg/dL (74-99); Non-African American GFR(CKD) 35 (>60 ml/min/1.73 sqM); Potassium 3.5 mmol/L (3.5-5.1); Sodium 139 mmol/L (137-145)
[2024-11-09] MEDS: POTASSIUM CHLORIDE ER 20 MEQ TAB.ER PO SCH (09:16)
--- NOTE | 2024-11-09 09:27 | P.EPCON ---
Electrophysiology Consult - EP Consult Electrophysiology Consult: This is Dr. Petit dictating a consult on this patient The patient was interviewed and examined IMPRESSION / ASSESSMENT: Moderate-severe ischemic cardiomyopathy with old AZ, multiple Chronically occluded RCA, severe left main and LAD disease Status post stenting to the LAD and left main on 06 november 2024 CHF class II Severe lung disease on prednisone, FVC 24% Chronic kidney disease with mild worsening post dye load and now with improveme nt, underlying stage IIIb First-degree AV block and during the left main stenting AV node Wenckebach block was noted by Dr. Zimmer Patient has not used his TVP over the last 24 hours, backup rate at 35 bpm History of paroxysmal atrial fibrillation, on Eliquis at home Hypertension Dyslipidemia PLAN: TVP and venous sheaths were removed, venous closure device was performed I will continue medical treatment, tomorrow I would start metoprolol to tartrate 12.5 mg twice daily Resume Zetia I would hold off from implantation of any device at this time unless the patient has clear-cut advanced heart block I would resume beta-blockers at a low dose and maximize slowly Prior to coming to the hospital he was on 75 mg twice daily of metoprolol which he was tolerating HPI Patient is not was admitted for evaluation management of coronary artery disease. He has severe disease involving the LAD and the left main, as well as cardiomyopathy, ischemic in nature. He has had history of past AZ He was deemed to be at very high risk for CABG on account of his severe lung disease with an FVC of 24% with advanced coronary artery disease. He underwent stenting to the left main and LAD with a drug-eluting stent on 06 November 2024. Adjunctive use of IVUS and Impella At that time he had mild bradycardia with AV node Wenckebach block according to Dr. Zimmer, whom I spoke to personally A TVP was placed during the procedure since it was high risk I was called for evaluation for ICD implantation and biventricular ICD placement in the setting of bradycardia However over the weekend yesterday the backup pacemaker rate was programmed to 35 beats a minute and the patient's heart rates have been consistently above 60 beats a minute with no evidence for high-grade AV block. He does have a mild first-degree AV block When I saw him this morning his heart rates were in the 80s and 90s with mild first-degree AV block. 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 Subsequently had left main and LAD stenting on the seventh ROS: No fever chills or rigors, no cough, phlegm or expectoration, no nausea, vomiting or diarrhea, no hematuria, dysuria, no musculoskeletal complaints, no strokes or seizures, no skin lesions. EXAMINATION: Blood pressure 144/75 mmHg pulse rate in the 80s and 90s respirations 15-16, pulse ox 96% on 2 L nasal cannula oxygen Breath sounds are reduced bilaterally with some scattered rhonchi No JVD Soft heart sounds no murmurs REVIEW OF LABS, ECG & MEDICAL DATA Hemoglobin 10.8 Potassium 3.5 Creatinine 1.89 today with a BUN of 24 His home medications include lisinopril Seroquel Zofran metoprolol 75 mg twice daily isosorbide Lasix Zetia aspirin Eliquis His first twelve-lead EKG in the ER showed sinus rhythm first-degree AV block TX interval of 311 ms left bundle branch block pattern QRS width of 160 ms
--- NOTE | 2024-11-09 09:59 | P.PN ---
Subjective Progress Note Date: 11/09/24 Coronary artery disease. Patient is a 69-year-old male with past medical history significant for seasonal allergies, asthma, hypertension, hyperlipidemia, atrial fibrillation anticoagulated on Eliquis, coronary artery disease with previous PCI/stents, heart failure, CKD stage IIIb. Lifelong non-smoker. Patient actually admitted to the hospital back on 10/30/2024. Chief complaints generalized weakness, lower extremity swelling, nausea and vomiting. Unable to take his blood pressure medication and endorses high blood pressures. No reported chest pain. Workup in the ED including serial troponins that were elevated. Echocardiogram showing moderately impaired left ventricular systolic function, with an EF of 35 to 40%, as well as mild mitral and tricuspid regurgitation with mild pulmonary hypertension. Heart catheterization showed significant stenosis involving the left main and focal 70% LAD stenosis. Chronic occlusion of the right RCA with [id number] collaterals. LVEDP 12 to 14 mmHg. Cardiothoracic surgical consult was placed for possible surgical revascularization. A pulmonary consult was placed for preoperative pulmonary clearance. Did undergo bedside spirometry with a FEV1/FVC ratio 52%. FVC 1.38 L or 35% of predicted. FEV1 of 0.72 L or 24% of predicted. Consistent with mixed obstruction and restriction. Denies any known history of COPD. lifelong non-smoker. He does have asthma, but does not routinely use any inhalers. Occasional albuterol inhaler use when sick. No recent hospitalizations for asthma exacerbation. Denies any recent pulmonary infections. Denies fevers. Denies any wheezing, chest tightness, cough. Asthma not exacerbation. CT of the chest shows cardiomegaly with pulmonary vascular congestion and small bilateral pleural effusions and associated infiltrates or atelectasis. Scattered nodular opacities. Most recent labs from yesterday, CBC: WBC count 5.9, hemoglobin 10.7, platelets 165. CMP: Sodium 141, potassium 3.6, chloride 107, serum bicarb 19, BUN 14, creatinine 1.7, glucose 107. Patient currently being evaluated on the Cardiac observation unit. He is resting comfortably on 2 L/min nasal cannula. Becomes dyspneic with minimal activity, such as ambulating to the bathroom. Also, reports lower extremity swelling. States this started approximately 1 week ago. Currently on heparin infusion per protocol. Eliquis is on hold. Continues to undergo extensive preoperative workup. Progress note dated November 06, 2024. This is a 69-year-old male who was seen in consultation yesterday. Please see the note above. The patient was discovered recently to have significant coronary disease. He has a previous history of coronary disease, and had a previous stent placement. He also has a history of heart failure, and stage IIIb chronic kidney disease, among other things including hypertension, hyperlipidemia, atrial fibrillation, and chronic bronchial asthma. He is a lifelong non-smoker. His pulmonary function test came back showing an FEV1 that was 0.72 L which is only 24% of predicted. For that reason, there was no plans for bypass surgery. I did speak to Dr. Goode about this patient. In addition, his chest x-ray revealed some heart failure, and his BNP was elevated, and, the patient was placed on diuretics, and corticosteroids and bronchodilators. The patient is going to have an Impella protected left main stenting done today. Currently, the patient is seen in room 353. The patient is on IV heparin. He is getting saline at 20 cc an hour. He is on 2 L nasal cannula. Laboratory data includes a white count 4.7, hemoglobin 10.6, hematocrit 33.4, and a platelet count of 189,000. PTT is 32.3. A blood gas yesterday showed a pO2 of 73, pCO2 35, and a pH of 7.39. That was on room air. No additional labs are noted from today. Chest x-ray was consistent with improving pulmonary vascular congestion/CHF. Progress note dated November 07, 2024. This is a 69-year-old male with a history of significant coronary disease. The patient initially was thought to be a candidate for bypass surgery, but given his poor lung function, instead, he had Impella protected stenting of his left main coronary artery, and his LAD. This was done yesterday. He is back in the intensive care unit, room 253. He is on 2 L nasal cannula. He is getting saline at KVO. His Solu-Medrol will be converted to prednisone, 30 mg a day. Clinically, he appears to be well. Sodium 137, potassium 3.5, chlorides 101, CO2 28, anion gap 8, BUN 24, creatinine 1.84. Glucose is 135. Calcium is 8.7. No chest x-ray today. Progress note dated November 08, 2024. 69-year-old male seen today in room 253. The patient is resting comfortably in bed. He is awake and alert. He is currently on 2 L of oxygen. He is getting saline at 10 cc an hour. He has a temporary venous pacemaker, in the right groin. He is apparently scheduled for an AICD device, tomorrow, November 09. The patient did have a Impella protected stent, of his left main coronary artery, in his LAD, a few days back. Current labs include a white count 10, hemoglobin 10.8, hematocrit 35.2, and a platelet count of 196,000. Sodium 136, potassium 3.1, chloride 79, CO2 29, BUN 30, creatinine 2.14. Glucose is 115. Calcium 8.3, magnesium 2.1. Chest x-ray shows cardiomegaly, and mild pulmonary vascular congestion, with small bilateral pleural effusions. On 11/09/2024, seen the patient for a follow-up in the intensive care unit. The patient is calm and comfortable on 2 L of oxygen by nasal cannula. He is in atrial fibrillation with a controlled rate. He has a backup TVP at rate of 35. He is status post acute non-ST segment elevation myocardial infarction. Underwent cardiac catheterization Impella protected and he had stenting to the left main and LAD. He is supposed to undergo an AICD/pacemaker insertion in addition. He is known to have severe cardiomyopathy with an ejection fraction of 35 to 40%. He has also chronic kidney disease. He also has advanced COPD with an FEV1 of 24% of predicted. WBC count of 10, hemoglobin 10.8 and platelet count of 196. Creatinine is at 1.89 with a BUN of 24 and a sodium levels at 139 and a potassium level of 3.5. He is currently on Brilinta. He is on anticoagulation with Eliquis 5 mg p.o. twice a day. He is on Farxiga 10 mg p.o. daily, Imdur 30 mg p.o. daily, and Norvasc 5 mg p.o. daily. He is also on aspirin. In terms of his COPD, the patient is on Symbicort, DuoNeb treatments [id number] and is also completing a prednisone burst taper currently on 30 mg p.o. daily. Awake and alert and communicating. [employer] on the case. Objective - Vital Signs Vital signs: Vital Signs Temp 97.8 F 11/09/24 04:00 Pulse 85 11/09/24 07:42 Resp 11 L 11/09/24 07:00 BP 139/73 11/09/24 07:00 Pulse Ox 96 11/09/24 07:45 FiO2 24 11/05/24 08:00 Intake & Output 11/08/24 11/09/24 11/09/24 18:59 06:59 18:59 Intake Total 1220 1430 Output Total 1100 800 Balance 120 630 Weight 77.2 kg Intake: IV 920 1430 0.9 NACL 120 130 Sodium Chloride 0.9% 1, 700 1300 000 ml @ 100 mls/hr IV . Q10H DESIREE Rx#:[id number] Sodium Ferric Gluconat- 100 Sucrose 125 mg In Sodium Chloride 0.9% 100 ml @ 100 mls/hr IVPB DAILY DESIREE Rx#:[id number] Oral 300 Output: Urine 1100 800 Other: Voiding Method External Catheter External Catheter - Exam No acute distress, oriented 3. Appears much more stable. Currently on 2 L. HEENT examination is grossly unremarkable. Mucous membranes are moist. No oral lesions. Neck supple. Full range of motion. No adenopathy thyromegaly or neck vein distention. Cardiovascular examination reveals S1-S2 normal. No S3 or S4. No discernible murmur noted. The underlying rhythm is atrial fibrillation with a slow rate. Lungs reveal scattered bibasilar crackles. No wheezes. No rhonchi. Breath sounds diminished breath sound bilaterally and the patient has get expiratory wheezing throughout the lung belle. Abdomen soft bowel sounds are heard. No masses or tenderness. Extremities are intact. No cyanosis clubbing or edema. Transvenous pacemaker, noted in his right groin area. Skin is without rash or lesion. Neurologic examination is brief but nonfocal. - Labs CBC & Chem 7: 11/08/24 05:40 11/09/24 05:32 Labs: Abnormal Lab Results - Last 24 Hours (Table) 11/08/24 11/09/24 Range/Units 16:50 05:32 Potassium 3.4 L (3.5-5.1) mmol/L Carbon Dioxide 31 H (22-30) mmol/L BUN 24 H (9-20) mg/dL Creatinine 1.89 H (0.66-1.25) mg/dL Calcium 8.0 L (8.4-10.2) mg/dL Assessment and Plan Plan: Acute Non-ST elevation ND, status post ,S/P Impella protected stenting of his left main coronary artery and LAD. The patient is postop day #3. Possible AICD placement, awaiting final recommendations from cardiology. Coronary artery disease, History of previous percutaneous intervention and stenting to the RCA. Acute hypoxemic respiratory failure, currently on 2 L/min nasal cannula, CT of the chest shows cardiomegaly with pulmonary vascular congestion and small bilateral pleural effusions and associated infiltrates or atelectasis. Scattered nodular opacities. History ischemic cardiomyopathy, echocardiogram from this admission showing a moderately impaired left ventricular ejection fraction of 35 to 40%, with segmental wall motion abnormality; as well as, mild mitral and tricuspid regurgitation with mild pulmonary hypertension. Paroxysmal atrial fibrillation. Hypertension Hyperlipidemia. Chronic kidney disease stage IIIb. Anemia of chronic disease. COPD, FEV1 is in order of 0.72 L which is 24% of predicted Seasonal allergies. Lifelong non-smoker. Plan: Patient remains stable on oxygen 2 L/min nasal cannula [facility]ort [facility] Pred[facility] burst taper currently on 30 mg p.o. daily Continue aspirin and Brilinta anticoagulation with Eliquis Continue Norvasc Continue Imdur Continue Farxiga monitor renal function Possible AICD. The patient has a backup TVP at the rate of 35 May consider starting beta-blockers related stage at the low-dose. This will be discussed with cardiology. Not a candidate for coronary to bypass surgery Continue to follow. Will be kept in ICU for another 24 hours. Evaluation was done 33 minutes. Time with Patient: Greater than 30
--- NOTE | 2024-11-09 10:16 | P.PN ---
Subjective Patient is seen in follow-up for acute kidney injury on chronic kidney disease. Renal function better. Nonoliguric. Currently off IV fluids and diuretics. Denies chest pain or shortness of breath. TVP taken out this morning. Vital signs are stable. General: No acute distress. HEENT: Head exam is unremarkable. On nasal cannula. LUNGS: No audible rhonchi or wheezes. HEART: Rate and Rhythm are regular. ABDOMEN: Nontender. EXTREMITITES: No edema. Objective - Vital Signs Vital signs: Vital Signs Temp 97.9 F 11/09/24 08:00 Pulse 90 11/09/24 10:00 Resp 14 11/09/24 10:00 BP 146/97 11/09/24 10:00 Pulse Ox 96 11/09/24 10:00 FiO2 24 11/05/24 08:00 Intake & Output 11/08/24 11/09/24 11/09/24 18:59 06:59 18:59 Intake Total 1220 1430 210 Output Total 1100 800 0 Balance 120 630 210 Weight 77.2 kg Intake: IV 920 1430 210 0.9 NACL 120 130 10 Sodium Chloride 0.9% 1, 700 1300 200 000 ml @ 100 mls/hr IV . Q10H DESIREE Rx#:[id number] Sodium Ferric Gluconat- 100 Sucrose 125 mg In Sodium Chloride 0.9% 100 ml @ 100 mls/hr IVPB DAILY DESIREE Rx#:[id number] Oral 300 Output: Urine 1100 800 0 Other: Voiding Method External Catheter External Catheter External Catheter - Labs CBC & Chem 7: 11/08/24 05:40 11/09/24 05:32 Labs: Abnormal Lab Results - Last 24 Hours (Table) 11/08/24 11/09/24 Range/Units 16:50 05:32 Potassium 3.4 L (3.5-5.1) mmol/L Carbon Dioxide 31 H (22-30) mmol/L BUN 24 H (9-20) mg/dL Creatinine 1.89 H (0.66-1.25) mg/dL Calcium 8.0 L (8.4-10.2) mg/dL Assessment and Plan Plan: Assessment: 1. Acute kidney injury secondary to ATN. Renal function better. Creatinine 1 .89 today. UA with 2+ protein. No proteinuria noted in July 2024. This will be repeated outpatient. 2. Chronic kidney disease stage IIIb with baseline creatinine near 2 secondary to nephrosclerosis. 3. Coronary artery disease status post cardiac catheterization with stents placed this admission. 4. Ischemic cardiomyopathy ejection fraction of 35 to 40% this admission. 5. Hypertension with chronic kidney disease. Plan: Hold off on diuretics today. Repeat chest x-ray tomorrow morning. Resume low-dose FEDE inhibitor. Maintain SGLT2 inhibitor. Check renal ultrasound. Potassium replaced.
--- NOTE | 2024-11-09 10:51 | US ---
EXAMINATION TYPE: US kidneys/renal and bladder DATE OF EXAM: 11/09/2024 COMPARISON: 10/06/24 renal ultrasound CLINICAL INDICATION: Male, 69 years old with history of dhara; dhara TECHNIQUE: Grayscale imaging of the bilateral kidneys and urinary bladder: FINDINGS: EXAM MEASUREMENTS: Right Kidney: 9.7 x 6.0 x 4.9 cm Left Kidney: 9.8 x 5.3 x 5.1 cm Right Kidney: slightly limited due to pt unable to roll on side. Parenchyma appears lobulated at supe rior pole. Left Kidney: cortical thinning Bladder: appears wnl Bilateral Jets seen: yes There is no evidence for hydronephrosis at this point in time. No nephrolithiasis is seen. No lynne s are identified. The urinary bladder is anechoic. IMPRESSION: No hydronephrosis is seen bilaterally. [facility], , 11/09/2024 10:48 AM
--- NOTE | 2024-11-09 11:32 | PN ---
PROGRESS NOTE SUBJECTIVE: Jay is a 69-year-old gentleman, who is admitted to the hospital with non ST-segment elevation [place] and on cardiac catheterization, he had significant left main disease, thought not to be a candidate for surgery; subsequently, underwent PCI of the left main developed bradycardia and required temporary transvenous pacemaker. He was subsequently evaluated by an portable sawmill operator, who felt that the patient does not need a permanent pacemaker at this time. There are widening AV star blockers. PHYSICAL EXAMINATION: VITAL SIGNS: On exam, heart rate is 90 beats per minute, blood pressure is 140/92, respiratory rate of 18, O2 saturation of 96%. CHEST EXAM: Reveals good air entry bilaterally. HEART EXAM: Reveals first and second heart sounds. No gallop. No murmur. ABDOMEN: Soft. EXTREMITIES: Did not reveal any edema. Peripheral pulses are felt. MEDICATIONS: The patient is currently on: 1. Aspirin. 2. Eliquis 5 b.i.d. 3. Brilinta 90 mg b.i.d. 4. Hydralazine 50 t.i.d. 5. Zestril 10 daily. 6. Imdur. 7. Norvasc 5 mg daily. LABORATORY DATA: Labs show a hemoglobin of 10.8. Potassium is 3.5, BUN is 24, creatinine is 1.8. ASSESSMENT AND PLAN: 1. Non ST-segment elevation myocardial infarction, status post catheterization with severe and significant left main disease, status post angioplasty with stent placement. 2. Chronic renal failure. 3. Bradycardia. PLAN: I will continue him on his current medications. Increase the dose of amlodipine for better blood pressure control, and if necessary, increase the dose of hydralazine. I will hold off on the beta jany at this time. In the moment, the patient remains in sinus rhythm. MMODL / IJN: [id number] /
[2024-11-09] MEDS: lisinopriL 10 MG TAB PO SCH (13:15)
--- NOTE | 2024-11-09 15:00 | P.PN ---
Subjective Progress Note Date: 11/09/24 Patient is evaluated today sitting up in the chair. Patient reports significant nausea vomiting. Additionally he reports feeling shortness of breath with exertion states that he is unable to walk from the chair to the restroom without having to stop and catch his breath. Patient reports chest pressure which has been increasing in intensity and states that he cannot wait until his outpatient evaluation. Echocardiogram from July 2024 reveals an EF of 40 to 45% with hypokinetic basal to mid inferior wall with mild biatrial dilatation. Mild MR. He was admitted with hypertensive urgency and renal dysfunction. His creatinine is better at 1.67. His blood pressure is now 140/80. 11/03/2024 Patient continues to report intermittent chest pressures. His troponin came back significantly elevated at 0.097, 0.083, 0.100. He has been started on IV heparin and cardiology has ordered a cardiac catheterization for tomorrow. BUN is 16, creatinine is 1.77. Sodium is 138. Chest xray this AM reveals no acute findings. Patient is afebrile, heart rate 67, blood pressure 177/95. 95% on room air. 11/04/2024 Patient is evaluated in follow-up in the medical floor. He continues to report intermittent chest discomfort. He is not significantly short of breath although is still having some exertional dyspnea. He reports patient underwent cardiac catheterization which revealed disease of the LAD and left main and cardiothoracic surgery was consulted for evaluation and workup for open heart. His labs today reveal a white blood cell count of 5.9, hemoglobin 10.7, sodium of 141, BUN of 13.9 creatinine of 1.7, calcium 8.6. Pressure remains elevated at 162/76. 11/05/2024 Evaluated in follow-up in the medical floor. He is currently undergoing cardiothoracic evaluation for coronary artery bypass grafting. He was evaluated pulmonology and was felt to be high risk at this time for surgery due to his decreased lung function. He has been started on IV Solu-Medrol 60 mg every 6 hours. Additionally patient remains on IV heparin drip. He is receiving IV iron infusions. Did have a chest CT completed which reveals moderate aortic arch calcifications no evidence for aneurysm. There is cardiomegaly with pulmonary vascular congestion and small amount of bilateral pleural effusions. Correlate for congestive heart failure. Given some patchy airspace opacities correlate for a superimposed infection. There is scheduled nodule like opacities of the lungs. Short-term follow-up in 3 months recommended to evaluate the lungs without any acute findings. There is moderate coronary artery atherosclerosis. Labs today reveal a white blood cell count of 6.1, hemoglobin 10.9, sodium of 137 potassium 3.6, BUN of 14 creatinine of 1.66, proBNP was significantly elevated at 16,200. His urinalysis was negative for infection. Patient has been started on IV Lasix 40 mg every 12 hours. 11/06/2024 Patient evaluated today in follow up. He remains on IV heparin. Olivia to be high risk for CABG and cardiology is planning on stenting patients left main and LAD. Remains on IV lasix 40 mg q12 hour. Reports significant improvement in his shortness of breath and overall feeling better since admission. Creatinine today 1.8. 11/09/2024 Patient evaluated today in follow up in the ICU. Status post cardiac catheterization with PCI to the LAD and left pain. He has no complaints of chest pain and he is no reporting any significant shortness of breath. He remains on IV iron infusions daily. Patient had a renal ultrasound today with no evidence of hydronephrosis, no nephrolisthiasis, no masses are identified. The urinary bladder is anechoic. Review of Systems Constitutional: Denied any fatigue denied any fever. Cardio vascular: Intermittent midsternal chest discomfort, palpitations Gastrointestinal: denied any nausea, vomiting, diarrhea Pulmonary: Reports shortness of breath no cough Neurologic denied any new focal deficits All inpatient medications were reviewed and appropriate changes in these medications as dictated in the interval history and assessment and plan. PHYSICAL EXAMINATION: GENERAL: The patient is alert and oriented x3, not in any acute distress. Well developed, well nourished. Pale. On oxygen. HEENT: Pupils are round and equally reacting to light. EOMI. No scleral icterus. No conjunctival pallor. Normocephalic, atraumatic. No pharyngeal erythema. No thyromegaly. CARDIOVASCULAR: S1 and S2 present. No murmurs, rubs, or gallops. PULMONARY: Chest is clear to auscultation, no wheezing or crackles. Diminished ABDOMEN: Soft, nontender, nondistended, normoactive bowel sounds. No palpable organomegaly. MUSCULOSKELETAL: No joint swelling or deformity. EXTREMITIES: No cyanosis, clubbing, or pedal edema. NEUROLOGICAL: Gross neurological examination did not reveal any focal deficits. SKIN: No rashes. Assessment and plan Chest pain and troponin elevation due to NSTEMI Multivessel coronary artery disease with left main disease found on cardiac catheterization felt high risk for CABG Nausea with vomiting on admission. Acute on chronic kidney disease Acute hypoxemic respiratory failure CKD stage IV Carotid artery stenosis with moderate stenosis of the left carotid bifurcation 50 to 69%, less than 50% stenosis of the carotid bifurcation on the right History of paroxysmal atrial fibrillation anticoag with Eliquis History of ischemic cardiomyopathy with decreased EF 35-40%. Exertional dyspnea History of coronary artery disease with prior PCI in 2010 and 2004 Hypertension with urgency Hyperlipidemia Chronic pain and peripheral neuropathy Gastroesophageal reflux disease GI prophylaxis Full code Plan Patient is currently on a combination of oral hydralazine, oral metoprolol, lisinopril, norvasc Lasix has been discontinued Multiple consultations following including cardiothoracic surgery, nephrology, cardiology, pulmonology ems driver. Patient will be medically optimized. At this time he is considered a high risk surgical candidate. FEV1 of 0.72 which is 24% of predicted value. Patient is status post PCI to the LAD and left pain and continues on aspirin, brilinta and eliquis Patient has been transitioned to oral prednisone Continue IV ferrlecit Continue oxygen support Monitor renal function The impression and plan of care has been dictated by Ning Young, Nurse Practitioner as directed. Dr. Kings MD I have performed a history and physical examination and medical decision making of this patient, discussed the same with the dictator, and agree with the dictators assessment and plan as written, documented as a scribe. Based on total visit time, I have performed more than 50% of this visit. Objective - Vital Signs Vital signs: Vital Signs Temp 97.9 F 11/09/24 08:00 Pulse 99 11/09/24 09:00 Resp 14 11/09/24 09:00 BP 144/75 11/09/24 09:00 Pulse Ox 96 11/09/24 09:00 FiO2 24 11/05/24 08:00 Intake & Output 11/08/24 11/09/24 11/09/24 18:59 06:59 18:59 Intake Total 1220 1430 210 Output Total 1100 800 0 Balance 120 630 210 Weight 77.2 kg Intake: IV 920 1430 210 0.9 NACL 120 130 10 Sodium Chloride 0.9% 1, 700 1300 200 000 ml @ 100 mls/hr IV . Q10H [facility] Rx#:[id number] Sodium Ferric Gluconat- 100 Sucrose 125 mg In Sodium Chloride 0.9% 100 ml @ 100 mls/hr IVPB DAILY [facility] Rx#:[id number] Oral 300 Output: Urine 1100 800 0 Other: Voiding Method External Catheter External Catheter External Catheter - Labs CBC & Chem 7: 11/08/24 05:40 11/09/24 05:32 Labs: Abnormal Lab Results - Last 24 Hours (Table) 11/08/24 11/09/24 Range/Units 16:50 05:32 Potassium 3.4 L (3.5-5.1) mmol/L Carbon Dioxide 31 H (22-30) mmol/L BUN 24 H (9-20) mg/dL Creatinine 1.89 H (0.66-1.25) mg/dL Calcium 8.0 L (8.4-10.2) mg/dL Assessment and Plan Time with Patient: Less than 30
[2024-11-09] MEDS: ACETAMINOPHEN TAB 325 MG TAB PO PRN (18:52)
--- NOTE | 2024-11-10 06:12 | XR ---
EXAMINATION TYPE: XR chest 1V DATE OF EXAM: 11/10/2024 CLINICAL INDICATION: Male, 69 years old with history of CHF, progress study. TECHNIQUE: Single AP portable semiupright view of the chest is obtained. COMPARISON: Chest x-ray from 2 days earlier and older studies. FINDINGS: Persistent mild central vascular congestion. Cardiac silhouette size stable and within nor mal limits with atherosclerotic thoracic aorta. Elevated right hemidiaphragm noted. Osseous structure s are intact. IMPRESSION: Continued mild central vascular congestion/fluid overload state. [facility], , 11/10/2024 6:09 AM
[2024-11-10 06:14] LABS: African American GFR (CKD) 50 (>60 ml/min/1.73 sqM); Anion Gap 7 mmol/L; Blood Urea Nitrogen 22 mg/dL (9-20); Calcium 8.6 mg/dL (8.4-10.2); Carbon Dioxide 25 mmol/L (22-30); Chloride 105 mmol/L (98-107); Glucose 93 mg/dL (74-99); Non-African American GFR(CKD) 43 (>60 ml/min/1.73 sqM); Potassium 3.7 mmol/L (3.5-5.1); Sodium 137 mmol/L (137-145)
[2024-11-10] MEDS: METOPROLOL TARTRATE 25 MG TAB PO SCH ×2 (08:36→09:22)
[2024-11-10] MEDS ORDERED: METOPROLOL SUCCINATE (ER) 25 MG TAB.ER.24H PO SCH (09:00)
[2024-11-10] MEDS ORDERED: METOPROLOL TARTRATE 25 MG TAB PO SCH (09:15)
[2024-11-10] MEDS: predniSONE 20 MG TAB PO SCH (09:20)
[2024-11-10] MEDS: amLODIPine 10 MG TAB PO SCH (09:22)
[2024-11-10 10:50] VITALS: BMI 24.3
[2024-11-10] MEDS: hydrALAZINE HCL 25 MG TAB PO STA (10:53)
--- NOTE | 2024-11-10 10:59 | P.PN ---
Subjective Patient is seen in follow-up for acute kidney injury on chronic kidney disease. Renal function better. Nonoliguric. Currently off IV fluids and diuretics. Denies chest pain or shortness of breath. No active complaints. Vital signs are stable. General: No acute distress. HEENT: Head exam is unremarkable. On room air. LUNGS: No audible rhonchi or wheezes. HEART: Rate and Rhythm are regular. ABDOMEN: Nontender. EXTREMITITES: No edema. Objective - Vital Signs Vital signs: Vital Signs Temp 98.2 F 11/10/24 08:00 Pulse 96 11/10/24 08:00 Resp 18 11/10/24 08:00 BP 147/107 11/10/24 08:00 Pulse Ox 96 11/10/24 08:00 FiO2 24 11/05/24 08:00 Intake & Output 11/09/24 11/10/24 11/10/24 18:59 06:59 18:59 Intake Total 810 400 Output Total 900 Balance -90 400 Weight 72.4 kg 72.4 kg Intake: IV 310 0.9 NACL 10 Sodium Chloride 0.9% 1, 200 000 ml @ 100 mls/hr IV . Q10H [facility] Rx#:[id number] Sodium Ferric Gluconat- 100 Sucrose 125 mg In Sodium Chloride 0.9% 100 ml @ 100 mls/hr IVPB DAILY [facility] Rx#:[id number] Oral 500 400 Output: Urine 900 Other: Voiding Method External Catheter Toilet # Voids 1 - Labs CBC & Chem 7: 11/08/24 05:40 11/10/24 05:17 Labs: Abnormal Lab Results - Last 24 Hours (Table) 11/10/24 Range/Units 05:17 BUN 22 H (9-20) mg/dL Creatinine 1.59 H (0.66-1.25) mg/dL Assessment and Plan Plan: Assessment: 1. Acute kidney injury secondary to ATN. Renal function better. Creatinine 1. 59 today. UA with 2+ protein. No proteinuria noted in July 2024. This will be repeated outpatient. No hydronephrosis noted on kidney ultrasound. 2. Chronic kidney disease stage IIIb with baseline creatinine near 2 secondary to nephrosclerosis. 3. Coronary artery disease status post cardiac catheterization with stents placed this admission. 4. Ischemic cardiomyopathy ejection fraction of 35 to 40% this admission. 5. Hypertension with chronic kidney disease. 6. Mild volume overload. Plan: Resume low-dose Lasix. Maintain SGLT2 inhibitor. Avoid nephrotoxins.
--- NOTE | 2024-11-10 11:27 | PN ---
PROGRESS NOTE SUBJECTIVE: Jay is a 69-year-old gentleman, who was admitted to hospital with non ST-segment elevation [place], underwent angioplasty with stent placement of left main coronary artery as the patient is thought not to be a candidate for surgical revascularization. His post angioplasty course was complicated by bradycardia, requiring temporary transvenous pacemaker, had been seen by an cash grain farmer who did not think he needed a permanent pacemaker. This morning, the patient remains in atrial fibrillation with elevated heart rate around 90 to 100 beats per minute. I am going to start him back on metoprolol at 25 b.i.d. and continue Eliquis, aspirin, and Brilinta that he is on. He is free of chest pain. PHYSICAL EXAMINATION: VITAL SIGNS: On exam, heart rate is 96 beats per minute. Blood pressure is 147/107, respiratory rate is 18. CHEST: Reveals good air entry bilaterally. HEART: Reveals first and second heart sounds. No gallop. EXTREMITIES: Did not reveal any edema. Peripheral pulses are felt. LABORATORY DATA: Labs show that the BUN is 22, creatinine is 1.5. ASSESSMENT: 1. Coronary artery disease, status post left main stenting. 2. Ischemic cardiomyopathy. 3. Uncontrolled hypertension. PLAN: I will increase the dose of hydralazine to 75 mg t.i.d. and start him on metoprolol. MMODL / IJN: [id number] /
[2024-11-10] MEDS: amLODIPine 5 MG TAB PO ONE (12:11)
[2024-11-10] MEDS: FUROSEMIDE 20 MG TAB PO SCH (12:11)
--- NOTE | 2024-11-10 15:00 | P.PN ---
Subjective Progress Note Date: 11/10/24 Coronary artery disease. Patient is a 69-year-old male with past medical history significant for seasonal allergies, asthma, hypertension, hyperlipidemia, atrial fibrillation anticoagulated on Eliquis, coronary artery disease with previous PCI/stents, heart failure, CKD stage IIIb. Lifelong non-smoker. Patient actually admitted to the hospital back on 10/30/2024. Chief complaints generalized weakness, lower extremity swelling, nausea and vomiting. Unable to take his blood pressure medication and endorses high blood pressures. No reported chest pain. Workup in the ED including serial troponins that were elevated. Echocardiogram showing moderately impaired left ventricular systolic function, with an EF of 35 to 40%, as well as mild mitral and tricuspid regurgitation with mild pulmonary hypertension. Heart catheterization showed significant stenosis involving the left main and focal 70% LAD stenosis. Chronic occlusion of the right RCA with [id number] collaterals. LVEDP 12 to 14 mmHg. Cardiothoracic surgical consult was placed for possible surgical revascularization. A pulmonary consult was placed for preoperative pulmonary clearance. Did undergo bedside spirometry with a FEV1/FVC ratio 52%. FVC 1.38 L or 35% of predicted. FEV1 of 0.72 L or 24% of predicted. Consistent with mixed obstruction and restriction. Denies any known history of COPD. lifelong non-smoker. He does have asthma, but does not routinely use any inhalers. Occasional albuterol inhaler use when sick. No recent hospitalizations for asthma exacerbation. Denies any recent pulmonary infections. Denies fevers. Denies any wheezing, chest tightness, cough. Asthma not exacerbation. CT of the chest shows cardiomegaly with pulmonary vascular congestion and small bilateral pleural effusions and associated infiltrates or atelectasis. Scattered nodular opacities. Most recent labs from yesterday, CBC: WBC count 5.9, hemoglobin 10.7, platelets 165. CMP: Sodium 141, potassium 3.6, chloride 107, serum bicarb 19, BUN 14, creatinine 1.7, glucose 107. Patient currently being evaluated on the Cardiac observation unit. He is resting comfortably on 2 L/min nasal cannula. Becomes dyspneic with minimal activity, such as ambulating to the bathroom. Also, reports lower extremity swelling. States this started approximately 1 week ago. Currently on heparin infusion per protocol. Eliquis is on hold. Continues to undergo extensive preoperative workup. Progress note dated November 06, 2024. This is a 69-year-old male who was seen in consultation yesterday. Please see the note above. The patient was discovered recently to have significant coronary disease. He has a previous history of coronary disease, and had a previous stent placement. He also has a history of heart failure, and stage IIIb chronic kidney disease, among other things including hypertension, hyperlipidemia, atrial fibrillation, and chronic bronchial asthma. He is a lifelong non-smoker. His pulmonary function test came back showing an FEV1 that was 0.72 L which is only 24% of predicted. For that reason, there was no plans for bypass surgery. I did speak to Dr. Goode about this patient. In addition, his chest x-ray revealed some heart failure, and his BNP was elevated, and, the patient was placed on diuretics, and corticosteroids and bronchodilators. The patient is going to have an Impella protected left main stenting done today. Currently, the patient is seen in room 353. The patient is on IV heparin. He is getting saline at 20 cc an hour. He is on 2 L nasal cannula. Laboratory data includes a white count 4.7, hemoglobin 10.6, hematocrit 33.4, and a platelet count of 189,000. PTT is 32.3. A blood gas yesterday showed a pO2 of 73, pCO2 35, and a pH of 7.39. That was on room air. No additional labs are noted from today. Chest x-ray was consistent with improving pulmonary vascular congestion/CHF. Progress note dated November 07, 2024. This is a 69-year-old male with a history of significant coronary disease. The patient initially was thought to be a candidate for bypass surgery, but given his poor lung function, instead, he had Impella protected stenting of his left main coronary artery, and his LAD. This was done yesterday. He is back in the intensive care unit, room 253. He is on 2 L nasal cannula. He is getting saline at KVO. His Solu-Medrol will be converted to prednisone, 30 mg a day. Clinically, he appears to be well. Sodium 137, potassium 3.5, chlorides 101, CO2 28, anion gap 8, BUN 24, creatinine 1.84. Glucose is 135. Calcium is 8.7. No chest x-ray today. Progress note dated November 08, 2024. 69-year-old male seen today in room 253. The patient is resting comfortably in bed. He is awake and alert. He is currently on 2 L of oxygen. He is getting saline at 10 cc an hour. He has a temporary venous pacemaker, in the right groin. He is apparently scheduled for an AICD device, tomorrow, November 09. The patient did have a Impella protected stent, of his left main coronary artery, in his LAD, a few days back. Current labs include a white count 10, hemoglobin 10.8, hematocrit 35.2, and a platelet count of 196,000. Sodium 136, potassium 3.1, chloride 79, CO2 29, BUN 30, creatinine 2.14. Glucose is 115. Calcium 8.3, magnesium 2.1. Chest x-ray shows cardiomegaly, and mild pulmonary vascular congestion, with small bilateral pleural effusions. On 11/09/2024, seen the patient for a follow-up in the intensive care unit. The patient is calm and comfortable on 2 L of oxygen by nasal cannula. He is in atrial fibrillation with a controlled rate. He has a backup TVP at rate of 35. He is status post acute non-ST segment elevation myocardial infarction. Underwent cardiac catheterization Impella protected and he had stenting to the left main and LAD. He is supposed to undergo an AICD/pacemaker insertion in addition. He is known to have severe cardiomyopathy with an ejection fraction of 35 to 40%. He has also chronic kidney disease. He also has advanced COPD with an FEV1 of 24% of predicted. WBC count of 10, hemoglobin 10.8 and platelet count of 196. Creatinine is at 1.89 with a BUN of 24 and a sodium levels at 139 and a potassium level of 3.5. He is currently on Brilinta. He is on anticoagulation with Eliquis 5 mg p.o. twice a day. He is on Farxiga 10 mg p.o. daily, Imdur 30 mg p.o. daily, and Norvasc 5 mg p.o. daily. He is also on aspirin. In terms of his COPD, the patient is on Symbicort, DuoNeb treatments [id number] and is also completing a prednisone burst taper currently on 30 mg p.o. daily. Awake and alert and communicating. Digital Analytics Manager on the case. 11/10/2024, patient is being seen for a follow-up. The patient is currently comfortable on room air oxygen patient denies having any chest pain. It was n oted the patient's blood pressure was elevated overnight. Based on that and the patient was currently on metoprolol 25 mg p.o. twice daily. This should also help with rate control as the patient remains atrial fibrillation and is slightly tachycardic. No chest pain. No cough or sputum production. No chest tightness or wheezing. Remains on Symbicort. Remains on fentanyl treatment. Remains on a prednisone burst taper. Remains on a combination of aspirin and Brilinta. BUN is 22 with a creatinine of 1.59, improved compared to yesterday. Sodium levels at 137, potassium levels are 3.7. Serum bicarbonate 25. No other significant events overnight. Objective - Vital Signs Vital signs: Vital Signs Temp 98.2 F 11/10/24 08:00 Pulse 96 11/10/24 08:00 Resp 18 11/10/24 08:00 BP 147/107 11/10/24 08:00 Pulse Ox 96 11/10/24 08:00 FiO2 24 11/05/24 08:00 Intake & Output 11/09/24 11/10/24 11/10/24 18:59 06:59 18:59 Intake Total 810 400 Output Total 900 Balance -90 400 Weight 72.4 kg Intake: IV 310 0.9 NACL 10 Sodium Chloride 0.9% 1, 200 000 ml @ 100 mls/hr IV . Q10H [facility] Rx#:[id number] Sodium Ferric Gluconat- 100 Sucrose 125 mg In Sodium Chloride 0.9% 100 ml @ 100 mls/hr IVPB DAILY [facility] Rx#:[id number] Oral 500 400 Output: Urine 900 Other: Voiding Method External Catheter Toilet # Voids 1 - Exam No acute distress, oriented 3. Appears much more stable. Currently on room air oxygen HEENT examination is grossly unremarkable. Mucous membranes are moist. No oral lesions. Neck supple. Full range of motion. No adenopathy thyromegaly or neck vein distention. Cardiovascular examination reveals S1-S2 normal. No S3 or S4. No discernible murmur noted. The underlying rhythm is atrial fibrillation and the patient has developed some increased tachycardia Lungs reveal scattered bibasilar crackles. No wheezes. No rhonchi. Breath sounds diminished breath sound bilaterally and the patient has get expiratory wheezing throughout the lung belle. Abdomen soft bowel sounds are heard. No masses or tenderness. Extremities are intact. No cyanosis clubbing or edema. Transvenous pacemaker, noted in his right groin area. Skin is without rash or lesion. Neurologic examination is brief but nonfocal. - Labs CBC & Chem 7: 11/08/24 05:40 11/10/24 05:17 Labs: Abnormal Lab Results - Last 24 Hours (Table) 11/10/24 Range/Units 05:17 BUN 22 H (9-20) mg/dL Creatinine 1.59 H (0.66-1.25) mg/dL Assessment and Plan Plan: Acute Non-ST elevation RI, status post ,S/P Impella protected stenting of his left main coronary artery and LAD. The patient is postop day # 4. Possible AICD placement, awaiting final recommendations from cardiology. Coronary artery disease, History of previous percutaneous intervention and stenting to the RCA. Acute hypoxemic respiratory failure, currently on room air oxygen, CT of the chest shows cardiomegaly with pulmonary vascular congestion and small bilateral pleural effusions and associated infiltrates or atelectasis. Scattered nodular opacities. History ischemic cardiomyopathy, echocardiogram from this admission showing a moderately impaired left ventricular ejection fraction of 35 to 40%, with segmental wall motion abnormality; as well as, mild mitral and tricuspid regurgitation with mild pulmonary hypertension. Chronic atrial fibrillation, slightly tachycardic Hypertension, blood pressure is elevated Hyperlipidemia. Chronic kidney disease stage IIIb. A component of acute kidney injury was also noted and the patient's creatinine is improving Anemia of chronic disease. COPD, FEV1 is in order of 0.72 L which is 24% of predicted Seasonal allergies. Lifelong non-smoker. Plan: Patient remains stable on room air oxygen Continue Symbicort Continue [facility] Prednisone burst taper currently on 30 mg p.o. daily and this will be tapered down to 20 mg p.o. daily. Continue aspirin and Brilinta anticoagulation with Eliquis Continue Norvasc, increase dose to 10 mg p.o. daily Start metoprolol 25 mg p.o. twice a day Continue Imdur Continue Farxiga monitor renal function Possible AICD. This will be discussed with cardiology. Not a candidate for coronary to bypass surgery Continue to follow. Evaluation was done 33 minutes. Time with Patient: Greater than 30
[2024-11-10] MEDS: hydrALAZINE HCL 25 MG TAB PO SCH (17:22)
[2024-11-11 04:09] VITALS: TEMP 97.7
[2024-11-11 05:40] LABS: Basophils % (A) 0 %; Eosinophils # (A) 0.1 k/uL (0-0.7); Eosinophils % (A) 1 %; HCT 38.3 % (39.0-53.0); HGB 11.7 gm/dL (13.0-17.5); Lymphocytes # (A) 0.8 k/uL (1.0-4.8); Lymphocytes % (A) 10 %; MCH 28.1 pg (25.0-35.0); MCHC 30.5 g/dL (31.0-37.0); Mean Platelet Volume 10.3; Monocytes # (A) 0.3 k/uL (0-1.0); Monocytes % (A) 4 %; Neutrophils # (A) 6.2 k/uL (1.3-7.7); Neutrophils % (A) 83 %; Platelet Count 202 k/uL (150-450); RBC 4.17 m/uL (4.30-5.90); RDW 14.6 % (11.5-15.5); WBC 7.5 k/uL (3.8-10.6)
[2024-11-11 05:47] LABS: African American GFR (CKD) 48 (>60 ml/min/1.73 sqM); Anion Gap 7 mmol/L; Blood Urea Nitrogen 22 mg/dL (9-20); Calcium 8.6 mg/dL (8.4-10.2); Carbon Dioxide 25 mmol/L (22-30); Chloride 101 mmol/L (98-107); Glucose 106 mg/dL (74-99); Magnesium 2.3 mg/dL (1.6-2.3); Non-African American GFR(CKD) 42 (>60 ml/min/1.73 sqM); Potassium 3.5 mmol/L (3.5-5.1); Sodium 133 mmol/L (137-145)
[2024-11-11] MEDS ORDERED: Potassium Replacement Protocol 1 EACH MISC MISCELLANE PRN (06:00)
[2024-11-11] MEDS: POTASSIUM CHLORIDE ER 20 MEQ TAB.ER PO SCH (06:14)
--- NOTE | 2024-11-11 06:59 | P.PN ---
Subjective Progress Note Date: 11/10/24 Patient is evaluated today sitting up in the chair. Patient reports significant nausea vomiting. Additionally he reports feeling shortness of breath with exertion states that he is unable to walk from the chair to the restroom without having to stop and catch his breath. Patient reports chest pressure which has been increasing in intensity and states that he cannot wait until his outpatient evaluation. Echocardiogram from July 2024 reveals an EF of 40 to 45% with hypokinetic basal to mid inferior wall with mild biatrial dilatation. Mild MR. He was admitted with hypertensive urgency and renal dysfunction. His creatinine is better at 1.67. His blood pressure is now 140/80. 11/03/2024 Patient continues to report intermittent chest pressures. His troponin came back significantly elevated at 0.097, 0.083, 0.100. He has been started on IV heparin and cardiology has ordered a cardiac catheterization for tomorrow. BUN is 16, creatinine is 1.77. Sodium is 138. Chest xray this AM reveals no acute findings. Patient is afebrile, heart rate 67, blood pressure 177/95. 95% on room air. 11/04/2024 Patient is evaluated in follow-up in the medical floor. He continues to report intermittent chest discomfort. He is not significantly short of breath although is still having some exertional dyspnea. He reports patient underwent cardiac catheterization which revealed disease of the LAD and left main and cardiothoracic surgery was consulted for evaluation and workup for open heart. His labs today reveal a white blood cell count of 5.9, hemoglobin 10.7, sodium of 141, BUN of 13.9 creatinine of 1.7, calcium 8.6. Pressure remains elevated at 162/76. 11/05/2024 Evaluated in follow-up in the medical floor. He is currently undergoing cardiothoracic evaluation for coronary artery bypass grafting. He was evaluated pulmonology and was felt to be high risk at this time for surgery due to his decreased lung function. He has been started on IV Solu-Medrol 60 mg every 6 hours. Additionally patient remains on IV heparin drip. He is receiving IV iron infusions. Did have a chest CT completed which reveals moderate aortic arch calcifications no evidence for aneurysm. There is cardiomegaly with pulmonary vascular congestion and small amount of bilateral pleural effusions. Correlate for congestive heart failure. Given some patchy airspace opacities correlate for a superimposed infection. There is scheduled nodule like opacities of the lungs. Short-term follow-up in 3 months recommended to evaluate the lungs without any acute findings. There is moderate coronary artery atherosclerosis. Labs today reveal a white blood cell count of 6.1, hemoglobin 10.9, sodium of 137 potassium 3.6, BUN of 14 creatinine of 1.66, proBNP was significantly elevated at 16,200. His urinalysis was negative for infection. Patient has been started on IV Lasix 40 mg every 12 hours. 11/06/2024 Patient evaluated today in follow up. He remains on IV heparin. [place] to be high risk for CABG and cardiology is planning on stenting patients left main and LAD. Remains on IV lasix 40 mg q12 hour. Reports significant improvement in his shortness of breath and overall feeling better since admission. Creatinine today 1.8. 11/09/2024 Patient evaluated today in follow up in the ICU. Status post cardiac catheterization with PCI to the LAD and left pain. He has no complaints of chest pain and he is no reporting any significant shortness of breath. He remains on IV iron infusions daily. Patient had a renal ultrasound today with no evidence of hydronephrosis, no nephrolisthiasis, no masses are identified. The urinary bladder is anechoic. 11/10/2024 Patient evaluated today in the ICU resting in bed. No acute complaints overnight. Chest xray reveals continued mild central venous congestion and fluid overload state. B22, creatinine 1.59. Review of Systems Constitutional: Denied any fatigue denied any fever. Cardio vascular: Intermittent midsternal chest discomfort, palpitations Gastrointestinal: denied any nausea, vomiting, diarrhea Pulmonary: Reports shortness of breath no cough Neurologic denied any new focal deficits All inpatient medications were reviewed and appropriate changes in these medications as dictated in the interval history and assessment and plan. PHYSICAL EXAMINATION: GENERAL: The patient is alert and oriented x3, not in any acute distress. Well developed, well nourished. Pale. On oxygen. HEENT: Pupils are round and equally reacting to light. EOMI. No scleral icterus. No conjunctival pallor. Normocephalic, atraumatic. No pharyngeal erythema. No thyromegaly. CARDIOVASCULAR: S1 and S2 present. No murmurs, rubs, or gallops. PULMONARY: Chest is clear to auscultation, no wheezing or crackles. Diminished ABDOMEN: Soft, nontender, nondistended, normoactive bowel sounds. No palpable organomegaly. MUSCULOSKELETAL: No joint swelling or deformity. EXTREMITIES: No cyanosis, clubbing, or pedal edema. NEUROLOGICAL: Gross neurological examination did not reveal any focal deficits. SKIN: No rashes. Assessment and plan Chest pain and troponin elevation due to NSTEMI Multivessel coronary artery disease with left main disease found on cardiac catheterization felt high risk for CABG Nausea with vomiting on admission. Acute on chronic kidney disease Acute hypoxemic respiratory failure CKD stage IV Carotid artery stenosis with moderate stenosis of the left carotid bifurcation 50 to 69%, less than 50% stenosis of the carotid bifurcation on the right History of paroxysmal atrial fibrillation anticoag with Eliquis History of ischemic cardiomyopathy with decreased EF 35-40%. Exertional dyspnea History of coronary artery disease with prior PCI in 2010 and 2004 Hypertension with urgency Hyperlipidemia Chronic pain and peripheral neuropathy Gastroesophageal reflux disease GI prophylaxis Full code Plan Multiple consultations following including cardiothoracic surgery, nephrology, cardiology, pulmonology ent surgeon. Patient will be medically optimized. At this time he is considered a high risk surgical candidate. FEV1 of 0.72 which is 24% of predicted value. Patient is status post PCI to the LAD and left pain and continues on aspirin, brilinta and eliquis Patient is currently on a combination oral metoprolol, lisinopril, norvasc, hy dralazine Patient has been transitioned to oral prednisone Lasix 20 mg daily has been added Continue IV ferrlecit Continue oxygen support Monitor renal function The impression and plan of care has been dictated by Ning Yougn, Nurse Practitioner as directed. Dr. Kings MD I have performed a history and physical examination and medical decision making of this patient, discussed the same with the dictator, and agree with the dictators assessment and plan as written, documented as a scribe. Based on total visit time, I have performed more than 50% of this visit. Objective - Vital Signs Vital signs: Vital Signs Temp 97.7 F 11/11/24 04:00 Pulse 86 11/11/24 04:00 Resp 21 11/11/24 04:00 BP 140/88 11/11/24 04:00 Pulse Ox 97 11/11/24 04:00 FiO2 24 11/05/24 08:00 Intake & Output 11/10/24 11/10/24 11/11/24 06:59 18:59 06:59 Intake Total 400 960 Balance 400 960 Weight 72.4 kg 72.4 kg 70 kg Intake: Oral 400 960 Other: Voiding Method Toilet Toilet # Voids 1 3 3 - Labs CBC & Chem 7: 11/11/24 05:07 11/11/24 05:07 Labs: Abnormal Lab Results - Last 24 Hours (Table) 11/11/24 11/11/24 Range/Units 05:07 05:07 RBC 4.17 L (4.30-5.90) m/uL Hgb 11.7 L (13.0-17.5) gm/dL Hct 38.3 L (39.0-53.0) % MCHC 30.5 L (31.0-37.0) g/dL Lymphocytes # 0.8 L (1.0-4.8) k/uL Sodium 133 L (137-145) mmol/L BUN 22 H (9-20) mg/dL Creatinine 1.63 H (0.66-1.25) mg/dL Glucose 106 H (74-99) mg/dL Assessment and Plan Time with Patient: Less than 30
--- NOTE | 2024-11-11 09:47 | P.PN ---
Subjective Patient is seen in follow-up for acute kidney injury on chronic kidney disease. Renal function stable. Nonoliguric. Denies chest pain or shortness of breath. No active complaints. Vital signs are stable. General: No acute distress. HEENT: Head exam is unremarkable. On room air. LUNGS: No audible rhonchi or wheezes. HEART: Rate and Rhythm are regular. ABDOMEN: Nontender. EXTREMITITES: No edema. Objective - Vital Signs Vital signs: Vital Signs Temp 97.7 F 11/11/24 04:00 Pulse 86 11/11/24 04:00 Resp 21 11/11/24 04:00 BP 140/88 11/11/24 04:00 Pulse Ox 97 11/11/24 04:00 FiO2 24 11/05/24 08:00 Intake & Output 11/10/24 11/11/24 11/11/24 18:59 06:59 18:59 Intake Total 960 Balance 960 Weight 72.4 kg 70 kg Intake: Oral 960 Other: Voiding Method Toilet # Voids 3 3 - Labs CBC & Chem 7: 11/11/24 05:07 11/11/24 05:07 Labs: Abnormal Lab Results - Last 24 Hours (Table) 11/11/24 11/11/24 Range/Units 05:07 05:07 RBC 4.17 L (4.30-5.90) m/uL Hgb 11.7 L (13.0-17.5) gm/dL Hct 38.3 L (39.0-53.0) % MCHC 30.5 L (31.0-37.0) g/dL Lymphocytes # 0.8 L (1.0-4.8) k/uL Sodium 133 L (137-145) mmol/L BUN 22 H (9-20) mg/dL Creatinine 1.63 H (0.66-1.25) mg/dL Glucose 106 H (74-99) mg/dL Assessment and Plan Plan: Assessment: 1. Acute kidney injury secondary to ATN. Renal function better. Creatinine stable at 1.63 today. UA with 2+ protein. No proteinuria noted in July 2024. This will be repeated outpatient. No hydronephrosis noted on kidney ultrasound. 2. Chronic kidney disease stage IIIb with baseline creatinine near 2 secondary to nephrosclerosis. 3. Coronary artery disease status post cardiac catheterization with stents placed this admission. 4. Ischemic cardiomyopathy ejection fraction of 35 to 40% this admission. 5. Hypertension with chronic kidney disease. 6. Mild volume overload. On Lasix. 7. Hypokalemia from diuresis. Replaced. Plan: Maintain Lasix. Maintain SGLT2 inhibitor. Avoid nephrotoxins.
--- NOTE | 2024-11-11 12:14 | PN ---
PROGRESS NOTE SUBJECTIVE: A 69-year-old gentleman who underwent left main stenting, has underlying atrial fibrillation and had episodes of bradycardia. He is doing well and is eager to go home. Blood pressure is well controlled. CURRENT MEDICATIONS: He is currently on: 1. Norvasc. 2. Eliquis. 3. Aspirin. 4. Apresoline. 5. Lopressor. 6. Brilinta. PHYSICAL EXAMINATION: GENERAL: On exam, comfortable at rest. VITAL SIGNS: Stable. NECK: There is no jugular venous distention. Carotid upstroke is normal. There is no bruit. CHEST: Reveals good air entry bilaterally. CARDIAC: Reveals first and second heart sounds. No gallop. EXTREMITIES: Did not reveal any edema. Peripheral pulses are felt. LABORATORY DATA: Labs show a hemoglobin of 11.7, platelet count is 202. Potassium is 3.5, creatinine is 1.6. ASSESSMENT: 1. Non ST-segment elevation myocardial infarction, status post catheterization and angioplasty of the left main coronary artery. 2. Persistent atrial fibrillation. 3. Hypertension. 4. Dyslipidemia. PLAN: The patient is doing well and we will continue current medications and stable for discharge. He has an ejection fraction of around 35% to 40%. MMODL / IJN: [id number] /
[2024-11-11 15:03] VITALS: PULSE 68; RESP 16
--- NOTE | 2024-11-11 16:05 | P.PN ---
Subjective Progress Note Date: 11/11/24 Coronary artery disease. Patient is a 69-year-old male with past medical history significant for seasonal allergies, asthma, hypertension, hyperlipidemia, atrial fibrillation anticoagulated on Eliquis, coronary artery disease with previous PCI/stents, heart failure, CKD stage IIIb. Lifelong non-smoker. Patient actually admitted to the hospital back on 10/30/2024. Chief complaints generalized weakness, lower extremity swelling, nausea and vomiting. Unable to take his blood pressure medication and endorses high blood pressures. No reported chest pain. Workup in the ED including serial troponins that were elevated. Echocardiogram showing moderately impaired left ventricular systolic function, with an EF of 35 to 40%, as well as mild mitral and tricuspid regurgitation with mild pulmonary hypertension. Heart catheterization showed significant stenosis involving the left main and focal 70% LAD stenosis. Chronic occlusion of the right RCA with [id number] collaterals. LVEDP 12 to 14 mmHg. Cardiothoracic surgical consult was placed for possible surgical revascularization. A pulmonary consult was placed for preoperative pulmonary clearance. Did undergo bedside spirometry with a FEV1/FVC ratio 52%. FVC 1.38 L or 35% of predicted. FEV1 of 0.72 L or 24% of predicted. Consistent with mixed obstruction and restriction. Denies any known history of COPD. lifelong non-smoker. He does have asthma, but does not routinely use any inhalers. Occasional albuterol inhaler use when sick. No recent hospitalizations for asthma exacerbation. Denies any recent pulmonary infections. Denies fevers. Denies any wheezing, chest tightness, cough. Asthma not exacerbation. CT of the chest shows cardiomegaly with pulmonary vascular congestion and small bilateral pleural effusions and associated infiltrates or atelectasis. Scattered nodular opacities. Most recent labs from yesterday, CBC: WBC count 5.9, hemoglobin 10.7, platelets 165. CMP: Sodium 141, potassium 3.6, chloride 107, serum bicarb 19, BUN 14, creatinine 1.7, glucose 107. Patient currently being evaluated on the Cardiac observation unit. He is resting comfortably on 2 L/min nasal cannula. Becomes dyspneic with minimal activity, such as ambulating to the bathroom. Also, reports lower extremity swelling. States this started approximately 1 week ago. Currently on heparin infusion per protocol. Eliquis is on hold. Continues to undergo extensive preoperative workup. Progress note dated November 06, 2024. This is a 69-year-old male who was seen in consultation yesterday. Please see the note above. The patient was discovered recently to have significant coronary disease. He has a previous history of coronary disease, and had a previous stent placement. He also has a history of heart failure, and stage IIIb chronic kidney disease, among other things including hypertension, hyperlipidemia, atrial fibrillation, and chronic bronchial asthma. He is a lifelong non-smoker. His pulmonary function test came back showing an FEV1 that was 0.72 L which is only 24% of predicted. For that reason, there was no plans for bypass surgery. I did speak to Dr. Goode about this patient. In addition, his chest x-ray revealed some heart failure, and his BNP was elevated, and, the patient was placed on diuretics, and corticosteroids and bronchodilators. The patient is going to have an Impella protected left main stenting done today. Currently, the patient is seen in room 353. The patient is on IV heparin. He is getting saline at 20 cc an hour. He is on 2 L nasal cannula. Laboratory data includes a white count 4.7, hemoglobin 10.6, hematocrit 33.4, and a platelet count of 189,000. PTT is 32.3. A blood gas yesterday showed a pO2 of 73, pCO2 35, and a pH of 7.39. That was on room air. No additional labs are noted from today. Chest x-ray was consistent with improving pulmonary vascular congestion/CHF. Progress note dated November 07, 2024. This is a 69-year-old male with a history of significant coronary disease. The patient initially was thought to be a candidate for bypass surgery, but given his poor lung function, instead, he had Impella protected stenting of his left main coronary artery, and his LAD. This was done yesterday. He is back in the intensive care unit, room 253. He is on 2 L nasal cannula. He is getting saline at KVO. His Solu-Medrol will be converted to prednisone, 30 mg a day. Clinically, he appears to be well. Sodium 137, potassium 3.5, chlorides 101, CO2 28, anion gap 8, BUN 24, creatinine 1.84. Glucose is 135. Calcium is 8.7. No chest x-ray today. Progress note dated November 08, 2024. 69-year-old male seen today in room 253. The patient is resting comfortably in bed. He is awake and alert. He is currently on 2 L of oxygen. He is getting saline at 10 cc an hour. He has a temporary venous pacemaker, in the right groin. He is apparently scheduled for an AICD device, tomorrow, November 09. The patient did have a Impella protected stent, of his left main coronary artery, in his LAD, a few days back. Current labs include a white count 10, hemoglobin 10.8, hematocrit 35.2, and a platelet count of 196,000. Sodium 136, potassium 3.1, chloride 79, CO2 29, BUN 30, creatinine 2.14. Glucose is 115. Calcium 8.3, magnesium 2.1. Chest x-ray shows cardiomegaly, and mild pulmonary vascular congestion, with small bilateral pleural effusions. On 11/09/2024, seen the patient for a follow-up in the intensive care unit. The patient is calm and comfortable on 2 L of oxygen by nasal cannula. He is in atrial fibrillation with a controlled rate. He has a backup TVP at rate of 35. He is status post acute non-ST segment elevation myocardial infarction. Underwent cardiac catheterization Impella protected and he had stenting to the left main and LAD. He is supposed to undergo an AICD/pacemaker insertion in addition. He is known to have severe cardiomyopathy with an ejection fraction of 35 to 40%. He has also chronic kidney disease. He also has advanced COPD with an FEV1 of 24% of predicted. WBC count of 10, hemoglobin 10.8 and platelet count of 196. Creatinine is at 1.89 with a BUN of 24 and a sodium levels at 139 and a potassium level of 3.5. He is currently on Brilinta. He is on anticoagulation with Eliquis 5 mg p.o. twice a day. He is on Farxiga 10 mg p.o. daily, Imdur 30 mg p.o. daily, and Norvasc 5 mg p.o. daily. He is also on aspirin. In terms of his COPD, the patient is on Symbicort, DuoNeb treatments [id number] and is also completing a prednisone burst taper currently on 30 mg p.o. daily. Awake and alert and communicating. Academic Computing Director on the case. 11/10/2024, patient is being seen for a follow-up. The patient is currently comfortable on room air oxygen patient denies having any chest pain. It was n oted the patient's blood pressure was elevated overnight. Based on that and the patient was currently on metoprolol 25 mg p.o. twice daily. This should also help with rate control as the patient remains atrial fibrillation and is slightly tachycardic. No chest pain. No cough or sputum production. No chest tightness or wheezing. Remains on Symbicort. Remains on fentanyl treatment. Remains on a prednisone burst taper. Remains on a combination of aspirin and Brilinta. BUN is 22 with a creatinine of 1.59, improved compared to yesterday. Sodium levels at 137, potassium levels are 3.7. Serum bicarbonate 25. No other significant events overnight. On 11/11/2024, the patient is being seen for a follow-up. Free of any chest pain. No significant shortness of breath., Comfortable on room air oxygen. Remains in atrial fibrillation with a controlled rate and the patient is also on anticoagulants and the patient is currently on Eliquis 5 mg p.o. twice a day. Patient was also started on metoprolol 25 mg p.o. twice daily and his rate is under better control. Start on Lasix 20 mg p.o. daily. Blood pressure is under better control. He is currently on Zestril 10 mg p.o. daily Norvasc 10 mg p.o. daily. Labs from today show a hemoglobin of 11.7, white cell count is 7.5, BUN is 22 with a creatinine of 1.6, stable compared to yesterday. Potassium level is at 3.5. He is on bronchodilators. He is currently on a prednisone burst taper and is receiving 20 mg of prednisone. Objective - Vital Signs Vital signs: Vital Signs Temp 97.7 F 11/11/24 04:00 Pulse 86 11/11/24 04:00 Resp 21 11/11/24 04:00 BP 140/88 11/11/24 04:00 Pulse Ox 97 11/11/24 04:00 FiO2 24 11/05/24 08:00 Intake & Output 11/10/24 11/11/24 11/11/24 18:59 06:59 18:59 Intake Total 960 Balance 960 Weight 72.4 kg 70 kg Intake: Oral 960 Other: Voiding Method Toilet # Voids 3 3 - Exam No acute distress, oriented 3. Appears much more stable. Currently on room air oxygen HEENT examination is grossly unremarkable. Mucous membranes are moist. No oral lesions. Neck supple. Full range of motion. No adenopathy thyromegaly or neck vein distention. Cardiovascular examination reveals S1-S2 normal. No S3 or S4. No discernible murmur noted. The underlying rhythm is atrial fibrillation and the patient has developed some increased tachycardia Lungs reveal scattered bibasilar crackles. No wheezes. No rhonchi. Breath sounds diminished breath sound bilaterally and the patient has get expiratory wheezing throughout the lung belle. Abdomen soft bowel sounds are heard. No masses or tenderness. Extremities are intact. No cyanosis clubbing or edema. Transvenous pacemaker, noted in his right groin area. Skin is without rash or lesion. Neurologic examination is brief but nonfocal. - Labs CBC & Chem 7: 11/11/24 05:07 11/11/24 05:07 Labs: Abnormal Lab Results - Last 24 Hours (Table) 11/11/24 11/11/24 Range/Units 05:07 05:07 RBC 4.17 L (4.30-5.90) m/uL Hgb 11.7 L (13.0-17.5) gm/dL Hct 38.3 L (39.0-53.0) % MCHC 30.5 L (31.0-37.0) g/dL Lymphocytes # 0.8 L (1.0-4.8) k/uL Sodium 133 L (137-145) mmol/L BUN 22 H (9-20) mg/dL Creatinine 1.63 H (0.66-1.25) mg/dL Glucose 106 H (74-99) mg/dL Assessment and Plan Plan: Acute Non-ST elevation ME, status post ,S/P Impella protected stenting of his left main coronary artery and LAD. The patient is postop day # 5. No plans for AICD placement at this point. Coronary artery disease, History of previous percutaneous intervention and stenting to the RCA. Acute hypoxemic respiratory failure, currently on room air oxygen, CT of the chest shows cardiomegaly with pulmonary vascular congestion and small bilateral pleural effusions and associated infiltrates or atelectasis. Scattered nodular opacities. The patient is currently on room air oxygen. History ischemic cardiomyopathy, echocardiogram from this admission showing a moderately impaired left ventricular ejection fraction of 35 to 40%, with segmental wall motion abnormality; as well as, mild mitral and tricuspid regurgitation with mild pulmonary hypertension. Chronic atrial fibrillation, controlled rate and the patient is on a combination of metoprolol and Eliquis Hypertension, blood pressure control is improved and the patient is on lisinopril and Norvasc Hyperlipidemia. Chronic kidney disease stage IIIb. A component of acute kidney injury was also noted and the patient's creatinine is improving Anemia of chronic disease. COPD, FEV1 is in order of 0.72 L which is 24% of predicted Seasonal allergies. Lifelong non-smoker. Plan: Patient remains stable on room air oxygen Continue Symbicort Continue DuoNeb updrafts Prednisone 20 mg p.o. daily. Continue aspirin and Brilinta anticoagulation with Eliquis Continue Norvasc 10 mg p.o. daily metoprolol 25 mg p.o. twice a day Continue Imdur Continue Farxiga monitor renal function Possible AICD. This will be discussed with cardiology. Not a candidate for coronary to bypass surgery Continue to follow. Evaluation was done 33 minutes. Time with Patient: Greater than 30
[2024-11-11 18:28] VITALS: BP 110/77
--- NOTE | 2024-11-12 22:16 | P.DS ---
Providers Date of admission: 10/30/24 18:03 Attending physician: Kenia Lazar Consults: 11/02/24 14:09 Consult Physician Routine Consulting Provider: Wallace Flores Consult Reason/Comments: Chest Pressure Do you want consulting provider notified?: Yes 11/02/24 14:13 Consult Physician Routine Consulting Provider: Sim Mckinnon Consult Reason/Comments: CKD, hypertension sent from nephro office Do you want consulting provider notified?: Yes 11/04/24 12:28 Consult Physician Routine Consulting Provider: Mitchel Goode Consult Reason/Comments: CAD, eval for CABG Do you want consulting provider notified?: Yes 11/04/24 16:45 Consult Physician Routine Consulting Provider: Bishnu Dupree Consult Reason/Comments: preop CABG;FEV1 24% Do you want consulting provider notified?: Yes 11/06/24 16:29 Consult Physician Routine Consulting Provider: [facility] Consult Reason/Comments: Post Interventional patient Do you want consulting provider notified?: Already Contacted Primary care physician: Susan Armas Hospital Course: Final Diagnosis Chest pain and troponin elevation due to NSTEMI Multivessel coronary artery disease with left main disease found on cardiac catheterization felt high risk for CABG Status post PCI wtih stenting of the LAD and left main Nausea with vomiting on admission. Resolved Acute on chronic kidney disease Acute hypoxemic respiratory failure CKD stage IV Carotid artery stenosis with moderate stenosis of the left carotid bifurcation 50 to 69%, less than 50% stenosis of the carotid bifurcation on the right History of paroxysmal atrial fibrillation anticoag with Eliquis History of ischemic cardiomyopathy with decreased EF 35-40%. Exertional dyspnea History of coronary artery disease with prior PCI in 2010 and 2004 Hypertension with urgency Hyperlipidemia Chronic pain and peripheral neuropathy Gastroesophageal reflux disease Discharge Disposition Patient is stable for discharge home. He has been optimized on cardiac medications for the cardiomyopathy and coronary artery disease. He continues on eliquis. Has been started also on dual antiplatelt therapy with aspirin 81 mg daily and brilinta 90 mg twice daily. Patient to follow up with multiple consultations including cardiology, nephrology and pulmonology. All appointments are made prior to discharge. He has a follow up with his PCP Dr. Susan Armas on 11/13/24. Hospital Course 69-year-old male, history of hypertension, hyperlipidemia, coronary artery disease, GERD, osteoarthritis, states that he is been checking his blood pressure today and over the last 5 or 6 days his blood pressure was high. He states that his systolic got up to 200. States his blood pressure normally is around 130 systolic. Patient today has been having some nausea vomiting. States that he is unable to keep his medications down. Had a conversation with his turf manager told to come to the emergency department. Blood work reveals WBC 7.9, hemoglobin 11.6 and platelet count of 211, sodium 137, potassium 4.3, BUN/creatinine of 23/1.89 and blood glucose of 108, lactic acid of 1.0. Viral panel completed and is negative for influenza A, B, RSV and COVID-19 PCR. Patient was monitored and then had reports feeling shortness of breath with exertion states that he is unable to walk from the chair to the restroom without having to stop and catch his breath. Patient reports chest pressure which has been increasing in intensity and states that he cannot wait until his outpatient evaluation. His troponin came back significantly elevated at 0.097, 0.083, 0.100. He has been started on IV heparin and cardiology recommended cardiac catheterization. At this point the nausea and vomiting have improved, patient still requiring oxygen support. cardiac catheterization which revealed disease of the LAD and left main and cardiothoracic surgery was consulted for evaluation and workup for open heart. He was evaluated pulmonology and was felt to be high risk at this time for surgery due to his decreased lung function. He has been started on IV Solu-Medrol 60 mg every 6 hours. Additionally patient remains on IV heparin drip. He is receiving IV iron infusions. Did have a chest CT completed which reveals moderate aortic arch calcifications no evidence for aneurysm. There is cardiomegaly with pulmonary vascular congestion and small amount of bilateral pleural effusions. Correlate for congestive heart failure. Given some patchy airspace opacities correlate for a superimposed infection. There is scheduled nodule like opacities of the lungs. Short-term follow-up in 3 months recommended to evaluate the lungs without any acute findings. There is moderate coronary artery atherosclerosis. proBNP was significantly elevated at 16,200. His urinalysis was negative for infection. P atient has been started on IV Lasix 40 mg every 12 hours. Patient was moved to the ICU for close monitoring. He went to the laboratory courier and underwent successful stenting of the mid LAD and left main. He has no complaints of chest pain and he is no reporting any significant shortness of breath. Patient had a renal ultrasoundwith no evidence of hydronephrosis, no nephrolisthiasis, no masses are identified. The urinary bladder is anechoic. He has been weaned off oxygen support. Currently on dual antiplatelet therapy with aspirin brilinta and continues on eliquis. Patient has optimized on cardiac medications. Please see medication reconciliation for a list of current medications. Thank you for allowing us to participate in the care of this patient. The impression and plan of care has been dictated by Ning Young, Nurse Practitioner as directed. Dr. Kings MD I have performed a history and physical examination and medical decision making of this patient, discussed the same with the dictator, and agree with the dictators assessment and plan as written, documented as a scribe. Based on total visit time, I have performed more than 50% of this visit. Patient Condition at Discharge: Stable Plan - Discharge Summary Discharge Rx Participant: No New Discharge Prescriptions: New hydrALAZINE HCL [Apresoline] 75 mg PO TID 30 Days #180 tab Budesonide/Formoterol Fumarate [Breyna 160-4.5 Mcg Inhaler] 1 puff INHALATION BID #10.3 gm Dapagliflozin Propanediol [Farxiga] 10 mg PO DAILY #30 tab Atorvastatin [Lipitor] 80 mg PO HS #30 tab methylPREDNISolone Dose Pack [Medrol Dose Pack] 4 mg PO DIRECTED #21 tab amLODIPine [Norvasc] 10 mg PO DAILY #30 tab Ascorbic Acid [Vitamin C] 500 mg PO DAILY #30 tab Ticagrelor [Brilinta] 90 mg PO BID #60 tab Isosorbide Mononitrate ER [Imdur] 30 mg PO DAILY #30 tab Metoprolol Tartrate [Lopressor] 25 mg PO BID #60 tab Nitroglycerin Sl Tabs [Nitrostat] 0.4 mg SUBLINGUAL Q5M PRN #25 tab PRN Reason: Chest Pain Continue Montelukast [Singulair] 10 mg PO HS Baclofen [Lioresal] 10 mg PO QID Aspirin [Adult Low Dose Aspirin EC] 81 mg PO DAILY Apixaban [Eliquis] 5 mg PO BID Fluoride (Sodium) [Sodium Fluoride 5000 Plus] 1 applic DENTAL HS prednisoLONE ACETATE 1% OPHTH [Pred Forte 1%] 1 drops LEFT EYE Q6H Brinzolamide/Brimonidine Tart [Simbrinza 1%-0.2% Eye Drop] 1 drop LEFT EYE Q12H lisinopriL [Zestril] 10 mg PO DAILY #30 tab HYDROcodone/APAP 10-325MG [[place] 10-325] 1 tab PO Q6HR PRN PRN Reason: Pain Tamsulosin [Flomax] 0.4 mg PO DAILY Pantoprazole [Protonix] 40 mg PO DAILY Ezetimibe [Zetia] 10 mg PO DAILY QUEtiapine [SEROquel] 25 mg PO HS Ondansetron [Zofran] 4 mg PO TID PRN PRN Reason: Nausea And Vomiting Furosemide [Lasix] 20 mg PO DAILY ALPRAZolam [Xanax] 0.25 PO Q12HR Discontinued Metoprolol Tartrate [Lopressor] 75 mg PO BID Isosorbide Dinitrate [Monoket] 10 mg PO BID Enalapril [Vasotec] 2.5 mg PO DAILY Discharge Medication List Montelukast [Singulair] 10 mg PO HS 09/29/14 [History] Baclofen [Lioresal] 10 mg PO QID 05/10/21 [History] HYDROcodone/APAP 10-325MG [[place] 10-325] 1 tab PO Q6HR PRN 05/10/21 [History] Tamsulosin [Flomax] 0.4 mg PO DAILY 05/10/21 [History] Aspirin [Adult Low Dose Aspirin EC] 81 mg PO DAILY 06/19/21 [History] Pantoprazole [Protonix] 40 mg PO DAILY 06/19/21 [History] Apixaban [Eliquis] 5 mg PO BID 09/17/22 [History] Ezetimibe [Zetia] 10 mg PO DAILY 09/17/22 [History] Fluoride (Sodium) [Sodium Fluoride 5000 Plus] 1 applic DENTAL HS 01/22/24 [History] Furosemide [Lasix] 20 mg PO DAILY 01/22/24 [History] Ondansetron [Zofran] 4 mg PO TID PRN 01/22/24 [History] QUEtiapine [SEROquel] 25 mg PO HS 01/22/24 [History] Brinzolamide/Brimonidine Tart [Simbrinza 1%-0.2% Eye Drop] 1 drop LEFT EYE Q12H 07/23/24 [History] prednisoLONE ACETATE 1% OPHTH [Pred Forte 1%] 1 drops LEFT EYE Q6H 07/23/24 [History] lisinopriL [Zestril] 10 mg PO DAILY #30 tab 07/28/24 [Rx] ALPRAZolam [Xanax] 0.25 PO Q12HR 10/30/24 [History] Ascorbic Acid [Vitamin C] 500 mg PO DAILY #30 tab 11/11/24 [Rx] Atorvastatin [Lipitor] 80 mg PO HS #30 tab 11/11/24 [Rx] Budesonide/Formoterol Fumarate [Breyna 160-4.5 Mcg Inhaler] 1 puff INHALATION BID #10.3 gm 11/11/24 [Rx] Dapagliflozin Propanediol [Farxiga] 10 mg PO DAILY #30 tab 11/11/24 [Rx] Isosorbide Mononitrate ER [Imdur] 30 mg PO DAILY #30 tab 11/11/24 [Rx] Metoprolol Tartrate [Lopressor] 25 mg PO BID #60 tab 11/11/24 [Rx] Nitroglycerin Sl Tabs [Nitrostat] 0.4 mg SUBLINGUAL Q5M PRN #25 tab 11/11/24 [Rx] Ticagrelor [Brilinta] 90 mg PO BID #60 tab 11/11/24 [Rx] amLODIPine [Norvasc] 10 mg PO DAILY #30 tab 11/11/24 [Rx] hydrALAZINE HCL [Apresoline] 75 mg PO TID 30 Days #180 tab 11/11/24 [Rx] methylPREDNISolone Dose Pack [Medrol Dose Pack] 4 mg PO DIRECTED #21 tab 11/11/24 [Rx] Follow up Appointment(s)/Referral(s): Katarzyna Wise MD [STAFF PHYSICIAN] - 11/18/24 10:00 am (With Adia Churchill) Una Rutledge,Home Care [NON-STAFF] - As Needed Bishnu Dupree DO [Doctor of Osteopathic Medicine] - 11/18/24 2:00 pm Sim Mckinnon DO [STAFF PHYSICIAN] - 12/04/24 2:00 pm (Pt's current appointment is the soonest the office can get him in to see DRILL PRESS OPERATOR. Please keep this appointment date.) Susan Armas DO [Primary Care Provider] - 11/13/24 1:30 pm (With Ana.) Patient Instructions/Handouts: *Surgery [facility] - After Heart Catheterization - Glaze Carrier Instructions, Gastritis (DC) Discharge Disposition: HOME SELF-CARE
--- NOTE | 2024-11-17 12:18 | CDI ---
Documentation Clarification Form Date: 11/17/2024 From: Bridget [email or web address] Email: [email or web address] Admit Date: 10/30/2024 06:03:00 PM Patient Name: Jay Becerra Visit Number: [id number] Discharge Date: 11/11/2024 06:40:00 PM ATTENTION: The Clinical Documentation Specialists (CDI) and [facility] Coding Staff appreciate your assistance in clarifying documentation. Please respond to the clarification below the line at the bottom and electronically sign. The CDI & [facility] Coding staff will review the response and follow-up if needed. Please note: Queries are made part of the Legal Health Record. If you have any questions, please contact the author of this message via ITS. Dr. Sim Mckinnon, Acute kidney injury secondary to ATN is documented in your Progress Note on 11/11/2024 - which may lack sufficient clinical evidence/support in the medical record. Additional clarification is requested. Patient history/risk factors: 69-year-old male presented to [facility] ED for evaluation due to a high blood pressure reading at home and nausea with vomiting. PMH: Stage 3b chronic kidney disease, hypertension, coronary artery disease, hyperlipidemia Clinical Indicators: Nephrology Progress Note (11/11/2024): o Chronic kidney disease stage IIIb with baseline creatinine near 2 secondary to nephrosclerosis o Acute kidney injury secondary to ATN. Renal function better. Creatinine stable at 1.63 today. UA with 2+ protein. No proteinuria noted in July 2024. This will be repeated outpatient. No hydronephrosis noted on kidney ultrasound Discharge Summary Report (11/11/2024): Acute on chronic kidney disease; CKD stage IV Renal Ultrasound (11/09/2024): There is no evidence of hydronephrosis at this point in time. No nephrolithiasis is seen. No masses are identified. The urinary bladder is anechoic Lab Trends: 10/30/2024 10/31/2024 11/02/2024 11/03/2024 11/07/2024 11/08/2024 11/09/2024 11/10/2024 11/11/2024 Creatinine 1.89 1.94 1.67 1.77 1.87 2.14 1.89 1.59 1.63 BUN 23 20 17 16 24 30 24 22 22 GFR 35 34 41 38 36 30 35 43 42 Treatment: Nephrology Consultation Pertinent Labs Monitored with Trend Renal Ultrasound 0.9% Sodium Chloride IV Bolus x 1 Liter 0.9% Sodium Chloride IV Infusion @ 130mL/hr. 5% Dextrose 0.45% Sodium Chloride IV Infusion @ 75mL/hr. After work up and study, please which diagnosis is most appropriate? [ ] Acute kidney injury has been ruled out. Stage 3b chronic kidney disease, stable. [x ] Acute kidney injury secondary to ATN (on stage 3b chronic kidney disease) is a valid diagnosis as evidenced by the following: [ ] Unable to determine [ ] Other, please specify Reference: KDIGO SONYA Criteria An increase in serum creatinine by greater than or equal to 0.3 mg/dL within 48 hours; or An increase in serum creatinine by greater than or equal to 1.5 times baseline, which is known or presumed to have occurred within the prior 7 days; or A urine volume less than 0.5 ml/kg/h for 6 hours. When the baseline is unknown the lowest creatinine during admission assumed to be baseline Reference: National Kidney Foundation Stage 1 eGFR = 90 and kidney damage for =3 months Stage 2 eGFR 60-89 and kidney damage for =3 months Stage 3a eGFR 45-59 and kidney damage for =3 months Stage 3b eGFR 30-44 and kidney damage for =3 months Stage 4 eGFR 15-29 r and kidney damage for =3 months Stage 5 eGFR <15 and kidney damage for =3 months MTDD
--- NOTE | 2024-11-17 13:08 | CDI ---
Documentation Clarification Form Date: 11/17/2024 From: Bridget [email or web address] Email: [email or web address] Admit Date: 10/30/2024 06:03:00 PM Patient Name: Jay Becerra Visit Number: [id number] Discharge Date: 11/11/2024 06:40:00 PM ATTENTION: The Clinical Documentation Specialists (CDI) and [facility] Coding Staff appreciate your assistance in clarifying documentation. Please respond to the clarification below the line at the bottom and electronically sign. The CDI & [facility] Coding staff will review the response and follow-up if needed. Please note: Queries are made part of the Legal Health Record. If you have any questions, please contact the author of this message via ITS. Dr. Anand Ku, Acute hypoxic respiratory failure is documented in the Discharge Summary Report on 11/11/2024 - which may lack sufficient clinical evidence/support in the medical record. Additional clarification is requested. Patient history/risk factors: 69-year-old male presented to [facility] ED for evaluation due to a high blood pressure reading at home and nausea with vomiting. PMH: Asthma, stage 3b chronic kidney disease, hypertension, coronary artery disease, hyperlipidemia Clinical Indicators: Supplemental Oxygen Requirement this Admission: 2 liters via nasal cannula Oxygenation Trend: 10/30/2024 10/30/2024 -11/03/2024 11/04/2024 11/04/2024 11/09/2024 11/10/2024 Respiratory Rate 18 - 20 ->16 - 18 SpO2 % 98% - 94% -> 96% 91% - 98% 98% O2 Flow Rate/Delivery Room Air Room Air Room Air -> 2L NC 2L NC Room Air Pulmonary Consult Note (11/05/2024): * A pulmonary consult was placed for preoperative pulmonary clearance. Did undergo bedside spirometry with a FEV1/FVC ratio 52%. FVC 1.38 L or 35% of predicted. FEV1 of 0.72 L or 24% of predicted. Consistent with mixed obstruction and restriction * Denies any known history of COPD. Lifelong non-smoker. He does have asthma, but does not routinely use any inhalers. Occasional albuterol inhaler use when sick. No recent hospitalizations for asthma exacerbation. Denies any recent pulmonary infections. Denies fevers. Denies any wheezing, chest tightness, cough. Asthma not in exacerbation * CT of the chest shows cardiomegaly with pulmonary vascular congestion and small bilateral pleural effusions and associated infiltrates or atelectasis. Scattered nodular opacities * He is resting comfortably on 2 L/min nasal cannula. Becomes dyspneic with minimal activity, such as ambulating to the bathroom. Also, reports lower extremity swelling * Lungs: Equal air entry with diminished bibasilar lung sounds. No wheezes, rhonchi, crackles. On 2 L/min nasal cannula. No conversational dyspnea or accessory muscle use while at rest * Acute hypoxemic respiratory failure, currently on 2 L/min nasal cannula Treatment: Pulmonary Consultation Supplemental Oxygen (2 Liters via Nasal Cannula) Pulmonary Function Test Albuterol Nebulized Inhalation Treatments Every 4 Hours as Needed After work up and study, please clarify which diagnosis is most appropriate? [ x] Respiratory failure has been ruled out. The patient had respiratory insufficiency. [ ] Acute hypoxic respiratory failure is a valid diagnosis as evidenced by the following: [ ] Unable to determine [ ] Other, please specify MTDD
== END 2024-11-11 18:40 | disposition home or self-care (01) | DRG 216 ==
LOC: EC 16:20 → 6NMEDSUR 18:02 → OBSVTOIN 18:03 → 6NMEDSUR 19:36 → 3SCARD 11-05 22:07 → 2SICU 11-06 16:03
PROVIDERS: ADMIT Hospitalist; ATTEND Hospitalist
PROC: B2111ZZ Fluoroscopy of Multiple Coronary Arteries using Low Osmolar Contrast (ICD-10-PCS; 2024-11-04)
PROC: 4A023N7 Measurement of Cardiac Sampling and Pressure, Left Heart, Percutaneous Approach (ICD-10-PCS; 2024-11-04)
PROC: 5A0221D Assistance with Cardiac Output using Impeller Pump, Continuous (ICD-10-PCS; principal; 2024-11-06 10:30)
PROC: 02HA3RJ Insertion of Short-term External Heart Assist System into Heart, Intraoperative, Percutaneous Approach (ICD-10-PCS; principal; 2024-11-06 10:30)
PROC: B241ZZ3 Ultrasonography of Multiple Coronary Arteries, Intravascular (ICD-10-PCS; principal; 2024-11-06 10:30)
PROC: 027135Z Dilation of Coronary Artery, Two Arteries with Two Drug-eluting Intraluminal Devices, Percutaneous Approach (ICD-10-PCS; principal; 2024-11-06 10:30)
DX: I21.4 Non-ST elevation (NSTEMI) myocardial infarction (principal); N17.0 Acute kidney failure with tubular necrosis; I27.20 Pulmonary hypertension, unspecified; D63.1 Anemia in chronic kidney disease; I16.0 Hypertensive urgency; I13.0 Hypertensive heart and chronic kidney disease with heart failure and stage 1 through stage 4 chronic kidney disease, or unspecified chronic kidney disease; I48.19 Other persistent atrial fibrillation; I44.1 Atrioventricular block, second degree; G62.9 Polyneuropathy, unspecified; N18.4 Chronic kidney disease, stage 4 (severe); J44.89 Other specified chronic obstructive pulmonary disease; I08.1 Rheumatic disorders of both mitral and tricuspid valves; I65.22 Occlusion and stenosis of left carotid artery; J84.9 Interstitial pulmonary disease, unspecified; I50.9 Heart failure, unspecified; I25.5 Ischemic cardiomyopathy; I44.7 Left bundle-branch block, unspecified; G89.29 Other chronic pain; J45.20 Mild intermittent asthma, uncomplicated; D50.9 Iron deficiency anemia, unspecified; M51.369 Other intervertebral disc degeneration, lumbar region without mention of lumbar back pain or lower extremity pain; I25.10 Atherosclerotic heart disease of native coronary artery without angina pectoris; R91.8 Other nonspecific abnormal finding of lung field; I25.2 Old myocardial infarction; K21.9 Gastro-esophageal reflux disease without esophagitis; E78.5 Hyperlipidemia, unspecified; E87.6 Hypokalemia; T50.2X5A Adverse effect of carbonic-anhydrase inhibitors, benzothiadiazides and other diuretics, initial encounter; Z79.01 Long term (current) use of anticoagulants; Z79.82 Long term (current) use of aspirin; Z79.899 Other long term (current) drug therapy
CPT/HCPCS: 33210; 33990; 36415; 36600; 71045; 71046; 71250; 76770; 80048; 80053; 80061; 80074; 81001; 82565; 82805; 83036; 83540; 83550; 83605; 83735; 83880; 84132; 84443; 84484; 85025; 85027; 85610; 85730; 86850; 86900; 86901; 87070; 87636; 92978; 93005; 93306; 93458; 93880; 93970; 94150; 94640; 94760; 96361; 96374; 96376; 99285

== ENCOUNTER 2024-11-22 07:22 | Observation (INO) | payer MEDICARE, OTHER ==
[2024-11-22] MEDS: MECLIZINE 12.5 MG TAB PO STA (07:46)
--- NOTE | 2024-11-22 07:47 | ED ---
General Adult HPI - General Chief complaint: Dizziness Stated complaint: Dizziness,Neck pain Time Seen by Provider: 11/22/24 07:35 Source: patient, EMS, RN notes reviewed Mode of arrival: EMS Limitations: no limitations - History of Present Illness Initial comments: Patient is a 69-year-old male present to the emergency department with concerns with dizziness. Onset of symptoms was when he woke this morning. Patient feels like he is spinning. Patient states is difficult for him to get out. Patient has nausea but no vomiting. No weakness or confusion. No history of similar symptoms previously. Patient has been experiencing mid neck pain for the past several months. Patient states this is bothering him however no worse than it chronically has. - Related Data Home Medications Medication Instructions Recorded Confirmed Montelukast [Singulair] 10 mg PO HS 09/29/14 10/30/24 Baclofen [Lioresal] 10 mg PO QID 05/10/21 10/30/24 HYDROcodone/APAP 10-325MG [Rodeo 1 tab PO Q6HR PRN 05/10/21 10/30/24 10-325] Tamsulosin [Flomax] 0.4 mg PO DAILY 05/10/21 10/30/24 Aspirin [Adult Low Dose Aspirin EC] 81 mg PO DAILY 06/19/21 10/30/24 Pantoprazole [Protonix] 40 mg PO DAILY 06/19/21 10/30/24 Apixaban [Eliquis] 5 mg PO BID 09/17/22 10/30/24 Ezetimibe [Zetia] 10 mg PO DAILY 09/17/22 10/30/24 Fluoride (Sodium) [Sodium Fluoride 1 applic DENTAL HS 01/22/24 10/30/24 5000 Plus] Furosemide [Lasix] 20 mg PO DAILY 01/22/24 10/30/24 Ondansetron [Zofran] 4 mg PO TID PRN 01/22/24 10/30/24 QUEtiapine [SEROquel] 25 mg PO HS 01/22/24 10/30/24 Brinzolamide/Brimonidine Tart 1 drop LEFT EYE Q12H 07/23/24 11/04/24 [Simbrinza 1%-0.2% Eye Drop] prednisoLONE ACETATE 1% OPHTH 1 drops LEFT EYE Q6H 07/23/24 11/04/24 [Pred Forte 1%] ALPRAZolam [Xanax] 0.25 PO Q12HR 10/30/24 Previous Rx's Medication Instructions Recorded lisinopriL [Zestril] 10 mg PO DAILY #30 tab 07/28/24 Ascorbic Acid [Vitamin C] 500 mg PO DAILY #30 tab 11/11/24 Atorvastatin [Lipitor] 80 mg PO HS #30 tab 11/11/24 Budesonide/Formoterol Fumarate 1 puff INHALATION BID #10.3 gm 11/11/24 [Breyna 160-4.5 Mcg Inhaler] Dapagliflozin Propanediol [Farxiga] 10 mg PO DAILY #30 tab 11/11/24 Isosorbide Mononitrate ER [Imdur] 30 mg PO DAILY #30 tab 11/11/24 Metoprolol Tartrate [Lopressor] 25 mg PO BID #60 tab 11/11/24 Nitroglycerin Sl Tabs [Nitrostat] 0.4 mg SUBLINGUAL Q5M PRN #25 tab 11/11/24 Ticagrelor [Brilinta] 90 mg PO BID #60 tab 11/11/24 amLODIPine [Norvasc] 10 mg PO DAILY #30 tab 11/11/24 hydrALAZINE HCL [Apresoline] 75 mg PO TID 30 Days #180 tab 11/11/24 methylPREDNISolone Dose Pack 4 mg PO DIRECTED #21 tab 11/11/24 [Medrol Dose Pack] Allergies Allergy/AdvReac Type Severity Reaction Status Date / Time No Known Allergies Allergy Verified 11/22/24 07:29 Review of Systems ROS Statement: Those systems with pertinent positive or pertinent negative responses have been documented in the HPI. ROS Other: All systems not noted in ROS Statement are negative. Constitutional: Denies: fever Eyes: Denies: eye pain ENT: Denies: ear pain Respiratory: Denies: dyspnea Cardiovascular: Denies: chest pain Endocrine: Denies: fatigue Gastrointestinal: Reports: nausea. Denies: abdominal pain Neurological: Reports: headache, vertigo. Denies: weakness, confusion Past Medical History Past Medical History: Atrial Fibrillation, Coronary Artery Disease (CAD), Chest Pain / Angina, Heart Failure, GERD/Reflux, Hyperlipidemia, Hypertension, Myocardial Infarction (ME), Osteoarthritis (OA), Prostate Disorder, Renal Disease Additional Past Medical History / Comment(s): degenerative disc disease of the lumbar spine, chronic pain, neuropathy bilateral lower extremity, chronic bronchitis. CKD stage IIIb-IV Last Myocardial Infarction Date:: 2004 History of Any Multi-Drug Resistant Organisms: None Reported Past Surgical History: Cholecystectomy, Heart Catheterization With Stent, Hernia Repair, Orthopedic Surgery Additional Past Surgical History / Comment(s): carpal tunnal repair, cyst removed from the mouth, Left heart catheterization 2000 and 2004, right hernia repair, left arthroscopic knee surgery., pain clinic procedures. Past Anesthesia/Blood Transfusion Reactions: No Reported Reaction Date of Last Stent Placement:: 2004 Past Psychological History: No Psychological Hx Reported Smoking Status: Never smoker Past Alcohol Use History: None Reported Past Drug Use History: Marijuana - Past Family History Mother History Unknown: Yes Family Medical History: Cancer Additional Family Medical History / Comment(s): of old age Father History Unknown: Yes Family Medical History: Cancer Brother(s) Additional Family Medical History / Comment(s): Brother had open heart surgery x 3 related to valvular disease and postoperative infection General Exam Limitations: no limitations General appearance: alert, in no apparent distress Head exam: Present: atraumatic Eye exam: Present: normal appearance, PERRL, EOMI. Absent: nystagmus ENT exam: Present: normal exam Neck exam: Present: tenderness (Mild tenderness spinous process C4-C5 region) Respiratory exam: Present: normal lung sounds bilaterally Cardiovascular Exam: Present: regular rate, normal rhythm GI/Abdominal exam: Present: soft. Absent: tenderness Extremities exam: Present: normal inspection. Absent: pedal edema, calf tenderness Neurological exam: Present: alert, oriented X3, CN II-XII intact. Absent: motor sensory deficit Expanded Neurological exam: Present: protecting the airway Patient oriented to: Present: person, place, time Speech: Present: fluid speech Cranial nerves: EOM's Intact: Normal, Facial Sensation: Normal Sensory exam: Upper Extremity Light Touch: Normal, Lower Extremity Light Touch: Normal Motor strength exam: RUE: 5, LUE: 5, RLE: 5, LLE: 5 Eye Response: (4) open spontaneously Motor Response: (6) obeys commands Verbal Response: (5) oriented Psychiatric exam: Present: normal affect, normal mood Skin exam: Present: normal color Course Vital Signs 11/22/24 07:26 Temperature 97.8 F Pulse Rate 81 Respiratory 16 Rate Blood Pressure 140/74 O2 Sat by Pulse 100 Oximetry Medical Decision Making - Medical Decision Making Was pt. sent in by a medical professional or institution (, LINDA, [employer], urgent care, hospital, or detention...) When possible be specific @ -No Did you speak to anyone other than the patient for history (EMS, parent, family, police, friend...)? What history was obtained from this source @ -No Did you review nursing and triage notes (agree or disagree)? Why? @ -I reviewed and agree with nursing and triage notes Were old charts reviewed (outside hosp., previous admission, EMS record, old EKG, old radiological studies, urgent care reports/EKG's, detention records)? Report findings @ -No old charts were reviewed Differential Diagnosis (chest pain, altered mental status, abdominal pain women, abdominal pain men, vaginal bleeding, weakness, fever, dyspnea, syncope, headache, dizziness, GI bleed, back pain, seizure, CVA, palpatations, mental health, musculoskeletal)? @ -Differential Dizziness: Benign paroxysmal positional Vertigo, Meniere's disease, otitis media, acoustic neuroma, vertebrobasilar insufficiency, cerebellar stroke, encephalitis, hypovolemic, arrhythmia, coronary artery syndrome, anemia, this is not meant to be an all-inclusive list EKG interpreted by me (3pts min.). @ -As above X-rays interpreted by me (1pt min.). @ -None done CT interpreted by me (1pt min.). @ -CT scan brain and cervical spine without acute abnormality U/S interpreted by me (1pt. min.). @ -None done What testing was considered but not performed or refused? (CT, X-rays, U/S, labs)? Why? @ -Consider CTA however patient has poor renal function What meds were considered but not given or refused? Why? @ -None Did you discuss the management of the patient with other professionals (professionals i.e. LINDA Vergara, [employer] INSTALLER, lab, RT, psych nurse, social work case manager, control manager, teacher, contact officer, classification case manager)? Give summary @ -Case discussed with Dr. Haynes who will admit covering Dr. Armas Was smoking cessation discussed for >3mins.? @ -No Was critical care preformed (if so, how long)? @ -No Were there social determinants of health that impacted care today? How? (Homelessness, low income, unemployed, alcoholism, drug addiction, transportation, low edu. Level, literacy, decrease access to med. care, nursing home, rehab)? @ -No Was there de-escalation of care discussed even if they declined (Discuss DNR or withdrawal of care, Hospice)? DNR status @ -No What co-morbidities impacted this encounter? (DM, HTN, Smoking, COPD, CAD, Cancer, CVA, ARF, Chemo, Hep., AIDS, mental health diagnosis, sleep apnea, morbid obesity)? @ -None Was patient admitted / discharged? Hospital course, mention meds given and route, prescriptions, significant lab abnormalities, going to OR and other pertinent info. @ -Patient presents with acute on chronic neck pain and acute dizziness. Workup unremarkable other than degenerative changes on the cervical spine. Patient has some improvement with medication however still has difficulty getting up and walking. Patient will be admitted with neurology consult. Admission orders written. Patient was reevaluated and updated. Undiagnosed new problem with uncertain prognosis? @ -No Drug Therapy requiring intensive monitoring for toxicity (Heparin, Nitro, Insulin, Cardizem)? @ -No Were any procedures done? @ -No Diagnosis/symptom? @ -Vertigo Acute, or Chronic, or Acute on Chronic? @ -Acute Uncomplicated (without systemic symptoms) or Complicated (systemic symptoms)? @ -Complicated with acute on chronic neck pain Side effects of treatment? @ -No Exacerbation, Progression, or Severe Exacerbation? @ -No Poses a threat to life or bodily function? How? (Chest pain, USA, ME, pneumonia, PE, COPD, DKA, ARF, appy, cholecystitis, CVA, Diverticulitis, Homicidal, Suicidal, threat to staff... and all critical care pts) @ -No - Lab Data Result diagrams: 11/22/24 07:54 11/22/24 07:54 Lab Results 11/22/24 11/22/24 11/22/24 Range/Units 07:54 07:54 07:54 WBC 5.9 (3.8-10.6) k/uL RBC 3.65 L (4.30-5.90) m/uL Hgb 10.7 L (13.0-17.5) gm/dL Hct 33.4 L (39.0-53.0) % MCV 91.5 (80.0-100.0) fL MCH 29.3 (25.0-35.0) pg MCHC 32.1 (31.0-37.0) g/dL RDW 14.2 (11.5-15.5) % Plt Count 161 (150-450) k/uL MPV 9.9 Neutrophils % 68 % Lymphocytes % 20 % Monocytes % 5 % Eosinophils % 5 % Basophils % 1 % Neutrophils # 4.0 (1.3-7.7) k/uL Lymphocytes # 1.2 (1.0-4.8) k/uL Monocytes # 0.3 (0-1.0) k/uL Eosinophils # 0.3 (0-0.7) k/uL Basophils # 0.0 (0-0.2) k/uL Hypochromasia Slight PT 10.8 (10.0-12.5) sec INR 1.0 (<1.2) APTT 26.2 (22.0-30.0) sec Sodium 141 (137-145) mmol/L Potassium 4.5 (3.5-5.1) mmol/L Chloride 103 (98-107) mmol/L Carbon Dioxide 29 (22-30) mmol/L Anion Gap 9 mmol/L BUN 38 H (9-20) mg/dL Creatinine 2.38 H (0.66-1.25) mg/dL Est GFR (CKD-EPI)AfAm 31 (>60 ml/min/1.73 sqM) Est GFR (CKD-EPI)NonAf 26 (>60 ml/min/1.73 sqM) Glucose 114 H (74-99) mg/dL Calcium 9.5 (8.4-10.2) mg/dL Total Bilirubin 0.9 (0.2-1.3) mg/dL AST 22 (17-59) U/L ALT 18 (4-49) U/L Alkaline Phosphatase 85 (38-126) U/L Total Protein 7.1 (6.3-8.2) g/dL Albumin 4.1 (3.5-5.0) g/dL Disposition Clinical Impression: Vertigo Disposition: ADMITTED IP TO THIS HOSP Is patient prescribed a controlled substance at d/c from ED?: No Referrals: Susan Armas DO [Primary Care Provider] - 1-2 days Time of Disposition: 11:48
[2024-11-22] MEDS: METOCLOPRAMIDE 5 MG/ML 2 ML VIAL IVP STA ×2 (07:55→09:33)
[2024-11-22 08:02] LABS: Basophils % (A) 1 %; Eosinophils # (A) 0.3 k/uL (0-0.7); Eosinophils % (A) 5 %; HCT 33.4 % (39.0-53.0); HGB 10.7 gm/dL (13.0-17.5); Hypochromasia Slight; Lymphocytes # (A) 1.2 k/uL (1.0-4.8); Lymphocytes % (A) 20 %; MCH 29.3 pg (25.0-35.0); MCHC 32.1 g/dL (31.0-37.0); MCV 91.5 fL (80.0-100.0); Mean Platelet Volume 9.9; Monocytes # (A) 0.3 k/uL (0-1.0); Monocytes % (A) 5 %; Neutrophils % (A) 68 %; Platelet Count 161 k/uL (150-450); RBC 3.65 m/uL (4.30-5.90); RDW 14.2 % (11.5-15.5); WBC 5.9 k/uL (3.8-10.6)
[2024-11-22 08:11] LABS: Partial Thromboplastin Time 26.2 sec (22.0-30.0); Prothrombin Time 10.8 sec (10.0-12.5)
[2024-11-22 08:21] LABS: ALT 18 U/L (4-49); AST 22 U/L (17-59); African American GFR (CKD) 31 (>60 ml/min/1.73 sqM); Albumin 4.1 g/dL (3.5-5.0); Alkaline Phosphatase 85 U/L (38-126); Anion Gap 9 mmol/L; Blood Urea Nitrogen 38 mg/dL (9-20); Calcium 9.5 mg/dL (8.4-10.2); Carbon Dioxide 29 mmol/L (22-30); Chloride 103 mmol/L (98-107); Glucose 114 mg/dL (74-99); Non-African American GFR(CKD) 26 (>60 ml/min/1.73 sqM); Potassium 4.5 mmol/L (3.5-5.1); Sodium 141 mmol/L (137-145); Total Bilirubin 0.9 mg/dL (0.2-1.3); Total Protein 7.1 g/dL (6.3-8.2)
[2024-11-22] MEDS: ACETAMINOPHEN IV (For NPO) 1,000 MG in EMPTY BAG 1 BAG IVPB STA (08:30)
--- NOTE | 2024-11-22 09:00 | CT ---
EXAMINATION TYPE: CT brain cspine wo con DATE OF EXAM: 11/22/2024 COMPARISON: NONE CLINICAL INDICATION: Male, 69 years old with history of vertigo, stone, neck pain, VERTIGO, STONE, NECK DANIELLE N, TECHNIQUE: CT scan of the head and cervical spine are performed without contrast. CT DLP: 1311.3 mGycm. Automated Exposure Control for Dose Reduction was Utilized. FINDINGS: There is no acute intracranial hemorrhage or midline shift identified. Mild ventricular a nd sulcal prominence is seen. Left-sided aphakia is present. Mild mucosal thickening bilateral ethmoi d sinuses. Old fracture deformity nasal bridge is present. Cervical spine is visualized in its entirety from C1 through upper thoracic levels and demonstrates g rade 1 retrolisthesis C3 on C4, C4 on C5, and C5 on C6. Prevertebral soft tissue appears within norm al limits. The C1-C2 articulation is within normal limits on the coronal images. Vertebral body hei ghts are maintained. Moderate to severe multilevel disc space narrowing C3-C4 through C6-C7 levels is present. Axial images show multilevel uncovertebral facet degenerative changes causing multilevel bi lateral neural foraminal narrowing. Lung apices are clear without pneumothorax. Thyroid gland is norm al in size. IMPRESSION: 1. There is no acute fracture or dislocation evident in the cervical spine. 2. No acute intracranial hemorrhage, mass effect, or midline shift is seen. [facility], , 11/22/2024 8:58 AM
[2024-11-22] MEDS: SODIUM CHLORIDE 0.9% 1,000 ML IV STA (09:32)
[2024-11-22] MEDS: KETOROLAC 15 MG/ML 1 ML VIAL IVP STA (09:32)
[2024-11-22] MEDS ORDERED: IBUPROFEN 400 MG TAB PO PRN (11:48)
[2024-11-22] MEDS ORDERED: traMADol 50 MG TAB PO PRN (11:48)
[2024-11-22] MEDS ORDERED: NALOXONE 0.4 MG/ML 1 ML VIAL IV PRN (11:48)
[2024-11-22] MEDS ORDERED: ACETAMINOPHEN TAB 325 MG TAB PO PRN (11:48)
[2024-11-22] MEDS ORDERED: HYDROcodone/APAP 5-325MG 1 EACH TAB PO PRN (11:48)
[2024-11-22] MEDS ORDERED: ONDANSETRON ODT 4 MG TAB PO PRN (14:17)
[2024-11-22] MEDS: amLODIPine 10 MG TAB PO SCH (17:27)
[2024-11-22] MEDS: ASCORBIC ACID 500 MG TAB PO SCH (17:28)
[2024-11-22] MEDS: ISOSORBIDE MONONITRATE ER 30 MG TAB.ER.24H PO SCH (17:28)
[2024-11-22] MEDS: ASPIRIN 81 MG PO SCH (17:28)
[2024-11-22] MEDS: DORZOLAMIDE HCL 2% DROPS 10 ML BTL LEFT EYE SCH (17:28)
[2024-11-22] MEDS: TICAGRELOR 90 MG TAB PO SCH (17:28)
[2024-11-22] MEDS: prednisoLONE ACETATE 1% OPHTH DROPS 5 ML BTL LEFT EYE SCH (17:28)
[2024-11-22] MEDS: hydrALAZINE HCL 25 MG TAB PO SCH (17:28)
[2024-11-22] MEDS: BRIMONIDINE TARTRATE 0.2% DROPS 5 ML BTL LEFT EYE SCH (17:28)
[2024-11-22] MEDS: SYMBICORT 160-4.5 MCG INHALER INHALATION SCH (19:40)
[2024-11-22] MEDS: ATORVASTATIN 40 MG TAB PO SCH (20:02)
--- NOTE | 2024-11-22 20:39 | HP ---
HISTORY AND PHYSICAL CHIEF COMPLAINT: Dizziness, weakness, and neck pain. HISTORY OF PRESENT ILLNESS: This 69-year-old gentleman with a past medical history of multiple medical problems, complaint of dizziness. After woke up, the patient had a feeling of spinning and multiple medical issues. The patient came to [facility], admitted for further evaluation. The patient with acute on chronic renal failure. There is no any history of fever, rigors, or chills at this time. Creatinine is 2.38. The patient also complained headache. PAST MEDICAL HISTORY: Reviewed include CHF and atrial ablation. Rest of history and rest of the chart is also reviewed. HOME MEDICATIONS: Reviewed include Zofran. Dose and rest of medications reviewed. ALLERGIES: None. FAMILY HISTORY: History of cancer. SOCIAL HISTORY: History of alcohol and THC. REVIEW OF SYSTEMS: 14-point review of systems negative except as mentioned earlier. PHYSICAL EXAMINATION: VITAL SIGNS: Pulse is 84, blood pressure 120/60, respirations 16. HEENT: Conjunctivae normal. NECK: No JVD. CARDIOVASCULAR: S1 and S2. RESPIRATIONS: Breath sounds diminished at the bases. A few scattered rhonchi. ABDOMEN: Soft and nontender. LEGS: No edema. NERVOUS SYSTEM: Diffusely weak. LAB STUDIES: Hemoglobin 10.5. The rest of the labs are noted. The CT of the cervical spine and head, no acute abnormality. ASSESSMENT: 1. Acute chronic renal failure with possible metabolic encephalopathy. 2. Rule out acute stroke. 3. Atrial fibrillation. 4. History of congestive heart failure. 5. Hypertension. 6. Hyperlipidemia. 7. Chronic kidney disease, stage III history. 8. History of coronary artery disease stent. RECOMMENDATIONS AND DISCUSSION: This is a 69-year-old gentleman, presented with multiple complex medical issues. We will monitor the patient closely. Continue current medications. Recommend cautious hydration. Recommend Nephrology consultation. Neurology has been consulted for vertigo. Symptomatic treatment provided. Prognosis guarded because of multiple complex medical issues. Further recommendations to follow. MMODL / IJN: [id number] /
[2024-11-22] MEDS ORDERED: NON FORMULARY DRUG (Fluoride (Sodium) [Sodium Fluoride 5000 Plus] 51 GM Cream..G.) DENTAL SCH (21:00)
[2024-11-22] MEDS: MONTELUKAST 10 MG TAB PO SCH (21:17)
[2024-11-22] MEDS: BACLOFEN 10 MG TAB PO PRN (21:17)
[2024-11-22] MEDS: APIXABAN 5 MG TAB PO SCH (21:17)
[2024-11-22] MEDS: HYDROcodone/APAP 10-325MG 1 EACH TAB PO PRN (21:23)
[2024-11-22 21:58] LABS: Appearance,Urine Clear (Clear); Bilirubin,Urine Negative (Negative); Blood,Urine Negative (Negative); Color,Urine Light Yellow; Glucose,Urine (UA) Negative (Negative); Ketones,Urine Negative (Negative); Leukocyte Esterase,Urine Negative (Negative); Nitrite,Urine Negative (Negative); Protein,Urine Negative (Negative); Specific Gravity,Urine 1.018 (1.001-1.035); Urobilinogen,Urine <2.0 mg/dL (<2.0)
[2024-11-22 22:35] LABS: Influenza A Not Detected (Not Detectd); Influenza B Not Detected (Not Detectd); RSV Not Detected (Not Detectd)
[2024-11-23] MEDS: QUEtiapine 25 MG TAB PO SCH (01:32)
[2024-11-23 08:43] LABS: Basophils # (A) 0.05 X 10*3/uL (0.00-0.10); Basophils % (A) 0.9 %; Eosinophils # (A) 0.29 X 10*3/uL (0.04-0.35); HCT 34.8 % (39.6-50.0); HGB 10.9 g/dL (13.0-17.0); Lymphocytes % (A) 27.4 %; MCH 29.5 pg (27.0-32.0); MCHC 31.3 g/dL (32.0-37.0); MCV 94.1 FL (80.0-97.0); Mean Platelet Volume 12.1 FL (9.5-12.2); Monocytes # (A) 0.33 X 10*3/uL (0.20-1.00); Monocytes % (A) 5.7 %; NRBC Per 100 WBC 0 X 10*3/uL (0.00-0.01); Neutrophils # (A) 3.54 X 10*3/uL (1.80-7.70); Neutrophils % (A) 60.5 %; Platelet Count 161 X 10*3/uL (140-440); RDW 14.2 % (11.5-14.5); WBC 5.84 X 10*3/uL (4.50-10.00)
--- NOTE | 2024-11-23 09:11 | P.CRDCN ---
History of Present Illness History of present illness: HISTORY OF PRESENT ILLNESS: This is a 69-year-old male with a past medical history significant for coronary artery disease, ischemic cardiomyopathy, COPD, hypertension, hyperlipidemia, and atrial fibrillation. Patient follows in the office with Dr. Churchill. We have been asked to see the patient in consultation for coronary artery disease. Patient examined at the bedside. Patient presented to the hospital for chief complaint of dizziness. Patient reports that the whole room felt like it was spinning. Patient without complaints of chest pain or pressure. He denies any shortness of breath. Denies any palpitations. Patient has been compliant with all of his medications. Vital signs are stable. DIAGNOSTICS: - EKG not available at this time - Laboratory data: WBC 5.84. Hemoglobin 10.9. Platelet count 161. Sodium 141. Potassium 4.5. BUN 38. Creatinine 2.38. - Current home cardiac medications include lisinopril 10 mg daily, Lasix 20 mg daily, Zetia 10 mg daily, aspirin 81 mg daily, Eliquis 5 mg twice a day, metoprolol tartrate 25 mg twice daily, Farxiga 10 mg daily, amlodipine 10 mg daily, Brilinta 90 mg twice a day, and hydralazine 75 mg unknown frequency, Imdur 30 mg daily, rosuvastatin 20 mg at night. - Most recent echocardiogram obtained on 11/04/2024 revealed ejection fraction 35 to 40%, inferior and inferior septal hypokinesis, moderate pulmonary hypertensi on, mild TR, mild MR - Cardiac catheterization history: 10/30/[address] Zimmer. Patient underwent stenting of the left main and LAD with use of IVUS and Impella REVIEW OF SYSTEMS: At the time of my exam: CONSTITUTIONAL: Denies fever or chills. HEENT: Denies blurred vision, vision changes, or eye pain. Denies hemoptysis CARDIOVASCULAR: Denies chest pain. Denies orthopnea. Denies PND. Denies pa lpitations RESPIRATORY: Denies shortness of breath. GASTROINTESTINAL: Denies abdominal pain. Denies nausea or vomiting. HEMATOLOGIC: Denies bleeding disorders. GENITOURINARY: Denies any blood in urine. SKIN: Denies pruitis. Denies rash. PHYSICAL EXAM: VITAL SIGNS: Reviewed. GENERAL: Well-developed in no acute distress. HEENT: Head is normocephalic. Pupils are equal, round. Sclerae anicteric. Mucous membranes of the mouth are moist. Neck supple. No JVD or thyromegaly LUNGS: Respirations even and unlabored. Lungs essentially clear to auscultation bilaterally. HEART: Regular rate and rhythm. S1 and S2 heard. ABDOMEN: Soft. Nondistended. Nontender. EXTREMITIES: Normal range of motion. No clubbing or cyanosis. Peripheral pulses intact. No lower extremity edema NEUROLOGIC: Awake and alert. Oriented x 3. ASSESSMENT: Dizziness consistent with vertigo Coronary artery disease with recent stenting of the left main and LAD, 10/30/2024 Ischemic cardiomyopathy, 35 to 40% Paroxysmal atrial fibrillation, on Eliquis Chronic kidney disease COPD Hypertension Hyperlipidemia PLAN: No need to repeat echocardiogram as this was performed on 11/04/2024 Resume home cardiac medications Continue dual antiplatelet therapy with aspirin and Brilinta. Continue anticoagulation with Eliquis. On 11/27/2024, will discontinue aspirin and continue with Brilinta and Eliquis Obtain EKG Continue telemetry monitoring Add Antivert PRN Further recommendations pending patient course Nurse practitioner note has been reviewed by physician. Signing provider agrees with the documented findings, assessment, and plan of care documented by MANAGER WILLOW as a scribe. Past Medical History Past Medical History: Atrial Fibrillation, Coronary Artery Disease (CAD), Chest Pain / Angina, Heart Failure, GERD/Reflux, Hyperlipidemia, Hypertension, Myocardial Infarction ([place]), Osteoarthritis (OA), Prostate Disorder, Renal Disease Additional Past Medical History / Comment(s): degenerative disc disease of the lumbar spine, chronic pain, neuropathy bilateral lower extremity, chronic bronchitis. CKD stage IIIb-IV Last Myocardial Infarction Date:: 2004 History of Any Multi-Drug Resistant Organisms: None Reported Past Surgical History: Cholecystectomy, Heart Catheterization With Stent, Hernia Repair, Orthopedic Surgery Additional Past Surgical History / Comment(s): carpal tunnal repair, cyst removed from the mouth, Left heart catheterization 2000 and 2004, right hernia repair, left arthroscopic knee surgery., pain clinic procedures. Past Anesthesia/Blood Transfusion Reactions: No Reported Reaction Date of Last Stent Placement:: 2004 Past Psychological History: No Psychological Hx Reported Additional Psychological History / Comment(s): Lives with brother. Mykel Smoking Status: Never smoker Past Alcohol Use History: None Reported Additional Past Alcohol Use History / Comment(s): Quit drinking in 2004 Past Drug Use History: Marijuana Additional Drug Use History / Comment(s): Uses marijuana every other night for sleep - Past Family History Mother History Unknown: Yes Family Medical History: Cancer Additional Family Medical History / Comment(s): of old age Father History Unknown: Yes Family Medical History: Cancer Brother(s) Additional Family Medical History / Comment(s): Brother had open heart surgery x 3 related to valvular disease and postoperative infection Medications and Allergies Home Medications Medication Instructions Recorded Confirmed Type Montelukast [Singulair] 10 mg PO HS 09/29/14 11/22/24 History Baclofen [Lioresal] 10 mg PO QID 05/10/21 11/22/24 History HYDROcodone/APAP 10-325MG [[place] 1 tab PO Q6HR PRN 05/10/21 11/22/24 History 10-325] Tamsulosin [Flomax] 0.4 mg PO DAILY 05/10/21 11/22/24 History Aspirin [Adult Low Dose Aspirin EC] 81 mg PO DAILY 06/19/21 11/22/24 History Pantoprazole [Protonix] 40 mg PO DAILY 06/19/21 11/22/24 History Apixaban [Eliquis] 5 mg PO BID 09/17/22 11/22/24 History Ezetimibe [Zetia] 10 mg PO DAILY 09/17/22 11/22/24 History Fluoride (Sodium) [Sodium Fluoride 1 applic DENTAL HS 01/22/24 11/22/24 History 5000 Plus] Furosemide [Lasix] 20 mg PO DAILY 01/22/24 11/22/24 History Ondansetron [Zofran] 4 mg PO TID PRN 01/22/24 11/22/24 History QUEtiapine [SEROquel] 25 mg PO HS 01/22/24 11/22/24 History Brinzolamide/Brimonidine Tart 1 drop LEFT EYE Q12H 07/23/24 11/22/24 History [Simbrinza 1%-0.2% Eye Drop] prednisoLONE ACETATE 1% OPHTH 1 drops LEFT EYE Q6H 07/23/24 11/22/24 History [Pred Forte 1%] lisinopriL [Zestril] 10 mg PO DAILY #30 tab 07/28/24 11/22/24 Rx Ascorbic Acid [Vitamin C] 500 mg PO DIRECTED 11/22/24 11/22/24 History Budesonide/Formoterol Fumarate 1 puff INHALATION DIRECTED 11/22/24 11/22/24 History [Breyna 160-4.5 Mcg Inhaler] Dapagliflozin Propanediol [Farxiga] 10 mg PO DIRECTED 11/22/24 11/22/24 History Isosorbide Mononitrate ER [Imdur] 30 mg PO DIRECTED 11/22/24 11/22/24 History Metoprolol Tartrate [Lopressor] 25 mg PO DIRECTED 11/22/24 11/22/24 History Nitroglycerin Sl Tabs [Nitrostat] 0.4 mg SUBLINGUAL DIRECTED PRN 11/22/24 11/22/24 History Rosuvastatin [Crestor] 20 mg PO HS 11/22/24 11/22/24 History Ticagrelor [Brilinta] 90 mg PO DIRECTED 11/22/24 11/22/24 History amLODIPine [Norvasc] 10 mg PO DIRECTED 11/22/24 11/22/24 History hydrALAZINE HCL [Apresoline] 75 mg PO DIRECTED 11/22/24 11/22/24 History methylPREDNISolone Dose Pack See Taper PO DIRECTED 11/22/24 11/22/24 History [Medrol Dose Pack] Allergies Allergy/AdvReac Type Severity Reaction Status Date / Time No Known Allergies Allergy Verified 11/22/24 12:24 Physical Exam Vitals: Vital Signs Temp Pulse Pulse Resp BP BP Pulse Ox 11/23/24 07:20 97.7 F 81 17 160/69 97 11/23/24 02:00 80 11/23/24 01:39 98.2 F 80 18 128/75 98 11/22/24 18:51 98.0 F 87 16 124/67 94 L 11/22/24 15:00 97.4 F L 90 16 138/78 96 11/22/24 14:09 97.9 F 11/22/24 13:22 84 16 124/62 97 Intake and Output 11/22/24 11/23/24 11/23/24 22:59 06:59 14:59 Output Total 22 Balance -22 Output: Post Void Residual 22 Other: Voiding Method Toilet # Voids 1 1 Weight 72.575 kg Results 11/23/24 05:11 11/22/24 07:54 CBC 11/23/24 Range/Units 05:11 WBC 5.84 (4.50-10.00) X 10*3/uL RBC 3.70 L (4.40-5.60) X 10*6/uL Hgb 10.9 L (13.0-17.0) g/dL Hct 34.8 L (39.6-50.0) % Plt Count 161 (140-440) X 10*3/uL Current Medications Generic Name Dose Route Start Last Admin Trade Name Freq PRN Reason Stop Dose Admin Acetaminophen 650 mg 11/22/24 11:48 Acetaminophen Tab 325 Mg Tab PO Q6HR PRN Mild Pain or Fever > 100.5 Hydrocodone Bitart/Acetaminophen 1 each 11/22/24 20:22 11/22/24 21:23 Hydrocodone/Apap 10-325mg 1 Each Tab PO 1 each Q6HR PRN Administration Pain 4-10 Amlodipine Besylate 10 mg 11/22/24 14:30 11/22/24 17:27 Amlodipine 10 Mg Tab PO Not Given DAILY [facility] Apixaban 5 mg 11/22/24 21:00 11/22/24 21:17 Apixaban 5 Mg Tab PO 5 mg BID DESIREE Administration Protocol Ascorbic Acid 500 mg 11/22/24 14:30 11/22/24 17:28 Ascorbic Acid 500 Mg Tab PO Not Given DAILY DESIREE Aspirin 81 mg 11/22/24 14:30 11/22/24 17:28 Aspirin 81 Mg PO Not Given DAILY [facility] Atorvastatin Calcium 40 mg 11/22/24 21:00 11/22/24 20:02 Atorvastatin 40 Mg Tab PO Not Given HS DESIREE Baclofen 10 mg 11/22/24 20:22 11/22/24 21:17 Baclofen 10 Mg Tab PO 10 mg QID PRN Administration Muscle Spasm Brimonidine Tartrate 1 drops 11/22/24 14:45 11/23/24 01:18 Brimonidine Tartrate 0.2% Drops 5 Ml Btl LEFT EYE Not Given Q12H [facility] Budesonide/Formoterol Fumarate 1 puff 11/22/24 20:00 11/23/24 08:33 Symbicort 160-4.5 Mcg Inhaler INHALATION Not Given RT-BID [facility] Dorzolamide HCl 1 drops 11/22/24 14:30 11/23/24 01:18 Dorzolamide Hcl 2% Drops 10 Ml Btl LEFT EYE Not Given Q12H DESIREE Ezetimibe 10 mg 11/23/24 09:00 Ezetimibe 10 Mg Tab PO DAILY [facility] Hydralazine HCl 75 mg 11/22/24 16:00 11/22/24 20:06 Hydralazine Hcl 25 Mg Tab PO 75 mg TID DESIREE Administration Isosorbide Mononitrate 30 mg 11/22/24 14:30 11/22/24 17:28 Isosorbide Mononitrate Er 30 Mg Tab.Er.24h PO Not Given DAILY [facility] Meclizine HCl 25 mg 11/23/24 08:50 Meclizine 25 Mg Tab PO TID PRN Vertigo Montelukast Sodium 10 mg 11/22/24 21:00 11/22/24 21:17 Montelukast 10 Mg Tab PO 10 mg HS [facility] Administration Naloxone HCl 0.2 mg 11/22/24 11:48 Naloxone 0.4 Mg/Ml 1 Ml Vial IV Q2M PRN Opioid Reversal Ondansetron HCl 4 mg 11/22/24 14:17 Ondansetron Odt 4 Mg Tab PO TID PRN Nausea And Vomiting Pantoprazole Sodium 40 mg 11/23/24 09:00 Pantoprazole 40 Mg Tablet PO DAILY [facility] Prednisolone Acetate 1 drops 11/22/24 15:00 11/23/24 02:07 Prednisolone Acetate 1% Ophth Drops 5 Ml Btl LEFT EYE 1 drops Q6H DESIREE Administration Quetiapine Fumarate 25 mg 11/22/24 21:00 11/23/24 01:32 Quetiapine 25 Mg Tab PO 25 mg HS [facility] Administration Tamsulosin HCl 0.4 mg 11/23/24 09:00 Tamsulosin 0.4 Mg Cap.Er.24h PO DAILY [facility] Ticagrelor 90 mg 11/22/24 14:30 11/22/24 20:06 Ticagrelor 90 Mg Tab PO 90 mg BID [facility] Administration Intake and Output 11/22/24 11/23/24 11/23/24 22:59 06:59 14:59 Output Total 22 Balance -22 Output: Post Void Residual 22 Other: Voiding Method Toilet # Voids 1 1 Weight 72.575 kg 11/23/24 05:11 11/22/24 07:54
--- NOTE | 2024-11-23 09:16 | P.NPCON ---
History of Present Illness - Reason for Consult acute renal failure, chronic renal failure - History of Present Illness Reason for consultation: Acute kidney injury on chronic kidney disease History of present illness: Patient is a 69-year-old male seen in renal consultation for acute kidney injury on chronic kidney disease. Patient has chronic kidney disease stage IIIb with baseline creatinine near 2 secondary to cardiorenal syndrome and nephrosclerosis. Creatinine 2.38 on admission yesterday. Patient came to the hospital due to dizziness. Patient denies any syncopal episodes or falling. Patient states he feels that the room is spinning and is ears are ringing. Patient states he felt better last night but when he woke up at 4 AM to use the bathroom he again felt the room spinning. He denies use of nonsteroidals. Denies history of diabetes. He does have a history of coronary disease with cardiac stent. Patient has history of systolic CHF ejection fraction of 35 to 40%. Diuretics are currently held. He has no edema in the lower extremities. Has been voiding. No gross hematuria or dysuria. Hemodynamically stable. Vital signs are stable. General: No acute distress. HEENT: Head exam is unremarkable. LUNGS: No audible rhonchi or wheezes. HEART: Rate and Rhythm are regular. ABDOMEN: Nontender. EXTREMITITES: No edema. Past Medical History Past Medical History: Atrial Fibrillation, Coronary Artery Disease (CAD), Chest Pain / Angina, Heart Failure, GERD/Reflux, Hyperlipidemia, Hypertension, Myocardial Infarction ([place]), Osteoarthritis (OA), Prostate Disorder, Renal Disease Additional Past Medical History / Comment(s): degenerative disc disease of the lumbar spine, chronic pain, neuropathy bilateral lower extremity, chronic bronchitis. CKD stage IIIb-IV Last Myocardial Infarction Date:: 2004 History of Any Multi-Drug Resistant Organisms: None Reported Past Surgical History: Cholecystectomy, Heart Catheterization With Stent, Hernia Repair, Orthopedic Surgery Additional Past Surgical History / Comment(s): carpal tunnal repair, cyst removed from the mouth, Left heart catheterization 2000 and 2004, right hernia repair, left arthroscopic knee surgery., pain clinic procedures. Past Anesthesia/Blood Transfusion Reactions: No Reported Reaction Date of Last Stent Placement:: 2004 Past Psychological History: No Psychological Hx Reported Additional Psychological History / Comment(s): Lives with brother. Mykel Smoking Status: Never smoker Past Alcohol Use History: None Reported Additional Past Alcohol Use History / Comment(s): Quit drinking in 2004 Past Drug Use History: Marijuana Additional Drug Use History / Comment(s): Uses marijuana every other night for sleep - Past Family History Mother History Unknown: Yes Family Medical History: Cancer Additional Family Medical History / Comment(s): of old age Father History Unknown: Yes Family Medical History: Cancer Brother(s) Additional Family Medical History / Comment(s): Brother had open heart surgery x 3 related to valvular disease and postoperative infection Medications and Allergies Home Medications Medication Instructions Recorded Confirmed Type Montelukast [Singulair] 10 mg PO HS 09/29/14 11/22/24 History Baclofen [Lioresal] 10 mg PO QID 05/10/21 11/22/24 History HYDROcodone/APAP 10-325MG [[place] 1 tab PO Q6HR PRN 05/10/21 11/22/24 History 10-325] Tamsulosin [Flomax] 0.4 mg PO DAILY 05/10/21 11/22/24 History Aspirin [Adult Low Dose Aspirin EC] 81 mg PO DAILY 06/19/21 11/22/24 History Pantoprazole [Protonix] 40 mg PO DAILY 06/19/21 11/22/24 History Apixaban [Eliquis] 5 mg PO BID 09/17/22 11/22/24 History Ezetimibe [Zetia] 10 mg PO DAILY 09/17/22 11/22/24 History Fluoride (Sodium) [Sodium Fluoride 1 applic DENTAL HS 01/22/24 11/22/24 History 5000 Plus] Furosemide [Lasix] 20 mg PO DAILY 01/22/24 11/22/24 History Ondansetron [Zofran] 4 mg PO TID PRN 01/22/24 11/22/24 History QUEtiapine [SEROquel] 25 mg PO HS 01/22/24 11/22/24 History Brinzolamide/Brimonidine Tart 1 drop LEFT EYE Q12H 07/23/24 11/22/24 History [Simbrinza 1%-0.2% Eye Drop] prednisoLONE ACETATE 1% OPHTH 1 drops LEFT EYE Q6H 07/23/24 11/22/24 History [Pred Forte 1%] lisinopriL [Zestril] 10 mg PO DAILY #30 tab 07/28/24 11/22/24 Rx Ascorbic Acid [Vitamin C] 500 mg PO DIRECTED 11/22/24 11/22/24 History Budesonide/Formoterol Fumarate 1 puff INHALATION DIRECTED 11/22/24 11/22/24 History [Breyna 160-4.5 Mcg Inhaler] Dapagliflozin Propanediol [Farxiga] 10 mg PO DIRECTED 11/22/24 11/22/24 History Isosorbide Mononitrate ER [Imdur] 30 mg PO DIRECTED 11/22/24 11/22/24 History Metoprolol Tartrate [Lopressor] 25 mg PO DIRECTED 11/22/24 11/22/24 History Nitroglycerin Sl Tabs [Nitrostat] 0.4 mg SUBLINGUAL DIRECTED PRN 11/22/24 11/22/24 History Rosuvastatin [Crestor] 20 mg PO HS 11/22/24 11/22/24 History Ticagrelor [Brilinta] 90 mg PO DIRECTED 11/22/24 11/22/24 History amLODIPine [Norvasc] 10 mg PO DIRECTED 11/22/24 11/22/24 History hydrALAZINE HCL [Apresoline] 75 mg PO DIRECTED 11/22/24 11/22/24 History methylPREDNISolone Dose Pack See Taper PO DIRECTED 11/22/24 11/22/24 History [Medrol Dose Pack] Allergies Allergy/AdvReac Type Severity Reaction Status Date / Time No Known Allergies Allergy Verified 11/22/24 12:24 Physical Exam Vitals: Vital Signs Temp Pulse Pulse Resp BP BP Pulse Ox 11/23/24 07:20 97.7 F 81 17 160/69 97 11/23/24 02:00 80 11/23/24 01:39 98.2 F 80 18 128/75 98 11/22/24 18:51 98.0 F 87 16 124/67 94 L 11/22/24 15:00 97.4 F L 90 16 138/78 96 11/22/24 14:09 97.9 F 11/22/24 13:22 84 16 124/62 97 Intake and Output 11/22/24 11/23/24 11/23/24 22:59 06:59 14:59 Output Total 22 Balance -22 Output: Post Void Residual 22 Other: Voiding Method Toilet # Voids 1 1 Weight 72.575 kg Results - Lab Results Most recent lab results Calcium 9.5 mg/dL (8.4-10.2) 11/22/24 07:54 11/23/24 05:11 11/22/24 07:54 Assessment and Plan Plan: Assessment: 1. Acute kidney injury secondary to ATN. Creatinine 2.38 on admission. UA benign. Ultrasound from October 2024 showed no hydronephrosis. 2. Chronic systolic CHF ejection fraction of 35 to 40%. 3. Coronary disease status post left main stent placed November 06, 2024. 4. Chronic kidney disease stage IIIb with baseline creatinine near 2 secondary to nephrosclerosis and cardiorenal syndrome. 5. Hypertension with chronic kidney disease. Stable. 6. Dizziness. Concern for vertigo. On meclizine. Plan: Continue to hold diuretics for now. Check orthostatic vital signs. Hold hydralazine for standing systolic blood pressure less than 115. Avoid nephrotoxins. Continue to monitor renal function and urine output. Thank you for the consultation. I will continue to follow the patient with you during his hospital stay.
[2024-11-23 09:31] LABS: BUN/Creat Ratio 14.64 Ratio (12.00-20.00); Blood Urea Nitrogen 32.2 mg/dL (9.0-27.0); Calcium 8.6 mg/dL (8.7-10.3); Carbon Dioxide 22.7 mmol/L (21.6-31.8); Chloride 107 mmol/L (96-109); Glucose 143 mg/dL (70-110); Potassium 4.5 mmol/L (3.5-5.5); Sodium 142 mmol/L (135-145)
[2024-11-23] MEDS: PANTOPRAZOLE 40 MG TABLET PO SCH (09:48)
[2024-11-23] MEDS: EZETIMIBE 10 MG TAB PO SCH (09:49)
[2024-11-23] MEDS: TAMSULOSIN 0.4 MG CAP.ER.24H PO SCH (09:49)
[2024-11-23] MEDS: METOPROLOL TARTRATE 25 MG TAB PO SCH (09:55)
[2024-11-23] MEDS: MECLIZINE 25 MG TAB PO PRN (12:34)
[2024-11-23] MEDS: CARBIDOPA-LEVODOPA 25-100 MG 1 EACH TAB PO SCH (12:36)
--- NOTE | 2024-11-23 15:54 | P.CNNES ---
History of Present Illness Consult date: 11/23/24 Requesting physician: Jose Henao Reason for Consult: vertigo History of Present Illness: This is a 69-year-old gentleman who presents emergency department because of dizziness. He states he has been having dizziness for the last 1 week and he feels that he is spinning and is worse when he lies supine flat but feels better when he lies and at 30 to 45 degree angle. He also feels worse when he stands up and walks. He denies any nausea vomiting. He has been having also ringing in the ears over the last duration. Denies any focal weakness but he feels he has generalized weakness. Denies any falls. Denies any visual disturbance. Denies any speech difficulty. Patient denies any recent sick contacts. He states that he has chronic neck pain for the last 3 years. He does follow-up with a neurologist as an outpatient, Dr. Enriquez. Patient states that he has a tremor of his upper extremities at rest as well as jaw and had EMG with nerve conduction study and was evaluated by his neurologist and he was notified that he has neuropathy that is why he has the tremors and he does not have Parkinson's that he was reported by his neurologist, Dr. Enriquez according to the patient. Some of the workup during this hospital visit consisted of: Creatinine is 2.38 and the repeated is 2.2 CT of the head is reported as no acute intracranial hemorrhage, mass effect or midline shift CT cervical spine is reported as no acute fracture or dislocation evident in the cervical spine. Review of Systems As per HPI. Past Medical History Past Medical History: Atrial Fibrillation, Coronary Artery Disease (CAD), Chest Pain / Angina, Heart Failure, GERD/Reflux, Hyperlipidemia, Hypertension, Myocardial Infarction ([place]), Osteoarthritis (OA), Prostate Disorder, Renal Disease Additional Past Medical History / Comment(s): degenerative disc disease of the lumbar spine, chronic pain, neuropathy bilateral lower extremity, chronic bronchitis. CKD stage IIIb-IV Last Myocardial Infarction Date:: 2004 History of Any Multi-Drug Resistant Organisms: None Reported Past Surgical History: Cholecystectomy, Heart Catheterization With Stent, Hernia Repair, Orthopedic Surgery Additional Past Surgical History / Comment(s): carpal tunnal repair, cyst removed from the mouth, Left heart catheterization 2000 and 2004, right hernia repair, left arthroscopic knee surgery., pain clinic procedures. Past Anesthesia/Blood Transfusion Reactions: No Reported Reaction Date of Last Stent Placement:: 2004 Past Psychological History: No Psychological Hx Reported Additional Psychological History / Comment(s): Lives with brother[place]is [place] Smoking Status: Never smoker Past Alcohol Use History: None Reported Additional Past Alcohol Use History / Comment(s): Quit drinking in 2004 Past Drug Use History: Marijuana Additional Drug Use History / Comment(s): Uses marijuana every other night for sleep - Past Family History Mother History Unknown: Yes Family Medical History: Cancer Additional Family Medical History / Comment(s): of old age Father History Unknown: Yes Family Medical History: Cancer Brother(s) Additional Family Medical History / Comment(s): Brother had open heart surgery x 3 related to valvular disease and postoperative infection Medications and Allergies Home Medications Medication Instructions Recorded Confirmed Type Montelukast [Singulair] 10 mg PO HS 09/29/14 11/22/24 History Baclofen [Lioresal] 10 mg PO QID 05/10/21 11/22/24 History HYDROcodone/APAP 10-325MG [[place] 1 tab PO Q6HR PRN 05/10/21 11/22/24 History 10-325] Tamsulosin [Flomax] 0.4 mg PO DAILY 05/10/21 11/22/24 History Aspirin [Adult Low Dose Aspirin EC] 81 mg PO DAILY 06/19/21 11/22/24 History Pantoprazole [Protonix] 40 mg PO DAILY 06/19/21 11/22/24 History Apixaban [Eliquis] 5 mg PO BID 09/17/22 11/22/24 History Ezetimibe [Zetia] 10 mg PO DAILY 09/17/22 11/22/24 History Fluoride (Sodium) [Sodium Fluoride 1 applic DENTAL HS 01/22/24 11/22/24 History 5000 Plus] Furosemide [Lasix] 20 mg PO DAILY 01/22/24 11/22/24 History Ondansetron [Zofran] 4 mg PO TID PRN 01/22/24 11/22/24 History QUEtiapine [SEROquel] 25 mg PO HS 01/22/24 11/22/24 History Brinzolamide/Brimonidine Tart 1 drop LEFT EYE Q12H 07/23/24 11/22/24 History [Simbrinza 1%-0.2% Eye Drop] prednisoLONE ACETATE 1% OPHTH 1 drops LEFT EYE Q6H 07/23/24 11/22/24 History [Pred Forte 1%] lisinopriL [Zestril] 10 mg PO DAILY #30 tab 07/28/24 11/22/24 Rx Ascorbic Acid [Vitamin C] 500 mg PO DIRECTED 11/22/24 11/22/24 History Budesonide/Formoterol Fumarate 1 puff INHALATION DIRECTED 11/22/24 11/22/24 History [Breyna 160-4.5 Mcg Inhaler] Dapagliflozin Propanediol [Farxiga] 10 mg PO DIRECTED 11/22/24 11/22/24 History Isosorbide Mononitrate ER [Imdur] 30 mg PO DIRECTED 11/22/24 11/22/24 History Metoprolol Tartrate [Lopressor] 25 mg PO DIRECTED 11/22/24 11/22/24 History Nitroglycerin Sl Tabs [Nitrostat] 0.4 mg SUBLINGUAL DIRECTED PRN 11/22/24 11/22/24 History Rosuvastatin [Crestor] 20 mg PO HS 11/22/24 11/22/24 History Ticagrelor [Brilinta] 90 mg PO DIRECTED 11/22/24 11/22/24 History amLODIPine [Norvasc] 10 mg PO DIRECTED 11/22/24 11/22/24 History hydrALAZINE HCL [Apresoline] 75 mg PO DIRECTED 11/22/24 11/22/24 History methylPREDNISolone Dose Pack See Taper PO DIRECTED 11/22/24 11/22/24 History [Medrol Dose Pack] Allergies Allergy/AdvReac Type Severity Reaction Status Date / Time No Known Allergies Allergy Verified 11/22/24 12:24 Physical Examination - Vital Signs Vital Signs: Vital Signs Temp Pulse Resp BP Pulse Ox 11/23/24 14:51 97.4 F L 70 17 103/65 98 11/23/24 07:20 97.7 F 81 17 160/69 97 11/23/24 02:00 80 11/23/24 01:39 98.2 F 80 18 128/75 98 11/22/24 18:51 98.0 F 87 16 124/67 94 L Intake and Output 03/24/25 03/24/25 03/24/25 06:59 14:59 22:59 Other: Voiding Method Toilet # Voids 1 1 GENERAL: The patient is lying in bed at 40 degree angle and is not in acute distress. NEUROLOGICAL: Higher mental function: The patient is awake, alert, oriented to self, place and time. Patient is following commands. No aphasia and no neglect. Cranial nerves: The pupils are round, equal and reactive to light and accommodation. Visual belle are full to confrontation throughout. Extraocular movement is intact no nystagmus is noted. Facial sensation is normal to touch throughout. The facial strength is normal throughout. Hearing is normal bilaterally to hand rub. Tongue is midline and moved [id number] without any difficulty. No dysarthria is noted. Shoulder shrug is normal bilaterally. Motor: The strength is hard to assess individual muscle strength because of cooperation but has at least 4+ throughout. Normal tone and bulk. Has resting tremor of the upper extremities. Cerebellum: Normal finger to nose bilaterally. Sensation: Sensation is normal to touch throughout. Reflexes (right/left):1+ in uppers and 2+ in lowers. Plantars are mute bilaterally. Results - Laboratory Findings CBC and BMP: 11/23/24 05:11 11/23/24 05:11 Abnormal Lab Findings: Abnormal Labs 11/22/24 11/22/24 11/23/24 07:54 07:54 05:11 RBC 3.65 L 3.70 L Hgb 10.7 L 10.9 L Hct 33.4 L 34.8 L MCHC 31.3 L Anion Gap BUN 38 H Creatinine 2.38 H Est GFR (CKD-EPI) Glucose 114 H Calcium 11/23/24 05:11 RBC Hgb Hct MCHC Anion Gap 12.30 H BUN 32.2 H Creatinine 2.2 H Est GFR (CKD-EPI) 31 L Glucose 143 H Calcium 8.6 L Assessment and Plan Assessment: This is a 69-year-old woman gentleman who presented emergency department because of dizziness, ringing in the ear for the last 1 week. He feels it is worse when he is lying supine flat and when he is standing up ambulating. He feels it is improved lying at a 30 to 45 degree angle. Acute dizziness: This does not seem to be due to posterior stroke. This seems more peripheral will rule out underlying Parkinson disease especially with his resting tremor Resting tremor of bilateral upper extremity as well as jaw and patient stated that he was evaluated by neurologist as an outpatient and he was told it due to neuropathy: My opinion I am concerned about Parkinson's disease Chronic neck pain Neuropathy Chronic kidney insufficiency Plan: I ordered MRI of the brain Patient was started on meclizine 25 mg 1 tablet 3 times daily as needed by cardiology team which I agree Orthostatic vitals are ordered I started the patient on sentiment 25 mg 1 tablet 3 times daily and the patient was in agreement for trial. I consulted PT and OT Upon discharge recommend the patient to follow-up with the outpatient neurologist for further evaluation. The plan is discussed with the patient and his nurse. Thank you for the consultation Time with Patient: Greater than 30
[2024-11-24 09:00] LABS: Blood Urea Nitrogen 25.2 mg/dL (9.0-27.0); Calcium 8.3 mg/dL (8.7-10.3); Carbon Dioxide 23.1 mmol/L (21.6-31.8); Chloride 108 mmol/L (96-109); Glucose 123 mg/dL (70-110); Magnesium 2.5 mg/dL (1.5-2.4); Potassium 4.2 mmol/L (3.5-5.5); Sodium 141 mmol/L (135-145)
--- NOTE | 2024-11-24 09:14 | P.PN ---
Subjective HISTORY OF PRESENT ILLNESS: This is a 69-year-old male with a past medical history significant for coronary artery disease, ischemic cardiomyopathy, COPD, hypertension, hyperlipidemia, and atrial fibrillation. Patient follows in the office with Dr. Churchill. We have been asked to see the patient in consultation for coronary artery disease. Patient examined at the bedside. Patient presented to the hospital for chief complaint of dizziness. Patient reports that the whole room felt like it was spinning. Patient without complaints of chest pain or pressure. He denies any shortness of breath. Denies any palpitations. Patient has been compliant with all of his medications. Vital signs are stable. DIAGNOSTICS: - EKG not available at this time - Laboratory data: WBC 5.84. Hemoglobin 10.9. Platelet count 161. Sodium 141. Potassium 4.5. BUN 38. Creatinine 2.38. - Current home cardiac medications include lisinopril 10 mg daily, Lasix 20 mg daily, Zetia 10 mg daily, aspirin 81 mg daily, Eliquis 5 mg twice a day, metoprolol tartrate 25 mg twice daily, Farxiga 10 mg daily, amlodipine 10 mg daily, Brilinta 90 mg twice a day, and hydralazine 75 mg unknown frequency, Imdur 30 mg daily, rosuvastatin 20 mg at night. - Most recent echocardiogram obtained on 11/04/2024 revealed ejection fraction 35 to 40%, inferior and inferior septal hypokinesis, moderate pulmonary hypertension, mild TR, mild MR - Cardiac catheterization history: 10/30/[address] Zimmer. Patient underwent stenting of the left main and LAD with use of IVUS and Impella 11/24/2024 Patient examined this morning to bedside. Patient denies chest pain or pressure denies shortness of breath. Denies dizziness or lightheadedness. Vital signs are stable. PHYSICAL EXAM: VITAL SIGNS: Reviewed. GENERAL: Well-developed in no acute distress. HEENT: Head is normocephalic. Pupils are equal, round. Sclerae anicteric. Mucous membranes of the mouth are moist. Neck supple. No JVD or thyromegaly LUNGS: Respirations even and unlabored. Lungs essentially clear to auscultation bilaterally. HEART: Regular rate and rhythm. S1 and S2 heard. ABDOMEN: Soft. Nondistended. Nontender. EXTREMITIES: Normal range of motion. No clubbing or cyanosis. Peripheral pulses intact. No lower extremity edema NEUROLOGIC: Awake and alert. Oriented x 3. ASSESSMENT: Dizziness consistent with vertigo Coronary artery disease with recent stenting of the left main and LAD, 10/30/2024 Ischemic cardiomyopathy, 35 to 40% Paroxysmal atrial fibrillation, on Eliquis Chronic kidney disease COPD Hypertension Hyperlipidemia PLAN: No need to repeat echocardiogram as this was performed on 11/04/2024 Continue current cardiac medications Continue dual antiplatelet therapy with aspirin and Brilinta. Continue anticoagulation with Eliquis. On 11/27/2024, will discontinue aspirin and continue with Brilinta and Eliquis No further inpatient recommendations from a cardiac standpoint Discharge per medicine Nurse practitioner note has been reviewed by physician. Signing provider agrees with the documented findings, assessment, and plan of care documented by [employer] as a scribe. Objective - Vital Signs Vital signs: Vital Signs Temp 97.9 F 11/24/24 00:34 Pulse 66 11/24/24 00:34 Resp 18 11/24/24 00:34 BP 106/66 11/24/24 00:34 Pulse Ox 98 11/24/24 00:34 FiO2 Intake & Output 11/23/24 11/24/24 11/24/24 18:59 06:59 18:59 Intake Total 812 Balance 812 Intake: Oral 812 Other: Voiding Method Toilet # Voids 1 2 - Labs CBC & Chem 7: 11/23/24 05:11 11/24/24 05:23 Labs: Abnormal Lab Results - Last 24 Hours (Table) 11/23/24 11/24/24 Range/Units 05:11 05:23 Anion Gap 12.30 H (4.00-12.00) mmol/L BUN 32.2 H (9.0-27.0) mg/dL Creatinine 2.2 H 2.1 H (0.6-1.5) mg/dL Est GFR (CKD-EPI) 31 L 33 L (>=60) Glucose 143 H 123 H (70-110) mg/dL Calcium 8.6 L 8.3 L (8.7-10.3) mg/dL Magnesium 2.5 H (1.5-2.4) mg/dL
--- NOTE | 2024-11-24 09:21 | P.PN ---
Subjective Progress Note Date: 11/23/24 This is a 69-year-old male who was recently admitted with dizziness and reports to feeling extremely dizzy when attempting to lay down and when standing follows with neurology outpatient is undergoing neurological workup while hospitalized currently awaiting an MRI. Kidney functions are elevated at 2.2 which is minimally improved from yesterday and nephrology following. Cardiology following the patient as well making adjustments to medications and also also started Antivert as needed. Patient reports he follows with Dr. Enriquez outpatient when questioning him about possible Parkinson's given his significant resting tremor although he reports he does not have Parkinson's. Neurology following as well making adjustments to medications. Review of systems: Constitutional: No reports of fatigue, fever, or chills Cardiovascular: No reports of chest pain or palpitations Respiratory: No reports of shortness of breath or cough GI: reports of nausea when he gets dizzy, no reports of vomiting, no diarrhea : No reports of dysuria or retention Neurovascular: reports of generalized weakness, and extreme dizziness with laying flat or standing All medications have been reviewed PHYSICAL EXAMINATION: GENERAL: The patient is alert and oriented x4, Well developed, thin build, elderly appearing HEENT: Pupils are round and equally reacting to light. EOMI. no scleral icterus. No conjunctival pallor. Normocephalic, atraumatic. No pharyngeal erythema. No thyromegaly. CARDIOVASCULAR: S1 and S2 muffled PULMONARY: diminished breath sounds bilaterally with no wheezing or rhonchi noted. ABDOMEN: soft. Nontender on exam. Thin. non-distended, normoactive bowel sounds. No palpable organomegaly. MUSCULOSKELETAL: No joint swelling or deformity. EXTREMITIES: No cyanosis, clubbing, or pedal edema. NEUROLOGICAL: Gross neurological examination did not reveal any focal deficits. Diffuse weakness SKIN: No rashes. Assessment: Acute renal failure with possible metabolic encephalopathy CVA ruled out per neurology Dizziness, undergoing investigation, likely vertigo Resting tremor noted, concerns for possible Parkinson's, per patient neurologist Dr. Enriquez was told that his neuropathy Atrial fibrillation history, paroxysmal Hypertension Hyperlipidemia Chronic kidney disease, stage III COPD history, not in exacerbation History of coronary artery disease with previous stenting in October 2024 to the LAD Ischemic cardiomyopathy, EF is 35 to 40% GI prophylaxis DVT prophylaxis Full code Plan: Recommend to continue with current medications and management with multiple consultations including neurology, cardiology, nephrology following Neurology undergoing further workup and is scheduled to undergo MRI of the brain to rule out CVA. CVA unlikely most likely consistent with vertigo Patient with elevated kidney functions with chronic kidney disease is voiding and nephrology making adjustments to medications Encouraged increase activity as tolerated Recommend PT/OT therapy evaluation Will await MRI and discuss further with consultations regarding discharge planning. Patient will need outpatient follow-up with neurologist Dr. Enriquez on discharge Due to multiple complex medical issues, overall prognosis is guarded. The impression and plan of care has been dictated by Jami Grijalva, nurse practitioner as directed. Dr. Brook MD I have performed a history and examination and MDM of this patient, discussed the same with the dictator, and agree with the dictator's assessment and plan as written ,documented as a scribe. Based on total visit time, I have performed more than 50% of the visit. Any additional findings or plans will be noted. Objective - Vital Signs Vital signs: Vital Signs Temp 97.9 F 11/24/24 00:34 Pulse 66 11/24/24 00:34 Resp 18 11/24/24 00:34 BP 106/66 11/24/24 00:34 Pulse Ox 98 11/24/24 00:34 FiO2 Intake & Output 11/23/24 11/24/24 11/24/24 18:59 06:59 18:59 Intake Total 812 Balance 812 Intake: Oral 812 Other: Voiding Method Toilet # Voids 1 2 - Labs CBC & Chem 7: 11/23/24 05:11 11/24/24 05:23 Labs: Abnormal Lab Results - Last 24 Hours (Table) 11/23/24 11/24/24 Range/Units 05:11 05:23 Anion Gap 12.30 H (4.00-12.00) mmol/L BUN 32.2 H (9.0-27.0) mg/dL Creatinine 2.2 H 2.1 H (0.6-1.5) mg/dL Est GFR (CKD-EPI) 31 L 33 L (>=60) Glucose 143 H 123 H (70-110) mg/dL Calcium 8.6 L 8.3 L (8.7-10.3) mg/dL Magnesium 2.5 H (1.5-2.4) mg/dL
--- NOTE | 2024-11-24 11:13 | P.PN ---
Subjective Patient is seen in follow-up for acute kidney injury on chronic kidney disease. Renal function slowly improving. Has been voiding. Dizziness improved. Vital signs are stable. General: No acute distress. HEENT: Head exam is unremarkable. LUNGS: No audible rhonchi or wheezes. HEART: Rate and Rhythm are regular. ABDOMEN: Nontender. EXTREMITITES: No edema. Objective - Vital Signs Vital signs: Vital Signs Temp 98.5 F 11/24/24 07:00 Pulse 65 11/24/24 07:00 Resp 17 11/24/24 07:00 BP 123/72 11/24/24 07:00 Pulse Ox 98 11/24/24 07:00 FiO2 Intake & Output 11/23/24 11/24/24 11/24/24 18:59 06:59 18:59 Intake Total 812 663 Balance 812 663 Intake: Oral 812 663 Other: Voiding Method Toilet # Voids 1 2 - Labs CBC & Chem 7: 11/23/24 05:11 11/24/24 05:23 Labs: Abnormal Lab Results - Last 24 Hours (Table) 11/24/24 Range/Units 05:23 Creatinine 2.1 H (0.6-1.5) mg/dL Est GFR (CKD-EPI) 33 L (>=60) Glucose 123 H (70-110) mg/dL Calcium 8.3 L (8.7-10.3) mg/dL Magnesium 2.5 H (1.5-2.4) mg/dL Assessment and Plan Plan: Assessment: 1. Acute kidney injury secondary to ATN. Creatinine 2.38 on admission and is 2.1 today. UA benign. Ultrasound from October 2024 showed no hydronephrosis. 2. Chronic systolic CHF ejection fraction of 35 to 40%. 3. Coronary disease status post left main stent placed November 06, 2024. 4. Chronic kidney disease stage IIIb with baseline creatinine near 2 secondary to nephrosclerosis and cardiorenal syndrome. 5. Hypertension with chronic kidney disease. Stable. 6. Dizziness. Concern for vertigo. On meclizine. Orthostatics negative. Plan: Continue to hold diuretics for now. Hold hydralazine for standing systolic blood pressure less than 115. Avoid nephrotoxins. Continue to monitor renal function and urine output. Resume SGLT2 inhibitor.
[2024-11-24] MEDS: DAPAGLIFLOZIN PROPANEDIOL 5 MG TABLET PO SCH (12:57)
--- NOTE | 2024-11-24 14:32 | P.PN ---
Subjective Progress Note Date: 11/24/24 I am following-up with patient and he states he remains dizzy. He refused to take Sinemet yesterday even though he stated he will try it. He also refused MRI and states wanted it as outpatient since wants it open MRI. Objective - Vital Signs Vital signs: Vital Signs Temp 98.5 F 11/24/24 07:00 Pulse 65 11/24/24 07:00 Resp 17 11/24/24 07:00 BP 123/72 11/24/24 07:00 Pulse Ox 98 11/24/24 07:00 FiO2 Intake & Output 11/23/24 11/24/24 11/24/24 18:59 06:59 18:59 Intake Total 812 663 Balance 812 663 Intake: Oral 812 663 Other: Voiding Method Toilet # Voids 1 2 - Exam GENERAL: The patient is lying in bed at 40 degree angle and is not in acute distress. NEUROLOGICAL: Higher mental function: The patient is awake, alert, oriented to self, place and time. Patient is following commands. No aphasia and no neglect. Cranial nerves: The pupils are round, equal and reactive to light and accommodation. Visual belle are full to confrontation throughout. Extraocular movement is intact no nystagmus is noted. Facial sensation is normal to touch throughout. The facial strength is normal throughout. Hearing is normal bilaterally to hand rub. Tongue is midline and moved [id number] without any difficulty. No dysarthria is noted. Shoulder shrug is normal bilaterally. Motor: The strength is hard to assess individual muscle strength because of cooperation but has at least 4+ throughout. Normal tone and bulk. Has resting tremor of the upper extremities. Cerebellum: Normal finger to nose bilaterally. Sensation: Sensation is normal to touch throughout. Reflexes (right/left):1+ in uppers and 2+ in lowers. Plantars are mute bilaterally. Some of the workup during this hospital visit consisted of: Orthostatic: Supine 123/72 with HR 65, Sitting 134/61 with HR 69 and standing 140/71 with HR 68 Creatinine is 2.38 and the repeated is 2.2 CT of the head is reported as no acute intracranial hemorrhage, mass effect or midline shift CT cervical spine is reported as no acute fracture or dislocation evident in the cervical spine. - Labs CBC & Chem 7: 11/23/24 05:11 11/24/24 05:23 Labs: Abnormal Lab Results - Last 24 Hours (Table) 11/24/24 Range/Units 05:23 Creatinine 2.1 H (0.6-1.5) mg/dL Est GFR (CKD-EPI) 33 L (>=60) Glucose 123 H (70-110) mg/dL Calcium 8.3 L (8.7-10.3) mg/dL Magnesium 2.5 H (1.5-2.4) mg/dL Assessment and Plan Assessment: This is a 69-year-old woman gentleman who presented emergency department because of dizziness, ringing in the ear for the last 1 week. He feels it is worse when he is lying supine flat and when he is standing up ambulating. He feels it is improved lying at a 30 to 45 degree angle. Acute dizziness: This does not seem to be due to posterior stroke. This seems more peripheral will rule out underlying Parkinson disease especially with his resting tremor Resting tremor of bilateral upper extremity as well as jaw and patient stated that he was evaluated by neurologist as an outpatient and he was told it due to neuropathy: My opinion I am concerned about Parkinson's disease Chronic neck pain Neuropathy Chronic kidney insufficiency Plan: He refused MRI of the brain and wants it as outpatient since wants open MRI. Patient was started on meclizine 25 mg 1 tablet 3 times daily as needed by cardiology team which I agree. The primary team changed to schedule dose. Recommend repeat orthostatic vitals. I started the patient on sentiment 25 mg 1 tablet 3 times daily yesterday but he refused to take medication so discontinued it. I consulted PT and OT Upon discharge recommend the patient to follow-up with the outpatient neurologist for further evaluation. The plan is discussed with the patient and primary team N.P. Time with Patient: Less than 30
[2024-11-24 23:58] VITALS: RESP 16
[2024-11-25] MEDS: MECLIZINE 25 MG TAB PO SCH (05:33)
--- NOTE | 2024-11-25 05:38 | P.PN ---
Subjective Progress Note Date: 11/25/24 This is a 69-year-old male who was recently admitted with dizziness and reports to feeling extremely dizzy when attempting to lay down and when standing follows with neurology outpatient is undergoing neurological workup while hospitalized currently awaiting an MRI. Kidney functions are elevated at 2.2 which is minimally improved from yesterday and nephrology following. Cardiology following the patient as well making adjustments to medications and also also started Antivert as needed. Patient reports he follows with Dr. Enriquez outpatient when questioning him about possible Parkinson's given his significant resting tremor although he reports he does not have Parkinson's. Neurology following as well making adjustments to medications. 11/24/2024 Patient is seen and evaluated in follow-up today with nephrology and neurology following. Patient continues to report dizziness especially when trying to lay down and sitting up. Patient reports he ate his breakfast and shortly after became dizzy. Patient denies nausea or lightheadedness. Patient will be on scheduled meclizine as it was as needed previous. Neurology also started Sinemet although patient is refusing. Patient was scheduled to undergo MRI although reports he is unable to tolerate and will need an open MRI. Patient has been instructed to follow-up with his neurologist outpatient regarding this. Patient is afebrile denies chest pain or palpitations. Encouraged increase activity as tolerated and plan for possible discharge in the next 24 hours. Review of systems: Constitutional: No reports of fatigue, fever, or chills Cardiovascular: No reports of chest pain or palpitations Respiratory: No reports of shortness of breath or cough GI: reports of occasional nausea when he gets dizzy, no reports of vomiting, no diarrhea : No reports of dysuria or retention Neurovascular: reports of ongoing dizziness with laying flat or standing All medications have been reviewed PHYSICAL EXAMINATION: GENERAL: The patient is alert and oriented x4, Well developed, thin build, elderly appearing HEENT: Pupils are round and equally reacting to light. EOMI. no scleral icterus. No conjunctival pallor. Normocephalic, atraumatic. No pharyngeal erythema. No thyromegaly. CARDIOVASCULAR: S1 and S2 muffled PULMONARY: diminished breath sounds bilaterally with no wheezing or rhonchi noted. ABDOMEN: soft. Nontender on exam. Thin. non-distended, normoactive bowel sounds. No palpable organomegaly. MUSCULOSKELETAL: No joint swelling or deformity. EXTREMITIES: No cyanosis, clubbing, or pedal edema. NEUROLOGICAL: Gross neurological examination did not reveal any focal deficits. Diffuse weakness SKIN: No rashes. Assessment: Acute renal failure with metabolic encephalopathy CVA ruled out per neurology Dizziness, undergoing investigation, likely vertigo Resting tremor noted, concerns for possible Parkinson's, per patient neurologist Dr. Enriquez was told that it is his neuropathy Atrial fibrillation history, paroxysmal Hypertension Hyperlipidemia Chronic kidney disease, stage III COPD history, not in exacerbation History of coronary artery disease with previous stenting in October 2024 to the LAD Ischemic cardiomyopathy, EF is 35 to 40% GI prophylaxis DVT prophylaxis Full code Plan: Recommend to continue with current medications and management with multiple consultations including neurology, cardiology, nephrology following Neurology following initially ordered an MRI although patient is refusing re ports he cannot tolerate and will need an open MRI. Patient to follow-up with his primary neurologist Dr. Enriquez regarding this outpatient. CVA unlikely most likely consistent with vertigo. Patient was started on Sinemet although patient is refusing and will make meclizine scheduled as he was taking it as needed although continues to report dizziness Patient with elevated kidney functions with chronic kidney disease nephrology making adjustments to medications Encouraged increase activity as tolerated Possible discharge in the next 24 hours if dizziness improves. May benefit from ENT evaluation outpatient as well Due to multiple complex medical issues, overall prognosis is guarded. The impression and plan of care has been dictated by Jami Grijalva, nurse practitioner as directed. Dr. Brook MD I have performed a history and examination and MDM of this patient, discussed the same with the dictator, and agree with the dictator's assessment and plan as written ,documented as a scribe. Based on total visit time, I have performed more than 50% of the visit. Any additional findings or plans will be noted. Objective - Vital Signs Vital signs: Vital Signs Temp 97.4 F L 11/24/24 20:00 Pulse 84 11/24/24 20:00 Resp 16 11/24/24 20:00 BP 124/66 11/24/24 20:00 Pulse Ox 100 11/24/24 20:00 FiO2 Intake & Output 11/24/24 11/24/24 11/25/24 06:59 18:59 06:59 Intake Total 663 Balance 663 Intake: Oral 663 Other: Voiding Method Toilet Toilet # Voids 2 2 1 - Labs CBC & Chem 7: 11/23/24 05:11 11/24/24 05:23 Labs: Abnormal Lab Results - Last 24 Hours (Table) 11/24/24 Range/Units 05:23 Creatinine 2.1 H (0.6-1.5) mg/dL Est GFR (CKD-EPI) 33 L (>=60) Glucose 123 H (70-110) mg/dL Calcium 8.3 L (8.7-10.3) mg/dL Magnesium 2.5 H (1.5-2.4) mg/dL
[2024-11-25 08:40] LABS: Magnesium 2.3 mg/dL (1.5-2.4)
[2024-11-25 08:41] LABS: BUN/Creat Ratio 11.48 Ratio (12.00-20.00); Blood Urea Nitrogen 24.1 mg/dL (9.0-27.0); Calcium 8.9 mg/dL (8.7-10.3); Carbon Dioxide 22.1 mmol/L (21.6-31.8); Chloride 108 mmol/L (96-109); Glucose 96 mg/dL (70-110); Potassium 4.4 mmol/L (3.5-5.5); Sodium 141 mmol/L (135-145)
--- NOTE | 2024-11-25 09:07 | P.PN ---
Subjective HISTORY OF PRESENT ILLNESS: This is a 69-year-old male with a past medical history significant for coronary artery disease, ischemic cardiomyopathy, COPD, hypertension, hyperlipidemia, and atrial fibrillation. Patient follows in the office with Dr. Churchill. We have been asked to see the patient in consultation for coronary artery disease. Patient examined at the bedside. Patient presented to the hospital for chief complaint of dizziness. Patient reports that the whole room felt like it was spinning. Patient without complaints of chest pain or pressure. He denies any shortness of breath. Denies any palpitations. Patient has been compliant with all of his medications. Vital signs are stable. DIAGNOSTICS: - EKG not available at this time - Laboratory data: WBC 5.84. Hemoglobin 10.9. Platelet count 161. Sodium 141. Potassium 4.5. BUN 38. Creatinine 2.38. - Current home cardiac medications include lisinopril 10 mg daily, Lasix 20 mg daily, Zetia 10 mg daily, aspirin 81 mg daily, Eliquis 5 mg twice a day, metoprolol tartrate 25 mg twice daily, Farxiga 10 mg daily, amlodipine 10 mg daily, Brilinta 90 mg twice a day, and hydralazine 75 mg unknown frequency, Imdur 30 mg daily, rosuvastatin 20 mg at night. - Most recent echocardiogram obtained on 11/04/2024 revealed ejection fraction 35 to 40%, inferior and inferior septal hypokinesis, moderate pulmonary hypertension, mild TR, mild MR - Cardiac catheterization history: 10/30/[address] Zimmer. Patient underwent stenting of the left main and LAD with use of IVUS and Impella 11/24/2024 Patient examined this morning to bedside. Patient denies chest pain or pressure denies shortness of breath. Denies dizziness or lightheadedness. Vital signs are stable. 11/25/2024 Patient examined this morning to bedside. Patient denies chest pain or pressure denies shortness of breath. Denies dizziness or lightheadedness. Vital signs are stable. PHYSICAL EXAM: VITAL SIGNS: Reviewed. GENERAL: Well-developed in no acute distress. HEENT: Head is normocephalic. Pupils are equal, round. Sclerae anicteric. Mucous membranes of the mouth are moist. Neck supple. No JVD or thyromegaly LUNGS: Respirations even and unlabored. Lungs essentially clear to auscultation bilaterally. HEART: Regular rate and rhythm. S1 and S2 heard. ABDOMEN: Soft. Nondistended. Nontender. EXTREMITIES: Normal range of motion. No clubbing or cyanosis. Peripheral pulses intact. No lower extremity edema NEUROLOGIC: Awake and alert. Oriented x 3. ASSESSMENT: Dizziness consistent with vertigo Coronary artery disease with recent stenting of the left main and LAD, 10/30/2024 Ischemic cardiomyopathy, 35 to 40% Paroxysmal atrial fibrillation, on Eliquis Chronic kidney disease COPD Hypertension Hyperlipidemia PLAN: No need to repeat echocardiogram as this was performed on 11/04/2024 Continue current cardiac medications Continue dual antiplatelet therapy with aspirin and Brilinta. Continue an ticoagulation with Eliquis. On 11/27/2024, will discontinue aspirin and continue with Brilinta and Eliquis No further inpatient recommendations from a cardiac standpoint Discharge per medicine Nurse practitioner note has been reviewed by physician. Signing provider agrees with the documented findings, assessment, and plan of care documented by [employer]UC[employer] as a scribe. Objective - Vital Signs Vital signs: Vital Signs Temp 97.4 F L 11/25/24 08:00 Pulse 67 11/25/24 08:00 Resp 16 11/25/24 08:00 BP 111/59 11/25/24 08:00 Pulse Ox 90 L 11/25/24 02:00 FiO2 Intake & Output 11/24/24 11/25/24 11/25/24 18:59 06:59 18:59 Intake Total 663 Balance 663 Intake: Oral 663 Other: Voiding Method Toilet Toilet # Voids 2 1 - Labs CBC & Chem 7: 11/23/24 05:11 11/25/24 04:27 Labs: Abnormal Lab Results - Last 24 Hours (Table) 11/25/24 Range/Units 04:27 Creatinine 2.1 H (0.6-1.5) mg/dL Est GFR (CKD-EPI) 33 L (>=60) BUN/Creatinine Ratio 11.48 L (12.00-20.00) Ratio
--- NOTE | 2024-11-25 10:58 | P.PN ---
Subjective Patient is seen in follow-up for acute kidney injury on chronic kidney disease. Renal function stable. Has been voiding. Dizziness improved. No active complaints. Vital signs are stable. General: No acute distress. HEENT: Head exam is unremarkable. LUNGS: No audible rhonchi or wheezes. HEART: Rate and Rhythm are regular. ABDOMEN: Nontender. EXTREMITITES: No edema. Objective - Vital Signs Vital signs: Vital Signs Temp 97.4 F L 11/25/24 08:00 Pulse 67 11/25/24 08:00 Resp 16 11/25/24 08:00 BP 111/59 11/25/24 08:00 Pulse Ox 90 L 11/25/24 02:00 FiO2 Intake & Output 11/24/24 11/25/24 11/25/24 18:59 06:59 18:59 Intake Total 663 Balance 663 Intake: Oral 663 Other: Voiding Method Toilet Toilet Toilet # Voids 2 1 - Labs CBC & Chem 7: 11/23/24 05:11 11/25/24 04:27 Labs: Abnormal Lab Results - Last 24 Hours (Table) 11/25/24 Range/Units 04:27 Creatinine 2.1 H (0.6-1.5) mg/dL Est GFR (CKD-EPI) 33 L (>=60) BUN/Creatinine Ratio 11.48 L (12.00-20.00) Ratio Assessment and Plan Plan: Assessment: 1. Acute kidney injury secondary to ATN. Creatinine 2.38 on admission and is stable at 2.1 today. UA benign. Ultrasound from October 2024 showed no hydronephrosis. 2. Chronic systolic CHF ejection fraction of 35 to 40%. 3. Coronary disease status post left main stent placed November 06, 2024. 4. Chronic kidney disease stage IIIb with baseline creatinine near 2 secondary to nephrosclerosis and cardiorenal syndrome. 5. Hypertension with chronic kidney disease. Stable. 6. Dizziness. Concern for vertigo. On meclizine. Orthostatics negative. Plan: Resume Lasix 20 mg once daily. Decrease dose of hydralazine to 50 mg. Hold hydralazine for standing systolic blood pressure less than 115. Avoid nephrotoxins. Continue to monitor renal function and urine output. Maintain SGLT2 inhibitor. Follow-up outpatient 1 week postdischarge.
[2024-11-25 15:18] VITALS: BP 115/59; PULSE 60; TEMP 97.6
[2024-11-25] MEDS ORDERED: hydrALAZINE HCL 50 MG TAB PO SCH (16:00)
[2024-11-26] MEDS ORDERED: FUROSEMIDE 20 MG TAB PO SCH (09:00)
--- NOTE | 2024-11-26 15:57 | P.DS ---
Providers Date of admission: 11/22/24 11:49 Expected date of discharge: 11/25/24 Attending physician: Enzo Mancini MD Consults: 11/22/24 11:48 Consult Physician Routine Consulting Provider: Camilo uDpree Consult Reason/Comments: vertigo Do you want consulting provider notified?: Yes 11/22/24 14:16 Consult Physician Routine Consulting Provider: Ira Gonzalez Consult Reason/Comments: ARF Do you want consulting provider notified?: Yes 11/22/24 14:18 Consult Physician Routine Consulting Provider: Abraham Zimmer Consult Reason/Comments: cad Do you want consulting provider notified?: Yes Primary care physician: Susan Armas Hospital Course: Final diagnosis Acute renal failure with metabolic encephalopathy CVA ruled out per neurology Dizziness, undergoing investigation, likely vertigo Resting tremor noted, concerns for possible Parkinson's, per patient neurologist Dr. Enriquez was told that it is his neuropathy Atrial fibrillation history, paroxysmal Hypertension Hyperlipidemia Chronic kidney disease, stage III COPD history, not in exacerbation History of coronary artery disease with previous stenting in October 2024 to the LAD Ischemic cardiomyopathy, EF is 35 to 40% GI prophylaxis DVT prophylaxis Full code Discharge disposition Patient is being discharged in a stable condition with guarded prognosis to home. Patient will follow-up with Dr. Armas in the outpatient setting upon discharge. Patient is to continue with current medications and outpatient follow-up with nephrology as well as cardiology as scheduled. Total time taken is greater than 35 minutes. Hospital course This is a 69-year-old male who was recently admitted with dizziness and acute on chronic renal failure with metabolic encephalopathy being closely monitored with nephrology, cardiology, and neurology following. Patient does follow with Dr. Enriquez neurologist in the outpatient setting and has been instructed to follow-up and discuss possible need for repeat MRI in the outpatient setting as patient refused MRI during inpatient as he cannot handle laying flat with his back pain and needs open MRI. Neurology recommends to continue with meclizine and also possible ENT follow-up outpatient. Patient evaluated by nephrology maintained on current medications with adjustments being made recommending outpatient follow-up and kidney functions are currently stable. Patient has been cleared by consultations and patient reports to feeling improved and would like to go home. Please refer to other consultation notes for further HPI. Currently no reports of chest pain, shortness of breath, or palpitations. Patient is afebrile. No reports of nausea or vomiting and patient is tolerating diet. Patient will be discharged home today. Guarded prognosis and patient does have history of noncompliance with medications as they cause multiple side effects he reports. Physical exam: Gen: This is a [69-year-old male who is awake, alert and oriented x 3, thin build, elderly appearing, ill-appearing HEENT: Head is atraumatic, normocephalic. Pupils equal, round. Sclerae is anicteric. NECK: Supple. No JVD. No lymphadenopathy. No thyromegaly. LUNGS: Diminished breath sounds bilaterally otherwise clear to auscultation. No wheezes or rhonchi. No intercostal retractions. HEART: S1, S2 are muffled ABDOMEN: Soft. Thin. Bowel sounds are present. No masses. No tenderness. EXTREMITIES: No pedal edema. No calf tenderness. NEUROLOGICAL: Patient is awake, alert and oriented x3. Cranial nerves 2 through 12 are grossly intact. Please refer to medication reconciliation sheet for a list of medications. The impression and plan of care has been dictated by Jami Grijalva, Nurse Practitioner as directed. Dr. Brook MD I have performed a history and examination and MDM of this patient, discussed the same with the dictator, and agree with the dictator's assessment and plan as written ,documented as a scribe. Based on total visit time, I have performed more than 50% of the visit. Patient Condition at Discharge: Fair Plan - Discharge Summary New Discharge Prescriptions: New Meclizine [Antivert] 25 mg PO TID #40 tab hydrALAZINE HCL [Apresoline] 50 mg PO TID #90 tab Acetaminophen Tab [Tylenol] 650 mg PO Q6HR PRN tab PRN Reason: Mild Pain Or Fever > 100.5 Dapagliflozin Propanediol [Farxiga] 5 mg PO DAILY #30 tab Metoprolol Tartrate [Lopressor] 25 mg PO BID #60 tab Continue Montelukast [Singulair] 10 mg PO HS Baclofen [Lioresal] 10 mg PO QID Aspirin [Adult Low Dose Aspirin EC] 81 mg PO DAILY Apixaban [Eliquis] 5 mg PO BID Fluoride (Sodium) [Sodium Fluoride 5000 Plus] 1 applic DENTAL HS prednisoLONE ACETATE 1% OPHTH [Pred Forte 1%] 1 drops LEFT EYE Q6H Brinzolamide/Brimonidine Tart [Simbrinza 1%-0.2% Eye Drop] 1 drop LEFT EYE Q12H Nitroglycerin Sl Tabs [Nitrostat] 0.4 mg SUBLINGUAL DIRECTED PRN PRN Reason: Chest Pain Ascorbic Acid [Vitamin C] 500 mg PO DIRECTED HYDROcodone/APAP 10-325MG [[place] 10-325] 1 tab PO Q6HR PRN PRN Reason: Pain Tamsulosin [Flomax] 0.4 mg PO DAILY Pantoprazole [Protonix] 40 mg PO DAILY Ezetimibe [Zetia] 10 mg PO DAILY QUEtiapine [SEROquel] 25 mg PO HS Ondansetron [Zofran] 4 mg PO TID PRN PRN Reason: Nausea And Vomiting Furosemide [Lasix] 20 mg PO DAILY Budesonide/Formoterol Fumarate [Breyna 160-4.5 Mcg Inhaler] 1 puff INHALATION DIRECTED Rosuvastatin [Crestor] 20 mg PO HS Ticagrelor [Brilinta] 90 mg PO BID #0 Isosorbide Mononitrate ER [Imdur] 30 mg PO DAILY #0 amLODIPine [Norvasc] 10 mg PO DAILY #0 Discontinued lisinopriL [Zestril] 10 mg PO DAILY #30 tab methylPREDNISolone Dose Pack [Medrol Dose Pack] See Taper PO DIRECTED Metoprolol Tartrate [Lopressor] 25 mg PO DIRECTED Dapagliflozin Propanediol [Farxiga] 10 mg PO DIRECTED hydrALAZINE HCL [Apresoline] 75 mg PO DIRECTED Discharge Medication List Montelukast [Singulair] 10 mg PO HS 09/29/14 [History] Baclofen [Lioresal] 10 mg PO QID 05/10/21 [History] HYDROcodone/APAP 10-325MG [[place] 10-325] 1 tab PO Q6HR PRN 05/10/21 [History] Tamsulosin [Flomax] 0.4 mg PO DAILY 05/10/21 [History] Aspirin [Adult Low Dose Aspirin EC] 81 mg PO DAILY 06/19/21 [History] Pantoprazole [Protonix] 40 mg PO DAILY 06/19/21 [History] Apixaban [Eliquis] 5 mg PO BID 09/17/22 [History] Ezetimibe [Zetia] 10 mg PO DAILY 09/17/22 [History] Fluoride (Sodium) [Sodium Fluoride 5000 Plus] 1 applic DENTAL HS 01/22/24 [History] Furosemide [Lasix] 20 mg PO DAILY 01/22/24 [History] Ondansetron [Zofran] 4 mg PO TID PRN 01/22/24 [History] QUEtiapine [SEROquel] 25 mg PO HS 01/22/24 [History] Brinzolamide/Brimonidine Tart [Simbrinza 1%-0.2% Eye Drop] 1 drop LEFT EYE Q12H 07/23/24 [History] prednisoLONE ACETATE 1% OPHTH [Pred Forte 1%] 1 drops LEFT EYE Q6H 07/23/24 [History] Ascorbic Acid [Vitamin C] 500 mg PO DIRECTED 11/22/24 [History] Budesonide/Formoterol Fumarate [Breyna 160-4.5 Mcg Inhaler] 1 puff INHALATION DIRECTED 11/22/24 [History] Nitroglycerin Sl Tabs [Nitrostat] 0.4 mg SUBLINGUAL DIRECTED PRN 11/22/24 [History] Rosuvastatin [Crestor] 20 mg PO HS 11/22/24 [History] Acetaminophen Tab [Tylenol] 650 mg PO Q6HR PRN tab 11/25/24 [Rx] Dapagliflozin Propanediol [Farxiga] 5 mg PO DAILY #30 tab 11/25/24 [Rx] Isosorbide Mononitrate ER [Imdur] 30 mg PO DAILY #0 11/25/24 [Rx] Meclizine [Antivert] 25 mg PO TID #40 tab 11/25/24 [Rx] Metoprolol Tartrate [Lopressor] 25 mg PO BID #60 tab 11/25/24 [Rx] Ticagrelor [Brilinta] 90 mg PO BID #0 11/25/24 [Rx] amLODIPine [Norvasc] 10 mg PO DAILY #0 11/25/24 [Rx] hydrALAZINE HCL [Apresoline] 50 mg PO TID #90 tab 11/25/24 [Rx] Follow up Appointment(s)/Referral(s): [facility],Home Care [NON-STAFF] - 1 Week Sim Mckinnon DO [STAFF PHYSICIAN] - 1 Week Susan Armas DO [Primary Care Provider] - 1-2 days Jacques Churchill MD [STAFF PHYSICIAN] - 1 Week Ambulatory/Diagnostic Orders: Basic Metabolic Panel [LAB.AMB] Time Frame: 2 Days, Location: None Selected Patient Instructions/Handouts: Vertigo (DC) Activity/Diet/Wound Care/Special Instructions: On 11/27/2024, discontinue aspirin and continue with Brilinta and Eliquis Activity limited until follow-up Follow-up with primary care provider Follow-up with cardiology outpatient Follow-up with nephrology outpatient Repeat labs in the next few days to monitor kidney functions and electrolytes Discharge Disposition: HOME WITH HOME HEALTH SERVICES
== END 2024-11-25 15:33 | disposition home health service (06) ==
LOC: EC 07:22 → 6NMEDSUR 11:49
PROVIDERS: ADMIT Internal Medicine; ATTEND Internal Medicine
DX: N17.0 Acute kidney failure with tubular necrosis (principal); G93.41 Metabolic encephalopathy; I13.0 Hypertensive heart and chronic kidney disease with heart failure and stage 1 through stage 4 chronic kidney disease, or unspecified chronic kidney disease; N18.32 Chronic kidney disease, stage 3b; I50.22 Chronic systolic (congestive) heart failure; E78.5 Hyperlipidemia, unspecified; I48.0 Paroxysmal atrial fibrillation; I25.10 Atherosclerotic heart disease of native coronary artery without angina pectoris; I25.5 Ischemic cardiomyopathy; I08.1 Rheumatic disorders of both mitral and tricuspid valves; J44.9 Chronic obstructive pulmonary disease, unspecified; G62.9 Polyneuropathy, unspecified; H93.13 Tinnitus, bilateral; G89.29 Other chronic pain; M54.2 Cervicalgia; Z79.82 Long term (current) use of aspirin; Z79.01 Long term (current) use of anticoagulants; Z79.84 Long term (current) use of oral hypoglycemic drugs; Z79.02 Long term (current) use of antithrombotics/antiplatelets; Z79.51 Long term (current) use of inhaled steroids; Z79.52 Long term (current) use of systemic steroids; Z79.899 Other long term (current) drug therapy; Z95.5 Presence of coronary angioplasty implant and graft; Z91.148 Patient's other noncompliance with medication regimen for other reason
CPT/HCPCS: 96374; 96375; 99285; 36415; 94640; 97530 ×2; 97162; 97166; 80053; 80048 ×3; 83735 ×2; 85025 ×2; 85610; 85730; 81003; 87636; 72125; 70450; G0378 ×4; J2765; J0131; J1885; 93005

== ENCOUNTER 2024-11-30 05:06 | Observation (INO) | payer MEDICARE, OTHER ==
[2024-11-30 05:38] LABS: Basophils % (A) 1 %; Eosinophils # (A) 0.3 k/uL (0-0.7); Eosinophils % (A) 5 %; HCT 28.3 % (39.0-53.0); Hypochromasia Slight; Lymphocytes # (A) 1.6 k/uL (1.0-4.8); Lymphocytes % (A) 26 %; MCH 29.5 pg (25.0-35.0); MCHC 32.3 g/dL (31.0-37.0); MCV 91.2 fL (80.0-100.0); Mean Platelet Volume 9.3; Monocytes # (A) 0.4 k/uL (0-1.0); Monocytes % (A) 7 %; Neutrophils # (A) 3.5 k/uL (1.3-7.7); Neutrophils % (A) 57 %; Platelet Count 188 k/uL (150-450); WBC 6.2 k/uL (3.8-10.6)
[2024-11-30 05:45] LABS: HGB 9.1 gm/dL (13.0-17.5)
[2024-11-30 05:50] LABS: Prothrombin Time 11.4 sec (10.0-12.5)
--- NOTE | 2024-11-30 05:52 | XR ---
EXAM: XR Chest, 2 Views CLINICAL HISTORY: Patient comes in with complaints of chest pain x3hr. Radiates to his back and shoulders and increased shortness of breath. 2 stents placed last week. TECHNIQUE: Frontal and lateral views of the chest. COMPARISON: 11/10/24 FINDINGS: Lungs: Trace of linear opacities over right middle lung zone, decreased. Pleural space: Unremarkable. Mediastinum: Calcified aorta. Normal mediastinal contour. Bones/joints: No acute findings. IMPRESSION: Trace of linear opacities over right middle lung zone, may suggest atelectasis and/or pneumonia.
[2024-11-30 05:56] LABS: ALT 17 U/L (4-49); AST 22 U/L (17-59); African American GFR (CKD) 23 (>60 ml/min/1.73 sqM); Albumin 3.9 g/dL (3.5-5.0); Alkaline Phosphatase 81 U/L (38-126); Anion Gap 11 mmol/L; Blood Urea Nitrogen 48 mg/dL (9-20); Carbon Dioxide 20 mmol/L (22-30); Chloride 106 mmol/L (98-107); Glucose 104 mg/dL (74-99); Magnesium 2.3 mg/dL (1.6-2.3); Non-African American GFR(CKD) 20 (>60 ml/min/1.73 sqM); Potassium 4.7 mmol/L (3.5-5.1); Sodium 137 mmol/L (137-145); Total Bilirubin 0.8 mg/dL (0.2-1.3); Total Protein 6.7 g/dL (6.3-8.2)
[2024-11-30] MEDS: ONDANSETRON 4 MG/2 ML VIAL IVP STA (06:14)
[2024-11-30] MEDS: SODIUM CHLORIDE 0.9% 500 ML 500 ML IV ONE (06:15)
[2024-11-30] MEDS: MORPHINE SULFATE 4 MG/ML SYRINGE IVP STA (06:15)
--- NOTE | 2024-11-30 06:37 | ED ---
General Adult HPI - General Chief complaint: Chest Pain Stated complaint: Chest pain Time Seen by Provider: 11/30/24 05:27 Source: patient Mode of arrival: EMS Limitations: no limitations - History of Present Illness Initial comments: Patient is a 69 y/o male PMH CAD, CKF, atrial fibrillation on eliquis presenting today for left sided chest pain. Pt states pain began last night and radiates towards the back of his neck and shoulders bilaterally. Described as pressure liked. Improved after 324 mg ASA and 1 SL nitroglycerin by EMS. Still present but now mainly at the back of his neck. Endorses associated shortness of breath. Denies cough or hemoptysis. Denies abdominal pain, nausea, vomiting, melena or hematochezia. States is taking his medications as prescribed. - Related Data Home Medications Medication Instructions Recorded Confirmed Montelukast [Singulair] 10 mg PO HS 09/29/14 11/22/24 Baclofen [Lioresal] 10 mg PO QID 05/10/21 11/22/24 HYDROcodone/APAP 10-325MG [[place] 1 tab PO Q6HR PRN 05/10/21 11/22/24 10-325] Tamsulosin [Flomax] 0.4 mg PO DAILY 05/10/21 11/22/24 Aspirin [Adult Low Dose Aspirin EC] 81 mg PO DAILY 06/19/21 11/22/24 Pantoprazole [Protonix] 40 mg PO DAILY 06/19/21 11/22/24 Apixaban [Eliquis] 5 mg PO BID 09/17/22 11/22/24 Ezetimibe [Zetia] 10 mg PO DAILY 09/17/22 11/22/24 Fluoride (Sodium) [Sodium Fluoride 1 applic DENTAL HS 01/22/24 11/22/24 5000 Plus] Furosemide [Lasix] 20 mg PO DAILY 01/22/24 11/22/24 Ondansetron [Zofran] 4 mg PO TID PRN 01/22/24 11/22/24 QUEtiapine [SEROquel] 25 mg PO HS 01/22/24 11/22/24 Brinzolamide/Brimonidine Tart 1 drop LEFT EYE Q12H 07/23/24 11/22/24 [Simbrinza 1%-0.2% Eye Drop] prednisoLONE ACETATE 1% OPHTH 1 drops LEFT EYE Q6H 07/23/24 11/22/24 [Pred Forte 1%] Ascorbic Acid [Vitamin C] 500 mg PO DIRECTED 11/22/24 11/22/24 Budesonide/Formoterol Fumarate 1 puff INHALATION DIRECTED 11/22/24 11/22/24 [Breyna 160-4.5 Mcg Inhaler] Nitroglycerin Sl Tabs [Nitrostat] 0.4 mg SUBLINGUAL DIRECTED PRN 11/22/24 11/22/24 Rosuvastatin [Crestor] 20 mg PO HS 11/22/24 11/22/24 Previous Rx's Medication Instructions Recorded Acetaminophen Tab [Tylenol] 650 mg PO Q6HR PRN tab 11/25/24 Dapagliflozin Propanediol [Farxiga] 5 mg PO DAILY #30 tab 11/25/24 Isosorbide Mononitrate ER [Imdur] 30 mg PO DAILY #0 11/25/24 Meclizine [Antivert] 25 mg PO TID #40 tab 11/25/24 Metoprolol Tartrate [Lopressor] 25 mg PO BID #60 tab 11/25/24 Ticagrelor [Brilinta] 90 mg PO BID #0 11/25/24 amLODIPine [Norvasc] 10 mg PO DAILY #0 11/25/24 hydrALAZINE HCL [Apresoline] 50 mg PO TID #90 tab 11/25/24 Allergies Allergy/AdvReac Type Severity Reaction Status Date / Time No Known Allergies Allergy Verified 11/22/24 12:24 Review of Systems ROS Statement: Those systems with pertinent positive or pertinent negative responses have been documented in the HPI. ROS Other: All systems not noted in ROS Statement are negative. Past Medical History Past Medical History: Atrial Fibrillation, Coronary Artery Disease (CAD), Chest Pain / Angina, Heart Failure, GERD/Reflux, Hyperlipidemia, Hypertension, Myocardial Infarction ([place]), Osteoarthritis (OA), Prostate Disorder, Renal Disease Additional Past Medical History / Comment(s): degenerative disc disease of the lumbar spine, chronic pain, neuropathy bilateral lower extremity, chronic bronchitis. CKD stage IIIb-IV Last Myocardial Infarction Date:: 2004 History of Any Multi-Drug Resistant Organisms: None Reported Past Surgical History: Cholecystectomy, Heart Catheterization With Stent, Hernia Repair, Orthopedic Surgery Additional Past Surgical History / Comment(s): carpal tunnal repair, cyst removed from the mouth, Left heart catheterization 2000 and 2004, right hernia repair, left arthroscopic knee surgery., pain clinic procedures. Past Anesthesia/Blood Transfusion Reactions: No Reported Reaction Date of Last Stent Placement:: 2004 Past Psychological History: No Psychological Hx Reported Smoking Status: Never smoker Past Alcohol Use History: None Reported Past Drug Use History: Marijuana - Past Family History Mother History Unknown: Yes Family Medical History: Cancer Additional Family Medical History / Comment(s): of old age Father History Unknown: Yes Family Medical History: Cancer Brother(s) Additional Family Medical History / Comment(s): Brother had open heart surgery x 3 related to valvular disease and postoperative infection General Exam - General Exam Comments Initial Comments: PE: CONSTITUTIONAL: No apparent distress, ill appearing SKIN: Cool, pale, dry, no jaundice, hives or petechiae. Evaluated right groin post cath site, no hematoma, overlying erythema or discharge, well healing incision sites EYES: Pupils are equally round, extraocular movements intact without nystagmus,pale conjunctiva, non-icteric sclera HENT: Normocephalic, atraumatic, moist mucus membranes, oropharynx clear without exudates NECK: , Full range of motion, normal appearance PULMONARY: Clear to auscultation without wheezes, rhonchi, or rales, normal excursion, no accessory muscle use and no stridor CARDIOVASCULAR: Regular rate, rhythm, normal S1 and S2. No appreciated murmurs, rubs or gallops. Strong radial and dorsalis pedis pulses with intact distal perfusion. Scant 1+ nonpitting edema of the dorsal aspects of the feet bilaterally GASTROINTESTINAL: Soft, active bowel sounds throughout, non-tender, non- distended, no palpable masses, no rebound or guarding. No hepatosplenomegaly MUSCULOSKELETAL: Extremities have no gross deformity, right groin (site used for cardiac cath access) is nontender, no swelling or palpable thrill NEUROLOGIC:_a/o x 3, GCS 15,normal mentation and speech. Moves all extremities x 4 without motor or sensory deficit PSYCHIATRIC:_normal mood and affect, thought process is clear and linear Limitations: no limitations Course Vital Signs 11/30/24 11/30/24 11/30/24 05:08 05:27 06:00 Temperature 98.1 F Pulse Rate 65 63 60 Respiratory 22 22 18 Rate Blood Pressure 68/46 93/48 113/67 O2 Sat by Pulse 97 96 97 Oximetry 11/30/24 07:44 Temperature Pulse Rate 58 L Respiratory 20 Rate Blood Pressure 120/66 O2 Sat by Pulse 96 Oximetry EKG Findings - EKG Comments: EKG Findings:: EKG #1 done at 5:13 AM, atrial fibrillation with left bundle branch block, QT/QTc 465/476 ms, normal axis question [address] elevation lead V4 without reciprocal depressions, significant artifact present limiting interpretation, Borderline EKG. Compared to EKG performed on 11/23/2024, questionable 1 mm elevation in the V4 appears similar to prior, small Q-wave lead V3 is new on today's EKG compared to prior. Repeat EKG obtained due to significant artifact on initial EKG, this was performed at 5:57 AM, no worsening ST depressions or elevations on repeat, continues to show atrial fibrillation with a left bundle branch block, no evolving ischemic changes, no STEMI Medical Decision Making - Medical Decision Making Was pt. sent in by a medical professional or institution (, PA, [employer], urgent care, hospital, or skilled nursing...) When possible be specific @ -No Did you speak to anyone other than the patient for history (EMS, parent, family, police, friend...)? What history was obtained from this source @ -No Did you review nursing and triage notes (agree or disagree)? Why? @ -I reviewed nursing and triage notes- agree with triage note Were old charts reviewed (outside hosp., previous admission, EMS record, old EKG, old radiological studies, urgent care reports/EKG's, skilled nursing records)? Report findings @ -Medical records reviewed- Reviewed recent discharge summary from 11/25/24, Patient was admitted for dizziness and acute on chronic renal failure with m etabolic encephalopathy. Additionally reviewed cardiology consult note from that time, noting the patient's most recent ejection fraction is 35 to 40% due to ischemic cardiomyopathy Differential Diagnosis (chest pain, altered mental status, abdominal pain women, abdominal pain men, vaginal bleeding, weakness, fever, dyspnea, syncope, headache, dizziness, GI bleed, back pain, seizure, CVA, palpatations, mental health, musculoskeletal)? @Differential Chest Pain: Stable Angina, Unstable Angina, STEMI, NSTEMI Aortic Dissection, pericarditis, pleurisy, chostochondirits, Pneumothorax, Musculoskeletal, Esophageal Spasm GERD, Cholecystitis, Pancreatitis, Zoster, this is not meant to be an all-inc lusive list. EKG interpreted by me (3pts min.). @ -As above X-rays interpreted by me (1pt min.). @I personally reviewed chest x-ray, I see no widened mediastinum, no pleural effusions or cardiomegaly, no pneumothorax I agree with radiologist interpretation CT interpreted by me (1pt min.). @ -None done U/S interpreted by me (1pt. min.). @ -None done What testing was considered but not performed or refused? (CT, X-rays, U/S, labs)? Why? @CTA chest dissection study was considered given chest pain with the radiation to patient's shoulder blades and base of his neck however on review of most rece nt labs patient has a GFR in the 20s, recent admission with concern for acute on chronic renal failure and 2+ pulses in all 4 extremities, pain described as aching not tearing therefore I feel the risk of renal injury secondary to contrast initiation outweighs benefit/necessity at this point. A D-dimer was ordered instead, was minimally elevated and a VQ scan was ordered instead What meds were considered but not given or refused? Why? @ -Considered morphine however by the time patient's RN went to reassess and administer morphine patient was sleeping heavily, patient did easily fall asleep during conversation, he is notably on [place] tens and baclofen at home and has worsening renal function I suspect polypharmacy may be contributing to his drowsiness so morphine will be withheld at this time, despite endorsed chest pain he is sleeping comfortably Did you discuss the management of the patient with other professionals (professionals i.e. , PA, [employer], lab, RT, psych nurse, manager social work, cessation systems outreach specialist, teacher, business enterprise officer, foster care case manager)? Give summary @ -No Was smoking cessation discussed for >3mins.? @ -No Was critical care preformed (if so, how long)? @ -No Were there social determinants of health that impacted care today? How? (Homelessness, low income, unemployed, alcoholism, drug addiction, transportation, low edu. Level, literacy, decrease access to med. care, detention, rehab)? @ -No Was there de-escalation of care discussed even if they declined (Discuss DNR or withdrawal of care, Hospice)? @ -No What co-morbidities impacted this encounter? (DM, HTN, Smoking, COPD, CAD, Cance r, CVA, ARF, Chemo, Hep., AIDS, mental health diagnosis, sleep apnea, morbid obesity)? @Atrial fibrillation, chronic kidney disease, CAD, ischemic cardiomyopathy Was patient admitted / discharged? Hospital course, mention meds given and route, prescriptions, significant lab abnormalities, going to OR and other pertinent info. @Admission-this is a pleasant 69-year-old gentleman presenting today for chest pain that radiated towards his shoulder blades in the back of his neck. Patient was hypotensive on arrival however intermittently tremoring his extremities states he has a neurologic disorder, making it difficult to obtain an accurate blood pressure. Patient's blood pressure did normalize spontaneously. Patient's pain is already improving with interventions by EMS. Discussed with patient plan for cardiac workup and administration of morphine for further pain control. Patient was agreeable with plan and states "give me all the morphine you can". Shortly after this I was alerted by RN that prior to morphine administration patient was rather drowsy and sleeping comfortably. Due to this morphine was withheld. Labs are significant for a troponin of 0.083 though of note was 0.106 on 11/03/24, this can potentially be downtrending from that admission, we will hold off on heparin at this point and continue to trend troponin, GFR 20, creatinine 2.99 these are both worsened from most recent measurements, on 11/25/2024 when patient was recently discharged creatinine was 2.1. Patient given small 500 cc fluid bolus. Plan for admission for chest pain and SONYA. Case was discussed with Dr. Skinner, who kindly excepted patient for admission. Undiagnosed new problem with uncertain prognosis? @ -No Drug Therapy requiring intensive monitoring for toxicity (Heparin, Nitro, Insulin, Cardizem)? @ -No Were any procedures done? @ -No Diagnosis/symptom? @Unstable angina, SONYA Acute, or Chronic, or Acute on Chronic? @Acute Uncomplicated (without systemic symptoms) or Complicated (systemic symptoms)? @ -Complicated Side effects of treatment? @ -No Exacerbation, Progression, or Severe Exacerbation? @ -No Poses a threat to life or bodily function? How? (Chest pain, [place], [place], pneumonia, PE, COPD, DKA, ARF, appy, cholecystitis, CVA, Diverticulitis, Homicidal, Suicidal, threat to staff... and all critical care pts) @Yes, if left unaddressed or untreated could progress to STEMI, if SONYA left unaddressed could progress to fulminant renal failure - Lab Data Result diagrams: 11/30/24 05:20 11/30/24 05:20 Lab Results 11/30/24 11/30/24 11/30/24 Range/Units 05:20 05:20 05:20 WBC 6.2 (3.8-10.6) k/uL RBC 3.10 L (4.30-5.90) m/uL Hgb 9.1 L D (13.0-17.5) gm/dL Hct 28.3 L (39.0-53.0) % MCV 91.2 (80.0-100.0) fL MCH 29.5 (25.0-35.0) pg MCHC 32.3 (31.0-37.0) g/dL RDW 14.0 (11.5-15.5) % Plt Count 188 (150-450) k/uL MPV 9.3 Neutrophils % 57 % Lymphocytes % 26 % Monocytes % 7 % Eosinophils % 5 % Basophils % 1 % Neutrophils # 3.5 (1.3-7.7) k/uL Lymphocytes # 1.6 (1.0-4.8) k/uL Monocytes # 0.4 (0-1.0) k/uL Eosinophils # 0.3 (0-0.7) k/uL Basophils # 0.0 (0-0.2) k/uL Hypochromasia Slight PT 11.4 (10.0-12.5) sec INR 1.0 (<1.2) APTT 26.0 (22.0-30.0) sec D-Dimer (<0.60) mg/L FEU Sodium 137 (137-145) mmol/L Potassium 4.7 (3.5-5.1) mmol/L Chloride 106 (98-107) mmol/L Carbon Dioxide 20 L (22-30) mmol/L Anion Gap 11 mmol/L BUN 48 H (9-20) mg/dL Creatinine 2.99 H (0.66-1.25) mg/dL Est GFR (CKD-EPI)AfAm 23 (>60 ml/min/1.73 sqM) Est GFR (CKD-EPI)NonAf 20 (>60 ml/min/1.73 sqM) Glucose 104 H (74-99) mg/dL Calcium 9.0 (8.4-10.2) mg/dL Magnesium 2.3 (1.6-2.3) mg/dL Total Bilirubin 0.8 (0.2-1.3) mg/dL AST 22 (17-59) U/L ALT 17 (4-49) U/L Alkaline Phosphatase 81 (38-126) U/L Troponin I (0.000-0.034) ng/mL NT-Pro-B Natriuret Pep pg/mL Total Protein 6.7 (6.3-8.2) g/dL Albumin 3.9 (3.5-5.0) g/dL Lipase (23-300) U/L Blood Type Blood Type Recheck Bld Type Recheck Status Antibody Screen Spec Expiration Date 11/30/24 11/30/24 11/30/24 Range/Units 05:20 05:25 05:38 WBC (3.8-10.6) k/uL RBC (4.30-5.90) m/uL Hgb (13.0-17.5) gm/dL Hct (39.0-53.0) % MCV (80.0-100.0) fL MCH (25.0-35.0) pg MCHC (31.0-37.0) g/dL RDW (11.5-15.5) % Plt Count (150-450) k/uL MPV Neutrophils % % Lymphocytes % % Monocytes % % Eosinophils % % Basophils % % Neutrophils # (1.3-7.7) k/uL Lymphocytes # (1.0-4.8) k/uL Monocytes # (0-1.0) k/uL Eosinophils # (0-0.7) k/uL Basophils # (0-0.2) k/uL Hypochromasia PT (10.0-12.5) sec INR (<1.2) APTT (22.0-30.0) sec D-Dimer 0.61 H (<0.60) mg/L FEU Sodium (137-145) mmol/L Potassium (3.5-5.1) mmol/L Chloride (98-107) mmol/L Carbon Dioxide (22-30) mmol/L Anion Gap mmol/L BUN (9-20) mg/dL Creatinine (0.66-1.25) mg/dL Est GFR (CKD-EPI)AfAm (>60 ml/min/1.73 sqM) Est GFR (CKD-EPI)NonAf (>60 ml/min/1.73 sqM) Glucose (74-99) mg/dL Calcium (8.4-10.2) mg/dL Magnesium (1.6-2.3) mg/dL Total Bilirubin (0.2-1.3) mg/dL AST (17-59) U/L ALT (4-49) U/L Alkaline Phosphatase (38-126) U/L Troponin I 0.083 H* (0.000-0.034) ng/mL NT-Pro-B Natriuret Pep pg/mL Total Protein (6.3-8.2) g/dL Albumin (3.5-5.0) g/dL Lipase (23-300) U/L Blood Type A Positive Blood Type Recheck A Pos Bld Type Recheck Status No Antibody Screen NEGATIVE Spec Expiration Date 12/03/2024 - 232411/30/24 Range/Units 05:38 WBC (3.8-10.6) k/uL RBC (4.30-5.90) m/uL Hgb (13.0-17.5) gm/dL Hct (39.0-53.0) % MCV (80.0-100.0) fL MCH (25.0-35.0) pg MCHC (31.0-37.0) g/dL RDW (11.5-15.5) % Plt Count (150-450) k/uL MPV Neutrophils % % Lymphocytes % % Monocytes % % Eosinophils % % Basophils % % Neutrophils # (1.3-7.7) k/uL Lymphocytes # (1.0-4.8) k/uL Monocytes # (0-1.0) k/uL Eosinophils # (0-0.7) k/uL Basophils # (0-0.2) k/uL Hypochromasia PT (10.0-12.5) sec INR (<1.2) APTT (22.0-30.0) sec D-Dimer (<0.60) mg/L FEU Sodium (137-145) mmol/L Potassium (3.5-5.1) mmol/L Chloride (98-107) mmol/L Carbon Dioxide (22-30) mmol/L Anion Gap mmol/L BUN (9-20) mg/dL Creatinine (0.66-1.25) mg/dL Est GFR (CKD-EPI)AfAm (>60 ml/min/1.73 sqM) Est GFR (CKD-EPI)NonAf (>60 ml/min/1.73 sqM) Glucose (74-99) mg/dL Calcium (8.4-10.2) mg/dL Magnesium (1.6-2.3) mg/dL Total Bilirubin (0.2-1.3) mg/dL AST (17-59) U/L ALT (4-49) U/L Alkaline Phosphatase (38-126) U/L Troponin I (0.000-0.034) ng/mL NT-Pro-B Natriuret Pep 1790 pg/mL Total Protein (6.3-8.2) g/dL Albumin (3.5-5.0) g/dL Lipase 114 (23-300) U/L Blood Type Blood Type Recheck Bld Type Recheck Status Antibody Screen Spec Expiration Date Disposition Clinical Impression: Chest pain, Unstable angina pectoris, SONYA (acute kidney injury) Disposition: ADMITTED IP TO [facility] Condition: Stable
[2024-11-30 06:49] LABS: Lipase 114 U/L (23-300)
[2024-11-30 06:59] LABS: NT-Pro-B-Type Natriuretic Pept 1790 pg/mL
[2024-11-30] MEDS ORDERED: MORPHINE SULFATE 2 MG/ML SYRINGE IVP PRN (07:23)
[2024-11-30] MEDS ORDERED: NITROGLYCERIN SL TABS 0.4 MG TAB SUBLINGUAL PRN (07:23)
[2024-11-30] MEDS ORDERED: ONDANSETRON ODT 4 MG TAB PO PRN (07:27)
[2024-11-30] MEDS: ASPIRIN 81 MG PO SCH (09:48)
[2024-11-30] MEDS: TICAGRELOR 90 MG TAB PO SCH (09:48)
[2024-11-30] MEDS: APIXABAN 5 MG TAB PO SCH (09:48)
[2024-11-30] MEDS: TAMSULOSIN 0.4 MG CAP.ER.24H PO SCH (09:48)
[2024-11-30] MEDS: PANTOPRAZOLE 40 MG TABLET PO SCH (09:48)
--- NOTE | 2024-11-30 12:02 | NM ---
EXAMINATION TYPE: NM pul vent and perfuse DATE OF EXAM: 11/30/2024 CLINICAL INDICATION: Male, 69 years old with history of elevated d-dimer, chest pain to back; COMPARISON: Chest x-ray earlier today TECHNIQUE: Utilizing inhalation of 66.3 mCi Tc 99m DTPA aerosol and intravenous injection of 5.1 mCi of Tc 99m MAA, ventilation and perfusion images are acquired post injection in multiple projections. FINDINGS: Normal radiotracer distribution is noted in the lungs. There is no evidence of mismatched defects. IMPRESSION: Low scintigraphic evidence for acute pulmonary embolism. [facility], , 11/30/2024 12:00 PM
[2024-11-30] MEDS: HYDROcodone/APAP 10-325MG 1 EACH TAB PO PRN (14:02)
--- NOTE | 2024-11-30 14:20 | P.NPCON ---
History of Present Illness - Reason for Consult acute renal failure - History of Present Illness Patient is a 69-year-old male with history of coronary artery disease, chronic A-fib, chronic kidney disease stage IIIb with baseline creatinine around 2 mg/dL, who is admitted to the hospital with complaints of significant pain in his back and shoulders, increased weakness. Blood pressure was low with initial blood pressure documented at 68/46. Patient has received fluid boluses. History of acute kidney injury during recent hospitalization. Patient was just discharged on 11/25/2024. Creatinine had peaked at 2.3 and was 2.1 on 11/25/2024 on discharge. Serum creatinine is 2.9 today. Patient states he has been voiding. Antihypertensive medications currently on hold No NSAIDs noted on home med list. Patient is voiding on his own Past Medical History Past Medical History: Atrial Fibrillation, Coronary Artery Disease (CAD), Chest Pain / Angina, Heart Failure, GERD/Reflux, Hyperlipidemia, Hypertension, Myocardial Infarction ([place]), Osteoarthritis (OA), Prostate Disorder, Renal Disease Additional Past Medical History / Comment(s): degenerative disc disease of the lumbar spine, chronic pain, neuropathy bilateral lower extremity, chronic bronchitis. CKD stage IIIb-IV Last Myocardial Infarction Date:: 2004 History of Any Multi-Drug Resistant Organisms: None Reported Past Surgical History: Cholecystectomy, Heart Catheterization With Stent, Hernia Repair, Orthopedic Surgery Additional Past Surgical History / Comment(s): carpal tunnal repair, cyst removed from the mouth, Left heart catheterization 2000 and 2004, right hernia repair, left arthroscopic knee surgery., pain clinic procedures. Past Anesthesia/Blood Transfusion Reactions: No Reported Reaction Date of Last Stent Placement:: 2004 Past Psychological History: No Psychological Hx Reported Smoking Status: Never smoker Past Alcohol Use History: None Reported Past Drug Use History: Marijuana - Past Family History Mother History Unknown: Yes Family Medical History: Cancer Additional Family Medical History / Comment(s): of old age Father History Unknown: Yes Family Medical History: Cancer Brother(s) Additional Family Medical History / Comment(s): Brother had open heart surgery x 3 related to valvular disease and postoperative infection Medications and Allergies Home Medications Medication Instructions Recorded Confirmed Type Montelukast [Singulair] 10 mg PO HS 09/29/14 11/30/24 History Baclofen [Lioresal] 10 mg PO QID 05/10/21 11/30/24 History HYDROcodone/APAP 10-325MG [[place] 1 tab PO Q6HR PRN 05/10/21 11/30/24 History 10-325] Tamsulosin [Flomax] 0.4 mg PO DAILY 05/10/21 11/30/24 History Aspirin [Adult Low Dose Aspirin EC] 81 mg PO DAILY 06/19/21 11/30/24 History Pantoprazole [Protonix] 40 mg PO DAILY 06/19/21 11/30/24 History Apixaban [Eliquis] 5 mg PO BID 09/17/22 11/30/24 History Ezetimibe [Zetia] 10 mg PO DAILY 09/17/22 11/30/24 History Fluoride (Sodium) [Sodium Fluoride 1 applic DENTAL HS 01/22/24 11/30/24 History 5000 Plus] Furosemide [Lasix] 20 mg PO DAILY 01/22/24 11/30/24 History Ondansetron [Zofran] 4 mg PO TID PRN 01/22/24 11/30/24 History QUEtiapine [SEROquel] 25 mg PO HS 01/22/24 11/30/24 History Brinzolamide/Brimonidine Tart 1 drop LEFT EYE Q12H 07/23/24 11/30/24 History [Simbrinza 1%-0.2% Eye Drop] prednisoLONE ACETATE 1% OPHTH 1 drops LEFT EYE Q6H 07/23/24 11/30/24 History [Pred Forte 1%] Ascorbic Acid [Vitamin C] 500 mg PO DAILY 11/22/24 11/30/24 History Nitroglycerin Sl Tabs [Nitrostat] 0.4 mg SUBLINGUAL Q5M PRN 11/22/24 11/30/24 History Rosuvastatin [Crestor] 20 mg PO HS 11/22/24 11/30/24 History Acetaminophen Tab [Tylenol] 650 mg PO Q6HR PRN tab 11/25/24 11/30/24 Rx Dapagliflozin Propanediol [Farxiga] 5 mg PO DAILY #30 tab 11/25/24 11/30/24 Rx Isosorbide Mononitrate ER [Imdur] 30 mg PO DAILY #0 11/25/24 11/30/24 Rx Metoprolol Tartrate [Lopressor] 25 mg PO BID #60 tab 11/25/24 11/30/24 Rx Ticagrelor [Brilinta] 90 mg PO BID #0 11/25/24 11/30/24 Rx amLODIPine [Norvasc] 10 mg PO DAILY #0 11/25/24 11/30/24 Rx hydrALAZINE HCL [Apresoline] 50 mg PO TID #90 tab 11/25/24 11/30/24 Rx Meclizine [Antivert] 25 mg PO TID PRN 11/30/24 11/30/24 History Allergies Allergy/AdvReac Type Severity Reaction Status Date / Time No Known Allergies Allergy Verified 11/30/24 10:46 Physical Exam Vitals: Vital Signs Temp Pulse Resp BP Pulse Ox 11/30/24 13:39 98.2 F 76 20 139/61 97 11/30/24 13:00 73 20 137/66 99 11/30/24 11:47 72 20 104/69 96 11/30/24 09:00 62 20 116/54 98 11/30/24 07:44 58 L 20 120/66 96 11/30/24 06:00 60 18 113/67 97 11/30/24 05:27 63 22 93/48 96 11/30/24 05:08 98.1 F 65 22 68/46 97 Intake and Output 11/29/24 11/30/24 11/30/24 22:59 06:59 14:59 Other: Weight 74.843 kg Patient is awake, comfortable, no acute distress Examination of the heart S1 and S2 Examination of the lungs bilateral breath sounds are heard Abdomen is soft nontender Examination lower extremities shows no significant edema [employer]ET[employer] exam grossly intact Results - Lab Results Most recent lab results Calcium 9.0 mg/dL (8.4-10.2) 11/30/24 05:20 Magnesium 2.3 mg/dL (1.6-2.3) 11/30/24 05:20 11/30/24 05:20 11/30/24 05:20 Assessment and Plan Assessment: 1. Acute kidney injury secondary to hypotension, ATN, nonoliguric 2. Chronic kidney disease stage IIIb with baseline creatinine close to 2 secondary to nephrosclerosis and cardiorenal syndrome 3. Chronic systolic CHF with EF of 35 to 40% 4. Coronary artery disease status post coronary stent placement on 11/06/2024 5. Hypertension with CKD stage IIIb Plan: Continue with IV fluids, will likely discontinue tomorrow. Continue to hold antihypertensive medications and diuretics for now Repeat labs in a.m. Check cortisol level Continue with Flomax Thank you for the consultation. We will continue to follow the patient with you during his hospitalization.
--- NOTE | 2024-11-30 14:58 | HP ---
HISTORY AND PHYSICAL CHIEF COMPLAINT: Chest pain. HISTORY OF PRESENT ILLNESS: This 69-year-old gentleman with past medical history of multiple medical issues including CAD and atrial fibrillation, was complaining of chest pain. He felt in the anterior part of chest and radiated to the back in the neck and shoulders. The patient also had multiple tremors in the both hands, which is extending to the jaw also according to him. There are no history of fever, rigors, chills at this time. The troponins elevated up to 0.081 indicating acute [id number] elevation myocardial infarction. Recently, the troponins elevated and this could be the tapering of troponin also. The patient has acute renal failure, metabolic encephalopathy recently. PAST MEDICAL HISTORY: Reviewed and include atrial fibrillation. Rest of history and chart were also reviewed. HOME MEDICATIONS: Reviewed and include Zofran. Dose and rest of medications reviewed. ALLERGIES: None. FAMILY HISTORY: History of cancer. SOCIAL HISTORY: Quit smoking. REVIEW OF SYSTEMS: Fourteen-point review of systems is negative except as mentioned earlier. PHYSICAL EXAMINATION: VITAL SIGNS: Pulse 73, blood pressure 137/60, respirations 20. HEENT: Conjunctivae normal. NECK: No JVD. CARDIOVASCULAR: S1, S2. RESPIRATIONS: Breath sounds diminished at the bases. ABDOMEN: Soft. Nontender. NERVOUS SYSTEM: Diffuse tremors present. LABORATORY DATA: D-dimer 0.67. Creatinine 2.99. ASSESSMENT: 1. Chest pain with elevated troponin 0.081, possibly unstable angina versus acute non- ST-segment elevation myocardial infarction. 2. Acute on chronic renal failure. 3. Atrial fibrillation. 4. Diffuse tremors, possibly dyskinetic movements. 5. Congestive heart failure. 6. Gastroesophageal reflux disease. 7. Hypertension. 8. Hyperlipidemia. 9. Degenerative joint disease. 10.Multiple complex medical issues. RECOMMENDATIONS AND DISCUSSION: This 69-year-old gentleman presented with multiple complex medical issues. We will monitor the patient closely. Continue with Cardiology consultation. I would also recommend Nephrology and Neurology evaluations. Also adjust medications. Avoid nephrotoxic medications. The V/Q scan is low probability. Chest x-ray which I reviewed personally showed no fluid accumulation. Otherwise, overall prognosis extremely guarded because of multiple complex medical issues. Further recommendations to follow. MMODL / IJN: [id number] /
[2024-11-30] MEDS: SODIUM CHLORIDE 0.9% 1,000 ML IV SCH (16:40)
[2024-11-30] MEDS: ATORVASTATIN 40 MG TAB PO SCH (20:14)
[2024-11-30] MEDS: QUEtiapine 25 MG TAB PO SCH (20:15)
[2024-11-30] MEDS: MECLIZINE 25 MG TAB PO PRN (22:15)
[2024-12-01 06:31] LABS: Basophils % (A) 1 %; Eosinophils # (A) 0.3 k/uL (0-0.7); Eosinophils % (A) 7 %; HCT 27.9 % (39.0-53.0); Hypochromasia Moderate; Lymphocytes # (A) 0.9 k/uL (1.0-4.8); Lymphocytes % (A) 20 %; MCHC 32.2 g/dL (31.0-37.0); Mean Platelet Volume 9.5; Monocytes # (A) 0.3 k/uL (0-1.0); Monocytes % (A) 6 %; Neutrophils # (A) 2.8 k/uL (1.3-7.7); Neutrophils % (A) 63 %; Platelet Count 154 k/uL (150-450); WBC 4.5 k/uL (3.8-10.6)
[2024-12-01 06:53] LABS: African American GFR (CKD) 22 (>60 ml/min/1.73 sqM); Anion Gap 9 mmol/L; Blood Urea Nitrogen 47 mg/dL (9-20); Calcium 8.8 mg/dL (8.4-10.2); Carbon Dioxide 21 mmol/L (22-30); Chloride 108 mmol/L (98-107); Glucose 125 mg/dL (74-99); Non-African American GFR(CKD) 19 (>60 ml/min/1.73 sqM); Potassium 4.2 mmol/L (3.5-5.1); Sodium 138 mmol/L (137-145)
--- NOTE | 2024-12-01 10:15 | P.CRDCN ---
History of Present Illness Consult date: 12/01/24 History of present illness: HISTORY OF PRESENTING ILLNESS: Patient is a 69-year-old male who underwent PCI for left main in 10/2024. He also has history of CKD ischemic cardiomyopathy with EF of 30 to 35%. Since then, patient has had couple of hospital admissions with primary complaint of dizziness and lightheadedness. Patient does have history of suspected Parkinson's disease and movement disorder with resting tremors. His recent echocardiogram showed an EF of 30 to 35%, he had carotid Dopplers which showed mild to moderate nonobstructive carotid disease in bilateral carotids This time on admission his blood pressure and heart rate are in acceptable range. Troponins are minimally elevated with a flat pattern less likely related to ACS. On admission he does have evidence of worsening CKD. His baseline creatinine is around 2, on admission creatinine is 3 REVIEW OF SYSTEMS: 14 point review of system is negative except what is mentioned above in HPI. PHYSICAL EXAMINATION: Neck: Brisk carotid upstroke, no jugular venous distention. Lungs: Clear to auscultation. Poor inspiratory effort with diminished air entry bilateral lung belle Heart: Irregularly irregular pulse, soft systolic murmur in aortic area. Abdomen: Soft nontender, positive bowel sounds. Extremities: No edema, intact distal pulses. Neuro: Alert, oritented, no focal deficits. Detailed neuro exam was not performed. ASSESSMENT: # CAD status post left main PCI. 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 He is on Eliquis for paroxysmal atrial fibrillation and DAPT therapy for recent PCI His GDMT has been held because of his worsening kidney function. Hold SGLT2, ARNI, Aldactone Consider low-dose beta-jany. Metoprolol succinate 25 mg daily to go home with. At this time patient is cleared from cardiovascular standpoint recommend out patient follow-up Patient has had fluctuating blood pressure. I would recommend not to use hydralazine as this would potentiate his dizziness. May consider using low-dose amlodipine and uptitrating it if needed. Nephro consult Wallace Flores MD, FACC, RPVI Thank you for allowing [facility] to participate in this patient's care. Feel free to reach out in case of any followup questions. Past Medical History Past Medical History: Atrial Fibrillation, Coronary Artery Disease (CAD), Chest Pain / Angina, Heart Failure, GERD/Reflux, Hyperlipidemia, Hypertension, Myocardial Infarction ([place]), Osteoarthritis (OA), Prostate Disorder, Renal Disease Additional Past Medical History / Comment(s): degenerative disc disease of the lumbar spine, chronic pain, neuropathy bilateral lower extremity, chronic bronchitis. CKD stage IIIb-IV Last Myocardial Infarction Date:: 2004 History of Any Multi-Drug Resistant Organisms: None Reported Past Surgical History: Cholecystectomy, Heart Catheterization With Stent, Hernia Repair, Orthopedic Surgery Additional Past Surgical History / Comment(s): carpal tunnal repair, cyst removed from the mouth, Left heart catheterization 2000 and 2004, right hernia repair, left arthroscopic knee surgery., pain clinic procedures. Past Anesthesia/Blood Transfusion Reactions: No Reported Reaction Date of Last Stent Placement:: 2004 Past Psychological History: No Psychological Hx Reported Smoking Status: Never smoker Past Alcohol Use History: None Reported Past Drug Use History: Marijuana - Past Family History Mother History Unknown: Yes Family Medical History: Cancer Additional Family Medical History / Comment(s): of old age Father History Unknown: Yes Family Medical History: Cancer Brother(s) Additional Family Medical History / Comment(s): Brother had open heart surgery x 3 related to valvular disease and postoperative infection Medications and Allergies Home Medications Medication Instructions Recorded Confirmed Type Montelukast [Singulair] 10 mg PO HS 09/29/14 11/30/24 History Baclofen [Lioresal] 10 mg PO QID 05/10/21 11/30/24 History HYDROcodone/APAP 10-325MG [[place] 1 tab PO Q6HR PRN 05/10/21 11/30/24 History 10-325] Tamsulosin [Flomax] 0.4 mg PO DAILY 05/10/21 11/30/24 History Aspirin [Adult Low Dose Aspirin EC] 81 mg PO DAILY 06/19/21 11/30/24 History Pantoprazole [Protonix] 40 mg PO DAILY 06/19/21 11/30/24 History Apixaban [Eliquis] 5 mg PO BID 09/17/22 11/30/24 History Ezetimibe [Zetia] 10 mg PO DAILY 09/17/22 11/30/24 History Fluoride (Sodium) [Sodium Fluoride 1 applic DENTAL HS 01/22/24 11/30/24 History 5000 Plus] Furosemide [Lasix] 20 mg PO DAILY 01/22/24 11/30/24 History Ondansetron [Zofran] 4 mg PO TID PRN 01/22/24 11/30/24 History QUEtiapine [SEROquel] 25 mg PO HS 01/22/24 11/30/24 History Brinzolamide/Brimonidine Tart 1 drop LEFT EYE Q12H 07/23/24 11/30/24 History [Simbrinza 1%-0.2% Eye Drop] prednisoLONE ACETATE 1% OPHTH 1 drops LEFT EYE Q6H 07/23/24 11/30/24 History [Pred Forte 1%] Ascorbic Acid [Vitamin C] 500 mg PO DAILY 11/22/24 11/30/24 History Nitroglycerin Sl Tabs [Nitrostat] 0.4 mg SUBLINGUAL Q5M PRN 11/22/24 11/30/24 History Rosuvastatin [Crestor] 20 mg PO HS 11/22/24 11/30/24 History Acetaminophen Tab [Tylenol] 650 mg PO Q6HR PRN tab 11/25/24 11/30/24 Rx Dapagliflozin Propanediol [Farxiga] 5 mg PO DAILY #30 tab 11/25/24 11/30/24 Rx Isosorbide Mononitrate ER [Imdur] 30 mg PO DAILY #0 11/25/24 11/30/24 Rx Metoprolol Tartrate [Lopressor] 25 mg PO BID #60 tab 11/25/24 11/30/24 Rx Ticagrelor [Brilinta] 90 mg PO BID #0 11/25/24 11/30/24 Rx amLODIPine [Norvasc] 10 mg PO DAILY #0 11/25/24 11/30/24 Rx hydrALAZINE HCL [Apresoline] 50 mg PO TID #90 tab 11/25/24 11/30/24 Rx Meclizine [Antivert] 25 mg PO TID PRN 11/30/24 11/30/24 History Allergies Allergy/AdvReac Type Severity Reaction Status Date / Time No Known Allergies Allergy Verified 11/30/24 10:46 Physical Exam Vitals: Vital Signs Temp Pulse Resp BP Pulse Ox 12/01/24 09:00 87 20 148/57 95 12/01/24 05:36 98.2 F 64 18 117/92 94 L 12/01/24 03:42 78 18 107/59 95 12/01/24 00:49 78 17 110/61 96 11/30/24 22:41 66 17 120/83 95 11/30/24 19:23 97.4 F L 87 18 103/70 96 11/30/24 16:00 74 20 117/60 96 11/30/24 13:39 98.2 F 76 20 139/61 97 11/30/24 13:00 73 20 137/66 99 11/30/24 11:47 72 20 104/69 96 Results 12/01/24 05:34 12/01/24 05:34 CBC 12/01/24 Range/Units 05:34 WBC 4.5 (3.8-10.6) k/uL RBC 3.00 L (4.30-5.90) m/uL Hgb 9.0 L (13.0-17.5) gm/dL Hct 27.9 L (39.0-53.0) % Plt Count 154 (150-450) k/uL Comprehensive Metabolic Panel 12/01/24 Range/Units 05:34 Sodium 138 (137-145) mmol/L Potassium 4.2 (3.5-5.1) mmol/L Chloride 108 H (98-107) mmol/L Carbon Dioxide 21 L (22-30) mmol/L BUN 47 H (9-20) mg/dL Creatinine 3.07 H (0.66-1.25) mg/dL Glucose 125 H (74-99) mg/dL Calcium 8.8 (8.4-10.2) mg/dL Current Medications Generic Name Dose Route Start Last Admin Trade Name Freq PRN Reason Stop Dose Admin Acetaminophen 650 mg 11/30/24 07:23 Acetaminophen Tab 325 Mg Tab PO Q6HR PRN Pain Hydrocodone Bitart/Acetaminophen 1 each 11/30/24 07:27 12/01/24 05:32 Hydrocodone/Apap 10-325mg 1 Each Tab PO 1 each Q6HR PRN Administration Pain Apixaban 5 mg 11/30/24 09:00 12/01/24 08:59 Apixaban 5 Mg Tab PO 5 mg BID DESIREE Administration Protocol Aspirin 81 mg 11/30/24 09:00 12/01/24 08:58 Aspirin 81 Mg PO 81 mg DAILY DESIREE Administration Atorvastatin Calcium 40 mg 11/30/24 21:00 11/30/24 20:14 Atorvastatin 40 Mg Tab PO 40 mg HS DESIREE Administration Sodium Chloride 1,000 mls @ 50 mls/hr 11/30/24 13:15 11/30/24 16:40 Saline 0.9% IV 50 mls/hr .Q20H DESIREE Administration Meclizine HCl 25 mg 11/30/24 22:08 11/30/24 22:15 Meclizine 25 Mg Tab PO 25 mg TID PRN Administration Vertigo Nitroglycerin 0.4 mg 11/30/24 07:23 Nitroglycerin Sl Tabs 0.4 Mg Tab SUBLINGUAL Q5M PRN Chest Pain Ondansetron HCl 4 mg 11/30/24 07:27 Ondansetron Odt 4 Mg Tab PO TID PRN Nausea And Vomiting Pantoprazole Sodium 40 mg 11/30/24 09:00 12/01/24 09:00 Pantoprazole 40 Mg Tablet PO 40 mg DAILY DESIREE Administration Quetiapine Fumarate 25 mg 11/30/24 21:00 11/30/24 20:15 Quetiapine 25 Mg Tab PO 25 mg HS DESIREE Administration Tamsulosin HCl 0.4 mg 11/30/24 09:00 12/01/24 09:00 Tamsulosin 0.4 Mg Cap.Er.24h PO 0.4 mg DAILY DESIREE Administration Ticagrelor 90 mg 11/30/24 09:00 12/01/24 08:59 Ticagrelor 90 Mg Tab PO 90 mg BID DESIREE Administration 12/01/24 05:34 12/01/24 05:34
[2024-12-01] MEDS: METOPROLOL SUCCINATE (ER) 25 MG TAB.ER.24H PO SCH (10:17)
--- NOTE | 2024-12-01 12:27 | P.PN ---
Subjective Patient is seen for follow-up for acute kidney injury associated with low blood pressure. Underlying ischemic cardiomyopathy with EF of 30 to 35% Dizziness is slightly improved but persistent. Blood pressure has improved much. No complaints of shortness of breath Serum creatinine staying at about 2.9 to 3 mg/dL. Patient has been voiding. 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 Acute kidney injury secondary to hypotension, ATN, nonoliguric. Serum creatinine staying at around 2.9 to 3 mg/dL. It was 2.1 on 11/25/2024. Rule out urine retention. UA was completely benign on 11/22/2024 2. Chronic kidney disease stage IIIb with baseline creatinine close to 2 secondary to nephrosclerosis and cardiorenal syndrome 3. Chronic systolic CHF with EF of 35 to 40% 4. Coronary artery disease status post coronary stent placement on 11/06/2024 5. Hypertension with CKD stage IIIb with baseline creatinine around 1.7 to 2 mg/dL. Etiology nephrosclerosis/cardiorenal syndrome 6. Hypotension with low cortisol level rule out adrenal insufficiency Plan: Continue with IV fluids Continue to hold antihypertensive medications and diuretics for now. Maintained on metoprolol 25 mg daily Repeat labs in a.m. Cortisol level is low. Patient needs ACTH stimulation test to rule out adrenal insufficiency.
[2024-12-01] MEDS: COSYNTROPIN 0.25 MG VIAL IVP ONE (13:26)
--- NOTE | 2024-12-01 15:54 | P.CNNES ---
History of Present Illness Consult date: 12/01/24 Requesting physician: Kenia Lazar Reason for Consult: tremors, dyskinesia? History of Present Illness: Patient is a 69-year-old right-handed male with history of tremors for last 3 years, came to the hospital by ambulance color blender yesterday at 5:06 AM. Patient was complaining of dizziness that started about 3 hours prior to EMS arrival. It was mentioned that patient has 2 stents placed approximately 1 week ago. He was also having chest pressure. Patient was given aspirin by the EMS. EKG showed left bundle branch block with widened QRS. Patient has been diagnosed with acute kidney injury secondary to hypotension, ATN, nonoliguric. Patient has chronic renal disease stage IIIb, chronic systol ic heart failure with EF 35 to 40%. CAD, hypertension, hypotension, rule out adrenal insufficiency. Patient undergoing ACTH stimulation test to rule out adrenal insufficiency. Neurology has been consulted for tremors. It appears patient has been seen by Dr. Dupree on 11/23/2024 for vertigo. He had presented to the ER with dizziness and ringing in the ears of 1 week duration. Worse when he is laying supine flat and when he is standing up ambulating. He feels better when he is laying at [address] Dupree felt it was more peripheral. Patient has resting tremors and was concerned about Parkinson's. MRI of the brain was ordered at that time. Patient refused MRI of the brain and wanted open MRI outpatient. He was placed on meclizine. Patient was started on Sinemet 25 mg 3 times daily but he refused to take medication. Outpatient neurology was recommended. Patient tells me that he he has history of shakes for last 3 years, progressively getting worse. He follows up with Dr. Enriquez. Patient also had undergone EMG testing of the lower extremities and was diagnosed with peripheral neuropathy. Patient states that the shakes are getting into his teeth. When he is drinking, it goes to the "windpipe". He denies any significant change in the size of the handwriting. The tremors are worse when he is under stress. He is wobbly on the feet, but attributes to neuropathy. Patient denies slowing down more than for his chronological age. He does have "rods in the back" at L3-L4-L5 with flor. He denies any alcohol use since 2000. No diabetes. Patient at present taking Eliquis 5 mg twice daily, aspirin 81 mg, Brilinta 90 mg twice daily, baclofen 10 mg 4 times a day, Seroquel 25 mg at bedtime. Meclizine, farxiga, Crestor 20 mg, Zetia 10 mg, Review of Systems All pertinent positive and negative review of systems mentioned in the HPI. Past Medical History Past Medical History: Atrial Fibrillation, Coronary Artery Disease (CAD), Chest Pain / Angina, Heart Failure, GERD/Reflux, Hyperlipidemia, Hypertension, Myocardial Infarction ([place]), Osteoarthritis (OA), Prostate Disorder, Renal Disease Additional Past Medical History / Comment(s): degenerative disc disease of the lumbar spine, chronic pain, neuropathy bilateral lower extremity, chronic bronchitis. CKD stage IIIb-IV Last Myocardial Infarction Date:: 2004 History of Any Multi-Drug Resistant Organisms: None Reported Past Surgical History: Cholecystectomy, Heart Catheterization With Stent, Hernia Repair, Orthopedic Surgery Additional Past Surgical History / Comment(s): carpal tunnal repair, cyst removed from the mouth, Left heart catheterization 2000 and 2004, right hernia repair, left arthroscopic knee surgery., pain clinic procedures. Past Anesthesia/Blood Transfusion Reactions: No Reported Reaction Date of Last Stent Placement:: 2004 Past Psychological History: No Psychological Hx Reported Smoking Status: Never smoker Past Alcohol Use History: None Reported Past Drug Use History: Marijuana - Past Family History Mother History Unknown: Yes Family Medical History: Cancer Additional Family Medical History / Comment(s): of old age Father History Unknown: Yes Family Medical History: Cancer Brother(s) Additional Family Medical History / Comment(s): Brother had open heart surgery x 3 related to valvular disease and postoperative infection Medications and Allergies Home Medications Medication Instructions Recorded Confirmed Type Montelukast [Singulair] 10 mg PO HS 09/29/14 11/30/24 History HYDROcodone/APAP 10-325MG [[place] 1 tab PO Q6HR PRN 05/10/21 11/30/24 History 10-325] Tamsulosin [Flomax] 0.4 mg PO DAILY 05/10/21 11/30/24 History Aspirin [Adult Low Dose Aspirin EC] 81 mg PO DAILY 06/19/21 11/30/24 History Pantoprazole [Protonix] 40 mg PO DAILY 06/19/21 11/30/24 History Apixaban [Eliquis] 5 mg PO BID 09/17/22 11/30/24 History Fluoride (Sodium) [Sodium Fluoride 1 applic DENTAL HS 01/22/24 11/30/24 History 5000 Plus] Ondansetron [Zofran] 4 mg PO TID PRN 01/22/24 11/30/24 History QUEtiapine [SEROquel] 25 mg PO HS 01/22/24 11/30/24 History Brinzolamide/Brimonidine Tart 1 drop LEFT EYE Q12H 07/23/24 11/30/24 History [Simbrinza 1%-0.2% Eye Drop] prednisoLONE ACETATE 1% OPHTH 1 drops LEFT EYE Q6H 07/23/24 11/30/24 History [Pred Forte 1%] Ascorbic Acid [Vitamin C] 500 mg PO DAILY 11/22/24 11/30/24 History Nitroglycerin Sl Tabs [Nitrostat] 0.4 mg SUBLINGUAL Q5M PRN 11/22/24 11/30/24 History Rosuvastatin [Crestor] 20 mg PO HS 11/22/24 11/30/24 History Acetaminophen Tab [Tylenol] 650 mg PO Q6HR PRN tab 11/25/24 11/30/24 Rx Ticagrelor [Brilinta] 90 mg PO BID #0 11/25/24 11/30/24 Rx amLODIPine [Norvasc] 10 mg PO DAILY #0 11/25/24 11/30/24 Rx Meclizine [Antivert] 25 mg PO TID PRN 11/30/24 11/30/24 History Metoprolol Succinate (ER) [Toprol 25 mg PO DAILY #30 tab 12/01/24 Rx XL] Allergies Allergy/AdvReac Type Severity Reaction Status Date / Time No Known Allergies Allergy Verified 11/30/24 10:46 Physical Examination - Vital Signs Vital Signs: Vital Signs Temp Pulse Resp BP Pulse Ox 12/01/24 13:00 75 20 119/99 98 12/01/24 11:59 85 20 110/60 98 12/01/24 10:58 75 20 110/71 98 12/01/24 09:00 87 20 148/57 95 12/01/24 05:36 98.2 F 64 18 117/92 94 L 12/01/24 03:42 78 18 107/59 95 04/01/25 00:49 78 17 110/61 96 11/30/24 22:41 66 17 120/83 95 11/30/24 19:23 97.4 F L 87 18 103/70 96 11/30/24 16:00 74 20 117/60 96 Intake and Output 12/01/24 12/01/24 12/01/24 06:59 14:59 22:59 Output Total 286 Balance -286 Output: Post Void Residual 286 Patient is an elderly male, in no acute distress. Patient is alert awake oriented to time place and person. Speech and language functions are normal. Patient can name and repeat very well. No aphasia or dysarthria. Attention, concentration and fund of knowledge is adequate. On cranial nerve examination, pupils are equal, round and reacting to light, visual belle are full on confrontation, with no neglect on double simultaneous stimulation. Extraocular muscles are intact with no nystagmus. Face is symmetric, tongue protrudes to the midline. Palatal elevation and sensation normal, hearing and shoulder shrug normal, facial sensation normal. On muscle strength testing, there is no pronator drift and the strength is normal in the biceps, triceps and radiology specialist bilaterally. Deltoids not checked because of chronic issues with bilateral shoulders. They are chronically weak. In the lower limbs (right/left) hip flexion 5/5, ankle dorsiflexion 4+/5, toe extension 3+4-/5. He has weakness of the right leg from previous back surgery. Deep tendon reflexes are hypoactive and plantars are flat bilaterally. Sensory to touch is equal with no neglect on double simultaneous stimulation. Cerebellar function showed no ataxia for [id number] testing. No dysdiadochokinesia. Tone and bulk of muscles normal. Patient has moderate pill-rolling tremors at rest of both hands. He has mild to moderate tremors of outstretched hands as well as tremulousness for [id number] testing. The tremors are slightly more prominent right hand as compared to the left. Gait: Patient was able to get up from the bed without much difficulty, patient has a slight kyphosis, but walked fairly stable without any assistive device. Patient's gait was not clearly parkinsonian. No shuffling steps. He was able to turn around without much difficulty. On general examination, there is no carotid bruit or murmur, S1-S2 audible. Chest is clear on consultation. Abdomen is soft nontender. No organomegaly, bowel sounds present. Peripheral pulses are present. No peripheral edema. Results - Laboratory Findings CBC and BMP: 12/01/24 05:34 12/01/24 05:34 Abnormal Lab Findings: Abnormal Labs 11/30/24 11/30/24 11/30/24 05:20 05:20 05:20 RBC 3.10 L Hgb 9.1 L D Hct 28.3 L Lymphocytes # D-Dimer Chloride Carbon Dioxide 20 L BUN 48 H Creatinine 2.99 H Glucose 104 H Troponin I 0.083 H* 11/30/24 11/30/24 12/01/24 05:38 08:44 05:34 RBC 3.00 L Hgb 9.0 L Hct 27.9 L Lymphocytes # 0.9 L D-Dimer 0.61 H Chloride Carbon Dioxide BUN Creatinine Glucose Troponin I 0.081 H* 12/01/24 05:34 RBC Hgb Hct Lymphocytes # D-Dimer Chloride 108 H Carbon Dioxide 21 L BUN 47 H Creatinine 3.07 H Glucose 125 H Troponin I Assessment and Plan Assessment: * Parkinsonian tremors at rest. However, patient does not have other clinical features of Parkinson's disease like bradykinesia, rigidity or significant postural instability. Denies micrographia. * Coronary artery disease, status post stenting 11/06/2024 * Acute kidney injury secondary to hypotension, ATN, chronic renal disease * Chronic systolic CHF with EF of 35-40% * Hypertension Plan: * Patient does have tremors at rest suggestive of parkinsonian tremor, but does not have other clinical features of Parkinson's. * Recommend patient undergo GALINDO scan to confirm Parkinson's. This test can only be done as an outpatient. Patient does not want empiric treatment with Sinemet at this time. * TSH normal 2.79 on 11/04/2024. Recommend patient follow-up with neurology outpatient for further management of these tremors. * Neurologically clear. Thank you for the consult.
[2024-12-01] MEDS ORDERED: carvediloL 6.25 MG TAB PO SCH (17:30)
[2024-12-01] MEDS: DORZOLAMIDE HCL 2% DROPS 10 ML BTL LEFT EYE SCH (21:53)
[2024-12-01] MEDS: BRIMONIDINE TARTRATE 0.2% DROPS 5 ML BTL LEFT EYE SCH (21:53)
[2024-12-01] MEDS: CYCLOBENZAPRINE 5 MG TAB PO STA (21:54)
[2024-12-01] MEDS: prednisoLONE ACETATE 1% OPHTH DROPS 5 ML BTL LEFT EYE SCH (21:55)
[2024-12-01] MEDS: polyethylene glycoL 3350 17 GM POWD.PACK PO SCH (23:17)
--- NOTE | 2024-12-02 05:19 | P.PN ---
Subjective Progress Note Date: 12/01/24 This is a 69-year-old who was recently admitted with chest pain that had been radiating to his back neck and shoulders. Patient reports this chest pain has resolved and is being evaluated by cardiology with no plans of intervention at this time. Medications being adjusted and patient also being followed by nephrology. Patient undergoing cortisol testing per nephrology and is status post a dose of cosyntropin and awaiting cortisol levels. Patient is afebrile currently denies chest pain reports has been eating and tolerating diet. Patient would like to go home. Review of systems: Constitutional: No reports of fatigue, fever, or chills Cardiovascular: No reports of chest pain or palpitations Respiratory: No reports of shortness of breath or cough GI: No reports of nausea, no reports of vomiting, no diarrhea : No reports of dysuria or retention Neurovascular: reports of generalized weakness All medications have been reviewed PHYSICAL EXAMINATION: GENERAL: The patient is alert and oriented x4, Well developed, thin built, elderly appearing HEENT: Pupils are round and equally reacting to light. EOMI. no scleral icterus. No conjunctival pallor. Normocephalic, atraumatic. No pharyngeal erythema. No thyromegaly. CARDIOVASCULAR: S1 and S2 muffled PULMONARY: diminished breath sounds bilaterally with no wheezing or rhonchi noted. ABDOMEN: soft. Thin, nontender on exam. non-distended, normoactive bowel sounds. No palpable organomegaly. MUSCULOSKELETAL: No joint swelling or deformity. EXTREMITIES: No cyanosis, clubbing, or pedal edema. NEUROLOGICAL: Gross neurological examination did not reveal any focal deficits. Diffuse weakness SKIN: No rashes. Assessment: Chest pain with elevated troponin, possibly unstable angina versus acute NSTEMI Acute on chronic renal failure Concerns for possible adrenal insufficiency, currently undergoing further workup Atrial fibrillation Diffuse tremors, possibly dyskinetic movements Congestive heart failure history GERD Hypertension Hyperlipidemia Degenerative joint disease GI prophylaxis DVT prophylaxis Full code Plan: Recommend to continue with current medications and management with cardiology, neurology, nephrology following. No immediate cardiac interventions at this time recommending outpatient follow-up and compliance with medications. Nephrology following and is status post cosyntropin monitoring cortisol levels recommend monitoring overnight with repeat labs and discussing possible discharge planning in the next 24 hours While patient was in the ER patient was adamant he was leaving as he was still not in a room and his chronic back pain he cannot tolerate the stretcher. Patient is willing to stay to complete the workup and repeat blood draws. Will discuss with nephrology with probable discharge planning in 24 hours. Due to multiple complex medical issues, overall prognosis is guarded The impression and plan of care has been dictated by Jami Grijalva, nurse practitioner as directed. Dr. Nagi MD I have performed a history and examination and MDM of this patient, discussed the same with the dictator, and agree with the dictator's assessment and plan as written ,documented as a scribe. Based on total visit time, I have performed more than 50% of the visit. Any additional findings or plans will be noted. Objective - Vital Signs Vital signs: Vital Signs Temp 97.9 F 12/02/24 03:28 Pulse 66 12/02/24 03:28 Resp 19 12/02/24 03:28 BP 110/54 12/02/24 03:28 Pulse Ox 97 12/02/24 03:28 FiO2 Intake & Output 12/01/24 12/01/24 12/02/24 06:59 18:59 06:59 Intake Total 240 Output Total 286 Balance -46 Weight 74.843 kg Intake: Oral 240 Output: Post Void Residual 286 Other: # Voids 1 - Labs CBC & Chem 7: 12/01/24 05:34 12/01/24 05:34 Labs: Abnormal Lab Results - Last 24 Hours (Table) 12/01/24 12/01/24 12/01/24 Range/Units 05:34 05:34 14:30 RBC 3.00 L (4.30-5.90) m/uL Hgb 9.0 L (13.0-17.5) gm/dL Hct 27.9 L (39.0-53.0) % Lymphocytes # 0.9 L (1.0-4.8) k/uL Chloride 108 H (98-107) mmol/L Carbon Dioxide 21 L (22-30) mmol/L BUN 47 H (9-20) mg/dL Creatinine 3.07 H (0.66-1.25) mg/dL Glucose 125 H (74-99) mg/dL Cortisol 23.0 H (3.1-22.4) UG/DL
[2024-12-02 08:12] VITALS: RESP 16
[2024-12-02 08:43] LABS: BUN/Creat Ratio 14.35 Ratio (12.00-20.00); Calcium 8.6 mg/dL (8.7-10.3); Carbon Dioxide 21.6 mmol/L (21.6-31.8); Chloride 110 mmol/L (96-109); Glucose 91 mg/dL (70-110); Potassium 4.5 mmol/L (3.5-5.5); Sodium 141 mmol/L (135-145)
[2024-12-02] MEDS: ACETAMINOPHEN TAB 325 MG TAB PO PRN (09:35)
--- NOTE | 2024-12-02 14:17 | P.PN ---
Subjective Patient is seen for follow-up for acute kidney injury associated with low blood pressure. Underlying ischemic cardiomyopathy with EF of 30 to 35% Dizziness is slightly improved but persistent. Blood pressure has improved much. No complaints of shortness of breath Serum creatinine improved to 2.3 today. ACTH stimulation test was performed yesterday and it does NOT show significant adrenal insufficiency Objective - Vital Signs Vital signs: Vital Signs Temp 97.4 F L 12/02/24 07:00 Pulse 72 12/02/24 07:00 Resp 16 12/02/24 09:34 BP 128/63 12/02/24 07:00 Pulse Ox 96 12/02/24 07:00 FiO2 Intake & Output 12/01/24 12/02/24 12/02/24 18:59 06:59 18:59 Intake Total 240 118 Output Total 286 Balance -46 118 Weight 74.843 kg Intake: Oral 240 118 Output: Post Void Residual 286 Other: Voiding Method Toilet # Voids 1 - Exam Patient is awake, comfortable, no acute distress Examination of the heart S1 and S2 Examination of the lungs bilateral breath sounds are heard Abdomen is soft nontender Examination lower extremities shows no significant edema [employer] exam grossly intact - Labs CBC & Chem 7: 12/01/24 05:34 12/02/24 05:23 Labs: Abnormal Lab Results - Last 24 Hours (Table) 12/01/24 12/02/24 Range/Units 14:30 05:23 Chloride 110 H (96-109) mmol/L BUN 33.0 H (9.0-27.0) mg/dL Creatinine 2.3 H (0.6-1.5) mg/dL Est GFR (CKD-EPI) 30 L (>=60) Calcium 8.6 L (8.7-10.3) mg/dL Cortisol 23.0 H (3.1-22.4) UG/DL Assessment and Plan Assessment: 1. Acute kidney injury secondary to hypotension, ATN, nonoliguric. Serum creatinine staying at around 2.9 to 3 mg/dL. It was 2.1 on 11/25/2024. UA was completely benign on 11/22/2024 2. Chronic kidney disease stage IIIb with baseline creatinine close to 2 se condary to nephrosclerosis and cardiorenal syndrome 3. Chronic systolic CHF with EF of 35 to 40% 4. Coronary artery disease status post coronary stent placement on 11/06/2024 5. Hypertension with CKD stage IIIb with baseline creatinine around 1.7 to 2 mg/dL. Etiology nephrosclerosis/cardiorenal syndrome 6. Hypotension with low cortisol level rule out adrenal insufficiency. Cortrosyn stimulation test was negative Plan: Patient can be discharged from nephrology standpoint. Continue with metoprolol. Blood pressure remains low therefore other antihypertensive medications will need to be held. Follow-up as outpatient in 1 to 2 weeks
[2024-12-02 14:53] VITALS: BP 130/67; PULSE 62; TEMP 97.6
--- NOTE | 2024-12-04 10:41 | P.DS ---
Providers Date of admission: 11/30/24 07:23 Expected date of discharge: 12/01/24 Attending physician: Cortez Pace MD Consults: 11/30/24 07:23 Consult Physician Routine Consulting Provider: Ira Gonzalez Consult Reason/Comments: SONYA Do you want consulting provider notified?: Yes, Notify in am Consult Physician Urgent Consulting Provider: [facility] Consult Reason/Comments: Chest pain Do you want consulting provider notified?: Yes, Notify in am 11/30/24 13:12 Consult Physician Routine Consulting Provider: Lexi Puckett Consult Reason/Comments: tremors, dyskinesia? Do you want consulting provider notified?: Yes Primary care physician: Susan Armas Hospital Course: Final diagnosis Chest pain with elevated troponin, possibly unstable angina less likely ACS per cardiology Acute on chronic renal failure, improving Abnormal cortisol levels, adrenal insufficiency ruled out, may need further testing outpatient History of coronary artery disease status post left main PCI. [employer] of RCA Severe ischemic cardiomyopathy with an EF of 30 to 35% Atrial fibrillation, paroxysmal Diffuse tremors, possibly dyskinetic movements versus Parkinson's, patient re ports neurologist told him neuropathy Congestive heart failure history GERD Hypertension Hyperlipidemia Degenerative joint disease GI prophylaxis DVT prophylaxis Full code Discharge disposition Patient is being discharged in a stable condition with guarded prognosis to home. Patient will follow-up with Dr. Armas in the outpatient setting upon discharge. Patient is to continue with current medications and close outpatient follow-up with cardiology as well as nephrology as scheduled. Total time taken is greater than 35 minutes. Hospital course This is a 69-year-old male who was recently admitted with chest pain, ruled out ACS with elevated troponins, although likely unstable angina per cardiology. Patient with chronic kidney disease with acute on chronic renal failure evaluated by nephrology and concerns initially of adrenal insufficiency. Cortisol testing including ACTH was done with no obvious abnormality ruling out adrenal insufficiency. Patient may need outpatient follow-up further with endocrine as well as nephrology. Patient is adamant about going home and has been cleared by consultations recommending close outpatient follow-up. Please refer to cardiology and nephrology consultation notes for further HPI. Patient was also instructed to follow-up with his primary neurologist outpatient. Patient has had extensive neurological workups done most recently. Currently no reports of chest pain, shortness of breath, or palpitations. Patient is afebrile. No reports of nausea or vomiting and patient is tolerating diet. Patient will be discharged home today. Guarded prognosis and high risk for readmissions given patient's significant comorbidities and noncompliance with medications and follow-up outpatient Physical exam: Gen: This is a 69-year-old male who is awake, alert and oriented x 3, thin build, elderly appearing, ill-appearing HEENT: Head is atraumatic, normocephalic. Pupils equal, round. Sclerae is anicteric. NECK: Supple. No JVD. No lymphadenopathy. No thyromegaly. LUNGS: Diminished breath sounds bilaterally otherwise clear to auscultation. No wheezes or rhonchi. No intercostal retractions. HEART: S1, S2 are muffled, irregular ABDOMEN: Soft. Thin bowel sounds are present. No masses. No tenderness. EXTREMITIES: No pedal edema. No calf tenderness. Muscle wasting noted with cachexia NEUROLOGICAL: Patient is awake, alert and oriented x3. Cranial nerves 2 through 12 are grossly intact. Please refer to medication reconciliation sheet for a list of medications. The impression and plan of care has been dictated by Jami Grijalva, Nurse Practitioner as directed. Dr. Nagi MD I have performed a history and examination and MDM of this patient, discussed the same with the dictator, and agree with the dictator's assessment and plan as written ,documented as a scribe. Based on total visit time, I have performed more than 50% of the visit. Patient Condition at Discharge: Stable Plan - Discharge Summary New Discharge Prescriptions: New Metoprolol Succinate (ER) [Toprol XL] 25 mg PO DAILY #30 tab Continue Montelukast [Singulair] 10 mg PO HS Aspirin [Adult Low Dose Aspirin EC] 81 mg PO DAILY Apixaban [Eliquis] 5 mg PO BID Fluoride (Sodium) [Sodium Fluoride 5000 Plus] 1 applic DENTAL HS prednisoLONE ACETATE 1% OPHTH [Pred Forte 1%] 1 drops LEFT EYE Q6H Brinzolamide/Brimonidine Tart [Simbrinza 1%-0.2% Eye Drop] 1 drop LEFT EYE Q12H Nitroglycerin Sl Tabs [Nitrostat] 0.4 mg SUBLINGUAL Q5M PRN PRN Reason: Chest Pain Ascorbic Acid [Vitamin C] 500 mg PO DAILY Acetaminophen Tab [Tylenol] 650 mg PO Q6HR PRN tab PRN Reason: Mild Pain Or Fever > 100.5 Meclizine [Antivert] 25 mg PO TID PRN PRN Reason: DIZZINESS HYDROcodone/APAP 10-325MG [[place] 10-325] 1 tab PO Q6HR PRN PRN Reason: Pain Tamsulosin [Flomax] 0.4 mg PO DAILY Pantoprazole [Protonix] 40 mg PO DAILY QUEtiapine [SEROquel] 25 mg PO HS Ondansetron [Zofran] 4 mg PO TID PRN PRN Reason: Nausea And Vomiting Rosuvastatin [Crestor] 20 mg PO HS Ticagrelor [Brilinta] 90 mg PO BID #0 amLODIPine [Norvasc] 10 mg PO DAILY #0 Discontinued Baclofen [Lioresal] 10 mg PO QID hydrALAZINE HCL [Apresoline] 50 mg PO TID #90 tab Ezetimibe [Zetia] 10 mg PO DAILY Furosemide [Lasix] 20 mg PO DAILY Dapagliflozin Propanediol [Farxiga] 5 mg PO DAILY #30 tab Metoprolol Tartrate [Lopressor] 25 mg PO BID #60 tab Isosorbide Mononitrate ER [Imdur] 30 mg PO DAILY #0 Discharge Medication List Montelukast [Singulair] 10 mg PO HS 09/29/14 [History] HYDROcodone/APAP 10-325MG [[place] 10-325] 1 tab PO Q6HR PRN 05/10/21 [History] Tamsulosin [Flomax] 0.4 mg PO DAILY 05/10/21 [History] Aspirin [Adult Low Dose Aspirin EC] 81 mg PO DAILY 06/19/21 [History] Pantoprazole [Protonix] 40 mg PO DAILY 06/19/21 [History] Apixaban [Eliquis] 5 mg PO BID 09/17/22 [History] Fluoride (Sodium) [Sodium Fluoride 5000 Plus] 1 applic DENTAL HS 01/22/24 [History] Ondansetron [Zofran] 4 mg PO TID PRN 01/22/24 [History] QUEtiapine [SEROquel] 25 mg PO HS 01/22/24 [History] Brinzolamide/Brimonidine Tart [Simbrinza 1%-0.2% Eye Drop] 1 drop LEFT EYE Q12H 07/23/24 [History] prednisoLONE ACETATE 1% OPHTH [Pred Forte 1%] 1 drops LEFT EYE Q6H 07/23/24 [History] Ascorbic Acid [Vitamin C] 500 mg PO DAILY 11/22/24 [History] Nitroglycerin Sl Tabs [Nitrostat] 0.4 mg SUBLINGUAL Q5M PRN 11/22/24 [History] Rosuvastatin [Crestor] 20 mg PO HS 11/22/24 [History] Acetaminophen Tab [Tylenol] 650 mg PO Q6HR PRN tab 11/25/24 [Rx] Ticagrelor [Brilinta] 90 mg PO BID #0 11/25/24 [Rx] amLODIPine [Norvasc] 10 mg PO DAILY #0 11/25/24 [Rx] Meclizine [Antivert] 25 mg PO TID PRN 11/30/24 [History] Metoprolol Succinate (ER) [Toprol XL] 25 mg PO DAILY #30 tab 12/01/24 [Rx] Follow up Appointment(s)/Referral(s): Wallace Flores MD [Medical Doctor] - 1 Week (12-09-2024 at 8:00am) Sim Mckinnon DO [STAFF PHYSICIAN] - 1 Week Susan Armas DO [Primary Care Provider] - 1-2 days Ambulatory/Diagnostic Orders: Basic Metabolic Panel [LAB.AMB] Time Frame: 3 Days, Location: None Selected Patient Instructions/Handouts: Angina (DC), Angina (GEN), Chest Pain (ED), Chest Pain (DC), Acute Kidney Injury (DC), Acute Kidney Injury (GEN) Activity/Diet/Wound Care/Special Instructions: Activity limited until follow-up Follow-up with cardiology outpatient Follow-up with primary care provider on discharge Follow-up with nephrology outpatient Continue taking medications as prescribed NEURO RECOMMENDS GALINDO SCAN A N O.P TO CONFIRM [facility] Discharge Disposition: HOME SELF-CARE
== END 2024-12-02 17:15 | disposition home or self-care (01) ==
LOC: EC 05:06 → 6NMEDSUR 07:23 → 3SCARD 18:31 → 6NMEDSUR 12-01 12:31
PROVIDERS: ADMIT Internal Medicine; ATTEND Internal Medicine
DX: R07.9 Chest pain, unspecified (principal); R79.89 Other specified abnormal findings of blood chemistry; N17.0 Acute kidney failure with tubular necrosis; I95.9 Hypotension, unspecified; R25.1 Tremor, unspecified; R42 Dizziness and giddiness; I25.10 Atherosclerotic heart disease of native coronary artery without angina pectoris; I48.0 Paroxysmal atrial fibrillation; I13.0 Hypertensive heart and chronic kidney disease with heart failure and stage 1 through stage 4 chronic kidney disease, or unspecified chronic kidney disease; I50.22 Chronic systolic (congestive) heart failure; N18.32 Chronic kidney disease, stage 3b; K21.9 Gastro-esophageal reflux disease without esophagitis; E78.5 Hyperlipidemia, unspecified; M19.90 Unspecified osteoarthritis, unspecified site; R94.7 Abnormal results of other endocrine function studies; I25.5 Ischemic cardiomyopathy; I25.2 Old myocardial infarction; Z87.891 Personal history of nicotine dependence; Z95.5 Presence of coronary angioplasty implant and graft; Z79.01 Long term (current) use of anticoagulants; Z79.02 Long term (current) use of antithrombotics/antiplatelets; Z79.82 Long term (current) use of aspirin; Z79.84 Long term (current) use of oral hypoglycemic drugs; Z79.899 Other long term (current) drug therapy
CPT/HCPCS: 96374; 96375; 99285; 51798; 36415; 93005 ×2; 86900; 86901; 85379; 83880; 80053; 80048 ×2; 82533 ×2; 83690; 83735; 84484; 85025 ×2; 85610; 85730; 86850; 71046; 78582; G0378 ×5; A9540; A9567; J0834; J2405

== ENCOUNTER 2024-12-14 09:38 | Emergency (ER) | payer MEDICARE, OTHER ==
[2024-12-14 09:52] VITALS: RESP 18; TEMP 98.3
[2024-12-14] MEDS: ACETAMINOPHEN TAB 325 MG TAB PO STA (10:52)
[2024-12-14] MEDS: diphenhydrAMINE 50 MG/ML 1 ML VIAL IVP STA (10:54)
[2024-12-14] MEDS: METOCLOPRAMIDE 5 MG/ML 2 ML VIAL IVP STA (10:54)
[2024-12-14] MEDS: SODIUM CHLORIDE 0.9% 1,000 ML IV ONE (10:55)
[2024-12-14 10:58] LABS: Basophils # (A) 0.07 10*3/uL (0.00-0.10); Eosinophils # (A) 0.23 10*3/uL (0.04-0.35); Eosinophils % (A) 3.2 %; HCT 27.5 % (39.6-50.0); HGB 8.8 g/dL (13.0-17.0); Lymphocytes # (A) 1.03 10*3/uL (0.90-5.00); Lymphocytes % (A) 14.4 %; MCH 29.2 pg (27.0-32.0); MCV 91.4 fL (80.0-97.0); Mean Platelet Volume 10.7 fL (9.5-12.2); Monocytes # (A) 0.53 10*3/uL (0.20-1.00); Monocytes % (A) 7.4 %; Neutrophils # (A) 5.26 10*3/uL (1.80-7.70); Neutrophils % (A) 73.7 %; Platelet Count 222 10*3/uL (140-440); RBC 3.01 10*6/uL (4.40-5.60); RDW 13.4 % (11.5-14.5); WBC 7.14 10*3/uL (4.50-10.00)
[2024-12-14 11:09] LABS: ALT 20 U/L (4-49); AST 28 U/L (17-59); African American GFR (CKD) 42 (>60 ml/min/1.73 sqM); Albumin 4.1 g/dL (3.5-5.0); Alkaline Phosphatase 86 U/L (38-126); Anion Gap 13 mmol/L; Blood Urea Nitrogen 29 mg/dL (9-20); Calcium 9.7 mg/dL (8.4-10.2); Carbon Dioxide 24 mmol/L (22-30); Chloride 100 mmol/L (98-107); Glucose 109 mg/dL (74-99); Non-African American GFR(CKD) 36 (>60 ml/min/1.73 sqM); Potassium 3.9 mmol/L (3.5-5.1); Sodium 137 mmol/L (137-145); Total Bilirubin 0.8 mg/dL (0.2-1.3)
--- NOTE | 2024-12-14 11:22 | CT ---
EXAMINATION TYPE: CT brain wo con CT DLP: 1068.4 mGycm, Automated exposure control for dose reduction was used. DATE OF EXAM: 12/14/2024 11:15 AM COMPARISON: CT brain C-spine 11/22/2024 CLINICAL INDICATION:Male, 69 years old with history of headache, STONE. TECHNIQUE: Brain: Multiple axial CT images of the brain were obtained without IV contrast. . Coronal and sagitta l reformats reviewed. FINDINGS: Brain: Extra-axial spaces: No abnormal extra-axial fluid collections. Ventricular system: Within normal limits Cerebral parenchyma: No acute intraparenchymal hemorrhage or mass effect. The bellamy-white junction is well differentiated. Cerebellum: Unremarkable. Mass effect: No evidence of midline shift. Intracranial vasculature: Atherosclerotic calcifications of the intracranial vessels. Soft tissues: Normal. Calvarium/osseous structures: No depressed skull fracture. Remote fracture deformity of the nasal luisito dge. Paranasal sinuses and mastoid air cells: Mastoid air cells are clear. Minimal paranasal scattered muc osal sinus disease. Mild nasal septal deviation of the right. Visualized orbits: Left aphakia IMPRESSION: No acute intracranial process. [facility], , 12/14/2024 11:20 AM
[2024-12-14 11:30] LABS: Influenza A Not Detected (Not Detectd); Influenza B Not Detected (Not Detectd); RSV Not Detected (Not Detectd)
--- NOTE | 2024-12-14 11:35 | ED ---
Headache HPI - General Chief Complaint: Headache Stated Complaint: Headache Time Seen by Provider: 12/14/24 10:05 Source: patient, RN notes reviewed, old records reviewed Mode of arrival: wheelchair Limitations: no limitations - History of Present Illness Initial Comments: 69-year-old male with a past medical history significant of atrial fibrillation, heart failure, hypertension and renal disease presented to the ER for evaluation of a headache. Patient reports since about 630 last night he has been having a generalized headache. He does report a history of these. He states pain feels similar. He denies injuries or traumas. Patient continually says he gets a headache when he is "hospitalized". He denies any recent hospitalizations. He has tried [place] and Tylenol for symptom control at home without relief. Patient does take Eliquis given atrial fibrillation. He denies any dizziness, lightheadedness, nausea, vomiting, double blurry vision, fevers or chills. No other complaints at this time. - Related Data Home Medications Medication Instructions Recorded Confirmed Montelukast [Singulair] 10 mg PO HS 09/29/14 11/30/24 HYDROcodone/APAP 10-325MG [[place] 1 tab PO Q6HR PRN 05/10/21 11/30/24 10-325] Tamsulosin [Flomax] 0.4 mg PO DAILY 05/10/21 11/30/24 Aspirin [Adult Low Dose Aspirin EC] 81 mg PO DAILY 06/19/21 11/30/24 Pantoprazole [Protonix] 40 mg PO DAILY 06/19/21 11/30/24 Apixaban [Eliquis] 5 mg PO BID 09/17/22 11/30/24 Fluoride (Sodium) [Sodium Fluoride 1 applic DENTAL HS 01/22/24 11/30/24 5000 Plus] Ondansetron [Zofran] 4 mg PO TID PRN 01/22/24 11/30/24 QUEtiapine [SEROquel] 25 mg PO HS 01/22/24 11/30/24 Brinzolamide/Brimonidine Tart 1 drop LEFT EYE Q12H 07/23/24 11/30/24 [Simbrinza 1%-0.2% Eye Drop] prednisoLONE ACETATE 1% OPHTH 1 drops LEFT EYE Q6H 07/23/24 11/30/24 [Pred Forte 1%] Ascorbic Acid [Vitamin C] 500 mg PO DAILY 11/22/24 11/30/24 Nitroglycerin Sl Tabs [Nitrostat] 0.4 mg SUBLINGUAL Q5M PRN 11/22/24 11/30/24 Rosuvastatin [Crestor] 20 mg PO HS 11/22/24 11/30/24 Meclizine [Antivert] 25 mg PO TID PRN 11/30/24 11/30/24 Previous Rx's Medication Instructions Recorded Acetaminophen Tab [Tylenol] 650 mg PO Q6HR PRN tab 11/25/24 Ticagrelor [Brilinta] 90 mg PO BID #0 11/25/24 amLODIPine [Norvasc] 10 mg PO DAILY #0 11/25/24 Metoprolol Succinate (ER) [Toprol 25 mg PO DAILY #30 tab 12/01/24 XL] Allergies Allergy/AdvReac Type Severity Reaction Status Date / Time No Known Allergies Allergy Verified 11/30/24 10:46 Review of Systems ROS Statement: Those systems with pertinent positive or pertinent negative responses have been documented in the HPI. ROS Other: All systems not noted in ROS Statement are negative. Past Medical History Past Medical History: Atrial Fibrillation, Coronary Artery Disease (CAD), Chest Pain / Angina, Heart Failure, GERD/Reflux, Hyperlipidemia, Hypertension, Myocardial Infarction (TX), Osteoarthritis (OA), Prostate Disorder, Renal Disease Additional Past Medical History / Comment(s): degenerative disc disease of the lumbar spine, chronic pain, neuropathy bilateral lower extremity, chronic bronchitis. CKD stage IIIb-IV Last Myocardial Infarction Date:: 2004 History of Any Multi-Drug Resistant Organisms: None Reported Past Surgical History: Cholecystectomy, Heart Catheterization With Stent, Hernia Repair, Orthopedic Surgery Additional Past Surgical History / Comment(s): carpal tunnal repair, cyst removed from the mouth, Left heart catheterization 2000 and 2004, right hernia repair, left arthroscopic knee surgery., pain clinic procedures. Past Anesthesia/Blood Transfusion Reactions: No Reported Reaction Date of Last Stent Placement:: 2004 Past Psychological History: No Psychological Hx Reported Smoking Status: Never smoker Past Alcohol Use History: None Reported Past Drug Use History: Marijuana - Past Family History Mother History Unknown: Yes Family Medical History: Cancer Additional Family Medical History / Comment(s): of old age Father History Unknown: Yes Family Medical History: Cancer Brother(s) Additional Family Medical History / Comment(s): Brother had open heart surgery x 3 related to valvular disease and postoperative infection General Exam Limitations: no limitations General appearance: alert, in no apparent distress Head exam: Present: atraumatic, normocephalic, normal inspection Eye exam: Present: normal appearance, PERRL, EOMI. Absent: scleral icterus, co njunctival injection, periorbital swelling Pupils: Present: normal accommodation ENT exam: Present: normal exam, normal oropharynx, mucous membranes moist, TM's normal bilaterally Neck exam: Present: normal inspection. Absent: tenderness, meningismus, lymphadenopathy Respiratory exam: Present: normal lung sounds bilaterally. Absent: respiratory distress, wheezes, rales, rhonchi, stridor Cardiovascular Exam: Present: normal rhythm, irregular rhythm, normal heart sounds. Absent: systolic murmur, diastolic murmur, rubs, gallop, clicks Extremities exam: Present: normal inspection, full ROM, normal capillary refill. Absent: tenderness, pedal edema, joint swelling, calf tenderness Neurological exam: Present: alert, oriented X3, CN II-XII intact Skin exam: Present: warm, dry, intact, normal color. Absent: rash Course Vital Signs 12/14/24 12/14/24 12/14/24 09:50 12:16 12:56 Temperature 98.3 F Pulse Rate 103 H 90 90 Respiratory 18 18 18 Rate Blood Pressure 110/62 119/62 110/61 O2 Sat by Pulse 98 95 98 Oximetry - Reevaluation(s) Reevaluation #1: 12/14/24 12:40 Patient reevaluated. Patient sleeping in exam room no signs of acute distress. Results cussed with patient patient comfortable discharge. Medical Decision Making - Medical Decision Making Was pt. sent in by a medical professional or institution (, PA, F[employer] [facility]ER, urgent care, hospital, or fci...) When possible be specific @ -No Did you speak to anyone other than the patient for history (EMS, parent, family, police, friend...)? What history was obtained from this source @ -No Did you review nursing and triage notes (agree or disagree)? Why? @ -I reviewed and agree with nursing and triage notes Were old charts reviewed (outside hosp., previous admission, EMS record, old EKG, old radiological studies, urgent care reports/EKG's, fci records)? Report findings @ -No old charts were reviewed Differential Diagnosis (chest pain, altered mental status, abdominal pain women, abdominal pain men, vaginal bleeding, weakness, fever, dyspnea, syncope, headache, dizziness, GI bleed, back pain, seizure, CVA, palpatations, mental health, musculoskeletal)? @ -Differential Headache: Migraine, tension, cluster, carbon monoxide, central venous thrombosis, pension karma temporal arteritis, acute closure glaucoma, intercranial hemorrhage, mastoiditis, sinusitis, head injury, this is not meant to be an all-inclusive list. EKG interpreted by me (3pts min.). @ -None done X-rays interpreted by me (1pt min.). @ -None done CT interpreted by me (1pt min.). @ -CT brain showing no acute intracranial process. U/S interpreted by me (1pt. min.). @ -None done What testing was considered but not performed or refused? (CT, X-rays, U/S, labs)? Why? @ -None What meds were considered but not given or refused? Why? @ -None Did you discuss the management of the patient with other professionals (professionals i.e. , PA, [employer], lab, RT, psych nurse, adoption social worker, wildlife control agent, teacher, annual giving officer, child welfare caseworker)? Give summary @ -No Was smoking cessation discussed for >3mins.? @ -No Was critical care preformed (if so, how long)? @ -No Were there social determinants of health that impacted care today? How? (Homelessness, low income, unemployed, alcoholism, drug addiction, transportation, low edu. Level, literacy, decrease access to med. care, shelter, rehab)? @ -No Was there de-escalation of care discussed even if they declined (Discuss DNR or withdrawal of care, Hospice)? DNR status @ -No What co-morbidities impacted this encounter? (DM, HTN, Smoking, COPD, CAD, Cancer, CVA, ARF, Chemo, Hep., AIDS, mental health diagnosis, sleep apnea, morbid obesity)? @ -Atrial fibrillation on Eliquis, renal disease Was patient admitted / discharged? Hospital course, mention meds given and route, prescriptions, significant lab abnormalities, going to OR and other pertinent info. @ -Discharge. 69-year-old male presented to ER for evaluation of a headache. Upon examination, patient resting comfortably in exam no signs of acute d istress. Vitals with acceptable limits. No acute neurological findings on exam. GCS 15. Laboratory studies obtained showing a hemoglobin of 8.8 likely due to CKD. Stage III CKD with a GFR of 36, BUN 29, creatinine 1.84 this appears to be at patient's baseline. Influenza, RSV and COVID-negative. CT brain showing no acute intracranial process. Patient given symptomatic treatment in the ER with IV fluids, Reglan, Dilaudid, Benadryl and Tylenol. Upon reevaluation, patient sleeping in exam room no signs of acute distress. Results discussed with patient, all questions answered. Patient reporting improvement of headache. Patient discharged in stable condition with follow-up to PCP. Strict return parameters discussed. Patient verbally expressed understanding and agreement with care plan. Case discussed with ED attending, Dr. Henao. Undiagnosed new problem with uncertain prognosis? @ -No Drug Therapy requiring intensive monitoring for toxicity (Heparin, Nitro, Insul in, Cardizem)? @ -No Were any procedures done? @ -No Diagnosis/symptom? @ -Headache Acute, or Chronic, or Acute on Chronic? @ -Acute Uncomplicated (without systemic symptoms) or Complicated (systemic symptoms)? @ -Uncomplicated Side effects of treatment? @ -No Exacerbation, Progression, or Severe Exacerbation? @ -No Poses a threat to life or bodily function? How? (Chest pain, [place], [place], pneumonia, PE, COPD, DKA, ARF, appy, cholecystitis, CVA, Diverticulitis, Homicidal, Suicidal, threat to staff... and all critical care pts) @ -No - Lab Data Result diagrams: 12/14/24 10:43 12/14/24 10:43 Lab Results 12/14/24 12/14/24 12/14/24 Range/Units 10:43 10:43 10:43 WBC 7.14 (4.50-10.00) 10*3/uL RBC 3.01 L (4.40-5.60) 10*6/uL Hgb 8.8 L (13.0-17.0) g/dL Hct 27.5 L (39.6-50.0) % MCV 91.4 (80.0-97.0) fL MCH 29.2 (27.0-32.0) pg MCHC 32.0 (32.0-37.0) g/dL Plt Count 222 (140-440) 10*3/uL MPV 10.7 (9.5-12.2) fL Immature Gran % (Auto) 0.3 % Neutrophils % 73.7 % Lymphocytes % 14.4 % Monocytes % 7.4 % Eosinophils % 3.2 % Basophils % 1.0 % Immature Gran # 0.02 (0.00-0.04) 10*3/uL Neutrophils # 5.26 (1.80-7.70) 10*3/uL Lymphocytes # 1.03 (0.90-5.00) 10*3/uL Monocytes # 0.53 (0.20-1.00) 10*3/uL Eosinophils # 0.23 (0.04-0.35) 10*3/uL Basophils # 0.07 (0.00-0.10) 10*3/uL Sodium 137 (137-145) mmol/L Potassium 3.9 (3.5-5.1) mmol/L Chloride 100 (98-107) mmol/L Carbon Dioxide 24 (22-30) mmol/L Anion Gap 13 mmol/L BUN 29 H (9-20) mg/dL Creatinine 1.84 H (0.66-1.25) mg/dL Est GFR (CKD-EPI)AfAm 42 (>60 ml/min/1.73 sqM) Est GFR (CKD-EPI)NonAf 36 (>60 ml/min/1.73 sqM) Glucose 109 H (74-99) mg/dL Calcium 9.7 (8.4-10.2) mg/dL Total Bilirubin 0.8 (0.2-1.3) mg/dL AST 28 (17-59) U/L ALT 20 (4-49) U/L Alkaline Phosphatase 86 (38-126) U/L Total Protein 7.0 (6.3-8.2) g/dL Albumin 4.1 (3.5-5.0) g/dL Influenza Type A (PCR) Not Detected (Not Detectd) Influenza Type B (PCR) Not Detected (Not Detectd) RSV (PCR) Not Detected (Not Detectd) SARS-CoV-2 (PCR) Not Detected (Not Detectd) Disposition Clinical Impression: Headache Disposition: HOME SELF-CARE Condition: Stable Instructions (If sedation given, give patient instructions): Acute Headache (ED) Additional Instructions: Follow-up with PCP. Return to the ER for any new or worsening symptoms. Is patient prescribed a controlled substance at d/c from ED?: No Referrals: Susan Armas DO [Primary Care Provider] - 1-2 days Time of Disposition: 12:46
[2024-12-14] MEDS: HYDROmorphone 1 MG/ML 1 ML SYRINGE IVP STA (12:12)
[2024-12-14 12:20] VITALS: PULSE 90
[2024-12-14 13:07] VITALS: BP 110/61
== END 2024-12-14 13:20 | disposition home or self-care (01) ==
LOC: EC 09:38
DX: R51.9 Headache, unspecified (principal); I13.0 Hypertensive heart and chronic kidney disease with heart failure and stage 1 through stage 4 chronic kidney disease, or unspecified chronic kidney disease; I50.9 Heart failure, unspecified; N18.32 Chronic kidney disease, stage 3b; I48.91 Unspecified atrial fibrillation; Z11.52 Encounter for screening for COVID-19; Z79.01 Long term (current) use of anticoagulants; Z79.82 Long term (current) use of aspirin
CPT/HCPCS: 36415; 80053; 85025; 87636; 70450; 99284; 96374; 96375 ×2; 96361; J1200; J2765; J1171